=== PATIENT | male | born 1965 | race Caucasian/White ===

== ENCOUNTER 2016-04-27 16:07 | Inpatient (IN) | payer OTHER ==
[~2016-04-27] VITALS: Ht 170.2 cm; Wt 84.6 kg
[~2016-04-27 16:07] MED LIST: ACET-171 PO; AMLO5TAB2 PO; ASPI-973 PO; DIVA500T14 PO; FURO40TA4 PO; INSU100I8 SUBQ; INSU100V7 SUBQ; LABE200T PO; LIP40 PO; OMEP20CA11 PO
[2016-04-27 16:18] VITALS: BP 140/72; PULSE 66; RESP 20; O2SAT 99
[2016-04-27 20:28] VITALS: BP 207/89; PULSE 61; RESP 18; O2SAT 99
--- NOTE | 2016-04-27 20:42 | ED.REPORT ---
HPI-General Illness Date of Service Apr 27, 2016 ED Provider: Dr. Caleb Diamond M.D. A 50 year old male with a medical history including diabetes, diabetic retinopathy, hypertension, bipolar disorder, chronic kidney disease, and chronic elevated troponin presents to the ED from his PCP's office with abnormal lab results. The patient also reports general malaise and weakness. He denies other symptoms. He was admitted to the hospital for one night on with diagnoses including hypertensive emergency and acute kidney disease. Nursing Notes Stated Complaint: KIDNEY PAIN, UNRESPONSIVE AT TIMES/SENT FROM Chief Complaint: General Complaint Nursing Notes Reviewed: Yes Allergies: Coded Allergies: tetanus and diphtheria toxoids (Verified Allergy, Severe, COULDN'T HEAR VOMITING, SYNCOPE HOSPITALIZED, 04/09/16) Sulfa (Sulfonamide Antibiotics) (Verified Allergy, Unknown, 01/28/16) Scheduled Amlodipine (Amlodipine) 5 Mg Tablet 10 MG PO DAILY Aspirin (Aspirin) 81 Mg Tablet 81 MG PO DAILY Atorvastatin (Lipitor) 40 Mg Tablet 40 MG PO DAILY Divalproex ER (Divalproex ER) 500 Mg Tab.er.24h 500 MG PO TID Furosemide (Furosemide) 40 Mg Tablet 40 MG PO BID Insulin Glargine (Lantus U100 Insulin Vial) 100 Unit/Ml Vial 10 UNIT SUBQ Noon Insulin Glulisine (Apidra U100 Insulin Solostar Pen) 100 Unit/1 Ml Insuln.pen 6- 8 UNITS SUBQ DAILY Labetalol (Labetalol) 200 Mg Tablet 200 MG PO TID Omeprazole (Omeprazole) 20 Mg Capsule.dr 20 MG PO DAILY Scheduled PRN Acetaminophen (Acetaminophen) 500 Mg Tablet 500-1,000 MG PO Q6H PRN PRN For Headache General Time Seen by MD: 20:42 Chief Complaint Other (Abnormal Labs) Hx Obtained From: Patient Arrived By: Walk-in Sudden in Onset?: No Onset Occurred: Just prior to arrival Symptom Duration: Since onset Severity: Current: No pain currently Severity: Maximum: No pain Associated with: Reports: Weakness, Denies: Fever Pertinent Negative: Relieved by nothing Context Related History: Reports Diabetes mellitus, Reports Psychiatric history Recent Healthcare: Recent doctor visit, Recent hospitalization Similar Sx Previous: Yes Past Medical History Past Medical History Undiagnosed mental disorder Bipolar, manic Headaches non-migraine 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 Chronic kidney disease Reports: Diabetes mellitus, Hypertension Past Surgical History Hernia repair Smoking History Former Smoker Social History Alcohol Use: In recovery Drug Use: Denies drug use Other Social History: Smokeless tobacco, Good social support, Lives with children Ambulatory Status Independent Review of Systems + Abnormal lab results from PCP Full Review of Systems Constitutional: Reports: Malaise, Weakness - generalized, Denies: Fever Respiratory: Denies: Non-productive cough, Shortness of breath GI: Denies: Nausea, Vomiting Musculoskeletal: Denies: Back pain, Extremity pain Complete sys rev & neg: except as marked. Physical Exam Vital Signs Vital Signs Date Time Temp Pulse Resp B/P Pulse Ox O2 Delivery O2 Flow Rate FiO2 04/28/16 01:00 57 14 216/82 99 Room Air 04/28/16 00:30 63 14 235/86 99 Room Air 04/28/16 00:00 63 14 233/95 98 Room Air 04/27/16 23:18 64 229/89 04/27/16 20:28 36.5 61 18 207/89 99 Room Air 04/27/16 16:18 37.2 66 20 140/72 99 Room Air Initial VS: Reviewed Neck: Supple, Full range of motion Respiratory: Breath sounds normal, Clear to auscultation, No respiratory distress Cardiovascular: Regular rate & rhythm, Heart sounds normal Abdomen / GI: Soft, Non-tender Extremities: Vascular intact, Neuro intact, No swelling Skin: Warm, Dry Neurologic: Alert, Oriented, Nonfocal Psychiatric: Mood/affect normal, Behavior normal, Normal thought content General/Constitutional: Awake, Alert, No acute distress Distress / Hydration: Positive: Dehydration mild Appearance / Presentation: Positive: Pale Head / Eyes: Atraumatic, Normocephalic Acuity / Tonometry: Positive: Visual acuity abnormal L (Baseline), Visual acuity abnormal R (Baseline) ENT: Atraumatic, Airway patent Mouth: Positive: Mucous membranes dry Interpretation & Diagnostics LABS 04/14/16: WBC 3.9 RBC 2.66 HGB 7.8 HCT 23.3 MCV 87.6 MCH 29.3 MCHC 33.5 RDW 13.2 Platelets 244 MPV 9.6 Sodium 135 Potassium 5.3 Chloride 105 CO2 26 Anion Gap 4 Glucose 193 BUN 46 Creatinine 3.80 GFR Non-Black 18 GFR Black 20 Protein, Total 0.5 Albumin 3.4 Calcium 8.5 Bilirubin, Total 0.5 Alkaline Phosphatase 38 ALT 12 AST 14 Calculated OSMO 287 Lab Results Interpretation Result Diagram: 04/27/16211104/27/162111 Test 04/27/16 21:12 04/27/16 21:24 White Blood Count 4.0th/mm3 (3.8-10.1) Red Blood Count 2.28mil/mm3 (4.40-5.80) Hemoglobin 6.7g/dL (13.8-17.2) Hematocrit 19.3% (41.0-50.0) Mean Corpuscular Volume 84.6fL (81-100) Mean Corpuscular Hemoglobin 29.4pg (27.0-35.0) Mean Corpuscular Hemoglobin Concent 34.7% (32.0-37.0) Red Cell Distribution Width 12.9% (12.3-15.4) Platelet Count 171bil/L (150-400) Neutrophils (%) (Auto) 74.6% (40-74) Lymphocytes (%) (Auto) 15.9% (14-46) Monocytes (%) (Auto) 6.0% (4-12) Eosinophils (%) (Auto) 2.0% (0-5) Basophils (%) (Auto) 0.5% (0-3) Prothrombin Time 10.0sec (8.1-12.5) Prothromb Time International Ratio 0.94ratio Sodium Level 133mEq/L (134-144) Potassium Level 4.8mEq/L (3.5-5.2) Chloride Level 101mEq/L (97-108) Carbon Dioxide Level 20mmol/L (18-29) Blood Urea Nitrogen 39mg/dL (6-24) Creatinine 3.41mg/dL (0.76-1.27) Estimat Glomerular Filtration Rate 20mL/min (>59) Glucose Level 385mg/dL (60-99) Calcium Level 8.2mg/dL (8.5-10.1) Magnesium Level 2.2mg/dL (1.6-2.6) Total Bilirubin 0.2mg/dL (0.0-1.2) Aspartate Amino Transf (AST/SGOT) 9U/L (0-50) Alanine Aminotransferase (ALT/SGPT) 8U/L (0-44) Alkaline Phosphatase 52U/L (25-150) Troponin T 0.238ug/L (0.0-0.011) Total Protein 6.2g/dL (6.4-8.4) Albumin 3.3g/dL (3.4-5.0) Lipase 20U/L (13-60) Hold Cook Top Tube Received (Received) Urine Color Yellow (YELLOW) Urine Appearance Clear (CLEAR,HAZY) Urine pH 5.5 (5.0-8.0) Urine Specific [place] 1.020 (1.003-1.035) Urine Protein 100mg/dL (NEG,TRACE) Urine Glucose (UA) 100mg/dL (NEGATIVE) Urine Ketones Negativemg/dL (NEGATIVE) Urine Occult Blood Moderate (NEGATIVE) Urine Nitrite Negative (NEGATIVE) Urine Bilirubin Negative (NEGATIVE) Urine Urobilinogen Normalmg/dL (NORMAL) Urine Leukocyte Esterase Negative (NEGATIVE) Urine RBC 0-2/hpf (0-2) Urine WBC 0-5/hpf (0-5) Urine Epithelial Cells None/hpf (NONE-MOD) Urine Crystals None seen (NONE SEEN) Urine Bacteria Few/hpf (NONE-FEW) Urine Hyaline Casts None/lpf (NONE) Urine Granular Casts None seen (NONE SEEN) Urine Waxy Casts None seen (NONE SEEN) Urine Red Blood Cell Casts None seen (NONE SEEN) Urine White Blood Cell Casts None seen (NONE SEEN) Urine Mucus None seen (None Seen) Urine Trichomonas None seen (NONE SEEN) Urine Yeast None (NONE SEEN) Urinalysis Comment None Urine Culture Reflexed Not indicated ECG Interpretation ECG Interpretation: Sinus rhythm rate 62 Nonspecific T abnormalities, lateral leads Time: 21:16 X-Ray Chest Interpretation Chest Xray Interpretation: Borderline increased heart size No heart failure or infiltrate View: Portable, 1 view Interpretation / Wet Read by: Wet read ED physician Re-Eval/Medical Decision Med Decision/Clinical Course 50-year-old with diabetes and every other conceivable complication, presents with increased weakness, and was referred in with abnormal labs from a post discharge office visit today. His hemoglobin has drifted down from his baseline value in the mid nines. It is now 6.7. His renal function is remained about stable. His potassium is minimally elevated at 5.4. His blood pressure is been intermittently problematic, and hypertension urgency was the cause of his admission last time. It ultimately resolved with multiple doses of labetalol and clonidine. He is transported home in improved condition. Source of Hx: Old records Time of Eval: 22:30 Patient Status: Condition improved Re-Evaluation/Progress Note: Discussed with patient x-ray and lab results, diagnosis, and plan for admit. Patient agrees with plan for care and all questions were addressed. Consultation : Referral / Consult Name: Ansley Larose MD Consulted With: Hospitalist Call Returned at: 22:38 Hogshead Filler: Agrees with eval, Agrees with plan, Accepts admit Counseled Regarding: Diagnosis, Lab results, Need for admission Discharge & Departure Primary Impression: Anemia Anemia type: unspecified type Qualified Code: D64.9 - Anemia, unspecified Additional Impressions: CRF (chronic renal failure) Chronic kidney disease stage: stage 4 (severe) Qualified Code: N18.4 - Chronic kidney disease, stage 4 (severe) Elevated troponin Accelerated hypertension Disposition: ADMITTED TO HOSPITAL Discharge Condition All VS Reviewed: Yes Condition: Stable Referrals: Charity Monson PA-C (PCP) Crit Care Except Billable Proc Time Spent: 30-74 minutes Services Performed: Patient management by me, Time spent at bedside, Reviewing test results, Reviewing imaging, Discussing patient care, Documentation in record Scribe Attestation Portions of this note were transcribed by Jaye Lake. I, Dr. Diamond, personally performed the history, physical exam, and medical decision-making; I reviewed and confirmed the accuracy of the information in the transcribed note. Signed by: Joss Medel, 04/28/2016, 01:53 copies to: Charity Monson PA-C, Christopher W MD Apr 27, 2016 20:42 JAYE LAKE Apr 27, 2016 20:59
[2016-04-27] MEDS ORDERED: 0.9% Sodium Chloride 1,000 ML IV ONE (21:00)
[2016-04-27 21:26] LABS: BASOPHILS % (AUTO) 0.5 % (0-3); Mean Corpuscular Hemoglobin 29.4 pg (27.0-35.0); Mean Corpuscular Volume 84.6 fL (81-100); NEUTROPHILS % (AUTO) 74.6 % (40-74); Platelet Count 171 bil/L (150-400)
[2016-04-27 21:45] LABS: APPEARANCE,URINE CLEAR (CLEAR,HAZY); COLOR,URINE YELLOW (YELLOW); PH,URINE 5.5 (5.0-8.0)
[2016-04-27 21:46] LABS: OCCULT BLOOD,URINE MODERATE (NEGATIVE)
[2016-04-27 21:47] LABS: UROBILINOGEN,URINE NORMAL (NORMAL)
[2016-04-27 21:49] LABS: INR 0.94 ratio
[2016-04-27 21:57] LABS: Magnesium 2.2 mg/dL (1.6-2.6)
[2016-04-27 21:59] LABS: TROPONIN T 0.238 ug/L (0.0-0.011)
[2016-04-27 23:18] VITALS: BP 229/89; PULSE 64
[2016-04-27 23:20] VITALS: BP_SYST 197; BP_SYST 237; BP_DIAS 85; BP_DIAS 86; PULSE 57; PULSE 74; RESP 14; RESP 18; O2SAT 98; O2SAT 99
[2016-04-27] MEDS ORDERED: Labetalol 5 mg/mL 4 mL Inj IVPUSH ONE (23:40)
[2016-04-28] VITALS (32 sets, daily range): BP systolic 120–235; BP diastolic 63–97; PULSE 54–64; RESP 14–20; O2SAT 96–99
[2016-04-28] MEDS ORDERED: cloNIDine 0.1 mg Tablet PO ONE (00:10)
[2016-04-28] MEDS ORDERED: Labetalol 5 mg/mL 4 mL Inj IVPUSH ONE (00:45)
--- NOTE | 2016-04-28 00:48 | PCM.HPMED ---
Subjective Date of Service Apr 28, 2016 Primary Provider: Admitting Physician: Primary Care Physician: Charity Monson PA-C Attending Physician: Chief Complaint: Abnormal labs History of Present Illness: Patient is a 50-year-old male with hypertension, poorly controlled type II diabetes and bipolar disorder presenting as a referral from his physician's office as a result of abnormal labs. The patient was hospitalized at [facility] on and discharged 04/11/2016 for hypertensive urgency. He reports having follow up labs completed on 04/14/2016 and subsequently received a phone call today from his PCP's office advising him to go to the ED for further evaluation because of abnormal lab results. The patient is uncertain as to which labs are abnormal. He reports being told that he had bad kidneys during his last admission and has been drinking a lot of water since his discharge. Patient states that he probably drinks 15-20 glasses of water per day. At time of visit the patient reports feeling well since his discharge. He reports chronic chest pain and mild shortness of breath but nothing that is out of the ordinary for him. Patient denies fever, chills, nausea, emesis, diarrhea, hematochezia, melena, dysuria, hematuria. Patient reports taking his medications as directed. He has been working with his PCP to adjust his medications as he reports occasional lightheadedness. Patient states he recently adjusted an unknown medication from 50mg daily to 25mg daily. In the ED, vitals: temp 36.5, HR 74, RR 18 satting 98% on room air, BP 237/ 86. Notable labs: Hgb 6.7, Hct 19.3, BUN 39, creatinine 3.41, glucose 385. Troponin 0.238. Patient received labetalol 40mg IV in the ED. Review of Systems: A comprehensive review of systems was conducted with the patient and found to be negative except as above in the History of Present Illness. Allergies Coded Allergies: tetanus and diphtheria toxoids (Verified Allergy, Severe, COULDN'T HEAR VOMITING, SYNCOPE HOSPITALIZED, 04/09/16) Sulfa (Sulfonamide Antibiotics) (Verified Allergy, Unknown, 01/28/16) Home Medications From recent discharge on 04/11/2016: Amlodipine 10mg PO daily Aspirin 81mg PO daily Atorvastatin 40mg PO daily Divalproex ER 500mg TID Furosemide 40mg PO BID Insulin Glargine 10u subQ at noon daily Insulin Glulisine 6-8u subQ daily Labetalol 200mg PO TID Omeprazole 20mg PO daily PMH Undiagnosed mental disorder Bipolar, manic Headaches non-migraine 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 Type 2 diabetes mellitus Hypertension . Surgical History Hernia repair Family History Mother is alive with bipolar disorder Social History Hx Alcohol Use: No Hx Substance Use: No Hx Tobacco Use: Yes (chewing tobacco, occasional cigarette.) Smoking Status: Former Smoker Living Arrangement: with Friends/Roommate Exam Vital Signs Vital Sign - Last Date Time Temp Pulse Resp B/P Pulse Ox O2 Delivery O2 Flow Rate FiO2 04/27/16 23:20 36.5 74 18 237/86 98 Room Air Exam General: No acute distress, well-developed, well-nourished, appropriately interactive HEENT: Normocephalic, atraumatic. External ears without defect. Pupils equal, round, and reactive to light. Anicteric sclerae, moist conjunctivae, and no lid lag. Oropharynx free of erythema and cobble stoning with moist mucosa. Neck: Supple. No lymphadenopathy or thyromegaly. Cardiovascular: Regular rate and rhythm with no murmurs, rubs, or gallops appreciated Pulmonary: Clear to auscultation bilaterally with no crackles, wheezes, or rhonchi. Normal respiratory effort with no use of accessory muscles. Abdomen: Bowel tones present. Mild tenderness midline abdomen. Soft. Nondistended. No hepatosplenomegaly or masses appreciated. Extremities: No clubbing, cyanosis, edema, or lymphadenopathy appreciated. Skin: Normal temperature, turgor, and texture; no rash, ulcers, or subcutaneous nodules appreciated. Neurological: Cranial nerves grossly intact. Psychiatric: Normal mood and affect. Alert and oriented to person, place, and time. Lab and Diagnostics Result Diagram: 04/27/16211104/27/162111 Assessment & Plan Patient is a 50-year-old male with hypertension, poorly controlled type II diabetes and bipolar disorder presenting as a referral from his physician's office as a result of abnormal labs and admitted for anemia and hypertensive urgency. 1. Acute on chronic anemia. Present on admission. Active -Hgb 6.7, Hct 19.3 -Hgb 7.4 on discharge 04/11/2016 -Etiology likely multifactorial: CKD, dilutional from water consumption -Stool guaiac negative -Transfuse PRBC -Follow H/H 2. Hypertensive urgency. Present on admission. Active -207/88 in the ED -Reports being compliant with home antihypertensive regimen; attributes current BP elevation to missing evening dose of labetalol as he has been in the ED -Patient received labetalol 40mg IV in the ED -Continue home regimen of labetalol, amlodipine, Lasix 3. Acute kidney injury on chronic kidney disease stage 4. Present on admission. -Likely secondary to hypertensive nephrosclerosis and diabetes nephropathy -Creatinine 3.41. Baseline reportedly ~3 -Avoid nephrotoxins -Monitor with CMP 4. Uncontrolled type II diabetes with retinopathy, neuropathy, nephropathy. Chronic. Present on admission -Blood glucose 385 in ED -HgbA1c 8.4% in 01/2016 -Bedside blood glucose checks -Medium dose insulin Lispro -Continue home regimen of Lantus 10u at noon 5. Elevated troponin of uncertain significance, chronic. Present on admission -Likely secondary to CKD -Patient is without chest pain. EKG NSR with HR 62, no acute ST-changes -Telemetry -Trend 6. Nicotine dependence. Present on admission. Active -Discussed smoking cessation Patient Status: Patient is admitted under observation status with expected length of stay less than 2 midnights due to risk of adverse event and complexity of treatment plan. GI Prophylaxis: Not indicated VTE Prophylaxis: SCDs, Other (Anemic) Resuscitation Status: CPR: Attempt Resuscitation Attending Statement Pt seen and examined by myself and agree with above plan. Rustam Jordan DO Apr 28, 2016 00:28 Ansley Larose MD May 01, 2016 19:01
[2016-04-28] MEDS ORDERED: Nitroglycerin 2% 1 Gm Ointment TOPICAL SCH (01:20)
[2016-04-28] MEDS ORDERED: hydrALAZINE 20 mg/mL Inj IV ONE ×2 (02:50→04:35)
[2016-04-28] MEDS: Divalproex (QD) 500 mg ER24 Tablet PO SCH ×4 (02:58→20:43)
[2016-04-28] MEDS: 0.9% Sodium Chloride 250 ML IV SCH ×2 (02:59→23:40)
[2016-04-28] MEDS ORDERED: Glucose 40% Oral Gel 15 Gm Tube PO PRN (04:35)
[2016-04-28] MEDS: Insulin LISPRO 300 Unit/3 mL Inj SUBQ SCH ×5 (05:22→20:51)
--- NOTE | 2016-04-28 07:30 | NUR ---
admit note Pt is admitted to room 3008 from ER around 01:45 for anemia, CKF, and elevated trop. Pt is A&Ox4, legally blind bilaterally. denies pain or discomfort. Rec'd an order for hydralazine for SBP in 170s and to transfuse 1unit of PRBC. Pt tolerated transfusion well w/o adverse effects. Hydralazine worked for few minutes and SBP climbed back up to 190s. Another dose of hydralazine was ordered. SBP was 150s-170s. Pt was c/o dizziness when up. Took BP when standing; SBP from 170s to 143. Pt is encouraged to call for assist when getting OOB. pt compliant. Pt is oriented to room and plan of care; he verbalized understanding.
[2016-04-28] MEDS: Pantoprazole 40 mg ER24 Tablet PO SCH (08:29)
--- NOTE | 2016-04-28 08:33 | DRSVH ---
PROCEDURE: X-RAY CHEST ONE VIEW, PORTABLE ([id number]) INDICATIONS: CHF TECHNIQUE: One view of the chest was acquired. COMPARISON: [facility], CR, XR CHEST 1VW (PORTABLE), 04/09/2016, 10:58. [facility], CR, XR CHEST 1VW (PORTABLE), 01/28/2016, 15:38. [facility], CR, XR CHEST 1VW (P ORTABLE), 11/22/2015, 15:05. FINDINGS: Surgical changes and devices: None. Lungs and pleura: No pleural effusions or pneumothorax. Lungs are clear. Mediastinum: Mediastinal contours appear normal. Heart size is normal. Bones and chest wall: No suspicious bony lesions. Overlying soft tissues appear unremarkable. IMPRESSION: No acute process. Concordant with preliminary interpretation. Dictated by: Judy Morgan M.D. on 04/28/2016 at 8:31 Approved by: Judy Morgan M.D. on 04/28/2016 at 8:31
--- NOTE | 2016-04-28 15:25 | PCM.PNMED ---
Subjective Date of Service Apr 28, 2016 Subjective Overnight: Elevated BP with moderate improvement with hydralazine. 1U pRBC transfused overnight Today: To receive additional 2U pRBC. States he feels well, denies any CP, SOB, nausea, vomiting, fever, chills. States his BP was elevated throughout the night because he did not take his pm BP medications, secondary to being in the ED all evening. He states compliance with his home medications. Exam Vital Signs Vital Sign - Last Date Time Temp Pulse Resp B/P Pulse Ox O2 Delivery O2 Flow Rate FiO2 04/28/16 13:44 36.4 56 18 124/65 96 Room Air Intake and Output 04/27/16 04/27/16 04/28/16 Cumulative From/Thru 15:00 23:00 07:00 04/27/16 16:18 - 04/28/16 06:37 Intake Total 1000 ml 801 ml 1801 ml Output Total 225 ml 225 ml Balance 1000 ml 576 ml 1576 ml Intake Oral 436 ml 436 ml IV Total 1000 ml 15 ml 1015 ml Packed Cells 350 ml 350 ml Output Urine Total 225 ml 225 ml Exam General: No acute distress, well-developed, well-nourished, appropriately interactive HEENT: Normocephalic, atraumatic. Pupils equal, round, and reactive to light. Anicteric sclerae, moist conjunctivae Oropharynx free of erythema with moist mucosa. Neck: Supple.Trachea midline Cardiovascular: Regular rate and rhythm with no murmurs, rubs, or gallops appreciated Pulmonary: Clear to auscultation bilaterally with no crackles, wheezes, or rhonchi. Normal respiratory effort with no use of accessory muscles. Abdomen: Bowel tones present. Soft. Nondistended. Extremities: No edema Skin: Normal temperature, turgor, and texture Neurological: Cranial nerves grossly intact. Psychiatric: Normal mood and affect. Alert and oriented to person, place, and time. Lab and Diagnostics Result Diagram: 04/28/16 1436 04/27/162111 Assessment & Plan Patient is a 50-year-old male with hypertension, poorly controlled type II diabetes and bipolar disorder presenting as a referral from his physician's office as a result of abnormal labs and admitted for anemia and hypertensive urgency. - Hospital day one 1. Acute on chronic anemia. Present on admission. Active - On admit: Hgb 6.7, Hct 19.3 - Hgb 7.4 on discharge 04/11/2016 - Etiology likely multifactorial: CKD, dilutional from water consumption - Stool guaiac negative - Total pRBC transfused: 3U - Trend H/H q6h - Anemia panel 2. Hypertensive urgency. Present on admission. Active - in the ED - Reports being compliant with home antihypertensive regimen; attributes current BP elevation to missing evening dose of labetalol as he has been in the ED - Patient received labetalol 40mg IV in the ED - Continue home regimen of labetalol, amlodipine, Lasix 3. Acute kidney injury on chronic kidney disease stage 4. Present on admission. Ongoing - Likely secondary to hypertensive nephrosclerosis and diabetes nephropathy - Creatinine 3.41. Baseline reportedly ~3 - Avoid nephrotoxins - Monitor with BMP 4. Uncontrolled type II diabetes with retinopathy, neuropathy, nephropathy. Chronic. Present on admission. Ongoing - Blood glucose 385 in ED - HgbA1c 8.4% in 01/2016 - Bedside blood glucose checks - Medium dose insulin Lispro - Resumed home dose 10U glargine at 1200 5. Elevated troponin of uncertain significance, chronic. Present on admission. Presumed stable - On admit: 0.238 - At prev DC: 0.141 - Likely secondary to CKD - Patient is without chest pain. EKG NSR with HR 62, no acute ST-changes - Telemetry - Trend 6. Nicotine dependence. Present on admission. Ongoing -Discussed smoking cessation - Patch and lozenges avail at request - PRN: Fever/antiemetics/bowel/pain - GI: PPI - DVT: SCDs - Diet: Heart healthy - Code: FULL CODE Dispo: Likely to DC 04/29 pending medical stability. No anticipated needs at this time. Pain Evaluation: Adequate Pain Control GI Prophylaxis: Not indicated VTE Prophylaxis: SCDs, Other (Anemic) Resuscitation Status: CPR: Attempt Resuscitation Attending Statement The patient was discussed together with Dr. Noble on 04/28/2016 and I agree with the history, exam and plan as outlined in the note above. Pt was admitted on 04/28/2016. Non billable rounding. Diane Regalado DO Apr 28, 2016 15:25 Kayode Card MD Apr 29, 2016 09:48
--- NOTE | 2016-04-28 15:30 | NUR ---
Social work:Initial assessment Data:EMR reviewed. Pt is a 50 yr old who was admitted on 04/28/16 for anemia and elevated troponin per H&P. Pt's insurance is [employer] and PCP is GURJIT Wiley. SW met with pt at bedside, SW role explained. Pt lives at home with his ex- Khurram in [place] where he remains independent with ADls. Pt is legally blind, family helps with chores, his medications and driving him to appointments. Pt has hx of Bipolar which he states has been stable, he is on medications and sees Gardenia at [facility] [phone], pt declining any suicidal ideation. Pt states Khurram will provide transport home at discharge. No anticipated discharge needs. SW will continue to follow if needs arise. Assessment:Pt who is independent at baseline. Plan: Pt to discharge home when medically stable via POV. No anticipated discharge needs. SW will continue to follow if needs arise. RENEA Moss
--- NOTE | 2016-04-28 17:53 | NUR ---
Transfusion- Patient received 2 units of RBC's.No problems during transfusion. No signs of bleeding noted. Patient does say he still feels "a little" dizzy when getting up. Also, complaining of left ear being plugged. He said that he has had some respiratory symptoms prior to hospitalization. Tele- sinus bipin;50's. SBP- 120-180's.
[2016-04-28] MEDS: Ondansetron 2 mg/mL 2 mL Inj IVPUSH PRN (22:47)
[2016-04-29] VITALS (11 sets, daily range): BP systolic 152–179; BP diastolic 75–87; PULSE 58–65; RESP 16–19; O2SAT 93–99
[2016-04-29] MEDS: hydrALAZINE 20 mg/mL Inj IV PRN
--- NOTE | 2016-04-29 00:01 | NUR ---
Nausea: P: Pt c/o nausea without emesis. I: Pt given 4 mg of Zofran IV at 2247. E: Pt reports nausea to have resolved. Will cont. to monitor.
--- NOTE | 2016-04-29 00:33 | NUR ---
HTN: P: Htn persists despite schedule labetalol dose administered. BP elevated up to 199/92. I: Dr. Jordan notified of blood pressure. New order obtained for PRN hydralazine. 10 mg of IV hydralazine administered. E: Blood pressure 30 minutes post intervention is 152/75.
[2016-04-29 06:38] LABS: BASOPHILS % (AUTO) 0.4 % (0-3); EOSINOPHILS % (AUTO) 1.6 % (0-5); MONOCYTES % (AUTO) 9.5 % (4-12); Mean Corpuscular Hemoglobin 29.9 pg (27.0-35.0); Mean Corpuscular Volume 84.8 fL (81-100); NEUTROPHILS % (AUTO) 71.8 % (40-74); Platelet Count 192 bil/L (150-400)
[2016-04-29 06:44] LABS: Magnesium 2.1 mg/dL (1.6-2.6); Phosphorus 4.8 mg/dL (2.5-4.9); Unsaturated Iron Binding 236.1 ug/dL
[2016-04-29] MEDS: Insulin LISPRO 300 Unit/3 mL Inj SUBQ SCH ×4 (08:38→21:20)
[2016-04-29] MEDS: Pantoprazole 40 mg ER24 Tablet PO SCH (08:39)
[2016-04-29] MEDS: Divalproex (QD) 500 mg ER24 Tablet PO SCH ×3 (08:39→21:13)
[2016-04-29] MEDS: Insulin GLARgine 100 Unit/mL Syringe SUBQ SCH (12:18)
--- NOTE | 2016-04-29 13:27 | PCM.PNMED ---
Subjective Date of Service Apr 29, 2016 Subjective Overnight: Reported HTN, 10mg hydralazine IV ordered; s/p total 3U pRBC, with last completed previous evening Today: States he feels 'fine.' Denies dizziness, chest pain, SOB, abdominal pain. Tolerating po well. Exam Vital Signs Vital Sign - Last Date Time Temp Pulse Resp B/P Pulse Ox O2 Delivery O2 Flow Rate FiO2 04/29/16 05:08 64 04/29/16 04:39 37.1 16 179/87 99 Room Air Intake and Output 04/28/16 04/28/16 04/29/16 Cumulative From/Thru 15:00 23:00 07:00 04/27/16 16:18 - 04/29/16 05:28 Intake Total 1821 ml 200 ml 3822 ml Output Total 300 ml 775 ml 1300 ml Balance 1521 ml -575 ml 2522 ml Intake Oral 820 ml 200 ml 1456 ml IV Total 229 ml 1244 ml Packed Cells 772 ml 1122 ml Output Urine Total 300 ml 775 ml 1300 ml # Voids 1 1 2 # Bowel Movements 1 1 2 Exam General: No acute distress, well-developed, well-nourished, appropriately interactive HEENT: Normocephalic, atraumatic. Anicteric sclerae, moist conjunctivae. Oropharynx free of erythema with moist mucosa. Neck: Supple. Trachea midline Cardiovascular: Regular rate and rhythm with no murmurs, rubs, or gallops appreciated Pulmonary: Clear to auscultation bilaterally with no crackles, wheezes, or rhonchi. Normal respiratory effort with no use of accessory muscles. Abdomen: Bowel tones present. Soft. Nondistended. Extremities: No edema Skin: Normal temperature, turgor, and texture Neurological: Cranial nerves grossly intact. Psychiatric: Normal mood and affect. Alert and oriented to person, place, and time. Lab and Diagnostics Result Diagram: 04/29/16 0545 04/29/16 0545 Assessment & Plan Patient is a 50-year-old male with hypertension, poorly controlled type II diabetes and bipolar disorder presenting as a referral from his physician's office as a result of abnormal labs and admitted for anemia and hypertensive urgency. - Hospital day two 1. Acute on chronic anemia. Present on admission. Resolved - On admit: Hgb 6.7, Hct 19.3 - Hgb 7.4 on discharge 04/11/2016 - Etiology likely multifactorial: CKD, dilutional from water consumption - Stool guaiac negative - Total pRBC transfused: 3U - Trend H/H q12h - Anemia panel: Pending 2. Hypertensive urgency. Present on admission. Improved - 207/88 in the ED - Reports being compliant with home antihypertensive regimen; attributes current BP elevation to missing evening dose of labetalol as he has been in the ED - Patient received labetalol 40mg IV in the ED - Continue home regimen of labetalol, amlodipine, Lasix - Hydralazine 10mg four times daily 3. Acute kidney injury on chronic kidney disease stage 4. Present on admission. Ongoing - Likely secondary to hypertensive nephrosclerosis and diabetes nephropathy - Creatinine 3.41. Baseline reportedly ~3 - Avoid nephrotoxins - Monitor with BMP - Nephrology consult; appreciate time and recommendations 4. Uncontrolled type II diabetes with retinopathy, neuropathy, nephropathy. Chronic. Present on admission. Ongoing - Blood glucose 385 in ED - HgbA1c 8.4% in 01/2016 - Bedside blood glucose checks - Medium dose insulin Lispro - Resumed home dose 10U glargine at 1200 5. Elevated troponin of uncertain significance, chronic. Present on admission. Presumed stable - On admit: 0.238 - At prev DC: 0.141 - Likely secondary to CKD - Patient is without chest pain. EKG NSR with HR 62, no acute ST-changes - Telemetry - Trend 6. Nicotine dependence. Present on admission. Ongoing -Discussed smoking cessation - Patch and lozenges avail at request - PRN: Fever/antiemetics/bowel/pain - GI: PPI - DVT: SCDs - Diet: Heart healthy - Code: FULL CODE Dispo: Likely to DC 04/30 pending medical stability. No anticipated needs at this time. Pain Evaluation: Adequate Pain Control GI Prophylaxis: Not indicated VTE Prophylaxis: SCDs, Other (Anemic) Resuscitation Status: CPR: Attempt Resuscitation Attending Statement The patient was seen and examined together with Dr. Regalado on 04/29/2015 and I agree with the history, exam and plan as outlined in the note above. Diane Regalado DO Apr 29, 2016 08:03 Kayode Card MD Apr 30, 2016 10:11
[2016-04-29] MEDS ORDERED: HYDR-3939 PO (14:00)
[2016-04-29] MEDS ORDERED: Ferric Sod Gluc Complex Inj 125 MG in 0.9% Sodium Chloride 100 ML IV ONE (15:35)
[2016-04-29] MEDS ORDERED: Darbepoetin Alfa 60 mCg/0.3 mL Inj SUBQ ONE (15:35)
--- NOTE | 2016-04-29 16:11 | CONS ---
[address] [address] CONSULTATION REPORT PATIENT: SAHNT MARTINEZ : 1965 MR#: [id number] ADMIT: 04/28/2016 JOB ID: [id number] DATE OF SERVICE: RENAL CONSULTATION: HISTORY: The patient is rather unfortunate 50-year-old, white male who was admitted to [facility] for acute anemia. He has a history of chronic kidney disease secondary to diabetes and poorly controlled hypertension, and has been seen by our service in the past. Renal consultation is being sought for further management of his progressive renal disease. He has a history of type 2 diabetes since approximately 2000. His diabetes has been very poorly controlled. It has been complicated by severe diabetic retinopathy with blindness in his left eye and near blindness in his right eye, peripheral neuropathy, and diabetic renal disease. Reviewing his laboratory, he normally has been running a serum creatinine of approximately 2.4-2.7 since this past summer and into the fall. He was recently admitted to the hospital approximately a month ago for hypertensive urgency. At that time, his creatinine was in the mid 3 range. This was treated, and he was subsequently discharged. He was found to have a marked anemia on some routine blood tests by his primary care physician, and he was advised to come to the hospital. On April 27, 2016, his hemoglobin was 6.7, hematocrit was 19.3. He was given 2 units of blood. However, there is no followup CBC noted. Today, his BUN and creatinine were 47 and 3.78. Followup CBC was 9.8. Also, since admission, he has had some considerable waxing and waning of his blood pressure. Overall, he has been averaging a systolic blood pressure between 150 and 180. Previous evaluations, including a renal artery duplex scan, did not quite eliminate renal vascular hypertension as an etiology. There is a questionable compliance with both his diabetic medication and his hypertensive medication. He does not do any home blood pressure monitoring nor does he do any glucose monitoring. Otherwise, on reviewing his current hospitalization, he has not been given any overt nephrotoxins. However, he is on a proton pump inhibitor. PAST MEDICAL HISTORY: Significant for complicated diabetes as detailed above which includes diabetic retinopathy, diabetic peripheral neuropathy and diabetic renal disease. There is also a history of bipolar disorder, hypertension with hypertensive heart disease and hypertensive nephrosclerosis, and stage 3/4 diabetic kidney disease. PAST SURGICAL HISTORY: Significant for hernia repair and multiple laser treatments to his eyes. SOCIAL HISTORY: He denies the current use of alcohol or cigarettes. However, he does chew tobacco. He denies use of illicit drugs. MEDICATIONS: At time of my evaluation include insulin, hydralazine, calcium carbonate, atorvastatin, nicotine patch, amlodipine, Lasix, labetalol, Protonix and nitroglycerin, along with Depakote. FAMILY HISTORY: Noncontributory. REVIEW OF SYSTEMS: As detailed above. Otherwise is unremarkable. PHYSICAL EXAMINATION: Reveals a chronically ill, pale-appearing 50-year-old, white male who looked much older than his stated age. His vital signs at the time of my evaluation showed a blood pressure of 173/80 with a pulse rate of 65. HEENT examination is remarkable for pale sclerae. Neck is supple without adenopathy, thyromegaly, or jugular venous distention. Lungs were clear to auscultation. Heart was regular and rhythmical with a soft systolic murmur. There was a questionable S4 noted. Abdomen was soft, without tenderness, rebound, guarding, masses, or hepatosplenomegaly. Extremities do not show any clubbing, cyanosis, or edema. Skin turgor was good, and there is no evidence of any rashes. LABORATORY EXAMINATION: This morning his sodium was 133, potassium 4.9, chloride of 100, CO2 of 18, BUN and creatinine were 47 and 3.78, respectively. His hemoglobin this morning was 9.8 with hematocrit 27.8, red cell indices and platelet count were within normal limits. Urinalysis showed a specific gravity 1.020, pH 5.5, test for protein and glucose were positive and his microscopic examination was unremarkable. IMPRESSION: 1. Stage 4 kidney disease versus acute on chronic kidney injury. 2. Diabetic renal disease. 3. Hypertension with hypertensive heart disease and hypertensive nephrosclerosis with poor control. 4. Type 4 renal tubular acidosis. 5. Anemia secondary to chronic kidney disease. Also, we need to rule out a possible acute anemia. In light of his chronic kidney disease, I would be concerned about arteriovenous malformations in his colon. RECOMMENDATION: 1. I would like to start him on some intravenous iron. 2. I would like to start Aranesp 60 mg subcutaneous right now. 3. I would like to start him on chlorthalidone 25 mg in an attempt to maximize his blood pressure reduction. I would also like to start him on hydralazine 25 mg three times a day. Once again, I would like to thank you for allowing me to participate in the care of this rather unfortunate patient. I will be following him closely with you.
[2016-04-29] MEDS: 0.9% Sodium Chloride 250 ML IV SCH (23:40)
[2016-04-30] VITALS (9 sets, daily range): BP systolic 138–213; BP diastolic 69–97; PULSE 60–69; RESP 19–21; O2SAT 94–99
[2016-04-30] MEDS: Alum-Mag Hydrox-Simeth 30 mL Suspension PO PRN (05:00)
[2016-04-30] MEDS: hydrALAZINE 20 mg/mL Inj IV PRN (05:00)
[2016-04-30 06:02] LABS: BASOPHILS % (AUTO) 0.4 % (0-3); EOSINOPHILS % (AUTO) 1.7 % (0-5); MONOCYTES % (AUTO) 9.5 % (4-12); Mean Corpuscular Hemoglobin 30.2 pg (27.0-35.0); Mean Corpuscular Volume 85.2 fL (81-100); NEUTROPHILS % (AUTO) 65.6 % (40-74); Platelet Count 210 bil/L (150-400)
[2016-04-30 06:20] LABS: Magnesium 2.1 mg/dL (1.6-2.6); Phosphorus 5.2 mg/dL (2.5-4.9)
--- NOTE | 2016-04-30 07:06 | NUR ---
Mild chest pressure/HTN Pt states mild chest pressure 1-3/10, no radiated, not worse with exertion, continuous for years and r/o acid reflux, Tele: SR 62, no ST-T changes per monitoring coordinator,night resident Keeley notified,not concerned, no order given, Tums and Maalox given, HOB 45 degree, symptoms resolved. BP213/97 this am, Hydralazine 10mg IV given, recheck BP 178/83, morning hypertensive meds scheduled and will be given.
[2016-04-30] MEDS: Insulin LISPRO 300 Unit/3 mL Inj SUBQ SCH ×4 (07:41→21:05)
[2016-04-30] MEDS: Pantoprazole 40 mg ER24 Tablet PO SCH (07:46)
[2016-04-30] MEDS: Divalproex (QD) 500 mg ER24 Tablet PO SCH ×3 (07:46→21:04)
[2016-04-30] MEDS: Insulin GLARgine 100 Unit/mL Syringe SUBQ SCH (11:48)
--- NOTE | 2016-04-30 11:54 | PCM.PNMED ---
Subjective Date of Service Apr 30, 2016 Subjective NEPHROLOGY PROGRESS NOTE Patient feels fine this morning. He is anxious to be discharged home. He denies any headache or chest pain or cough. No acute events overnight. ROS is negative otherwise. Exam Vital Signs Vital Sign - Last Date Time Temp Pulse Resp B/P Pulse Ox O2 Delivery O2 Flow Rate FiO2 04/30/16 09:16 36.9 62 19 145/70 98 Room Air Intake and Output 04/29/16 04/29/16 04/30/16 Cumulative From/Thru 15:00 23:00 07:00 04/27/16 16:18 - 04/30/16 06:56 Intake Total 930 ml 550 ml 5302 ml Output Total 1150 ml 1125 ml 3575 ml Balance -220 ml -575 ml 1727 ml Intake Oral 930 ml 550 ml 2936 ml IV Total 1244 ml Packed Cells 1122 ml Output Urine Total 1150 ml 1125 ml 3575 ml # Voids 2 # Bowel Movements 3 2 7 Exam General: No acute distress, chronically ill appearing, appropriately interactive HEENT: Normocephalic, atraumatic. External ears without defect. Pupils equal, round, and reactive to light and accommodation. Anicteric sclerae, moist conjunctivae, and no lid lag. Oropharynx free of erythema and cobble stoning with moist mucosa. Neck: Supple with full range of motion. no jugular venous distension. No bruits. No lymphadenopathy or thyromegaly. Cardiovascular: RRR with soft systolic murmur, no rubs or gallops appreciated Pulmonary: Clear to auscultation bilaterally. Normal respiratory effort with no use of accessory muscles. Abdomen: Bowel tones present. Soft, nontender, nondistended. No hepatosplenomegaly or masses appreciated. Extremities: No clubbing, cyanosis, or lymphadenopathy appreciated. Mild pitting edema at the ankles. Skin: Normal temperature, turgor, and texture; no rash, ulcers, or subcutaneous nodules appreciated. Neurological: Cranial nerves grossly intact. Normal muscle strength, tone, and bulk. Reflexes, coordination, and sensory function within normal limits. No known gait impairment. Psychiatric: Normal mood and affect. Alert and oriented to person, place, and time. IVs and Medications Medications Reviewed: Medications were reviewed in detail Lab and Diagnostics Result Diagram: 1/5/17 0530 1/5/17 0530 Assessment & Plan 1. Stage 4 kidney disease versus acute on chronic kidney injury. -Based on his Cr today likely this is truly Stage 4 CKD -Concern that the patient's renal status will continue to decline and he is on a trajectory to dialysis -It is paramount that he follows up in clinic after he is discharged 2. Diabetic renal disease. 3. Hypertension with hypertensive heart disease and hypertensive nephrosclerosis with poor control. -Added chlorthalidone 25 mg -Increased hydralazine to 25 mg TID, will increase to 50 mg TID 4. Type 4 renal tubular acidosis. 5. Anemia secondary to chronic kidney disease. -Also, we need to rule out a possible acute anemia. -In light of his chronic kidney disease, would be concerned about arteriovenous malformations in his colon. -Given IV iron -Given dose of Aranesp We will continue to follow along with you GI Prophylaxis: Not indicated VTE Prophylaxis: SCDs, Other (Anemic) VTE Mechanical Devices: Intermittant Pneumatic CD Resuscitation Status: CPR: Attempt Resuscitation Attending Statement Patient was seen and examined along with the internal medicine resident. I had a very jose discussion with the patient as far as his overall renal condition and that most likely he would be on dialysis within the next 6-8 months. He does have a history of very poor compliance with only medications and other treatment also with follow-up. Nadja Bynum DO Apr 30, 2016 11:54 Jean Crisostomo DO Apr 30, 2016 12:27
--- NOTE | 2016-04-30 14:35 | PCM.PNMED ---
Subjective Date of Service Apr 30, 2016 Subjective Overnight: Increase in BP to 213/97; 10mg hydralazine IV x1; decreased to 178/83 ; also c/o mild chest pressure that has been present x3 months. Relieved with antacids Today: States he feels well. Does not believe his blood pressure issues can be corrected/resolved. Denies any further chest pressure. Denies shortness of breath, nausea/vomiting. Tolerating po well. Exam Vital Signs Vital Sign - Last Date Time Temp Pulse Resp B/P Pulse Ox O2 Delivery O2 Flow Rate FiO2 04/30/16 06:38 60 04/30/16 06:09 178/83 04/30/16 05:10 36.7 20 97 Room Air Intake and Output 04/29/16 04/29/16 04/30/16 Cumulative From/Thru 15:00 23:00 07:00 04/27/16 16:18 - 04/30/16 06:56 Intake Total 930 ml 550 ml 5302 ml Output Total 1150 ml 1125 ml 3575 ml Balance -220 ml -575 ml 1727 ml Intake Oral 930 ml 550 ml 2936 ml IV Total 1244 ml Packed Cells 1122 ml Output Urine Total 1150 ml 1125 ml 3575 ml # Voids 2 # Bowel Movements 3 2 7 Exam General: No acute distress, well-developed, well-nourished, appropriately interactive HEENT: Normocephalic, atraumatic. Anicteric sclerae, moist conjunctivae. Oropharynx free of erythema with moist mucosa. Neck: Supple. Trachea midline Cardiovascular: Regular rate and rhythm with no murmurs, rubs, or gallops appreciated Pulmonary: Clear to auscultation bilaterally with no crackles, wheezes, or rhonchi. Normal respiratory effort with no use of accessory muscles. Abdomen: Bowel tones present. Soft. Nondistended. Extremities: No edema Skin: Normal temperature, turgor, and texture Neurological: Cranial nerves grossly intact. Psychiatric: Normal mood and affect. Alert and oriented to person, place, and time. Lab and Diagnostics Result Diagram: 04/30/1652904/30/16529 Assessment & Plan Patient is a 50-year-old male with hypertension, poorly controlled type II diabetes and bipolar disorder presenting as a referral from his physician's office as a result of abnormal labs and admitted for anemia and hypertensive urgency. - Hospital day three 1. Acute on chronic anemia. Present on admission. Resolved - On admit: Hgb 6.7, Hct 19.3 - Hgb 7.4 on discharge 04/11/2016 - Etiology likely multifactorial: CKD, dilutional from water consumption - Stool guaiac negative - Total pRBC transfused: 3U - Trend H/H daily; stable - Anemia panel: high ferritin 468; % sat 17; TIBC 283; Vit 12 and folate within range - Aranesp 60mcg x1 - Outpatient colonoscopy may be warranted to eval for chronic bleeding 2. Hypertensive urgency. Present on admission. Ongoing - 207/88 in the ED - Reports being compliant with home antihypertensive regimen; attributes current BP elevation to missing evening dose of labetalol as he has been in the ED - Patient received labetalol 40mg IV in the ED - Nephrology consulted for recommendations on BP management; time appreciated - Hydralazine 25mg TID increased to 50mg TID - Chlorthalidone 25mg daily - Lasix 40mg po BID - Labetalol 200mg TID - Consider adding clonidine if BP continues to remain elevated/refractory to medications 3. Acute kidney injury on chronic kidney disease stage 4. Present on admission. Ongoing - Likely secondary to hypertensive nephrosclerosis and diabetes nephropathy - Creatinine 3.84. Baseline reportedly ~3 - Avoid nephrotoxins - Monitor with BMP - Nephrology consult; appreciated time and recommendations - Likely progression of renal disease - Discussed with pt possibility of dialysis within year 4. Uncontrolled type II diabetes with retinopathy, neuropathy, nephropathy. Chronic. Present on admission. Ongoing - Blood glucose 385 in ED - HgbA1c 8.4% in 01/2016 - Bedside blood glucose checks - Medium dose insulin Lispro - Resumed home dose 10U glargine at 1200 5. Elevated troponin of uncertain significance, chronic. Present on admission. Presumed stable - On admit: 0.238 - At prev DC: 0.141 - Likely secondary to CKD - Patient is without chest pain. EKG NSR with HR 62, no acute ST-changes - Telemetry - Trend 6. Nicotine dependence. Present on admission. Ongoing - Discussed smoking cessation - Patch and lozenges avail at request 7. Bipolar disorder, chronic. Stable - Continue DepaKote daily at home dose - PRN: Fever/antiemetics/bowel/pain - GI: PPI - DVT: SCDs - Diet: Heart healthy - Code: FULL CODE Dispo: Likely to DC 05/02 pending medical stability; BP remains too elevated for safe discharge. No anticipated needs at this time. Pain Evaluation: Adequate Pain Control GI Prophylaxis: Not indicated VTE Prophylaxis: SCDs, Other (Anemic) VTE Mechanical Devices: Intermittant Pneumatic CD Resuscitation Status: CPR: Attempt Resuscitation Attending Statement The patient was seen and examined together with Dr. Regalado on 04/30/2016 and I agree with the history, exam and plan as outlined in the note above. Diane Regalado DO Apr 30, 2016 08:23 Kayode Card MD May 01, 2016 10:06
[2016-04-30] MEDS: 0.9% Sodium Chloride 250 ML IV SCH (23:40)
[2016-05-01] VITALS (9 sets, daily range): BP systolic 154–214; BP diastolic 69–104; PULSE 59–66; RESP 18–21; O2SAT 94–98
[2016-05-01] MEDS: hydrALAZINE 20 mg/mL Inj IV PRN (05:35)
[2016-05-01 05:48] LABS: BASOPHILS % (AUTO) 0.4 % (0-3); EOSINOPHILS % (AUTO) 1.5 % (0-5); MONOCYTES % (AUTO) 9.4 % (4-12); Mean Corpuscular Hemoglobin 30.1 pg (27.0-35.0); Mean Corpuscular Volume 85.7 fL (81-100); NEUTROPHILS % (AUTO) 67.1 % (40-74); Platelet Count 236 bil/L (150-400)
[2016-05-01 06:11] LABS: Magnesium 2.1 mg/dL (1.6-2.6)
[2016-05-01] MEDS: Pantoprazole 40 mg ER24 Tablet PO SCH (07:48)
[2016-05-01] MEDS: Insulin LISPRO 300 Unit/3 mL Inj SUBQ SCH ×4 (07:52→21:09)
[2016-05-01] MEDS: Divalproex (QD) 500 mg ER24 Tablet PO SCH ×3 (10:29→21:18)
--- NOTE | 2016-05-01 11:37 | PCM.PNMED ---
Subjective Date of Service May 01, 2016 Subjective NEPHROLOGY PROGRESS NOTE No acute event overnight. However, his BP continues to be elevated in spite of the addition of the Hydralazine and Chlorthalidone. Systolic BP ranges from 160- 214 in the last 24hours. His Cr is also trending up, 4.09 today. Patient reports no issue this morning. He states that his home BP is lower than the hospital. He denies any headache, chest pain, SOB, or cough. He consistently has good urine output. Over the last 24 hours, his I/O was 1354/2450. Exam Vital Signs Vital Sign - Last Date Time Temp Pulse Resp B/P Pulse Ox O2 Delivery O2 Flow Rate FiO2 05/01/16 09:38 65 206/95 05/01/16 09:33 36.9 20 97 Room Air Intake and Output 04/30/16 04/30/16 05/01/16 Cumulative From/Thru 15:00 23:00 07:00 04/27/16 16:18 - 05/01/16 05:31 Intake Total 804 ml 6106 ml Output Total 1325 ml 4900 ml Balance -521 ml 1206 ml Intake Oral 804 ml 3740 ml IV Total 1244 ml Packed Cells 1122 ml Output Urine Total 1325 ml 4900 ml # Voids 4 6 # Bowel Movements 2 9 Exam General: Alert and Oriented. No acute distress, chronically ill appearing, appropriately interactive HEENT: Normocephalic, atraumatic. Anicteric sclerae, moist conjunctivae, and no lid lag. Blindness on the right eye and very limited vision on the left eye. Moist oral mucosa. Neck: Supple with full range of motion. no jugular venous distension. No bruits. No lymphadenopathy or thyromegaly. Pulmonary: Clear to auscultation bilaterally. Normal respiratory effort with no use of accessory muscles. Cardiovascular: RRR with soft systolic murmur, no rubs or gallops appreciated Abdomen: Bowel tones present. Soft, nontender, nondistended. No hepatosplenomegaly or masses appreciated. Extremities: No clubbing, cyanosis, or lymphadenopathy appreciated. Mild pitting edema at the ankles. Skin: Normal temperature, turgor, and texture; no rash, ulcers, or subcutaneous nodules appreciated. IVs and Medications Medications Reviewed: Medications were reviewed in detail Lab and Diagnostics Result Diagram: 05/01/16 0510 05/01/16 0510 Assessment & Plan Patient is a 50-year-old male with hypertension, poorly controlled type II diabetes and bipolar disorder presenting as a referral from his physician's office as a result of abnormal labs and admitted for anemia and hypertensive urgency. 1. Stage 4 kidney disease versus acute on chronic kidney injury. -Likely secondary to hypertensive nephrosclerosis and diabetes nephropathy. Concern that the patient's renal status will continue to decline and he is on a trajectory to dialysis -Cr continues to trend up -Start 1/2 NS @80mls/hr -Continue monitor BMP. 2. Diabetic renal disease, chronic. -Likely to progress -It is paramount that he follows up in clinic after he is discharged 3. Hypertension with hypertensive heart disease and hypertensive nephrosclerosis with poor control. -Added Minoxidil 5mg once daily -Increased hydralazine to 50 mg TID -Continue Lasix 40mg po BID and Labetalol 200mg TID 4. Type 4 renal tubular acidosis. -K is 5.6 today. Will give Kayexalate PO once. 5. Acute on chronic normocytic normochromic anemia, improved. -secondary to chronic kidney disease. -s/p 3unites of pRBC transfusion. H/H stable. -In light of his chronic kidney disease, would be concerned about arteriovenous malformations in his colon. Will recommend colonoscopy as outpatient. -Given IV iron -Given dose of Aranesp yesterday We will continue to follow along with you Pain Evaluation: Adequate Pain Control GI Prophylaxis: Not indicated VTE Prophylaxis: SCDs, Other (Anemic) VTE Mechanical Devices: Intermittant Pneumatic CD Resuscitation Status: CPR: Attempt Resuscitation Attending Statement The patient was seen and examined along with the family nurse and recommendations and findings are detailed above. Do feel D at this point is a little bit intravascularly volume depleted and I would like to start some IV fluids. In light of his elevated blood pressure record like to start minoxidil 5 mg once a day and add this to his blood pressure regime. Yvette Jett DO May 01, 2016 11:37 Jean Crisostomo DO May 01, 2016 11:58
[2016-05-01] MEDS: Insulin GLARgine 100 Unit/mL Syringe SUBQ SCH (12:40)
--- NOTE | 2016-05-01 13:49 | PCM.PNMED ---
Subjective Date of Service May 01, 2016 Subjective Overnight: BP continues to remain elevated; 203/94. Today: Denies any chest pain, pressure, abdominal pain; states frustration with hospitalization. Disbelief that his condition will ever improve. Does not want dialysis. Exam Vital Signs Vital Sign - Last Date Time Temp Pulse Resp B/P Pulse Ox O2 Delivery O2 Flow Rate FiO2 05/01/16 09:38 65 206/95 05/01/16 09:33 36.9 20 97 Room Air Intake and Output 04/30/16 04/30/16 05/01/16 Cumulative From/Thru 15:00 23:00 07:00 04/27/16 16:18 - 05/01/16 05:31 Intake Total 804 ml 6106 ml Output Total 1325 ml 4900 ml Balance -521 ml 1206 ml Intake Oral 804 ml 3740 ml IV Total 1244 ml Packed Cells 1122 ml Output Urine Total 1325 ml 4900 ml # Voids 4 6 # Bowel Movements 2 9 Exam General: No acute distress, well-developed, well-nourished, irritated mood HEENT: Normocephalic, atraumatic. Anicteric sclerae, moist conjunctivae. Oropharynx free of erythema with moist mucosa. Neck: Supple. Trachea midline Cardiovascular: Regular rate and rhythm with no murmurs, rubs, or gallops appreciated Pulmonary: Clear to auscultation bilaterally with no crackles, wheezes, or rhonchi. Normal respiratory effort with no use of accessory muscles. Abdomen: Bowel tones present. Soft. Nondistended. Extremities: No edema Skin: Normal temperature, turgor, and texture Neurological: Cranial nerves grossly intact. Psychiatric: Agitated mood. Alert and oriented to person, place, and time. Lab and Diagnostics Result Diagram: 05/01/1650905/01/16509 Assessment & Plan Patient is a 50-year-old male with hypertension, poorly controlled type II diabetes and bipolar disorder presenting as a referral from his physician's office as a result of abnormal labs and admitted for anemia and hypertensive urgency. Nephrology has kindly consulted, and adjustments to his medications have been made. - Hospital day four Hypertensive urgency. Present on admission. Ongoing - 207/88 in the ED - Reports being compliant with home antihypertensive regimen - Nephrology consulted for recommendations on BP management; time appreciated - Hydralazine 50mg TID - Chlorthalidone 25mg daily - Lasix 40mg po BID - Labetalol 200mg TID - Minoxidil 5mg daily - Consider adding clonidine 0.1mg TID if BP continues to remain elevated/ refractory to medications, including addition of minoxidil Acute kidney injury on chronic kidney disease stage 4. Present on admission. Ongoing - Likely secondary to hypertensive nephrosclerosis and diabetes nephropathy - Creatinine 3.84. Baseline reportedly ~3 - Avoid nephrotoxins - Monitor with BMP - Nephrology consult; appreciated time and recommendations - Likely progression of renal disease - Discussed with pt possibility of dialysis within year - 2NS80 for gentle hydration - STRONGLY recommended/advised to follow up in clinic after DC Hyperkalemia, acute, not present on admission. Under therapy - Likely secondary to decreasing renal function - Kayexalate po x1 per nephrology Acute on chronic anemia. Present on admission. Resolved - On admit: Hgb 6.7, Hct 19.3 - Hgb 7.4 on discharge 04/11/2016 - Etiology likely multifactorial: CKD and continuing renal function decline, dilutional from water consumption - Stool guaiac negative - Total pRBC transfused: 3U - Trend H/H daily; stable - Anemia panel: high ferritin 468; % sat 17; TIBC 283; Vit 12 and folate within range - Aranesp 60mcg x1 - Outpatient colonoscopy may be warranted to eval for chronic bleeding Uncontrolled type II diabetes with retinopathy, neuropathy, nephropathy. Chronic. Present on admission. Ongoing - Blood glucose 385 in ED - HgbA1c 8.4% in 01/2016 - Bedside blood glucose checks - Medium dose insulin Lispro - Resumed home dose 10U glargine at 1200 Elevated troponin of uncertain significance, chronic. Present on admission. Presumed stable - On admit: 0.238 - At prev DC: 0.141 - Likely secondary to CKD - Patient is without chest pain. EKG NSR with HR 62, no acute ST-changes - Telemetry - Trend Nicotine dependence. Present on admission. Ongoing - Discussed smoking cessation - Patch and lozenges avail at request Bipolar disorder, chronic. Stable - Continue DepaKote daily at home dose - PRN: Fever/antiemetics/bowel/pain - GI: PPI - DVT: SCDs - Diet: Heart healthy - Code: FULL CODE Dispo: Likely to DC 01/08 pending medical stability; BP remains too elevated for safe discharge, and renal function continues to decline. No anticipated needs at this time. Pain Evaluation: Adequate Pain Control GI Prophylaxis: Not indicated VTE Prophylaxis: SCDs, Other (Anemic) VTE Mechanical Devices: Intermittant Pneumatic CD Resuscitation Status: CPR: Attempt Resuscitation Attending Statement The patient was seen and examined together with Dr. Regalado on 05/01/2016 and I agree with the history, exam and plan as outlined in the note above. Diane Regalado DO May 01, 2016 13:27 Kayode Card MD May 02, 2016 09:18
[2016-05-01] MEDS: 0.9% Sodium Chloride 250 ML IV SCH (23:40)
[2016-05-02] VITALS (9 sets, daily range): BP systolic 102–191; BP diastolic 50–95; PULSE 60–67; RESP 16–18; O2SAT 94–98
[2016-05-02] MEDS: Ondansetron 2 mg/mL 2 mL Inj IVPUSH PRN (00:39)
[2016-05-02] MEDS: hydrALAZINE 20 mg/mL Inj IV PRN (05:54)
[2016-05-02 06:00] LABS: BASOPHILS % (AUTO) 0.5 % (0-3); EOSINOPHILS % (AUTO) 0.8 % (0-5); Mean Corpuscular Hemoglobin 29.9 pg (27.0-35.0); Mean Corpuscular Volume 86.8 fL (81-100); NEUTROPHILS % (AUTO) 72.8 % (40-74); Platelet Count 225 bil/L (150-400)
[2016-05-02 06:59] LABS: Magnesium 2.1 mg/dL (1.6-2.6); Phosphorus 5.5 mg/dL (2.5-4.9)
[2016-05-02 07:04] LABS: TROPONIN T 0.225 ug/L (0.0-0.011)
[2016-05-02] MEDS: Pantoprazole 40 mg ER24 Tablet PO SCH (07:49)
[2016-05-02] MEDS: Insulin LISPRO 300 Unit/3 mL Inj SUBQ SCH ×4 (07:49→22:00)
[2016-05-02] MEDS: Divalproex (QD) 500 mg ER24 Tablet PO SCH ×3 (08:54→21:02)
--- NOTE | 2016-05-02 10:01 | PCM.PNMED ---
Subjective Date of Service May 02, 2016 Subjective Patient's blood pressure did have response to a 5 mg of minoxidil. His function continues to worsen and I feels this may be important reflection of his hospitalization of his blood pressure. Otherwise he denies any chest pain or shortness of breath. Exam Vital Signs Vital Sign - Last Date Time Temp Pulse Resp B/P Pulse Ox O2 Delivery O2 Flow Rate FiO2 05/02/16 06:22 66 05/02/16 05:49 36.6 18 191/90 97 Room Air Intake and Output 05/01/16 05/01/16 05/02/16 Cumulative From/Thru 15:00 23:00 07:00 04/27/16 16:18 - 05/02/16 06:00 Intake Total 400 ml 1072 ml 1155 ml 8733 ml Output Total 1350 ml 1350 ml 7600 ml Balance -950 ml -278 ml 1155 ml 1133 ml Intake Oral 400 ml 1072 ml 5212 ml IV Total 1155 ml 2399 ml Packed Cells 1122 ml Output Urine Total 1350 ml 1350 ml 7600 ml # Voids 6 12 # Bowel Movements 1 2 12 Exam Neck is supple without adenopathy thyromegaly or jugular venous distention. Lungs are clear to auscultation somewhat diminished in both bases. Sternum was closed with a soft systolic murmur and there is a questionable S4 noted. Abdomen is soft without any tenderness or rebound guarding masses or hepatosplenomegaly. Extremities no tremors or clubbing cyanosis or edema. Skin turgor is good. Lab and Diagnostics Result Diagram: 05/02/16 0540 05/02/16 0540 Assessment & Plan Impression #1 chronic kidney disease stage IV number to diabetic nephropathy #3 hypertension with hypertensive heart disease and hypertensive nephrosclerosis # 5 anemia secondary to chronic kidney disease #6 hyperphosphatemia secondary to chronic kidney disease Recommendations #1 increase his minoxidil 5 mg twice a day and continue to follow his lab, intake and output, and blood pressures. #2, to start Renvela 800 mg 3 times a day with food and check his parathyroid hormone level. GI Prophylaxis: Not indicated VTE Prophylaxis: SCDs, Other (Anemic) VTE Mechanical Devices: Intermittant Pneumatic CD Resuscitation Status: CPR: Attempt Resuscitation Jean Crisostomo DO May 02, 2016 10:01
[2016-05-02] MEDS: Insulin GLARgine 100 Unit/mL Syringe SUBQ SCH (11:48)
--- NOTE | 2016-05-02 16:39 | NUR ---
Social Work: Continued d/c planning Data: Pt is on day 4 of hospitalization. EMR reviewed, pt discussed in rounds. DOBBY LOOMS PEGGER was notified that pt's living arangement may not be ready to take him back at d/c. DOBBY LOOMS PEGGER spoke with pt who states that he lives with his ex- for now and that she plans to pick him up at discharge but that he may be moving elsewhere at a later time. Pt is not concerned about the stability of his housing. No further d/c needs anticipated. DOBBY LOOMS PEGGER will continue to follow if needs arise. Assessment: Pt who is independent at baseline, blind. Plan: Pt will d/c home via POV with ex- when medically stable. No further d/c needs anticipated. DOBBY LOOMS PEGGER will continue to follow if needs arise. RENEA Singleton
--- NOTE | 2016-05-02 16:48 | PCM.PNMED ---
Subjective Date of Service May 02, 2016 Subjective Pt reports that he is tired, but denies any other complaints. Pt denies any chest pain, shortness of breath, cough or myalgias. Pt expresses confusion about medical team's concern regarding his blood pressure, stating it is always elevated. Exam Vital Signs Vital Sign - Last Date Time Temp Pulse Resp B/P Pulse Ox O2 Delivery O2 Flow Rate FiO2 05/02/16 12:22 36.6 64 18 127/60 94 Room Air Intake and Output 05/01/16 05/01/16 05/02/16 Cumulative From/Thru 15:00 23:00 07:00 04/27/16 16:18 - 05/02/16 06:00 Intake Total 400 ml 1072 ml 1155 ml 8733 ml Output Total 1350 ml 1350 ml 7600 ml Balance -950 ml -278 ml 1155 ml 1133 ml Intake Oral 400 ml 1072 ml 5212 ml IV Total 1155 ml 2399 ml Packed Cells 1122 ml Output Urine Total 1350 ml 1350 ml 7600 ml # Voids 6 12 # Bowel Movements 1 2 12 Exam General: No acute distress, well-developed, well-nourished HEENT: Normocephalic, atraumatic. Anicteric sclerae, moist conjunctivae. Oropharynx with moist mucosa. Neck: Supple. Cardiovascular: Regular rate and rhythm with no murmurs, rubs, or gallops appreciated Pulmonary: Clear to auscultation bilaterally with no crackles, wheezes, or rhonchi. Normal respiratory effort with no use of accessory muscles. Abdomen: Bowel tones present. Soft. Nondistended. Extremities: No edema Skin: Normal temperature, turgor, and texture Psychiatric: Normal mood. Alert and oriented to person, place, and time. IVs and Medications Medications Reviewed: Medications were reviewed in detail Lab and Diagnostics Result Diagram: 05/02/1653905/02/16 0540 X-Rays, CTs and MRIs PROCEDURE: X-RAY CHEST ONE VIEW, PORTABLE ([id number]) COMPARISON: [facility], CR, XR CHEST 1VW (PORTABLE), 04/09/2016, 10 :58. [facility], CR, XR CHEST 1VW (PORTABLE), 01/28/2016, 15:38. [facility], CR, XR CHEST 1VW (PORTABLE), 11/22/2015, 15:05. FINDINGS: Surgical changes and devices: None. Lungs and pleura: No pleural effusions or pneumothorax. Lungs are clear. Mediastinum: Mediastinal contours appear normal. Heart size is normal. Bones and chest wall: No suspicious bony lesions. Overlying soft tissues appear unremarkable. IMPRESSION: No acute process. Concordant with preliminary interpretation Dictated by: Judy Morgan M.D. on 04/28/2016 at 8:31 Approved by: Judy Morgan M.D. on 04/28/2016 at 8:31 Assessment & Plan Patient is a 50-year-old male with hypertension, poorly controlled type II diabetes and bipolar disorder presenting as a referral from his physician's office as a result of abnormal labs and admitted for anemia and hypertensive urgency. Nephrology has kindly consulted, and adjustments to his medications have been made. - Hospital day #5 Hypertensive urgency. Present on admission. Ongoing - / in the ED - Reports being compliant with home antihypertensive regimen - Nephrology consulted for recommendations on BP management; time appreciated - Hydralazine 50mg TID - Chlorthalidone 25mg daily - Lasix 40mg po BID - Labetalol 200mg TID - Minoxidil 5mg BID -Blood pressure appears to be responding to increased dosing of Minoxidil. Acute kidney injury on chronic kidney disease stage 4. Present on admission. Ongoing - Likely secondary to hypertensive nephrosclerosis and diabetes nephropathy - Creatinine 4.39. Baseline reportedly ~3 - Avoid nephrotoxins - Monitor with BMP - Nephrology consult; appreciated time and recommendations - Likely progression of renal disease - Discussed with pt possibility of dialysis within year - 1/2NS80 for gentle hydration - STRONGLY recommended/advised to follow up in clinic after DC Hyperkalemia, acute, not present on admission. Under therapy - Likely secondary to decreasing renal function - Nephrology started Renvela 800mg TID Acute on chronic anemia. Present on admission. Resolved - On admit: Hgb 6.7, Hct 19.3 - Hgb 7.4 on discharge 04/11/2016 - Etiology likely multifactorial: CKD and continuing renal function decline, dilutional from water consumption - Stool guaiac negative - Total pRBC transfused: 3U - Anemia panel: high ferritin 468; % sat 17; TIBC 283; Vit 12 and folate within range - Aranesp 60mcg x1 - Outpatient colonoscopy may be warranted to eval for chronic bleeding - Trend H/H daily; currently stable( 10.2/29.6) Uncontrolled type II diabetes with retinopathy, neuropathy, nephropathy. Chronic. Present on admission. Ongoing - Blood glucose 385 in ED - HgbA1c 8.4% in 01/2016 - Bedside blood glucose checks - Medium dose insulin Lispro - Resumed home dose 10U glargine Elevated troponin of uncertain significance, chronic. Present on admission. Presumed stable - On admit: 0.238 - At prev DC: 0.141 - Likely secondary to CKD - Patient is without chest pain. EKG NSR with HR 62, no acute ST-changes - Telemetry - Trend-- continues to be elevated today( 0.225) Nicotine dependence. Present on admission. Ongoing - Discussed smoking cessation - Patch and lozenges avail at request Bipolar disorder, chronic. Stable - Continue DepaKote daily at home dose - PRN: Fever/antiemetics/bowel/pain - GI: PPI - DVT: SCDs - Diet: Heart healthy - Code: FULL CODE Dispo: Likely to DC 05/03 pending medical stability; BP remains too elevated for safe discharge, and renal function continues to decline. No anticipated needs at this time. GI Prophylaxis: Not indicated VTE Prophylaxis: SCDs, Other (Anemic) VTE Mechanical Devices: Intermittant Pneumatic CD Resuscitation Status: CPR: Attempt Resuscitation Attending Statement The patient was seen and examined together with Dr. Levi on 05/02/2016 and I agree with the history, exam and plan as outlined in the note above. Josephine Levi DO May 02, 2016 16:48 Kayode Card MD May 03, 2016 11:14
--- NOTE | 2016-05-02 17:04 | NUR ---
BP New medication added to regimen to manage BP. BP gradually decreasing this shift to normal limits. Patient tired and appears to be sleeping more today than yesterday-no complaints. Addendum: 05/02/16 at 1901 by ARPAN SOTO RN Pt BP @ 1700 102/50. Resident notified.
[2016-05-03] VITALS (9 sets, daily range): BP systolic 102–148; BP diastolic 52–71; PULSE 62–80; RESP 16–18; O2SAT 92–98
[2016-05-03] MEDS: Alum-Mag Hydrox-Simeth 30 mL Suspension PO PRN ×3 (01:06→15:17)
[2016-05-03] MEDS: Ondansetron 2 mg/mL 2 mL Inj IVPUSH PRN ×3 (03:46→15:04)
[2016-05-03] MEDS: 0.9% Sodium Chloride 250 ML IV SCH (03:46)
--- NOTE | 2016-05-03 06:34 | NUR ---
Nausea, vomiting/BP Pt had 2 episodes of nausea, vomiting, yellow liquid vomitus 150ml in total, mild epigastric discomfort, relieved after vomiting. Zofran given, symptoms resolved for 1st episode. Reoccurring this morning, continue monitoring. BP appears controlled, and stable overnight, recent BP127/53. Assumed care at 0003.
[2016-05-03 07:19] LABS: BASOPHILS % (AUTO) 0.1 % (0-3); EOSINOPHILS % (AUTO) 0.7 % (0-5); MONOCYTES % (AUTO) 8.2 % (4-12); Mean Corpuscular Hemoglobin 30.1 pg (27.0-35.0); Mean Corpuscular Volume 86.7 fL (81-100); NEUTROPHILS % (AUTO) 82.5 % (40-74); Platelet Count 238 bil/L (150-400)
[2016-05-03] MEDS: Pantoprazole 40 mg ER24 Tablet PO SCH (07:43)
[2016-05-03] MEDS ORDERED: Insulin Human REGular 300 Unit/3 mL Inj SUBQ SCH (08:10)
[2016-05-03] MEDS: Divalproex (QD) 500 mg ER24 Tablet PO SCH ×3 (09:04→21:02)
[2016-05-03] MEDS: Insulin LISPRO 300 Unit/3 mL Inj SUBQ SCH ×4 (09:05→21:05)
[2016-05-03] MEDS ORDERED: Insulin Human REGular-Omnicell 100 Unit/mL IV ONE (09:30)
--- NOTE | 2016-05-03 09:51 | PCM.PNMED ---
Subjective Date of Service May 03, 2016 Subjective Patient's blood pressures improving with therapy unfortunately the patient will currently pain is transient increase in his serum creatinine. It is my hope the next few days and as his body adapts to more normal blood pressure his renal function will then start to improve. Patient does complain of some nausea vomiting and occasional loose stool. He denies any chest pain, shortness of breath, cough or wheezing. Exam Vital Signs Vital Sign - Last Date Time Temp Pulse Resp B/P Pulse Ox O2 Delivery O2 Flow Rate FiO2 05/03/16 09:27 36.7 71 16 148/71 96 Room Air Intake and Output 05/02/16 05/02/16 05/03/16 Cumulative From/Thru 15:00 23:00 07:00 04/27/16 16:18 - 05/03/16 06:30 Intake Total 700 ml 912 ml 2106 ml 39308 ml Output Total 700 ml 500 ml 270 ml 9070 ml Balance 0 ml 412 ml 1836 ml 3381 ml Intake Oral 700 ml 912 ml 200 ml 7024 ml IV Total 1906 ml 4305 ml Packed Cells 1122 ml Output Urine Total 700 ml 500 ml 150 ml 8950 ml Emesis 120 ml 120 ml # Voids 12 # Bowel Movements 0 12 Exam Neck is supple without adenopathy thyromegaly or jugular venous distention. Lungs are clear to auscultation. Heart was regular rhythmical with a soft systolic murmur. Abdomen is soft without any tenderness or rebound guarding masses or hepatosplenomegaly. Extremities show us any clubbing cyanosis or edema. Skin turgor is good and is no evidence of any rashes. Lab and Diagnostics Result Diagram: 05/03/1661705/03/16617 X-Rays, CTs and MRIs PROCEDURE: X-RAY CHEST ONE VIEW, PORTABLE ([id number]) COMPARISON: [facility], CR, XR CHEST 1VW (PORTABLE), 04/09/2016, 10 :58. [facility], CR, XR CHEST 1VW (PORTABLE), 01/28/2016, 15:38. [facility], CR, XR CHEST 1VW (PORTABLE), 11/22/2015, 15:05. FINDINGS: Surgical changes and devices: None. Lungs and pleura: No pleural effusions or pneumothorax. Lungs are clear. Mediastinum: Mediastinal contours appear normal. Heart size is normal. Bones and chest wall: No suspicious bony lesions. Overlying soft tissues appear unremarkable. IMPRESSION: No acute process. Concordant with preliminary interpretation Dictated by: Judy Morgan M.D. on 04/28/2016 at 8:31 Approved by: Judy Morgan M.D. on 04/28/2016 at 8:31 Assessment & Plan Impression #1 acute kidney injury secondary to normalization of blood pressure number to diabetic nephropathy #3 hypertension with hypertensive heart disease and hypertensive nephrosclerosis #4 tubular acidosis Recommendations #1 I will go ahead and give him a dose of 30 mg of Kayexalate. We need to continue to follow his lab. GI Prophylaxis: Not indicated VTE Prophylaxis: SCDs, Other (Anemic) VTE Mechanical Devices: Intermittant Pneumatic CD Resuscitation Status: CPR: Attempt Resuscitation Jean Crisostomo DO May 03, 2016 09:51
[2016-05-03] MEDS: Insulin GLARgine 100 Unit/mL Syringe SUBQ SCH ×2 (12:45→15:06)
--- NOTE | 2016-05-03 14:32 | PCM.PNMED ---
Subjective Date of Service May 03, 2016 Subjective Overnight: Reports of n/v; BP stable. Today: BP much improved and stable; c/o n/v resolved at time of initial interview. Later c/o diarrhea. Denied CP, SOB. Labs: Cr 5.26, K 6.2 Exam Vital Signs Vital Sign - Last Date Time Temp Pulse Resp B/P Pulse Ox O2 Delivery O2 Flow Rate FiO2 05/03/16 10:09 65 05/03/16 09:27 36.7 16 148/71 96 Room Air Intake and Output 05/02/16 05/02/16 05/03/16 Cumulative From/Thru 15:00 23:00 07:00 04/27/16 16:18 - 05/03/16 06:30 Intake Total 700 ml 912 ml 2106 ml 58708 ml Output Total 700 ml 500 ml 270 ml 9070 ml Balance 0 ml 412 ml 1836 ml 3381 ml Intake Oral 700 ml 912 ml 200 ml 7024 ml IV Total 1906 ml 4305 ml Packed Cells 1122 ml Output Urine Total 700 ml 500 ml 150 ml 8950 ml Emesis 120 ml 120 ml # Voids 12 # Bowel Movements 0 12 Exam General: No acute distress, well-developed, well-nourished HEENT: Normocephalic, atraumatic. Anicteric sclerae, moist conjunctivae. Oropharynx free of erythema with moist mucosa. Neck: Supple. Trachea midline Cardiovascular: Regular rate and rhythm with no murmurs, rubs, or gallops appreciated Pulmonary: Clear to auscultation bilaterally with no crackles, wheezes, or rhonchi. Normal respiratory effort with no use of accessory muscles. Abdomen: Bowel tones present. Soft. Nondistended. Extremities: No edema Skin: Normal temperature, turgor, and texture Neurological: Cranial nerves grossly intact. Psychiatric: Improved mood. Alert and oriented to person, place, and time. Lab and Diagnostics Result Diagram: 05/03/1661705/03/1618 X-Rays, CTs and MRIs PROCEDURE: X-RAY CHEST ONE VIEW, PORTABLE ([id number]) COMPARISON: [facility], CR, XR CHEST 1VW (PORTABLE), 04/09/2016, 10 :58. [facility], CR, XR CHEST 1VW (PORTABLE), 01/28/2016, 15:38. [facility], CR, XR CHEST 1VW (PORTABLE), 11/22/2015, 15:05. FINDINGS: Surgical changes and devices: None. Lungs and pleura: No pleural effusions or pneumothorax. Lungs are clear. Mediastinum: Mediastinal contours appear normal. Heart size is normal. Bones and chest wall: No suspicious bony lesions. Overlying soft tissues appear unremarkable. IMPRESSION: No acute process. Concordant with preliminary interpretation Dictated by: Judy Morgan M.D. on 04/28/2016 at 8:31 Approved by: Judy Morgan M.D. on 04/28/2016 at 8:31 Assessment & Plan Patient is a 50-year-old male with hypertension, poorly controlled type II diabetes and bipolar disorder presenting as a referral from his physician's office as a result of abnormal labs and admitted for anemia and hypertensive urgency. Nephrology has kindly consulted, and adjustments to his medications have been made. - Hospital day 6 Acute kidney injury on chronic kidney disease stage 4. Present on admission. Ongoing - Likely secondary to hypertensive nephrosclerosis and diabetes nephropathy - Creatinine rising. Baseline reportedly ~3 - Avoid nephrotoxins - Monitor with BMP - Nephrology consult; appreciated time and recommendations - Likely progression of renal disease - Discussed with pt possibility of dialysis - 1/2NS80 for gentle hydration - STRONGLY recommended/advised to follow up in clinic after DC Hyperkalemia, acute, not present on admission. Under therapy - Likely secondary to decreasing renal function - Nephrology started Renvela 800mg TID - 10U + 1/2 amp D50 x1 05/03 - Kayexalate 30g po x1 05/03: held - Repeat BMP in afternoon to check for K levels; give kayexalate at that time if necessary Diarrhea, acute, not present on admission. Ongoing - New onset sx 05/03 - May be secondary to reduction in BP - Stool PCR - Consider anti-diarrheal agents once PCR results return Hypertensive urgency. Present on admission. Resolved - 207/88 in the ED - Reports being compliant with home antihypertensive regimen - Nephrology consulted for recommendations on BP management; time appreciated - Amlodipine 10mg daily - Hydralazine 50mg TID - Chlorthalidone 25mg daily - Lasix 40mg po BID - Labetalol 200mg TID - Minoxidil 5mg BID -Blood pressure appears to be responding to increased dosing of Minoxidil; stable Acute on chronic anemia. Present on admission. Resolved - On admit: Hgb 6.7, Hct 19.3 - Hgb 7.4 on discharge 04/11/2016 - Etiology likely multifactorial: CKD and continuing renal function decline, dilutional from water consumption - Stool guaiac negative - Total pRBC transfused: 3U - Anemia panel: high ferritin 468; % sat 17; TIBC 283; Vit 12 and folate within range - Aranesp 60mcg x1 - Outpatient colonoscopy may be warranted to eval for chronic bleeding - Trend H/H daily; currently stable Uncontrolled type II diabetes with retinopathy, neuropathy, nephropathy. Chronic. Present on admission. Ongoing - Blood glucose 385 in ED - HgbA1c 8.4% in 01/2016 - Bedside blood glucose checks - Medium dose insulin Lispro - Resumed home dose 10U glargine Elevated troponin of uncertain significance, chronic. Present on admission. Presumed stable - On admit: 0.238 - At prev DC: 0.141 - Likely secondary to CKD - Patient is without chest pain. EKG NSR with HR 62, no acute ST-changes - Telemetry - Trend-- continues to be elevated today( 0.225) Nicotine dependence. Present on admission. Ongoing - Discussed smoking cessation - Patch and lozenges avail at request Bipolar disorder, chronic. Stable - Continue DepaKote daily at home dose - PRN: Fever/antiemetics/bowel/pain - GI: PPI - DVT: SCDs - Diet: Heart healthy - Code: FULL CODE Dispo: Likely to DC 1-2 days pending medical stability; renal function continues to decline. No anticipated needs at this time. Pain Evaluation: Adequate Pain Control GI Prophylaxis: Not indicated VTE Prophylaxis: SCDs, Other (Anemic) VTE Mechanical Devices: Intermittant Pneumatic CD Resuscitation Status: CPR: Attempt Resuscitation Attending Statement The patient was seen and examined together with Dr. Regalado on 05/03/2016 and I agree with the history, exam and plan as outlined in the note above. Diane Regalado DO May 03, 2016 14:32 Kayode Card MD May 04, 2016 09:12
--- NOTE | 2016-05-03 16:47 | NUR ---
Nausea/vomiting/diarrhea/BP Patient continues to have nausea with intermittent vomiting this shift, relief temp with zofran. Patient now having diarrhea, incontinent of watery stool at times, requiring several clothing changes. Blood pressures much better controlled this shift.
[2016-05-03] MEDS ORDERED: Promethazine 25 mg/mL Inj IM PRN (17:45)
[2016-05-04] VITALS (7 sets, daily range): BP systolic 90–128; BP diastolic 51–64; PULSE 67–80; RESP 16–18; O2SAT 92–94
[2016-05-04] MEDS: 0.9% Sodium Chloride 250 ML IV SCH (01:24)
--- NOTE | 2016-05-04 01:59 | NUR ---
BP Pt's BP stayed at 103/53; HR in the 80s. Withheld 4 BP meds due at HS. Tele SR. Pt reported relief from IM phenergan; has minimal nausea at this time; able to take HS meds and keep them down. had 1 episode of diarrhea this shift.
[2016-05-04 06:26] LABS: BASOPHILS % (AUTO) 0.2 % (0-3); EOSINOPHILS % (AUTO) 0.9 % (0-5); MONOCYTES % (AUTO) 11.7 % (4-12); Mean Corpuscular Hemoglobin 30.1 pg (27.0-35.0); Mean Corpuscular Volume 88.1 fL (81-100); NEUTROPHILS % (AUTO) 73.5 % (40-74); Platelet Count 189 bil/L (150-400)
[2016-05-04 07:03] LABS: Magnesium 2.2 mg/dL (1.6-2.6); Phosphorus 4.3 mg/dL (2.5-4.9)
[2016-05-04] MEDS: Insulin LISPRO 300 Unit/3 mL Inj SUBQ SCH ×4 (07:34→22:00)
[2016-05-04] MEDS: Pantoprazole 40 mg ER24 Tablet PO SCH (07:35)
[2016-05-04] MEDS: Divalproex (QD) 500 mg ER24 Tablet PO SCH ×3 (07:36→22:22)
--- NOTE | 2016-05-04 10:43 | PCM.PNMED ---
Subjective Date of Service May 04, 2016 Mary Grace Stuart verbally expressed frustration today that the Kayexalate has given him loose stools. He denies any known source of bleeding. Exam Vital Signs Vital Sign - Last Date Time Temp Pulse Resp B/P Pulse Ox O2 Delivery O2 Flow Rate FiO2 05/04/16 06:27 37.0 75 18 128/64 93 Room Air Intake and Output 05/03/16 05/03/16 05/04/16 Cumulative From/Thru 15:00 23:00 07:00 04/27/16 16:18 - 05/04/16 06:27 Intake Total 1072 ml 934 ml 06834 ml Output Total 900 ml 9970 ml Balance 172 ml 934 ml 4487 ml Intake Oral 300 ml 7324 ml IV Total 772 ml 934 ml 6011 ml Packed Cells 1122 ml Output Urine Total 8950 ml Emesis 900 ml 1020 ml # Voids 11 23 # Bowel Movements 11 23 Exam General: Chronically ill appearing male who appears older than his stated age resting comfortably in bed. No acute distress. Awake, alert, and oriented. HEENT: moist mucus membranes, sclera anicteric Cardiac: RRR, no murmur, rub, or gallop appreciated Respiratory: poor inspiratory effort. No wheezes, rales, or rhonchi Abdomen: Normoactive bowel tones. Soft, nondistended and nontender. No hepatosplenomegaly Extremities: Trace b/l lower extremity edema distal to the knee Neuro: Grossly normal Lab and Diagnostics Result Diagram: 05/04/16 0600 05/04/16 0600 X-Rays, CTs and MRIs PROCEDURE: X-RAY CHEST ONE VIEW, PORTABLE ([id number]) COMPARISON: [facility], CR, XR CHEST 1VW (PORTABLE), 04/09/2016, 10 :58. [facility], CR, XR CHEST 1VW (PORTABLE), 01/28/2016, 15:38. [facility], CR, XR CHEST 1VW (PORTABLE), 11/22/2015, 15:05. FINDINGS: Surgical changes and devices: None. Lungs and pleura: No pleural effusions or pneumothorax. Lungs are clear. Mediastinum: Mediastinal contours appear normal. Heart size is normal. Bones and chest wall: No suspicious bony lesions. Overlying soft tissues appear unremarkable. IMPRESSION: No acute process. Concordant with preliminary interpretation Dictated by: Judy Morgan M.D. on 04/28/2016 at 8:31 Approved by: Judy Morgan M.D. on 04/28/2016 at 8:31 Assessment & Plan Narciso is a 50yo male with hypertension, poorly controlled type II diabetes and bipolar disorder with a hx of nonadherence to outpatient medical care who presented to [facility] on request from his PCP's office after he had abnormal labs with them. He has been admitted for the evaluation and treatment of anemia and hypertensive urgency. He has had significant hyperkalemia during this hospitalization Nephrology has kindly consulted, and adjustments to his medications have been made. Hospital day #7 1. Acute kidney injury on chronic kidney disease stage 4. Present on admission. 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 Hyperkalemia, acute - Secondary to #1 above - 10Units of regular insulin along with D50 - Kayexalate 30g PO failed to adequately reduce his potassium - Repeat BMP in the AM 3. Diarrhea, acute - New onset sx 05/03 - Stool PCR positive for Norovirus and E coli - IV fluids as needed, cautious not to exceed his renal capability of filtration 4. Hypertensive urgency. Present on admission. Resolved - / in the ED - Reports being compliant with home antihypertensive medications - Blood pressure appears to be responding to increased dosing of Minoxidil; stable - Nephrology consulted for recommendations on BP management; time appreciated - Amlodipine 10mg daily - Hydralazine 50mg TID - Chlorthalidone 25mg daily - Lasix 40mg po BID - Labetalol 200mg TID - Minoxidil 5mg BID 5. Acute on chronic anemia. Present on admission, improved - On admit: Hgb 6.7, Hct 19.3 - Hgb 7.4 on discharge 04/11/2016 - Etiology likely multifactorial: CKD and diabetes make anemia of chronic disease likely - Stool guaiac negative and no obvious source of bleeding - Total of 3 units of PRBC transfused with stability of his hgb and hct - Outpatient colonoscopy may be warranted to evaluate for potential chronic bleeding - Trend H/H daily 6. Uncontrolled type II diabetes with retinopathy, neuropathy, nephropathy. Chronic. Present on admission. Ongoing - Blood glucose 385 in ED - HgbA1c 8.4% in 01/2016 - Bedside blood glucose checks - Medium dose insulin Lispro correctional - Resumed home dose 10Units of glargine daily 7. Elevated troponin of uncertain significance, chronic. Present on admission. Presumed stable - Likely secondary to CKD - Patient is without chest pain. EKG NSR with HR 62, no acute ST-changes - Continue telemetry 8. Nicotine dependence. Present on admission. Ongoing - Patch and lozenges available at request 9. Bipolar disorder, chronic. Stable - Continue DepaKote daily at home dose - PRN: Fever/antiemetics/bowel/pain - GI: PPI - DVT: SCDs - Diet: Heart healthy - Code: FULL CODE Dispo: Likely to DC 1-2 days pending medical stability; renal function continues to decline and hyperkalemia is not yet controlled. No anticipated needs at this time. GI Prophylaxis: Not indicated VTE Prophylaxis: SCDs VTE Mechanical Devices: Intermittant Pneumatic CD Resuscitation Status: CPR: Attempt Resuscitation Attending Statement The patient was seen and examined together with Dr. Vasquez on 05/04/2016 and I agree with the history, exam and plan as outlined in the note above. Jinny Vasquez DO May 04, 2016 10:43 Kayode Card MD May 05, 2016 09:57
[2016-05-04] MEDS ORDERED: Promethazine Inj 25 MG in 0.9% Sodium Chloride 50 ML IV PRN ×4 (11:00)
[2016-05-04] MEDS ORDERED: Insulin Human REGular 300 Unit/3 mL Inj IV ONE (11:20)
[2016-05-04] MEDS ORDERED: Insulin Human REGular-Omnicell 100 Unit/mL IV ONE (11:55)
[2016-05-04] MEDS: Insulin GLARgine 100 Unit/mL Syringe SUBQ SCH (12:00)
--- NOTE | 2016-05-04 13:10 | PCM.PNMED ---
Subjective Date of Service May 04, 2016 Subjective BP was on the low side overnight. serum creatinine got worse. good UOP, no LE swelling. Exam Vital Signs Vital Sign - Last Date Time Temp Pulse Resp B/P Pulse Ox O2 Delivery O2 Flow Rate FiO2 05/04/16 08:00 71 05/04/16 06:27 37.0 18 128/64 93 Room Air Intake and Output 05/03/16 05/03/16 05/04/16 Cumulative From/Thru 15:00 23:00 07:00 04/27/16 16:18 - 05/04/16 06:27 Intake Total 1072 ml 934 ml 54210 ml Output Total 900 ml 9970 ml Balance 172 ml 934 ml 4487 ml Intake Oral 300 ml 7324 ml IV Total 772 ml 934 ml 6011 ml Packed Cells 1122 ml Output Urine Total 8950 ml Emesis 900 ml 1020 ml # Voids 11 23 # Bowel Movements 11 23 Exam General: No acute distress, well-developed, well-nourished HEENT: Normocephalic, atraumatic. Anicteric sclerae, moist conjunctivae. Oropharynx free of erythema with moist mucosa. Neck: Supple. Trachea midline Cardiovascular: Regular rate and rhythm with no murmurs, rubs, or gallops appreciated Pulmonary: Clear to auscultation bilaterally with no crackles, wheezes, or rhonchi. Normal respiratory effort with no use of accessory muscles. Abdomen: Bowel tones present. No HSM. Soft. Nondistended. Extremities: No edema Skin: Normal temperature, turgor, and texture Neurological: Cranial nerves grossly intact. Lab and Diagnostics Result Diagram: 05/04/16 0600 05/04/16 0600 X-Rays, CTs and MRIs PROCEDURE: X-RAY CHEST ONE VIEW, PORTABLE ([id number]) COMPARISON: [facility], CR, XR CHEST 1VW (PORTABLE), 04/09/2016, 10 :58. [facility], CR, XR CHEST 1VW (PORTABLE), 01/28/2016, 15:38. [facility], CR, XR CHEST 1VW (PORTABLE), 11/22/2015, 15:05. FINDINGS: Surgical changes and devices: None. Lungs and pleura: No pleural effusions or pneumothorax. Lungs are clear. Mediastinum: Mediastinal contours appear normal. Heart size is normal. Bones and chest wall: No suspicious bony lesions. Overlying soft tissues appear unremarkable. IMPRESSION: No acute process. Concordant with preliminary interpretation Dictated by: Judy Morgan M.D. on 04/28/2016 at 8:31 Approved by: Judy Morgan M.D. on 04/28/2016 at 8:31 Assessment & Plan 1. VINNY on CKD4 - BP has been labile with hypotensive episodes overnight and new onset of diarrhea. - will discontinue some of his antihypertensive medications. - start NS 60 ml/hr. - Since he is not uremic, we will not initiate LUMBER HANDLER at this moment. - repeat BMP in am. 2. Hyperkalemia - add another dose of kayexalate 15 gm x 1. 3. 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 4. Hypertension with hypertensive nephrosclerosis. 5. DM-2 with renal manifestation. 6. Acute onset diarrhea, (+) E.coli and norovirus. 7. Anemia of CKD 8. Hypocalcemia secondary to vitD def. Plan: NS 60 ml/hr. Readjust BP meds. Kayexalate 15 gm PO x 1. add aranesp 40 mcg subQ x 1. add ergocalciferol 50,000 units weekly. add CaCO3 500 mg TID. add NaHCO3 650 mg TID. GI Prophylaxis: Not indicated VTE Prophylaxis: SCDs VTE Mechanical Devices: Intermittant Pneumatic CD Resuscitation Status: CPR: Attempt Resuscitation Patricia Manrique MD May 04, 2016 13:10
[2016-05-04] MEDS ORDERED: Darbepoetin Alfa 40 mCg/0.4 mL Inj SUBQ ONE (13:15)
[2016-05-04] MEDS: 0.9% Sodium Chloride 1,000 ML IV SCH (14:52)
[2016-05-04] MEDS: Calcium Carbonate (Oyster Shell) 500 mg Tablet PO SCH ×2 (15:32→22:23)
--- NOTE | 2016-05-04 15:50 | NUR ---
Social Work-continued d.c planning: Data:EMR Reviewed. Pt is on day 6 of hospitalization for anemia per H&P. Per MD, pt is several days out from discharge. SW followed up with pt at bedside to further discuss discharge planning, SW role explained. Pt states he has been speaking daily to his ex- Khurram and is able to return there at discharge. SW asked if SW could touch base with her and pt declined stating he did not want SW to call her. Pt states she will be providing transport at discharge. No anticipated discharge needs. SW will continue to follow if needs arise. Assessment:Pt who is independent at baseline. Plan:Pt to discharge home with ex- when medically stable. No anticipated discharge needs. SW will continue to follow if needs arise. Radha Tejada MSW
[2016-05-05] VITALS (7 sets, daily range): BP systolic 109–147; BP diastolic 53–78; PULSE 72–94; RESP 16; O2SAT 93–97
[2016-05-05] MEDS: 0.9% Sodium Chloride 250 ML IV SCH ×2 (00:54→22:17)
--- NOTE | 2016-05-05 05:03 | NUR ---
BP Pt's BP was 108/51. HS BP meds were held. slept most of the night tylenol given per pt's request for generalized ache- reported relief. using urinal at bedside with SBA.
[2016-05-05 06:32] LABS: BASOPHILS % (AUTO) 0.1 % (0-3); EOSINOPHILS % (AUTO) 1.3 % (0-5); Mean Corpuscular Hemoglobin 29.8 pg (27.0-35.0); Mean Corpuscular Volume 87.7 fL (81-100); NEUTROPHILS % (AUTO) 76.9 % (40-74); Platelet Count 206 bil/L (150-400)
[2016-05-05] MEDS: Insulin LISPRO 300 Unit/3 mL Inj SUBQ SCH ×4 (08:00→22:00)
[2016-05-05] MEDS: Pantoprazole 40 mg ER24 Tablet PO SCH (08:29)
[2016-05-05] MEDS: 0.9% Sodium Chloride 1,000 ML IV SCH (08:29)
[2016-05-05] MEDS ORDERED: Ergocalciferol (Vit D2) 50,000 Unit Capsule PO SCH (08:30)
[2016-05-05] MEDS: Divalproex (QD) 500 mg ER24 Tablet PO SCH ×3 (08:32→20:09)
[2016-05-05] MEDS: Calcium Carbonate (Oyster Shell) 500 mg Tablet PO SCH ×3 (08:33→20:09)
--- NOTE | 2016-05-05 11:54 | PCM.PNMED ---
Subjective Date of Service May 05, 2016 Subjective His kidney function has been worsening. Thus far, he has no uremic symptoms. BP is better controlled and more stable. Exam Vital Signs Vital Sign - Last Date Time Temp Pulse Resp B/P Pulse Ox O2 Delivery O2 Flow Rate FiO2 05/05/16 08:10 76 145/74 05/05/16 06:19 36.8 16 97 Room Air Intake and Output 05/04/16 05/04/16 05/05/16 Cumulative From/Thru 15:00 23:00 07:00 04/27/16 16:18 - 05/05/16 06:28 Intake Total 240 ml 3350 ml 982 ml 30378 ml Output Total 950 ml 800 ml 03469 ml Balance 240 ml 2400 ml 182 ml 7309 ml Intake Oral 240 ml 2350 ml 300 ml 02845 ml IV Total 1000 ml 682 ml 7693 ml Packed Cells 1122 ml Output Urine Total 950 ml 800 ml 37097 ml Emesis 1020 ml # Voids 2 25 # Bowel Movements 1 4 0 28 Exam General: No acute distress, well-developed, well-nourished, legally blind. HEENT: Normocephalic, atraumatic. Anicteric sclerae, moist conjunctivae. Oropharynx free of erythema with moist mucosa. Neck: Supple. Trachea midline Cardiovascular: Regular rate and rhythm with no murmurs, rubs, or gallops appreciated Pulmonary: Clear to auscultation bilaterally with no crackles, wheezes, or rhonchi. Normal respiratory effort with no use of accessory muscles. Abdomen: Bowel tones present. No HSM. Soft. Nondistended. Extremities: No edema Skin: Normal temperature, turgor, and texture Neurological: Cranial nerves grossly intact. Lab and Diagnostics Result Diagram: 05/05/16 0550 05/05/16 0550 X-Rays, CTs and MRIs PROCEDURE: X-RAY CHEST ONE VIEW, PORTABLE ([id number]) COMPARISON: [facility], CR, XR CHEST 1VW (PORTABLE), 04/09/2016, 10 :58. [facility], CR, XR CHEST 1VW (PORTABLE), 01/28/2016, 15:38. [facility], CR, XR CHEST 1VW (PORTABLE), 11/22/2015, 15:05. FINDINGS: Surgical changes and devices: None. Lungs and pleura: No pleural effusions or pneumothorax. Lungs are clear. Mediastinum: Mediastinal contours appear normal. Heart size is normal. Bones and chest wall: No suspicious bony lesions. Overlying soft tissues appear unremarkable. IMPRESSION: No acute process. Concordant with preliminary interpretation Dictated by: Judy Morgan M.D. on 04/28/2016 at 8:31 Approved by: Judy Morgan M.D. on 04/28/2016 at 8:31 Assessment & Plan 1. VINNY on CKD4 - BP more stable. - Kidney function has been worsening. - will check PVR, insert larkin if PVR > 400 ml. - Since he is not uremic, we will not initiate SEATING CAPTAIN at this moment. - He has no family support. He lives at home alone. - If HD is required, he has to go to HD unit 3 times a week. - Transport might be an issue. It seems like he does not want to be taken to kidney center 3 times a week life long. - will consult SW. 2. Hyperkalemia - improving slowly. - repeat K in pm. 3. 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 - continue NaHCO3 4. Hypertension with hypertensive nephrosclerosis. - continue labetalol, norvasc and hydralazine. 5. DM-2 with renal manifestation. 6. Acute onset diarrhea, (+) E.coli and norovirus. 7. Anemia of CKD, s/p aranesp injection. 8. Hypocalcemia secondary to vitD def. continue CaCO3 and ergocalciferol. GI Prophylaxis: Not indicated VTE Prophylaxis: SCDs VTE Mechanical Devices: Intermittant Pneumatic CD Resuscitation Status: CPR: Attempt Resuscitation Patricia Manrique MD May 05, 2016 11:54
[2016-05-05] MEDS: Insulin GLARgine 100 Unit/mL Syringe SUBQ SCH (12:20)
--- NOTE | 2016-05-05 18:33 | PCM.PNMED ---
Subjective Date of Service May 05, 2016 Subjective Narciso's creatinine and elevated potassium have not improved despite Kayexalate and IV insulin with dextrose. Today, he states that he realizes that he will need to be on hemodialysis because of his poor renal function and he is okay with that. Narciso reports that he is feeling relatively well aside from generalized fatigue. Exam Vital Signs Vital Sign - Last Date Time Temp Pulse Resp B/P Pulse Ox O2 Delivery O2 Flow Rate FiO2 05/05/16 12:00 36.6 77 16 147/78 93 Room Air Intake and Output 05/04/16 05/04/16 05/05/16 Cumulative From/Thru 15:00 23:00 07:00 04/27/16 16:18 - 05/05/16 06:28 Intake Total 240 ml 3350 ml 982 ml 28589 ml Output Total 950 ml 800 ml 73512 ml Balance 240 ml 2400 ml 182 ml 7309 ml Intake Oral 240 ml 2350 ml 300 ml 06665 ml IV Total 1000 ml 682 ml 7693 ml Packed Cells 1122 ml Output Urine Total 950 ml 800 ml 43669 ml Emesis 1020 ml # Voids 2 25 # Bowel Movements 1 4 0 28 Exam General: Chronically ill appearing male resting comfortably in bed. No acute distress. Awake, alert, and oriented. HEENT: moist mucus membranes, sclera anicteric Cardiac: RRR, no murmur, rub, or gallop appreciated Respiratory: poor inspiratory effort. No wheezes, rales, or rhonchi Abdomen: Normoactive bowel tones. Soft, nondistended and nontender. No hepatosplenomegaly Extremities: Trace b/l lower extremity edema distal to med calf Neuro: Grossly normal. Able to sit up unassisted. IVs and Medications Medications Reviewed: Medications were reviewed in detail Lab and Diagnostics Result Diagram: 05/05/16 0550 05/05/16 0550 X-Rays, CTs and MRIs PROCEDURE: X-RAY CHEST ONE VIEW, PORTABLE ([id number]) FINDINGS: Surgical changes and devices: None. Lungs and pleura: No pleural effusions or pneumothorax. Lungs are clear. Mediastinum: Mediastinal contours appear normal. Heart size is normal. Bones and chest wall: No suspicious bony lesions. Overlying soft tissues appear unremarkable. IMPRESSION: No acute process. Concordant with preliminary interpretation Dictated by: Judy Morgan M.D. on 04/28/2016 at 8:31 Approved by: Judy Morgan M.D. on 04/28/2016 at 8:31 Assessment & Plan Narciso is a 50yo male with hypertension, poorly controlled type II diabetes and bipolar disorder with a hx of nonadherence to outpatient medical care who presented to [facility] on request from his PCP's office after he had abnormal outpatient labs. He has been admitted for the evaluation and treatment of anemia and hypertensive urgency. He has had significant hyperkalemia during this hospitalization which has been resistant to medical management. Nephrology has kindly consulted. Hospital day #7 1. Acute kidney injury on chronic kidney disease stage 4. Present on admission. 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 Planning outpatient dialysis 3 times weekly 2. Hyperkalemia, acute and ongoing - Secondary to #1 above - 10Units of regular insulin along with D50 as well as Kayexalate 30g PO failed to adequately treat his hyperkalemia - Repeat BMP in the AM - To be treated further with dialysis 3. Diarrhea, resolved - New onset on 05/03, resolved 24hours later - Stool PCR positive for Norovirus and E coli 4. Acute on chronic anemia. Present on admission, improved - On admit: Hgb 6.7, Hct 19.3 - Hgb 7.4 on discharge 04/11/2016 - Etiology likely multifactorial: very likely due to his CKD and diabetes make anemia of chronic disease likely - Stool guaiac negative and no obvious source of bleeding - Total of 3 units of PRBC transfused with stability of his hgb and hct - Trend H/H daily 6. Uncontrolled type II diabetes with retinopathy, neuropathy, nephropathy. Chronic. Present on admission. - Blood glucose 385 in ED - HgbA1c 8.4% in 01/2016 - Bedside blood glucose checks - Medium dose insulin Lispro correctional - Resumed home dose 10Units of glargine BID 7. Elevated troponin of uncertain significance, chronic. Present on admission. Presumed stable - Likely secondary to CKD - Patient is without chest pain. EKG NSR with HR 62, no acute ST-changes - Continue telemetry 8. Nicotine dependence. Present on admission. Ongoing - Patch and lozenges available at request 9. Bipolar disorder, chronic. Stable - Continue DepaKote daily at home dose - PRN: Fever/antiemetics/bowel/pain - DVT: SCDs - Diet: Heart healthy Dispo: Likely to DC 1-2 days pending medical stability; renal function continues to decline and hyperkalemia is not yet controlled thus dialysis will be needed. He is unable to drive, has a reliable ride, but will need assistance entering the dialysis center GI Prophylaxis: Not indicated VTE Prophylaxis: SCDs VTE Mechanical Devices: Intermittant Pneumatic CD Resuscitation Status: CPR: Attempt Resuscitation Attending Statement The patient was seen and examined together with Dr. Vasquez on 05/05/2016 and I agree with the history, exam and plan as outlined in the note above. Jinny Vasquez DO May 05, 2016 12:48 Kayode Card MD May 06, 2016 10:34
[2016-05-05] MEDS: Ondansetron 2 mg/mL 2 mL Inj IVPUSH PRN (20:14)
[2016-05-06 05:39] VITALS: BP 122/62; PULSE 86; RESP 16; O2SAT 95
[2016-05-06 06:38] LABS: BASOPHILS % (AUTO) 0.5 % (0-3); EOSINOPHILS % (AUTO) 3.2 % (0-5); Mean Corpuscular Hemoglobin 30.1 pg (27.0-35.0); Mean Corpuscular Volume 88.6 fL (81-100); NEUTROPHILS % (AUTO) 61.3 % (40-74); Platelet Count 191 bil/L (150-400)
[2016-05-06 07:00] LABS: Phosphorus 4.6 mg/dL (2.5-4.9)
[2016-05-06 08:00] VITALS: PULSE 65
[2016-05-06] MEDS: Divalproex (QD) 500 mg ER24 Tablet PO SCH ×3 (08:23→20:12)
[2016-05-06] MEDS: Insulin LISPRO 300 Unit/3 mL Inj SUBQ SCH ×4 (08:23→22:00)
[2016-05-06] MEDS: Calcium Carbonate (Oyster Shell) 500 mg Tablet PO SCH ×3 (08:23→20:11)
[2016-05-06] MEDS: Pantoprazole 40 mg ER24 Tablet PO SCH (08:23)
--- NOTE | 2016-05-06 10:00 | NUR ---
PVR Pt voided 500ml into urinal. Shortly after, PVR assessed and result 83ml.
--- NOTE | 2016-05-06 10:16 | PCM.PNMED ---
Subjective Date of Service May 06, 2016 Subjective Narciso's creatinine has decreased slightly from yesterday, however, his hyperkalemia persists. Exam Vital Signs Vital Sign - Last Date Time Temp Pulse Resp B/P Pulse Ox O2 Delivery O2 Flow Rate FiO2 05/06/16 05:39 36.0 86 16 122/62 95 Room Air Intake and Output 05/05/16 05/05/16 05/06/16 Cumulative From/Thru 15:00 23:00 07:00 04/27/16 16:18 - 05/06/16 06:26 Intake Total 474 ml 636 ml 0 ml 68081 ml Output Total 900 ml 700 ml 11916 ml Balance 474 ml -264 ml -700 ml 6819 ml Intake Oral 636 ml 0 ml 04032 ml IV Total 474 ml 8167 ml Packed Cells 1122 ml Output Urine Total 900 ml 700 ml 02672 ml Emesis 1020 ml # Voids 25 # Bowel Movements 0 3 31 Exam General: Chronically ill appearing male resting comfortably in bed. Awoken easily. No acute distress. Awake, alert, and oriented. HEENT: moist mucus membranes, sclera anicteric Cardiac: RRR, no murmur, rub, or gallop appreciated Respiratory:Moderate inspiratory effort. No wheezes, rales, or rhonchi Abdomen: Normoactive bowel tones. Soft, nondistended and nontender. No hepatosplenomegaly Extremities: Trace b/l lower extremity edema distal to mid calf Neuro: Grossly normal. Able to sit up unassisted. Lab and Diagnostics Result Diagram: 05/06/16 0550 05/06/16 0550 X-Rays, CTs and MRIs PROCEDURE: X-RAY CHEST ONE VIEW, PORTABLE ([id number]) FINDINGS: Surgical changes and devices: None. Lungs and pleura: No pleural effusions or pneumothorax. Lungs are clear. Mediastinum: Mediastinal contours appear normal. Heart size is normal. Bones and chest wall: No suspicious bony lesions. Overlying soft tissues appear unremarkable. IMPRESSION: No acute process. Concordant with preliminary interpretation Dictated by: Judy Morgan M.D. on 04/28/2016 at 8:31 Approved by: Judy Morgan M.D. on 04/28/2016 at 8:31 Assessment & Plan Narciso is a 50yo male with hypertension, poorly controlled type II diabetes and bipolar disorder with a hx of nonadherence to outpatient medical care who presented to [facility] on request from his PCP's office after he had abnormal outpatient labs. He has been admitted for the evaluation and treatment of anemia and hypertensive urgency. He has had significant hyperkalemia during this hospitalization which has been resistant to medical management. Nephrology has kindly consulted. Hospital day #8 1. Acute kidney injury on chronic kidney disease stage 4. Present on admission. 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 Planning outpatient dialysis 3 times weekly 2. Hyperkalemia, acute and ongoing - Secondary to #1 above - 10Units of regular insulin along with D50 as well as Kayexalate 30g PO failed to adequately treat his hyperkalemia - Repeat BMP in the AM - To be treated further with dialysis 3. Acute on chronic anemia. Present on admission, stable - On admit: Hgb 6.7, Hct 19.3 - Hgb 7.4 on discharge 04/11/2016 - Etiology likely multifactorial: very likely due to his CKD and diabetes make anemia of chronic disease likely - Stool guaiac negative and no obvious source of bleeding - Total of 3 units of PRBC transfused with stability of his hgb and hct - Trend H/H daily 4. Uncontrolled type II diabetes with retinopathy, neuropathy, nephropathy. Chronic. Present on admission. - Blood glucose 385 in ED - HgbA1c 8.4% in 01/2016 - Bedside blood glucose checks - Medium dose correctional insulin with Lispro - Continue home dose of glargine 10Units BID 5. Chronically elevated troponin. Present on admission. Presumed stable - Likely secondary to CKD - Patient is without chest pain. EKG NSR with HR 62, no acute ST-changes - Continue telemetry 6. Nicotine dependence. Present on admission. - Patch and lozenges available at request 7. Bipolar disorder, chronic. Stable - Continue DepaKote daily at home dose 8. Diarrhea, resolved - New onset on 05/03, resolved 24hours later - Stool PCR positive for Norovirus and E coli - Diet: Heart healthy Dispo: Likely to DC 1-2 days pending medical stability; renal function continues to decline and hyperkalemia is not yet controlled thus dialysis will be needed. He is unable to drive, has a reliable ride, but will need assistance entering the dialysis center GI Prophylaxis: Not indicated VTE Prophylaxis: SCDs VTE Mechanical Devices: Intermittant Pneumatic CD Resuscitation Status: CPR: Attempt Resuscitation Attending Statement The patient was seen and examined together with Dr. Vasquez on 05/06/2016 and I agree with the history, exam and plan as outlined in the note above. Jinny Vasquez DO May 06, 2016 10:16 Kayode Card MD May 07, 2016 13:55
[2016-05-06 10:58] VITALS: BP 137/72; PULSE 92; RESP 16; O2SAT 93
--- NOTE | 2016-05-06 11:47 | PCM.PNMED ---
Subjective Date of Service May 06, 2016 Subjective no new event overnight BP stable. PVR 83 ml. Exam Vital Signs Vital Sign - Last Date Time Temp Pulse Resp B/P Pulse Ox O2 Delivery O2 Flow Rate FiO2 05/06/16 10:58 36.8 92 16 137/72 93 Room Air Intake and Output 05/05/16 05/05/16 05/06/16 Cumulative From/Thru 15:00 23:00 07:00 04/27/16 16:18 - 05/06/16 06:26 Intake Total 474 ml 636 ml 0 ml 84873 ml Output Total 900 ml 700 ml 04201 ml Balance 474 ml -264 ml -700 ml 6819 ml Intake Oral 636 ml 0 ml 51245 ml IV Total 474 ml 8167 ml Packed Cells 1122 ml Output Urine Total 900 ml 700 ml 29037 ml Emesis 1020 ml # Voids 25 # Bowel Movements 0 3 31 Exam General: No acute distress, well-developed, well-nourished, legally blind. HEENT: Normocephalic, atraumatic. Anicteric sclerae, moist conjunctivae. Oropharynx free of erythema with moist mucosa. Neck: Supple. Trachea midline Cardiovascular: Regular rate and rhythm with no murmurs, rubs, or gallops appreciated Pulmonary: Clear to auscultation bilaterally with no crackles, wheezes, or rhonchi. Normal respiratory effort with no use of accessory muscles. Abdomen: Bowel tones present. No HSM. Soft. Nondistended. Extremities: No edema Skin: Normal temperature, turgor, and texture Neurological: Cranial nerves grossly intact. Lab and Diagnostics Result Diagram: 05/06/16 0550 05/06/16 0550 X-Rays, CTs and MRIs PROCEDURE: X-RAY CHEST ONE VIEW, PORTABLE ([id number]) FINDINGS: Surgical changes and devices: None. Lungs and pleura: No pleural effusions or pneumothorax. Lungs are clear. Mediastinum: Mediastinal contours appear normal. Heart size is normal. Bones and chest wall: No suspicious bony lesions. Overlying soft tissues appear unremarkable. IMPRESSION: No acute process. Concordant with preliminary interpretation Dictated by: Judy Morgan M.D. on 04/28/2016 at 8:31 Approved by: Jduy Morgan M.D. on 04/28/2016 at 8:31 Assessment & Plan 1. VINNY on CKD4 - BP more stable. - serum creatinine has trended down. - PVR 83 ml. - Since he is not uremic, we will not initiate BUILDING SERVICES TECHNICIAN at this moment. - will order venous mapping both arm. - if serum creatinine improves further, will d/c home likely in am. - f/u with renal in 1 week. 2. Hyperkalemia due to RTA type 4 - improving slowly. - start fludrocortisone 0.1 mg daily. - if d/c home will give Kayexalate 15 gm PO Q MWF. 3. 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 - continue NaHCO3 4. Hypertension with hypertensive nephrosclerosis. - continue labetalol, norvasc and hydralazine. 5. DM-2 with renal manifestation. 6. Acute onset diarrhea, (+) E.coli and norovirus. -resolved. 7. Anemia of CKD, s/p aranesp injection. 8. Hypocalcemia secondary to vitD def. continue CaCO3 and ergocalciferol. GI Prophylaxis: Not indicated VTE Prophylaxis: SCDs VTE Mechanical Devices: Intermittant Pneumatic CD Resuscitation Status: CPR: Attempt Resuscitation Patricia Manrique MD May 06, 2016 11:47
[2016-05-06] MEDS: Insulin GLARgine 100 Unit/mL Syringe SUBQ SCH (12:29)
[2016-05-06 14:46] VITALS: BP 131/68; PULSE 67; RESP 18; O2SAT 91
--- NOTE | 2016-05-06 15:04 | NUR ---
Social Work-readiness for discharge: Data:EMR Reviewed. Pt is on day 8 of hospitalization for anemia per H&P. Pt is not medically stable, but may be ready tomorrow or the next day. Pt resides at home with his ex- and plans on returning there. has informed SW that pt will likely be on dialysis, but per nephrology note today pt has not started dialysis and does not have fistula or catheter placed. Pt may not be on dialysis when he leaves the hospital. Pt states that if he does need dialysis his family can provide transport home, but he will need assistance with transport to dialysis. SW asked UR specialist to call Medicaid transport. Nathaly spoke with Medicaid transport and they are willing to work with pt for a short time, but pt will need to be on dial a ride intermediate project manager. Pt has been keeping his family up to date and he does not want SW to reach out to family. No anticipated discharge needs. SW will continue to follow if needs arise. Assessment:Pt who is independent at baseline. Plan:Pt to discharge home when medically stable via POV. No anticipated discharge needs. SW will continue to follow if needs arise. Radha Tejada,TELEPHONE LINEMAN
[2016-05-06 19:20] VITALS: BP 143/69; PULSE 69; RESP 18; O2SAT 95
[2016-05-06] MEDS: Heparin 5,000 Unit/mL Inj SUBQ SCH (20:12)
[2016-05-06 21:17] VITALS: BP 136/72; PULSE 74; RESP 18; O2SAT 96
[2016-05-06] MEDS: 0.9% Sodium Chloride 250 ML IV SCH (23:40)
[2016-05-07 00:23] VITALS: BP 138/68; PULSE 73; RESP 18; O2SAT 97
[2016-05-07 04:56] VITALS: PULSE 70
[2016-05-07 05:08] VITALS: BP 142/68; PULSE 70; RESP 18; O2SAT 96
[2016-05-07 08:00] VITALS: PULSE 66
[2016-05-07] MEDS: Insulin LISPRO 300 Unit/3 mL Inj SUBQ SCH (08:59)
[2016-05-07] MEDS: Heparin 5,000 Unit/mL Inj SUBQ SCH (09:00)
[2016-05-07] MEDS: Calcium Carbonate (Oyster Shell) 500 mg Tablet PO SCH (09:01)
[2016-05-07] MEDS: Divalproex (QD) 500 mg ER24 Tablet PO SCH (09:02)
[2016-05-07] MEDS: Pantoprazole 40 mg ER24 Tablet PO SCH (09:02)
[2016-05-07] MEDS ORDERED: Calcium Carbonate PO (10:00)
[2016-05-07] MEDS ORDERED: AMLO5TAB2 PO (10:00)
[2016-05-07] MEDS ORDERED: FLUD0.1T PO (10:00)
[2016-05-07] MEDS ORDERED: ATOR40TA69 PO (10:00)
[2016-05-07] MEDS ORDERED: SODI15OR8 PO (10:00)
[2016-05-07] MEDS ORDERED: SEVE800T7 PO (10:00)
--- NOTE | 2016-05-07 10:25 | PCM.DIMED ---
Jinny Vasquez DO 05/07/16 1025: Discharge Instructions Date of Service May 07, 2016 Dates of Hospitalization Apr 28, 2016 at 01:35 Discharge Diagnosis Discharge Diagnosis Acute kidney injury on chronic kidney disease stage 4. Present on admission. Ongoing Hyperkalemia, secondary to end stage renal disease Acute on Chronic anemia - Status post transfusion of 3 units of packed red blood cells Uncontrolled type II diabetes with retinopathy, neuropathy, nephropathy. Chronic. Chronically elevated troponin Nicotine dependence. Bipolar disorder, chronic. Stable Diarrhea secondary to Norovirus and E coli, resolved Medication Instructions START the following: fludrocortisone 1 tablet by mouth every day atorvastatin 1 tablet by mouth daily at bedtime Kayexalate (sodium polystyrene sulfonate) 15g by mouth twice weekly; this medication is important to keep your potassium from becoming dangerously high. amlodipine 10mg tablet by mouth daily Sevelamer 800mg three times daily with meals; this is to help prevent your phosphate from becoming too high Oscal ( Calcium) 500mg by mouth three times daily with meals Continue: aspirin 81mg daily Lantus insulin (glargine) 10units daily Apidra insulin 7units twice daily labetalol 200mg daily divalproex ER 500mg by mouth daily Diet Renal Diet (Limit potassium intake: avoid bananas and citrus) Call your provider Fever or Chills, Shortness of breath, Bleeding, Chest pain, Vomitting, Excessive diarrhea, Weakness (unilateral) Patient Instructions Follow-up plan Please call Dr Manrique's office to schedule an appointment to see her in 2 weeks. The clinic has been notified of the needed follow up and may be contacting you, but please call them if you do hear from them within 2 days. [facility] [address] [place] [address] Follow-up Provider: Patricia Manrique MD Follow-up with PCP in: 2 weeks Provider: Charity Monson PA-C Follow-up in: 1 week (Please have a BMP ( lab test) done in 1 week with your [facility] care provider to check your potassium) Kayode Card MD 05/07/16 1356: Jinny Vasquez DO May 07, 2016 10:25 Kayode Card MD May 07, 2016 13:56
--- NOTE | 2016-05-07 10:46 | NUR ---
Social Work: Discharge Data: Pt is on day 9 of hospitalization. EMR reviewed, pt discussed in rounds. D/C orders are in. CUTTING MACHINE OFFBEARER confirmed with UR RN who spoke with Vaccine Key Customer Leader that pt does not need dialysis at d/c but a follow up appointment has been set up with twine winder. No further d/c planning needs at this time. CUTTING MACHINE OFFBEARER will continue to follow if needs arise. Assessment: Pt who is independent at baseline. Plan: Pt will d/c home via POV today will follow up appointment with twine winder next week. No further d/c planning needs at this time. CUTTING MACHINE OFFBEARER will continue to follow if needs arise. RENEA Singleton
--- NOTE | 2016-05-07 11:35 | PCM.PNMED ---
Subjective Date of Service May 07, 2016 Subjective no acute issue. creatinine and potassium are trending down Exam Vital Signs Vital Sign - Last Date Time Temp Pulse Resp B/P Pulse Ox O2 Delivery O2 Flow Rate FiO2 05/07/16 08:00 66 05/07/16 05:08 36.6 18 142/68 96 Room Air Intake and Output 05/06/16 05/06/16 05/07/16 Cumulative From/Thru 15:00 23:00 07:00 04/27/16 16:18 - 05/07/16 06:10 Intake Total 800 ml 232 ml 42277 ml Output Total 900 ml 450 ml 04493 ml Balance -100 ml -218 ml 6501 ml Intake Oral 800 ml 232 ml 33589 ml IV Total 8167 ml Packed Cells 1122 ml Output Urine Total 900 ml 450 ml 54600 ml Emesis 1020 ml # Voids 25 # Bowel Movements 31 Exam General: No acute distress, well-developed, well-nourished, legally blind. HEENT: Normocephalic, atraumatic. Anicteric sclerae, moist conjunctivae. Oropharynx free of erythema with moist mucosa. Neck: Supple. Trachea midline Cardiovascular: Regular rate and rhythm with no murmurs, rubs, or gallops appreciated Pulmonary: Clear to auscultation bilaterally with no crackles, wheezes, or rhonchi. Normal respiratory effort with no use of accessory muscles. Abdomen: Bowel tones present. No HSM. Soft. Nondistended. Extremities: No edema Skin: Normal temperature, turgor, and texture Neurological: Cranial nerves grossly intact. Lab and Diagnostics Result Diagram: 05/06/16 0550 05/07/16 0537 X-Rays, CTs and MRIs PROCEDURE: X-RAY CHEST ONE VIEW, PORTABLE ([id number]) FINDINGS: Surgical changes and devices: None. Lungs and pleura: No pleural effusions or pneumothorax. Lungs are clear. Mediastinum: Mediastinal contours appear normal. Heart size is normal. Bones and chest wall: No suspicious bony lesions. Overlying soft tissues appear unremarkable. IMPRESSION: No acute process. Concordant with preliminary interpretation Dictated by: Judy Morgan M.D. on 04/28/2016 at 8:31 Approved by: Judy Morgan M.D. on 04/28/2016 at 8:31 Assessment & Plan 1. VINNY on CKD4 - improving. 2. Hyperkalemia due to RTA type 4 - improving slowly. - 3. 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 - continue NaHCO3 4. Hypertension with hypertensive nephrosclerosis. - continue labetalol, norvasc and hydralazine. 5. DM-2 with renal manifestation. 6. Acute onset diarrhea, (+) E.coli and norovirus. -resolved. 7. Anemia of CKD, s/p aranesp injection. 8. Hypocalcemia secondary to vitD def. continue CaCO3 and ergocalciferol. Plan: continue fludrocortisone 0.1 mg daily. Kayexalate 15 gm PO twice a week. continue labetalol, norvasc and hydralazine. continue CaCO3 and ergocalciferol. labs in 1 week. f/u with renal in 2 weeks. GI Prophylaxis: Not indicated VTE Prophylaxis: SCDs VTE Mechanical Devices: Intermittant Pneumatic CD Resuscitation Status: CPR: Attempt Resuscitation Patricia Manrique MD May 07, 2016 11:35
--- NOTE | 2016-05-07 11:36 | NUR ---
Discharge IV discontinued fully intact. Glucometer given to patient and information on how to use glucometer explained to patient and friend who both verbalize understanding on how to use glucometer. Discharge instructions explained to both friend and patient including the need for follow up labs and future appointments. Patient states that friend will schedule those for him. All personal belongings given to patient. Patient ambulated off unit with AUTOMATIC TIRE TESTER to friends car.
--- NOTE | 2016-05-07 19:34 | PCM.DC.MED ---
Discharge Summary Date of Service May 07, 2016 Dates of Hospitalization Date of Hospital Admission Apr 28, 2016 at 01:35 Date of Discharge: May 07, 2016 Providers: Admitting Physician: Ansley Larose MD Primary Care Physician: Charity Monson PA-C Attending Physician: Ansley Larose MD Diagnosis at Time of Discharge Diagnosis at Time of Discharge Acute kidney injury on chronic kidney disease stage 4. Present on admission. Hyperkalemia, secondary to end stage renal disease Acute on Chronic anemia - Status post transfusion of 3 units of packed red blood cells Uncontrolled type II diabetes with retinopathy, neuropathy, nephropathy. Chronic. Chronically elevated troponin Nicotine dependence. Bipolar disorder, chronic. Stable Diarrhea secondary to Norovirus and E coli, resolved Procedures XRay, CTs & MRIs PROCEDURE: X-RAY CHEST ONE VIEW, PORTABLE ([id number]) FINDINGS: Surgical changes and devices: None. Lungs and pleura: No pleural effusions or pneumothorax. Lungs are clear. Mediastinum: Mediastinal contours appear normal. Heart size is normal. Bones and chest wall: No suspicious bony lesions. Overlying soft tissues appear unremarkable. IMPRESSION: No acute process. Concordant with preliminary interpretation Dictated by: Judy Morgan M.D. on 04/28/2016 at 8:31 Approved by: Judy Morgan M.D. on 04/28/2016 at 8:31 Brief History Per H&P by Dr Jordan: Patient is a 50-year-old male with hypertension, poorly controlled type II diabetes and bipolar disorder presenting as a referral from his physician's office as a result of abnormal labs. The patient was hospitalized at [facility] on and discharged 04/11/2016 for hypertensive urgency. He reports having follow up labs completed on 04/14/2016 and subsequently received a phone call today from his PCP's office advising him to go to the ED for further evaluation because of abnormal lab results. The patient is uncertain as to which labs are abnormal. He reports being told that he had bad kidneys during his last admission and has been drinking a lot of water since his discharge. Patient states that he probably drinks 15-20 glasses of water per day. At time of visit the patient reports feeling well since his discharge. He reports chronic chest pain and mild shortness of breath but nothing that is out of the ordinary for him. Patient denies fever, chills, nausea, emesis, diarrhea, hematochezia, melena, dysuria, hematuria. Patient reports taking his medications as directed. He has been working with his PCP to adjust his medications as he reports occasional lightheadedness. Patient states he recently adjusted an unknown medication from 50mg daily to 25mg daily. In the ED, vitals: temp 36.5, HR 74, RR 18 satting 98% on room air, BP 237/ 86. Notable labs: Hgb 6.7, Hct 19.3, BUN 39, creatinine 3.41, glucose 385. Troponin 0.238. Patient received labetalol 40mg IV in the ED. On the date of discharge General: Chronically ill appearing male resting comfortably in bed. No acute distress. Awake, alert, and oriented. Pleasant. HEENT: moist mucus membranes, sclera anicteric Cardiac: RRR, no murmur, rub, or gallop appreciated Respiratory:Moderate inspiratory effort. No wheezes, rales, or rhonchi Abdomen: Normoactive bowel tones. Soft, nondistended and nontender. No hepatosplenomegaly Extremities: Trace b/l lower extremity edema distal to mid calf Neuro: Grossly normal. Able to sit up unassisted.Normal speech Hospital Course The following were addressed during this hospitalization: Chronic kidney disease stage 4. Present on admission. 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 - Creatinine greatly elevated above his reported baseline of 3 - Avoiding nephrotoxins - Nephrology consult; appreciated expertise - Phosphate binders started - Fludrocortisone 0.1mg daily - Cautious IV fluids given: NS 60mL/h as guided by nephrology - Vitamin D supplementation provided - The patient has been encouraged to keep follow up appointments for outpatient management Hyperkalemia, acute, resolved - Secondary to CKD - 10Units of regular insulin along with D50 as well as Kayexalate 30g PO failed to adequately treat his hyperkalemia for 3 days - Hyperkalemia resolved only once the renal function improved - Needs a BMP in 1 week Acute on chronic anemia. Present on admission, stable - On admit: Hgb 6.7, Hct 19.3 - Hgb 7.4 on discharge 04/11/2016 - Etiology likely multifactorial: very likely due to his CKD and diabetes y - Stool guaiac negative and no obvious source of bleeding - Total of 3 units of PRBC transfused with stability of his hgb and hct Uncontrolled type II diabetes with retinopathy, neuropathy, nephropathy. Chronic. Present on admission. - Blood glucose 385 in ED - HgbA1c 8.4% in 01/2016 - Bedside blood glucose checks - Medium dose correctional insulin with Lispro provided - Continued home dose of glargine 10Units BID 5. Chronically elevated troponin. Present on admission. Presumed stable - Likely secondary to CKD - Patient remained without chest pain. EKG NSR with HR 62, no acute ST-changes - Telemetry during this hospitalization Nicotine dependence. Present on admission. - Patch and lozenges were available at request Bipolar disorder, chronic. Stable - Continued DepaKote daily at home dose Diarrhea, resolved - New onset on 05/03, resolved 24hours later - Stool PCR positive for Norovirus and E coli Exam Vital Signs (Last) Date Time Temp Pulse Resp B/P Pulse Ox O2 Delivery O2 Flow Rate FiO2 05/07/16 08:00 66 05/07/16 05:08 36.6 18 142/68 96 Room Air Microbiology +Norovirus PCR +E Coli PCR Test 04/27/16 21:12 04/27/16 21:24 04/29/16 05:45 05/02/16 05:40 Prothrombin Time 10.0sec (8.1-12.5) Prothromb Time International Ratio 0.94ratio Lipase 20U/L (13-60) Hold Cook Top Tube Received (Received) Urine Color Yellow (YELLOW) Urine Appearance Clear (CLEAR,HAZY) Urine pH 5.5 (5.0-8.0) Urine Specific [place] 1.020 (1.003-1.035) Urine Protein 100mg/dL (NEG,TRACE) Urine Glucose (UA) 100mg/dL (NEGATIVE) Urine Ketones Negativemg/dL (NEGATIVE) Urine Occult Blood Moderate (NEGATIVE) Urine Nitrite Negative (NEGATIVE) Urine Bilirubin Negative (NEGATIVE) Urine Urobilinogen Normalmg/dL (NORMAL) Urine Leukocyte Esterase Negative (NEGATIVE) Urine RBC 0-2/hpf (0-2) Urine WBC 0-5/hpf (0-5) Urine Epithelial Cells None/hpf (NONE-MOD) Urine Crystals None seen (NONE SEEN) Urine Bacteria Few/hpf (NONE-FEW) Urine Hyaline Casts None/lpf (NONE) Urine Granular Casts None seen (NONE SEEN) Urine Waxy Casts None seen (NONE SEEN) Urine Red Blood Cell Casts None seen (NONE SEEN) Urine White Blood Cell Casts None seen (NONE SEEN) Urine Mucus None seen (None Seen) Urine Trichomonas None seen (NONE SEEN) Urine Yeast None (NONE SEEN) Urinalysis Comment None Urine Culture Reflexed Not indicated Reticulocyte Count,Calculated 1.2% (0.6-2.6) Iron Level 47ug/dL (35-150) Total Iron Binding Capacity 283ug/dL (250-450) Percent Iron Saturation 17%sat (15-50) Unsaturated Iron Binding 236.1ug/dL Ferritin 468ng/mL (30-400) Vitamin B12 Level 746pg/mL (211-946) Folate 9.7ng/mL (>3.0) Troponin T 0.225ug/L (0.0-0.011) Test 05/03/16 06:18 05/04/16 06:00 05/05/16 05:50 05/06/16 05:50 Parathyroid Hormone (Intact) 93pg/mL (15-65) Magnesium Level 2.2mg/dL (1.6-2.6) Valproic Acid (Depakene) Level 26ug/mL (50-125) Hepatitis B Core Total Antibody Negative (Negative) White Blood Count 4.3th/mm3 (3.8-10.1) Red Blood Count 2.89mil/mm3 (4.40-5.80) Hemoglobin 8.7g/dL (13.8-17.2) Hematocrit 25.6% (41.0-50.0) Mean Corpuscular Volume 88.6fL (81-100) Mean Corpuscular Hemoglobin 30.1pg (27.0-35.0) Mean Corpuscular Hemoglobin Concent 34.0% (32.0-37.0) Red Cell Distribution Width 13.1% (12.3-15.4) Platelet Count 191bil/L (150-400) Neutrophils (%) (Auto) 61.3% (40-74) Lymphocytes (%) (Auto) 14.8% (14-46) Monocytes (%) (Auto) 19.0% (4-12) Eosinophils (%) (Auto) 3.2% (0-5) Basophils (%) (Auto) 0.5% (0-3) Phosphorus Level 4.6mg/dL (2.5-4.9) Hepatitis B Surface Antigen Negative (Negative) Hepatitis B Surface Antibody Non reactive (.) HIV (1&2) Ag and Ab, 4th Generation Non reactive (Non Reactive) Test 05/07/16 05:37 Sodium Level 137mEq/L (134-144) Potassium Level 5.0mEq/L (3.5-5.2) Chloride Level 104mEq/L (97-108) Carbon Dioxide Level 22mmol/L (18-29) Blood Urea Nitrogen 65mg/dL (6-24) Creatinine 5.31mg/dL (0.76-1.27) Estimat Glomerular Filtration Rate 12mL/min (>59) Glucose Level 195mg/dL (60-99) Calcium Level 8.0mg/dL (8.5-10.1) Total Bilirubin 0.2mg/dL (0.0-1.2) Aspartate Amino Transf (AST/SGOT) 11U/L (0-50) Alanine Aminotransferase (ALT/SGPT) 10U/L (0-44) Alkaline Phosphatase 41U/L (25-150) Total Protein 4.8g/dL (6.4-8.4) Albumin 2.7g/dL (3.4-5.0) Discharge Medications Discharge Medications ([Calcium Carbonate]) 500 MG TABLET 500 MG PO TID Prescribed by: JINNY VASQUEZ DO Amlodipine (Amlodipine) 5 Mg Tablet 10 MG PO DAILY Prescribed by: JINNY VASQUEZ DO Aspirin (Aspirin) 81 Mg Tablet 81 MG PO DAILY Prescribed by: CATE NASH DO Atorvastatin Calcium (Atorvastatin Calcium) 40 Mg Tablet 40 MG PO HS Prescribed by: JINYN VASQUEZ DO Divalproex ER (Divalproex ER) 500 Mg Tab.er.24h 500 MG PO TID (Reported) Fludrocortisone Acetate (Fludrocortisone Acetate) 0.1 Mg Tablet 0.1 MG PO DAILY Prescribed by: JINNY VASQUEZ DO Insulin Glargine (Lantus U100 Insulin Vial) 100 Unit/Ml Vial 10 UNIT SUBQ afternoon (Reported) Insulin Glulisine (Apidra U100 Insulin Solostar Pen) 100 Unit/1 Ml Insuln.pen 7 UNITS SUBQ BID (Reported) Labetalol (Labetalol) 200 Mg Tablet 200 MG PO TID (Reported) Sevelamer Carbonate (Renvela) 800 Mg Tablet 800 MG PO TIDWM Prescribed by: JINNY VASQUEZ DO Sodium Polystyrene Sulfonate (Sodium Polystyrene Sulfonate) 15 Gm/60 Ml Oral.susp 15 GM PO twice weekly Prescribed by: JINNY VASQUEZ DO Additional med instructions START the following: fludrocortisone 1 tablet by mouth every day atorvastatin 1 tablet by mouth daily at bedtime Kayexalate (sodium polystyrene sulfonate) 15g by mouth twice weekly; this medication is important to keep your potassium from becoming dangerously high. amlodipine 10mg tablet by mouth daily Sevelamer 800mg three times daily with meals; this is to help prevent your phosphate from becoming too high [place] ( Calcium) 500mg by mouth three times daily with meals Continue: aspirin 81mg daily Lantus insulin (glargine) 10units daily Apidra insulin 7units twice daily labetalol 200mg daily divalproex ER 500mg by mouth daily Followup Plan Follow-up plan Please call Dr Manrique's office to schedule an appointment to see her in 2 weeks. The clinic has been notified of the needed follow up and may be contacting you, but please call them if you do hear from them within 2 days. [facility] [address] [place] [address] Discharge Diet: Renal Diet (Limit potassium intake: avoid bananas and citrus) Follow-up Provider: Patricia Manrique MD Follow-up with PCP in: 2 weeks Provider: Charity Monson PA-C Follow-up in: 1 week (Please have a BMP ( lab test) done in 1 week with your [facility] provider to check your potassium) Time spent 40 minutes Attending Statement The patient was seen and examined together with Dr. Vasquez on 05/07/2016 and I agree with the history, exam and plan as outlined in the note above. Jinny Vasquez DO May 07, 2016 19:34 Kayode Card MD May 08, 2016 14:32
[2016-10-02] MEDS ORDERED: vitamin d2 (17:18)
[2016-10-02] MEDS ORDERED: ASPI-973 PO (17:18)
[2016-10-02] MEDS ORDERED: LABE200T PO (17:18)
[2016-10-02] MEDS ORDERED: CITA20TA11 PO (17:18)
[2016-10-02] MEDS ORDERED: MEGE400O PO (17:18)
[2016-10-02] MEDS ORDERED: AMLO5TAB2 PO (17:18)
[2016-10-02] MEDS ORDERED: DEP500A PO (17:18)
== END 2016-05-07 11:40 | disposition home or self-care (01) | DRG 684 ==
LOC: SED 16:07 → OBSVTOIN 04-28 01:35 → MPC 04-28 01:35
PROVIDERS: ADMIT Specialist; ATTEND Specialist
PROC: 30233N1 Transfusion of Nonautologous Red Blood Cells into Peripheral Vein, Percutaneous Approach (ICD-10-PCS; principal; 2016-04-28)
DX: N18.4 Chronic kidney disease, stage 4 (severe) (principal); E11.22 Type 2 diabetes mellitus with diabetic chronic kidney disease; E11.40 Type 2 diabetes mellitus with diabetic neuropathy, unspecified; D63.1 Anemia in chronic kidney disease; N17.9 Acute kidney failure, unspecified; E11.319 Type 2 diabetes mellitus with unspecified diabetic retinopathy without macular edema; E11.65 Type 2 diabetes mellitus with hyperglycemia; E87.5 Hyperkalemia; E83.51 Hypocalcemia; I12.9 Hypertensive chronic kidney disease with stage 1 through stage 4 chronic kidney disease, or unspecified chronic kidney disease; I16.0 Hypertensive urgency; F31.9 Bipolar disorder, unspecified; H54.11 Blindness, right eye, low vision left eye; Z79.82 Long term (current) use of aspirin; F17.210 Nicotine dependence, cigarettes, uncomplicated; R19.7 Diarrhea, unspecified; B96.20 Unspecified Escherichia coli [E. coli] as the cause of diseases classified elsewhere; B97.89 Other viral agents as the cause of diseases classified elsewhere; Z79.4 Long term (current) use of insulin

== ENCOUNTER 2016-05-11 11:19 | Emergency (ER) | payer OTHER ==
[~2016-05-11] VITALS: Ht 170.2 cm; Wt 80.5 kg
[~2016-05-11 11:19] MED LIST changes: -ACET-171 PO; +ATOR40TA69 PO; +Calcium Carbonate PO; +FLUD0.1T PO; -FURO40TA4 PO; -LIP40 PO; -OMEP20CA11 PO; +SEVE800T7 PO; +SODI15OR8 PO
[2016-05-11 11:22] VITALS: BP 211/92; PULSE 80; RESP 18; O2SAT 95
[2016-05-11 13:03] VITALS: BP 179/87; PULSE 77; RESP 14; RESP 15; O2SAT 93
--- NOTE | 2016-05-11 13:48 | ED.REPORT ---
HPI-General Illness Date of Service May 11, 2016 ED Provider: Reginaldo Saini MD Pt is a blind 50 y/o male with a history of elevated troponin, hypertension,and uncontrolled diabetes who presents to the ED complaining of acute on chronic elevated blood pressure, measured in the 200's at home. Pt was admitted earlier this month for worsening renal inefficiency. He had a headache with symptom onset which he rated as 5/10 but reports feeling better now and wants to be discharged immediately.The Pt denies chest pain. Nursing Notes Stated Complaint: HIGH BP Chief Complaint: General Complaint Nursing Notes Reviewed: Yes ([employer], ) Allergies: Coded Allergies: tetanus and diphtheria toxoids (Verified Allergy, Severe, COULDN'T HEAR VOMITING, SYNCOPE HOSPITALIZED, 05/11/16) Sulfa (Sulfonamide Antibiotics) (Verified Allergy, Unknown, 05/11/16) Scheduled ([Calcium Carbonate]) 500 MG TABLET 500 MG PO TID Amlodipine (Amlodipine) 5 Mg Tablet 10 MG PO DAILY Aspirin (Aspirin) 81 Mg Tablet 81 MG PO DAILY Atorvastatin Calcium (Atorvastatin Calcium) 40 Mg Tablet 40 MG PO HS Divalproex ER (Divalproex ER) 500 Mg Tab.er.24h 500 MG PO TID Fludrocortisone Acetate (Fludrocortisone Acetate) 0.1 Mg Tablet 0.1 MG PO DAILY Insulin Glargine (Lantus U100 Insulin Vial) 100 Unit/Ml Vial 10 UNIT SUBQ afternoon Insulin Glulisine (Apidra U100 Insulin Solostar Pen) 100 Unit/1 Ml Insuln.pen 7 UNITS SUBQ BID Labetalol (Labetalol) 200 Mg Tablet 200 MG PO TID Sevelamer Carbonate (Renvela) 800 Mg Tablet 800 MG PO TIDWM Sodium Polystyrene Sulfonate (Sodium Polystyrene Sulfonate) 15 Gm/60 Ml Oral.susp 15 GM PO twice weekly General Time Seen by MD: 13:39 Chief Complaint Other (elevated blood pressure) Hx Obtained From: Patient Arrived By: Walk-in Sudden in Onset?: No Onset Occurred: Just prior to arrival Context of Onset: Other Associated with: Reports: Headache, Denies: Abdominal pain Similar Sx Previous: Yes Past Medical History Past Medical History Notes: Patient admitted May 08 May 07 for acute on chronic kidney injury, hyperkalemia, uncontrolled diabetes, chronically elevated troponin, and hypertension Past Medical History Undiagnosed mental disorder Bipolar, manic Headaches non-migraine 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 Chronic kidney disease Reports: Diabetes mellitus, Hypertension Past Surgical History Hernia repair Smoking History Former Smoker Social History Alcohol Use: In recovery Drug Use: Denies drug use Other Social History: Smokeless tobacco, Good social support, Lives with children Ambulatory Status Independent Review of Systems Full Review of Systems Constitutional: Denies: Chills, Fever Respiratory: Denies: Non-productive cough, Shortness of breath Cardiovascular: Denies: Chest pain GI: Denies: Abdominal pain, Nausea, Vomiting Skin: Denies Diaphoresis Neurologic: Reports: Headache (09/02) Complete sys rev & neg: except as marked. Physical Exam Vital Signs Vital Signs Date Time Temp Pulse Resp B/P Pulse Ox O2 Delivery O2 Flow Rate FiO2 05/11/16 14:33 36.7 69 20 182/87 98 Room Air 05/11/16 14:13 36.7 69 20 182/87 98 Room Air 05/11/16 13:03 36.9 77 15 179/87 93 05/11/16 13:03 36.9 14 179/87 93 Room Air 05/11/16 11:22 36.5 80 18 211/92 95 Room Air Initial VS: Reviewed, Vital signs abnormal ENT: Mucous membranes moist, Conjunctiva normal, No scleral icterus Neck: Supple, Non-tender, Full range of motion Respiratory: Breath sounds normal, Clear to auscultation, No respiratory distress Cardiovascular: Regular rate & rhythm, Heart sounds normal, Intact distal pulses Extremities: Vascular intact, Neuro intact, No swelling, No tenderness Skin: Warm, Dry, No cyanosis Neurologic: Alert, Oriented, Nonfocal Psychiatric: Mood/affect normal, Behavior normal, Normal thought content General/Constitutional: Awake, Alert, No acute distress, Well appearing, Well developed Moves all extremities. Head / Eyes: Atraumatic, Normocephalic Pt is blind. ENT: Airway patent, Mucous membranes moist, Pharynx NL Neck: Supple, No meningismus, Full range of motion, No swelling, Non-tender, No masses Respiratory / Chest: Breath sounds NL, No respiratory distress, No rales, No rhonchi, No wheezing Cardiovascular: Heart rate NL, Regular rhythm, Heart sounds NL, Cap refill not delayed, Peripheral circulation NL Abdomen: Non-tender, No guarding, No rebound Back: Inspection NL, Painless range of motion, Non-tender, No CVA tenderness Interpretation & Diagnostics Lab Results Interpretation Lab Results Interpretation: Patient declined laboratory evaluation Re-Eval/Medical Decision Med Decision/Clinical Course This is a 50-year-old male with a complex history was recently hospitalized April 28 through May 07 for acute on chronic kidney injury, hyperkalemia, chronic anemia, type II diabetes is poorly controlled, chronically elevated troponin, hypertension, and diarrhea secondary to normal virus and Escherichia coli which resolved. He presented today because at home he had a mild headache and took his blood pressure severely elevated over 200 systolic, reports his blood pressures are normally in the 180 range. Emergency Department is mild headache nearly resolved, and she has no complaints , he does not want anything done and he wants to leave immediately. Well walk the room he indicates he is leaving only a very limited exam. He notes his blood pressures are improved down to 180 systolic, which he alleges is close to his baseline. He had not taken his routine labetalol, so that was given in the department. Family denies any chest pain shortness of breath, had no new focal deficits, and no clear findings of end organ dysfunction that is new to indicate malignant hypertension. Patient indicates he is already called and scheduled a PCP follow-up on . Distress had extensive testing in recent days, given he describes resolution of his symptoms and improvement-I do not think is an admit against performing any additional testing is entirely unreasonable. The patient demonstrates adequate decisional capacity. Given his headache and symptoms have resolved, that argues extensively against malignant hypertension or a hypertensive emergency. I have contacted the on-call provider for the primary care physician, to discuss with them their thoughts. When I reviewed the patient's medication list at time of discharge, it is stands out with the primary care physician has the patient supposed to be on hydralazine 25 mg 3 times a day as well, and this is not listed on the discharge summary. She is blind, reports his medications are handed to me, he is not sure if he still on it. But rather initiated new medicine the plan is discharge report and to continue his regular medicines, but have the person who helps him but together his medicines review ensure that he is taking his hydralazine 25 mg 3 times a day, along with his daily pain 10 mg, and labetalol 200 mg 3 times a day. Patient is discharged still hypertensive, in stable condition having declined evaluation. Source of Hx: Old records Differential Diagnosis: Positive: Diabetes mellitus, Negative: Abdominal pain, Acute coronary syndrome, Allergies Counseled Regarding: Diagnosis, Need for follow-up, When/why to return to ED Discharge & Departure Departure Notes Pt refuses further eval in ED. Risk/benefits discussed. Patient has intact decisional capacity. Patients sx have resolved, BP has improved (although still high) and patient just had workup and pt has been able to schedule close followup. Agrees to return to ED if new/worsening sx. call center specialist provider for PCP notified. Primary Impression: Hypertension Hypertension type: essential hypertension Hypertension goal: unspecified goal Qualified Code: I10 - Essential (primary) hypertension Disposition: Home Discharge Condition All VS Reviewed: Yes Condition: Stable Additional Instructions: 1. You have declined further evaluation in the emergency department today. 2. You were significantly hypertensive, and it is true that is improved-but he was still very hypertensive now. 3. I have talked with the on-call provider for your primary care physician. Would like for you to double check that you are taking the following blood pressure medications: Labetolol 200mg three times a day Amlodipine 10md daily Hydralazine 25mg three times a day (Doublecheck and make sure that you ARE taking this medication as it did not show up on your hospital discharge medication list) 4. Return if you change your mind or develop new or worsening symptoms 5. Keep your appointment on for a recheck with your doctor. Referrals: Charity Monson PA-C (PCP) Scribe Attestation Portions of this note were transcribed by Steve Camarillo and Delroy Brady. I, Dr. Saini personally performed the history, physical exam and medical decision -making; I reviewed and confirmed the accuracy of the information in the transcribed note. Signed by:Steve Camarillo and Joss Owens, 05/11/16 and 15:11. copies to: Charity Monson PA-C, Matthew F MD May 11, 2016 13:48 Steve Camarillo May 11, 2016 14:07 DELROY BRADY May 11, 2016 15:12
[2016-05-11 14:13] VITALS: BP 182/87; PULSE 69; RESP 20; O2SAT 98
[2016-05-11 14:33] VITALS: BP 182/87; PULSE 69; RESP 20; O2SAT 98
[2016-10-02] MEDS ORDERED: LABE200T PO (17:18)
[2016-10-02] MEDS ORDERED: DEP500A PO (17:18)
[2016-10-02] MEDS ORDERED: AMLO5TAB2 PO (17:18)
[2016-10-02] MEDS ORDERED: CITA20TA11 PO (17:18)
[2016-10-02] MEDS ORDERED: vitamin d2 (17:18)
[2016-10-02] MEDS ORDERED: MEGE400O PO (17:18)
[2016-10-02] MEDS ORDERED: ASPI-973 PO (17:18)
== END 2016-05-11 14:35 | disposition home or self-care (01) ==
LOC: SED 11:19
DX: I10 Essential (primary) hypertension (principal); R51 Headache; E11.319 Type 2 diabetes mellitus with unspecified diabetic retinopathy without macular edema; Z87.891 Personal history of nicotine dependence; Z88.8 Allergy status to other drugs, medicaments and biological substances; Z88.2 Allergy status to sulfonamides; Z79.82 Long term (current) use of aspirin; Z79.4 Long term (current) use of insulin

== ENCOUNTER 2016-05-29 17:18 | Inpatient (IN) | payer OTHER ==
[~2016-05-29] VITALS: Ht 170.2 cm; Wt 92.9 kg
[2016-05-29 17:22] VITALS: BP 153/79; PULSE 54; RESP 18; O2SAT 98
[2016-05-29] MEDS ORDERED: FLUO20TA28 PO (17:54)
[2016-05-29] MEDS ORDERED: RANI300T4 PO (17:54)
[2016-05-29] MEDS ORDERED: HYDR-3939 PO (17:54)
[2016-05-29] MEDS ORDERED: AMLO10TA3 PO (17:54)
[2016-05-29 18:23] LABS: BASOPHILS % (AUTO) 1.1 % (0-3); EOSINOPHILS % (AUTO) 1.6 % (0-5); MONOCYTES % (AUTO) 7.3 % (4-12); Mean Corpuscular Hemoglobin 29.4 pg (27.0-35.0); Mean Corpuscular Volume 84.3 fL (81-100); NEUTROPHILS % (AUTO) 66.6 % (40-74); Platelet Count 143 bil/L (150-400)
[2016-05-29 18:44] LABS: Magnesium 2.3 mg/dL (1.6-2.6)
[2016-05-29 18:46] LABS: TROPONIN T 0.318 ug/L (0.0-0.011)
--- NOTE | 2016-05-29 18:47 | ED.REPORT ---
HPI-General Illness Date of Service May 29, 2016 ED Provider: Yaya Lindo MD A 50 year old male with a history of GERD, uncontrolled type II diabetes, diabetic retinopathy, hypertension, bipolar disorder, chronic renal disease, and chronic elevated troponin presents to the ED complaining of left arm pain began 2 weeks ago. Patient also reports nausea, vomiting, decreased appetite and abdominal pain. His GI symptoms are exacerbated by eating and he states that he "feels bloated" after eating. Patient was seen in the ED on 05/11 for his chronic hypertension. He was also recently admitted for anemia, elevated troponin and CHF on 04/28. Patient was discharged on 05/07 in good condition. He states that he is currently experiencing abdominal pain. Patient denies any difficulty with bowel movements. He denies taking any antinausea medication Nursing Notes Stated Complaint: TROUBLE EATING Chief Complaint: General Complaint Nursing Notes Reviewed: Yes Allergies: Coded Allergies: tetanus and diphtheria toxoids (Verified Allergy, Severe, COULDN'T HEAR VOMITING, SYNCOPE HOSPITALIZED, 05/29/16) Sulfa (Sulfonamide Antibiotics) (Verified Allergy, Unknown, 05/29/16) Scheduled ([Calcium Carbonate]) 500 MG TABLET 500 MG PO TID Amlodipine (Amlodipine) 10 Mg Tablet 10 MG PO DAILY Aspirin (Aspirin) 81 Mg Tablet 81 MG PO DAILY Atorvastatin Calcium (Atorvastatin Calcium) 40 Mg Tablet 40 MG PO HS Divalproex ER (Divalproex ER) 500 Mg Tab.er.24h 500 MG PO TID Fludrocortisone Acetate (Fludrocortisone Acetate) 0.1 Mg Tablet 0.1 MG PO DAILY Fluoxetine (Fluoxetine) 20 Mg Tablet 20 MG PO DAILY Hydralazine (Hydralazine) 25 Mg Tablet 25 MG PO TID Insulin Glargine (Lantus U100 Insulin Vial) 100 Unit/Ml Vial 10 UNIT SUBQ afternoon Insulin Glulisine (Apidra U100 Insulin Solostar Pen) 100 Unit/1 Ml Insuln.pen 7 UNITS SUBQ BID Labetalol (Labetalol) 200 Mg Tablet 200 MG PO TID Ranitidine (Ranitidine) 300 Mg Tablet 300 MG PO HS Sevelamer Carbonate (Renvela) 800 Mg Tablet 800 MG PO TIDWM Sodium Polystyrene Sulfonate (Sodium Polystyrene Sulfonate) 15 Gm/60 Ml Oral.susp 15 GM PO twice weekly General Time Seen by MD: 18:07 Chief Complaint Multip medical complaints Hx Obtained From: Patient Arrived By: Walk-in Sudden in Onset?: No Onset Occurred: More than a week ago... (2 weeks) Symptom Duration: Since onset Location: : Arm left Quality: Painful Radiation: : Does not radiate Severity: Current: Mild Severity: Maximum: Mild Associated with: Reports: Abdominal pain, Nausea, Vomiting Additional Notes: Decreased appetite Pertinent Negative: Pt denies other symptoms Recent Healthcare: Recent doctor visit, Recent hospitalization Past Medical History Past Medical History Notes: Patient admitted May 08 May 07 for acute on chronic kidney injury, hyperkalemia, uncontrolled diabetes, chronically elevated troponin, and hypertension PCP: Charity URBANO Past Medical History Undiagnosed mental disorder Bipolar, manic Headaches non-migraine 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 Chronic kidney disease Reports: Diabetes mellitus, Hypertension Past Surgical History Hernia repair Smoking History Former Smoker Social History Alcohol Use: In recovery Drug Use: Denies drug use Other Social History: Smokeless tobacco, Good social support, Lives with children Ambulatory Status Independent Review of Systems Full Review of Systems Constitutional: Denies: Chills, Fever Respiratory: Denies: Shortness of breath Cardiovascular: Denies: Chest pain GI: Reports: Abdominal pain, Nausea, Vomiting Musculoskeletal: Reports: Extremity pain (Left arm pain) Neurologic: Denies: Change LOC Complete sys rev & neg: except as marked. Physical Exam Vital Signs Vital Signs Date Time Temp Pulse Resp B/P Pulse Ox O2 Delivery O2 Flow Rate FiO2 05/29/16 17:22 36.7 54 18 153/79 98 Room Air Initial VS: Reviewed Skin: Warm, Dry, No cyanosis Neurologic: Alert, Oriented, Nonfocal Psychiatric: Mood/affect normal, Behavior normal, Normal thought content General/Constitutional: Awake, Alert Head / Eyes: Atraumatic, Normocephalic Neck: Atraumatic, Supple Respiratory / Chest: Atraumatic, Breath sounds NL, Breath sounds = bilat Cardiovascular: Heart rate NL, Regular rhythm, Heart sounds NL, No gallop, No murmurs, No rubs Abdomen: Atraumatic, Soft, BS normoactive Tenderness/Guarding/Rebound: Positive: Tender periumbilical Upper Extremities Upper Extremity / MS: Atraumatic, Neurologic intact, Vascular intact Lower Extremity / Pelvis / MS: Atraumatic, Neurologic intact, Vascular intact Interpretation & Diagnostics Lab Results Interpretation Result Diagram: 05/29/16 1806 05/29/16 1806 Test 05/29/16 18:04 05/29/16 18:06 Hold Purple Top Tube Received (Received) Hold Blue Top Tube Received (Received) Hold Galva Top Tube Received (Received) White Blood Count 3.7th/mm3 (3.8-10.1) Red Blood Count 3.50mil/mm3 (4.40-5.80) Hemoglobin 10.3g/dL (13.8-17.2) Hematocrit 29.5% (41.0-50.0) Mean Corpuscular Volume 84.3fL (81-100) Mean Corpuscular Hemoglobin 29.4pg (27.0-35.0) Mean Corpuscular Hemoglobin Concent 34.9% (32.0-37.0) Red Cell Distribution Width 12.9% (12.3-15.4) Platelet Count 143bil/L (150-400) Neutrophils (%) (Auto) 66.6% (40-74) Lymphocytes (%) (Auto) 22.9% (14-46) Monocytes (%) (Auto) 7.3% (4-12) Eosinophils (%) (Auto) 1.6% (0-5) Basophils (%) (Auto) 1.1% (0-3) Sodium Level 136mEq/L (134-144) Potassium Level 3.4mEq/L (3.5-5.2) Chloride Level 100mEq/L (97-108) Carbon Dioxide Level 23mmol/L (18-29) Blood Urea Nitrogen 37mg/dL (6-24) Creatinine 4.23mg/dL (0.76-1.27) Estimat Glomerular Filtration Rate 16mL/min (>59) Glucose Level 163mg/dL (60-99) Calcium Level 8.6mg/dL (8.5-10.1) Magnesium Level 2.3mg/dL (1.6-2.6) Total Bilirubin 0.4mg/dL (0.0-1.2) Aspartate Amino Transf (AST/SGOT) 18U/L (0-50) Alanine Aminotransferase (ALT/SGPT) 13U/L (0-44) Alkaline Phosphatase 47U/L (25-150) Troponin T 0.318ug/L (0.0-0.011) Total Protein 5.8g/dL (6.4-8.4) Albumin 3.4g/dL (3.4-5.0) Lipase 14U/L (13-60) ECG Interpretation ECG Interpretation: Normal Sinus Rhythm Rate 60 Right axis deviation Low voltage Change from prior (05/11): New lateral T wave flattening Time: 18:56 Interpreted by: ED physician Re-Eval/Medical Decision Med Decision/Clinical Course 50-year-old male complaining of episodic nausea and vomiting. Also has left arm pain which I felt was concerning for angina. We note that his troponin which is chronically elevated significantly above his baseline and he has some lateral ST flattening which appears new. L arm pain was improved though not completely resolved with nitroglycerin. We applied nitroglycerin paste and he was given one 81 mg aspirin. Admitted to hospitalist service for trending troponins and further testing if felt necessary. Summary of Info: Patient's current troponin is .318 which is elevated from baseline on 05/02 (Elevated by a significant margin from previous assessments) Creatinine levels decreased 11/2015: Normal perfusion images without ischemia Fixed perfusion deficit due to attenuation Stress test (03/2016): No focal wall abnormalities Ana Poole MD consulted Time of Eval: 20:05 Patient Status: Condition improved Re-Evaluation/Progress Note: Patient is recechecked and he reports that Nitroglycerine improved symptoms. He is informed of his lab results and diagnosis. All questions are addressed. He understands and agrees with the treatment plan to admit. Consultation #1: Referral / Consult Name: Panda Raza MD Consulted With: Cardiology Call Returned at: 19:28 Hospice Home Care Coordinator: Agrees with eval, Agrees with plan Note: Consulted with cardiology as requested Consultation #2: Referral / Consult Name: Марина Gardner DO Consulted With: Hospitalist Call Returned at: 20:11 Hospice Home Care Coordinator: Will see patient, Agrees with eval, Agrees with plan, Accepts admit Counseled Regarding: Diagnosis, Lab results, Need for admission Discharge & Departure Primary Impression: Elevated troponin Additional Impression: Chest pain Chest pain type: unspecified Qualified Code: R07.9 - Chest pain, unspecified Disposition: ADMITTED TO HOSPITAL Discharge Condition All VS Reviewed: Yes Condition: Stable Referrals: Charity Monson PA-C (PCP) Scribe Attestation Portions of this note were transcribed by Nnamdi Rodriguez. I, Dr. Lindo personally performed the history, physical exam and medical decision-making; I reviewed and confirmed the accuracy of the information in the transcribed note. Signed by: Joss Valdez, 05/29/16 3405. copies to: Charity Monson PA-C; Jean Novak MD, Donald L MD May 29, 2016 18:46 NNAMDI RODRIGUEZ May 29, 2016 18:55
[2016-05-29] MEDS ORDERED: Nitroglycerin 2% 1 Gm Ointment TOPICAL SCH (20:10)
[2016-05-29] MEDS ORDERED: HYDROmorphone 0.5 mg/0.5 mL iSecure Syringe IVPUSH ONE (20:10)
[2016-05-29] MEDS: 0.9% Sodium Chloride 1,000 ML IV SCH (20:17)
[2016-05-29] MEDS ORDERED: Alum-Mag Hydrox-Simeth 30 mL Suspension PO PRN (20:20)
[2016-05-29] MEDS ORDERED: Polyethylene Glycol (PEG) 17 Gm Powder PO PRN (20:20)
[2016-05-29] MEDS ORDERED: Senna-Docusate 8.6-50 mg Tablet PO PRN (20:20)
[2016-05-29] MEDS ORDERED: Atropine 1 mg/10 mL (Code) Syringe IVPUSH PRN (20:20)
[2016-05-29 20:50] VITALS: BP 174/94; PULSE 61; RESP 20; O2SAT 96
[2016-05-29] MEDS ORDERED: KCl 40 mEq/D5W 500 mL 40 MEQ in IV Premix 1 EACH IV ONE (21:35)
--- NOTE | 2016-05-29 21:56 | PCM.HPMED ---
Subjective Date of Service May 29, 2016 Primary Provider: Admitting Physician: Primary Care Physician: Charity Monson PA-C Attending Physician: Admit Status: From the Emergency Department, Remote Telemetry Chief Complaint: Left arm pain, nausea and vomiting with abdominal pain History of Present Illness: Patient is 50 year old male with a history of GERD, uncontrolled type II diabetes, diabetic retinopathy, hypertension, bipolar disorder, chronic renal disease, and chronic elevated troponin presents to the ED complaining of left arm pain began 2 weeks ago. Patient describes the pain as "nerve pain", has intermittently experienced this in the past, but this time it did not go away. Patient also reports nausea, vomiting, decreased appetite and abdominal pain. Patient states his abdominal pain with diarrhea started when he was last admitted in early April, improved some after being discharged, but recently recurred. His GI symptoms are exacerbated by eating and he states that he " feels bloated" after eating. Patient attributes his abdominal pain to taking anti-nausea medications, which patient has not been taking since last discharge. Denies blood in stool, recent travels, camping, or antibiotic use. No change in diet. Patient was seen in the ED on 05/11 for his chronic hypertension. He was also recently admitted for anemia, elevated troponin and CHF on 04/28. Patient was discharged on 05/07 in good condition. Patient followed by Dr. Gonzalez for his chronic kidney disease. In the ED, vitals T36.7, P54, RR18, BP153/79, 98% on RA. Labs significant for H /H 10.3/29.5, BUN37, creatinine 4.23, unl939, Troponin 0.318. Patient's arm pain came down from 9/10 to 3/10 upon taking nitro SLx3. ECG showed "Right axis deviation, Low voltage. New lateral T wave flattening, which is a new finding from prior (05/11). Patient is admitted for further evaluation and treatment. Review of Systems: All ROS reviewed and negative otherwise stated on HPI. Allergies Coded Allergies: tetanus and diphtheria toxoids (Verified Allergy, Severe, COULDN'T HEAR VOMITING, SYNCOPE HOSPITALIZED, 05/29/16) Sulfa (Sulfonamide Antibiotics) (Verified Allergy, Unknown, 05/29/16) Home Medications Scheduled ([Calcium Carbonate]) 500 MG TABLET 500 MG PO TID Amlodipine (Amlodipine) 10 Mg Tablet 10 MG PO DAILY Aspirin (Aspirin) 81 Mg Tablet 81 MG PO DAILY Atorvastatin Calcium (Atorvastatin Calcium) 40 Mg Tablet 40 MG PO HS Divalproex ER (Divalproex ER) 500 Mg Tab.er.24h 500 MG PO TID Fludrocortisone Acetate (Fludrocortisone Acetate) 0.1 Mg Tablet 0.1 MG PO DAILY Fluoxetine (Fluoxetine) 20 Mg Tablet 20 MG PO DAILY Hydralazine (Hydralazine) 25 Mg Tablet 25 MG PO TID Insulin Glargine (Lantus U100 Insulin Vial) 100 Unit/Ml Vial 10 UNIT SUBQ afternoon Insulin Glulisine (Apidra U100 Insulin Solostar Pen) 100 Unit/1 Ml Insuln.pen 7 UNITS SUBQ BID Labetalol (Labetalol) 200 Mg Tablet 200 MG PO TID Ranitidine (Ranitidine) 300 Mg Tablet 300 MG PO HS Sevelamer Carbonate (Renvela) 800 Mg Tablet 800 MG PO TIDWM Sodium Polystyrene Sulfonate (Sodium Polystyrene Sulfonate) 15 Gm/60 Ml Oral.susp 15 GM PO twice weekly PMH Undiagnosed mental disorder Bipolar, manic Headaches non-migraine 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 Chronic kidney disease Diabetes mellitus Hypertension Surgical History Hernia repair Family History Mother is alive with bipolar disorder Social History Hx Alcohol Use: No Hx Substance Use: No Hx Tobacco Use: Yes (chewing tobacco, occasional cigarette.) Smoking Status: Former Smoker Living Arrangement: with Friends/Roommate Exam Vital Signs Vital Sign - Last Date Time Temp Pulse Resp B/P Pulse Ox O2 Delivery O2 Flow Rate FiO2 05/29/16 17:22 36.7 54 18 153/79 98 Room Air Exam GEN: Alert and oriented. NAD. well-developed, well-nourished, Mildly agitated. HEENT: NC/AT, sluggish pupils, sclera anicteric, dry mucous membranes Neck: Supple with full ROM, no lymphadenopathy or thyromegaly CV: RRR, no murmurs, rubs or gallops Lungs: CTAB, normal respiratory effort Abd: Mild tenderness at romina-umbilicus and RLQ, normal active bowel tones, soft , non-distended, no organomegaly appreciated Ext: no cyanosis, edema or clubbing Skin: Dry, warm and intact, no rashes or lesions Neuro: CN II-XII grossly intact, not able to see with R eye, barely sees figures with L Psych: normal affect, slightly agitated Lab and Diagnostics Result Diagram: 05/29/16180505/29/161805 12-lead ECG ECG Interpretation: Normal Sinus Rhythm Rate 60 Right axis deviation Low voltage Change from prior (05/11): New lateral T wave flattening Time: 18:56 Interpreted by: ED physician Assessment & Plan Patient is 50 year old male with a history of GERD, uncontrolled type II diabetes, diabetic retinopathy, hypertension, bipolar disorder, chronic renal disease, and chronic elevated troponin presents to the ED complaining of left arm pain began 2 weeks ago. Patient also reports nausea, vomiting, diarrhea, decreased appetite and abdominal pain. chest pain and left arm pain concerning for acs,present on admission, active - new ECG changes compared to 05/11/16 - Activated NSTEMI protocol based on risk factors of DM, atypical chest pain, and elevated trops above baseline, SHAHRIAR score of 4 - morphine, oxygen, nitro, and aspirin given, no bb given HR <60 - Heparin drip held for now, trending trops - NPO past midnight - consult cardiology in am, with possible stress testing vs cardiovascular intervention - hgba1c, lipid panel pending Acute on chronic elevation of troponin. Present on admission - Troponin 0.225 on 05/02/16, currently 0.318 - Likely secondary to CKD with demand ischemia due to volume depletion, cannot rule out cardiac etiology as above - Patient is currently without chest pain. EKG NSR with HR 60,with new changes of T wave flattening in lateral leads - Telemetry - Trend troponin Abdominal pain with diarrhea, present on admission. - Patient not on recent abx, no recent travels - Stool PCR positive for E-coli, enteroaggregative (EAEC) and Norovirus on - EAEC known for persistent diarrhea in adults with HIV, HIV pending - Stool PCR, O&P, and WBC pending - NPO - consider CT abd/pel if pain persists - consider treatment with ciprofloxacin for EAECper Up to Date recommendations if persistent Acute on chronic kidney disease stage 4. Present on admission. - Likely secondary to hypertensive nephrosclerosis and diabetes nephropathy with recent volume depletion from recent vomiting and diarrhea - Creatinine 4.23. Baseline reportedly ~3 - IVF - Avoid nephrotoxins - Monitor with BMP Mild hypokalemia, present on admission. - Patient chronically with hyperkalemia, takes Kayexalate twice weekly - will hold this for now and avoid correcting - BMP in am Uncontrolled type II diabetes with retinopathy, neuropathy, nephropathy. Chronic. Present on admission - Blood glucose 163 in ED - HgbA1c 8.4% in 01/2016, will recheck at this time - Bedside blood glucose checks - Medium dose insulin Lispro Chronic anemia, present on admission. - H/H 10.3/29.5 most likely due to his CKD, patient at baseline - CBC in am Hypertension - Continue home regimen of labetalol, amlodipine, hydralazine (started recently in ED for hypertension) Nicotine dependence. Present on admission. Active - Discussed smoking cessation Patient Status: Patient is admitted under observation status with expected length of stay less than 2 midnights due to risk of adverse event and complexity of treatment plan. GI Prophylaxis: Not indicated VTE Prophylaxis: Heparin subQ Resuscitation Status: CPR: Attempt Resuscitation Pain Evaluation: Adequate Pain Control VTE Prophylaxis: Sub-Q Heparin (Unfractionated) Resuscitation Status: CPR: Attempt Resuscitation Attending Statement The patient was seen and examined together with house staff on 05/30/2016 and I agree with the history, exam and plan as outlined in the note above. Brandon Carranza DO May 29, 2016 20:29 Марина Gardner DO May 30, 2016 03:42
[2016-05-29] MEDS ORDERED: Glucose 40% Oral Gel 15 Gm Tube PO PRN (22:05)
[2016-05-29] MEDS: Insulin LISPRO 300 Unit/3 mL Inj SUBQ SCH (22:30)
[2016-05-29 23:06] VITALS: PULSE 58; RESP 16; O2SAT 96
[2016-05-29 23:30] VITALS: BP 197/100; PULSE 55; RESP 12; O2SAT 98
[2016-05-29 23:40] VITALS: BP 174/90; PULSE 64; RESP 12; O2SAT 96
[2016-05-29] MEDS: hydrALAZINE 20 mg/mL Inj IV PRN (23:50)
[2016-05-30] VITALS (12 sets, daily range): BP systolic 144–187; BP diastolic 73–89; PULSE 55–70; RESP 12–18; O2SAT 96–98
[2016-05-30] MEDS: Sodium Chloride LOK Flush 10 mL Syringe IVFLUSH SCH ×3 (00:37→15:48)
[2016-05-30] MEDS: hydrALAZINE 20 mg/mL Inj IV PRN ×2 (00:38→06:23)
[2016-05-30] MEDS: Heparin 5,000 Unit/mL Inj SUBQ SCH ×3 (00:41→17:40)
[2016-05-30 02:45] LABS: EOSINOPHILS % (AUTO) 3.1 % (0-5); MONOCYTES % (AUTO) 9.2 % (4-12); Mean Corpuscular Hemoglobin 29.5 pg (27.0-35.0); Mean Corpuscular Volume 84.7 fL (81-100); NEUTROPHILS % (AUTO) 55.2 % (40-74); Platelet Count 109 bil/L (150-400)
--- NOTE | 2016-05-30 03:00 | NUR ---
Admit note and Blood pressure. Patient was brought to the [facility] by an applied science [employer] technologies dean. Patient was transferred to bed and admission completed. Patient reports 2/10 chest and left arm pain. Patient reports that this chest pain has been the same for a week or so. Patient denies SOB, N/V and weakness. Patient is blind in both eye's from uncontrolled DM. Normal saline started at 125ml/hr and potassium 40mEq started as well. Patient blood pressure is elevated in the 170's. Provider contracted and several different medications were administered in an attempt to lower the patient's pressure. After IV hydralazine and IV labetalol the patient pressure had trended into the 170's systolic. Provider aware. After blood pressure medication administration patient is resting comfortably in bed and is free of complaints. Addendum: 05/30/16 at 0627 by CHRIS RDZ RN Patients pressures have been difficult to manage. Pressure's have ranged into the 180's systolic. Provider contacted and orders for PRN hydralazine received. Medications administered and blood pressure continued to be monitored.
[2016-05-30 03:42] LABS: TROPONIN T 0.233 ug/L (0.0-0.011)
[2016-05-30] MEDS ORDERED: Labetalol 5 mg/mL 4 mL Inj IVPUSH ONE (04:10)
[2016-05-30] MEDS: 0.9% Sodium Chloride 1,000 ML IV SCH ×3 (04:43→17:39)
[2016-05-30] MEDS ORDERED: KCl 40 mEq/D5W 500 mL 40 MEQ in IV Premix 1 EACH IV ONE (06:25)
[2016-05-30] MEDS: Insulin LISPRO 300 Unit/3 mL Inj SUBQ SCH ×4 (08:00→20:35)
[2016-05-30] MEDS: Divalproex (QD) 500 mg ER24 Tablet PO SCH ×3 (09:13→20:27)
[2016-05-30] MEDS: Ondansetron 2 mg/mL 2 mL Inj IVPUSH PRN ×2 (11:35→17:50)
--- NOTE | 2016-05-30 12:15 | PCM.PNMED ---
Subjective Date of Service May 30, 2016 Subjective Narciso Ruiz is 50 year old male with a history of GERD, uncontrolled type II diabetes, diabetic retinopathy, hypertension, bipolar disorder, chronic renal disease, and chronic elevated troponin presents to the ED complaining of left arm pain, chest pain, and abdominal pain. Admitted for possible NSTEMI currently being worked up for what is likely diabetic gastroparesis. Hospital day 2. Overnight: Patient was admitted and became hypertensive overnight. No other acute events. Today: Patient denies any ongoing chest pain or arm pain. He notes that his main complaint is abdominal discomfort. He has uncontrolled diabetes located by retinopathy, nephropathy, and neuropathy. Discussed that his abdominal pain could be due to gastroparesis secondary to uncontrolled diabetes. Unable to do gastric emptying study today in the hospital but will start Reglan to see if this improves symptoms. Remaining review of systems negative. Exam Vital Signs Vital Sign - Last Date Time Temp Pulse Resp B/P Pulse Ox O2 Delivery O2 Flow Rate FiO2 05/30/16 07:03 60 12 166/79 98 Room Air 05/30/16 03:08 36.5 Intake and Output 05/29/16 05/29/16 05/30/16 Cumulative From/Thru 15:00 23:00 07:00 05/29/16 17:22 - 05/30/16 06:01 Intake Total 1600 ml 1600 ml Output Total 400 ml 400 ml Balance 1200 ml 1200 ml Intake Oral 200 ml 200 ml IV Total 1400 ml 1400 ml Output Urine Total 400 ml 400 ml # Voids 3 3 Exam GEN: Alert and oriented. NAD. well-developed, well-nourished, Mildly agitated. HEENT: NC/AT, sluggish pupils, sclera anicteric, moist mucous membranes, decreased visual acuity Neck: Supple with full ROM, no lymphadenopathy or thyromegaly CV: RRR, GII/ systolic murmur at LLSB Lungs: CTAB, normal respiratory effort Abd: Mild tenderness at romina-umbilicus and RLQ, normal active bowel tones, soft , non-distended, no organomegaly appreciated Ext: No cyanosis, edema or clubbing Skin: Dry, warm and intact, no rashes or lesions Neuro: CN II-XII grossly intact, not able to see with R eye, barely sees figures with L Psych: Normal affect, slightly agitated Lab and Diagnostics Result Diagram: 05/30/16 0235 05/30/16 0235 12-lead ECG Normal Sinus Rhythm Rate 60 Right axis deviation Low voltage Change from prior (05/11): New lateral T wave flattening Assessment & Plan Narciso Ruiz is 50 year old male with a history of GERD, uncontrolled type II diabetes, diabetic retinopathy, hypertension, bipolar disorder, chronic renal disease, and chronic elevated troponin presents to the ED complaining of left arm pain, chest pain, and abdominal pain. Admitted for possible NSTEMI currently being worked up for what is likely diabetic gastroparesis. Hospital day 2. 1. Abdominal pain, present on admission. Ongoing. - Abdominal pain and bloating has been ongoing for the last few months. He notes it waxes and wanes depending on medication and foods that he eats. No recent antibiotics or travels. - Etiology is likely secondary to diabetic gastroparesis. - Stool PCR positive for E-coli, enteroaggregative (EAEC) and Norovirus on - EAEC known for persistent diarrhea in adults with HIV, HIV pending - Stool PCR, O&P, and WBC pending - Gastric emptying study unavailable today. Recommend completion as outpatient. - Trial of Reglan 10mg achs started today. 2. Epigastric /Chest pain and left arm pain, present on admission. Resolved. - New T-wave flattening seen on EKG compared to prior studies. - On admission troponin 0.318. Troponins trended down most recent 0.229. Patient has chronically elevated troponins. - Aspirin 81 mg daily. - Atorvastatin 40 mg at bedtime. - Labetalol 200 mg 3 times a day (home regimen) - Echocardiogram planned for today. - Supplemental oxygen as needed. - Continue to monitor on telemetry. - Chest pain is resolved and patient has chronically elevated troponins we will not pursue stress test at this time. - epigastric pain likely due to gastroparesis, 3. Acute on chronic elevation of troponin, present on admission. Improving. - Etiology is likely secondary to acute on chronic kidney disease with demand ischemia and volume depletion. - Troponin 0.225 on 05/02/16. - On admission troponin 0.318. Troponins trended down most recent 0.229. - Treatment as above. 4. Acute on chronic kidney disease stage 4, present on admission. Improving. - Likely secondary to hypertensive nephrosclerosis and diabetes nephropathy with recent volume depletion from recent vomiting and diarrhea. - On admission BUN 37 and creatinine 4.23. Repeat today BUN 34 and creatinine 3.65. - IVF - Avoid nephrotoxic medications. - Repeat BMP in the morning. 5. Mild hypokalemia, present on admission. Resolved. - Patient chronically with hyperkalemia, takes Kayexalate twice weekly. - will hold this for now and avoid correcting - BMP in am 6. Uncontrolled type II diabetes with retinopathy, neuropathy, nephropathy, present on admission. Chronic. - Blood glucose 163 in ED. - HgbA1c 8.4% in 01/2016, will recheck at this time. - Bedside blood glucose checks. - Medium dose insulin Lispro. 7. Chronic anemia, present on admission. - H/H 10.3/29.5 most likely due to his CKD, patient at baseline - Continue to monitor. 8. Uncontrolled Hypertension, present on admission. Acute on chronic. - Hydralazine 50 mg 3 times a day. - Amlodipine 10 mg daily. - Labetalol 200 mg 3 times a day. 9. Bipolar, present on admission. Chronic. - Fluoxetine 10 mg daily. - Depakote 500 mg 3 times a day. 10. Nicotine dependence, present on admission. Active - Discussed smoking cessation Disposition: Patient's chest pain is completely resolved. Complaint and reason for admission per patient appears to be abdominal pain that has been ongoing for the last few months. Will trial Reglan and suggest outpatient workup for possible diabetic gastroparesis. Discharge likely tomorrow. GI Prophylaxis: Proton Pump Inhibitor VTE Prophylaxis: Sub-Q Heparin (Unfractionated) VTE Mechanical Devices: Intermittant Pneumatic CD Resuscitation Status: CPR: Attempt Resuscitation Attending Statement patient seen and examined with Dr Dennis .I agree with the history,exam, impression and plan as outlined above RORY DENNIS DO May 30, 2016 07:36 Michael Estrada MD May 30, 2016 12:41
[2016-05-30] MEDS: Pantoprazole 20 mg ER24 Tablet PO SCH ×2 (12:52→20:27)
--- NOTE | 2016-05-30 14:08 | CONS ---
[address] [address] CONSULTATION REPORT PATIENT: SHANT MARTNIEZ : 1965 MR#: [id number] ADMIT: 05/29/2016 JOB ID: [id number] DATE OF SERVICE: 05/30/2016 RENAL CONSULTATION: HISTORY: The patient is a 50-year-old white male with a history of multiple medical and psychiatric issues. He is well known to our service from a recent hospitalization back in the early part of April of this year. He was admitted to [facility] for left arm pain, elevated troponin, and possible myocardial infarction. He also appears to have acute on chronic kidney injury. Renal consultation is being sought for further management of his acute on chronic kidney injury. The patient has a history of multiple medical and psychiatric problems. He has a longstanding history of insulin-dependent diabetes mellitus which has been complicated by diabetic retinopathy, diabetic neuropathy, and chronic kidney disease secondary to diabetic renal disease. In addition he has a history of a type 4 renal tubular acidosis from his diabetes. He also has a history of hypertension and a history of noncompliance. He has a history of bipolar disorder and has had multiple hospitalizations. When we evaluated him in early April of this year, we felt that he was probably at a stage 3 or stage 4 chronic kidney disease from hypertension and diabetes. We instituted a number of therapies which I am unclear as to how many of these he actually followed. He gives kind of an unusual history which does not go along with what is written on two different evaluations. He states that he has had severe abdominal pain and has diminished his oral intake. He denies any pain but does have some abdominal distention. He cannot tell me what his blood sugars nor his blood pressures have been. He states that he is taking his medications. On admission, he was started on cautious IV hydration and his renal function has had some improvement. His blood pressure remains elevated. PAST MEDICAL HISTORY: Is significant for bipolar disorder and perhaps other features of this. He has a history of insulin-dependent diabetes mellitus with diabetic retinopathy, neuropathy, renal disease, and type 4 renal tubular acidosis. He also has a history of hypertension with hypertensive heart disease and hypertensive nephrosclerosis. There is also a history of chronic non migrainous headaches and secondary hyperparathyroidism due to his chronic kidney disease. PAST SURGICAL HISTORY: Is significant for hernia repair. ALLERGIES: He states he is allergic to SULFAS, DIPHTHERIA TOXINS and TETANUS. FAMILY HISTORY: Significant for a mother with bipolar disorder. SOCIAL HISTORY: He states that he does not take alcohol or illicit drugs but does occasionally chew tobacco and have a cigarette. REVIEW OF SYSTEMS: Is detailed above. Otherwise he denies any headache, cough, wheezing, orthopnea, lower extremity edema, diarrhea or arthralgias. MEDICATIONS: At time of my evaluation include famotidine, metoclopramide, Protonix, Depakote, fludrocortisone, labetalol, amlodipine, hydralazine, Renvela, Lipitor and insulin. PHYSICAL EXAMINATION: Revealed a pale chronically ill-appearing 50-year-old white male who looks considerably older than his stated age. His vital signs showed a temperature of 36.9, pulse of 64, blood pressure is 154/73. HEENT examination is remarkable for absent red reflex and pale sclerae. Neck is supple without adenopathy, thyromegaly or jugular venous distention. Lungs were clear to auscultation though somewhat diminished in both bases. Heart was regular and rhythmical with a grade 3/6 systolic ejection murmur. There was no S3 or S4 noted. Abdomen was distended and there were some diminished bowel sounds noted. He also had considerable tympany but no tenderness, rebound, guarding, masses, or hepatosplenomegaly. Extremities did not show any evidence of any clubbing, cyanosis or edema. Skin turgor was good and there was no evidence of any rashes. LABORATORY EXAMINATION: As noted above at time of admission, his creatinine was 4.23 and this morning it had improved to 3.65. His sodium this morning was 132, potassium 3.4, chloride 99, CO2 of 21. BUN was 34. Blood sugar was 146. His CBC showed a white count of 2.9, hemoglobin 9.1, hematocrit of 26.1, red cell indices and differential were normal. His platelets were slightly low at 109,000. IMPRESSION: 1. Acute on chronic kidney injury secondary to dehydration. 2. Chronic kidney disease stage 4 secondary to diabetic nephropathy and hypertensive nephrosclerosis. 3. Hypertension with hypertensive heart disease and hypertensive nephrosclerosis. 4. Type 4 renal tubular acidosis. 5. Noncompliance. RECOMMENDATION: I would like to continue him on his cautious hydration and closely follow his lab. I would also like to make sure we get his medications adjusted for optimal blood pressure control. Once again, I would like to thank you for allowing me to participate in the care of this most pleasant and interesting patient. I will be following him closely with you.
--- NOTE | 2016-05-30 14:33 | NUR ---
Social Work note - Initial assessment Narciso Ruiz is a 50 yr old admitted for elevated troponin, chest pain. EMR reviewed: Pt has Jose HERNANDEZ and his PCP is Charity Monson Pa-C. 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 He plans to return there at d/c. Denies any DME, does not identify any needs. He states he has close follow up from his PCP who told him to come back to ED. He has hx of bipolar, is on medications and has open services with [facility] for mental health. He states he feels fine, has not followed up with [facility] since last admission. Family will drive pt home - denies any other needs. Plan: home with family in [place]> MARYAM Vicente
--- NOTE | 2016-05-30 18:07 | NUR ---
Nausea/Vomiting/Activity Patient a/o x 3, denies chest pain or gen pain, but c/o upset abd and intermittent nausea throughout the shift. Patient started on diet and had large emesis undigested pills and food this evening. Zofran and Reglan given. Patient voiding small amts cloudy yellow uop. No Bm this shift. Patient legally blind, amb in [place] with IV pole and one person assist approx 25 ft, yahir well. See vitals, tele SB-SR 50-60's.
--- NOTE | 2016-05-30 20:35 | DRSVH ---
[facility] [address] [place] [address] Echocardiogram Report Name: SHANT MARTINEZ LStudy Date: 05/30/2016 Height: 69 in Hospital Exam Location: [facility] Weight: 190 lb Gender: Male BSA: 2.0 m2 : 1965 Age: 50 yrs BP: 187/89 mmHg Reason For Study: NEW MURMUR Ordering Physician: Performed By: Phuong Bruce Referring Physician: Charity Monson Interpretation Summary Normal sinus rhythm. Moderate LVH; normal wall motion and LV systolic function. EF is 60-65%. Stage II diastolic dysfunction. Moderate LA enlargement; mild RA enlargemnet. Mitral valve leaflets are normal; mild MAC; no regurgitation. Trace tricuspid regurgitation. Estimated PA systolic pressure is 43 mm Hg assuming RA pressure of 3 mm Hg. There is a trace pericardial effusion. There is a moderate size left pleural effusion. Compared to prior study performed 01/30/2016 pleural effusion is new; pericardial effusion is new. Procedure: A two-dimensional transthoracic echocardiogram with color flow and Doppler was performed. The study quality was technically adequate. Comparison is made with the echocardiogram of 01-30-2016. The patient was in sinus during the exam. Left Ventricle: The left ventricle is normal in size. Left ventricular wall thickness is mild-moderately increased. Left ventricular systolic function is normal. Spectral Doppler of the mitral valve shows a normal E/A wave ratio. Right Ventricle: The right ventricle is normal in size and function. Atria: The left atrium is moderately dilated. The right atrium is mildly dilated. There is no Doppler evidence for an atrial septal defect. Mitral Valve: There is mild mitral annular calcification. The mitral valve leaflets appear mildly thickened, but open well. There is mild mitral regurgitation. Aortic Valve: The aortic valve is trileaflet. The aortic valve opens well. No aortic regurgitation is present. Tricuspid Valve: The tricuspid valve leaflets are thin and pliable. There is mild tricuspid regurgitation. The right ventricular systolic pressure is estimated at 43 mmHg assuming a right atrial pressure of 3 mm Hg. Pulmonic Valve: The pulmonic valve leaflets are thin and pliable; valve motion is normal. There is no pulmonic valvular regurgitation. Great Vessels: The aortic root is mildly dilated. The dimensions of the ascending aorta are normal. The pulmonary artery is normal size. The IVC is of normal diameter and collapses greater than 50% with a sniff. This suggests a low right atrial pressure of 3 mm Hg. Pericardium/ Pleura There is a trivial to small pericardial effusion noted. There are no echocardiographic indications of cardiac tamponade. Bilaateral pleural effusion. MMode/2D Measurements & Calculations LVIDd: 4.9 cm LA dimension: 4.8 cm RA long axis LVOT diam: 2.2 cm LVIDs: 3.0 cm AoV Opening FS: 38.6 % LA A2 area: 26.8 cm RA area EPSS: 0.42 cm LA A4 area: 26.1 cm Ao root diam IVSd: 1.6 cm LA length (vol) : 21.2 cm LVPWd: 1.3 cm RA vol Aortic Jxn: 3.1 cm LA vol: 89.5 ml : 68.5 ml asc Aorta Diam LA vol index RA : 33.9 mm/ Ao Arch Diam (Prox RVDd major Trans): 3.1 cm IVC diam: 1.9 cm : 7.5 cm LV mckeon. diameter/BSA LV sys. diameter/BSA RVD2 (mid) (cm/m^2): 2.4 (cm/m^2): 1.5 : 3.4 cm Doppler Measurements & Calculations Ao V2 max MV E max fernie MV E/A: 1.4 TR max fernie : 168.4 cm/sec : 126.1 cm/sec Med Peak E' Fernie : 315.5 cm/sec Ao max P.3 mmHg MV A max fernie TR max PG Ao mean P.2 mmHg : 90.5 cm/sec E/E' med: 19.7 : 39.8 mmHg LVOT Max Fernie MV P1/2t Lat Peak E' Fernie PA V2 max : 121.6 cm/sec : 67.1 msec : 95.8 cm/sec CRISS(I,D): 2.7 cm E/E' lat: 13.9 PA mean PG sev ratio: 0.68 E/e' average PA Accel Time MV A dur : 0.12 sec : 0.15 sec MV P1/2t max fernie Ao V2 mean LV V1 max PG PA V2 mean : 119.3 cm/sec : 71.4 cm/sec MVA(P1/2t): 3.3 cm2 Ao V2 VTI: 39.7 cmLV V1 VTI CRISS(V,D): 2.9 cm2 : 26.9 cm CRISS indexed to BSA (cm^2/m^2): 1.3 Reading Physician:08:34 PM
[2016-05-30] MEDS ORDERED: Insulin GLARgine 100 Unit/mL Syringe SUBQ SCH (21:00)
[2016-05-31] VITALS (12 sets, daily range): BP systolic 110–182; BP diastolic 53–85; PULSE 56–64; RESP 12–16; O2SAT 90–96
[2016-05-31] MEDS: Sodium Chloride LOK Flush 10 mL Syringe IVFLUSH SCH ×3 (00:30→16:30)
[2016-05-31 00:45] LABS: APPEARANCE,URINE HAZY (CLEAR,HAZY); COLOR,URINE DARK YELLOW (YELLOW); OCCULT BLOOD,URINE NEGATIVE (NEGATIVE); PH,URINE 5.5 (5.0-8.0); UROBILINOGEN,URINE NORMAL (NORMAL)
[2016-05-31] MEDS: 0.9% Sodium Chloride 1,000 ML IV SCH ×3 (01:48→18:09)
[2016-05-31] MEDS: Heparin 5,000 Unit/mL Inj SUBQ SCH ×3 (01:48→18:11)
[2016-05-31 03:33] LABS: Magnesium 2.1 mg/dL (1.6-2.6); Phosphorus 3.5 mg/dL (2.5-4.9)
--- NOTE | 2016-05-31 06:23 | NUR ---
Restful night. Patient rested in bed comfortably without complaints and reported feeling better after getting a good night sleep.
[2016-05-31] MEDS: Pantoprazole 20 mg ER24 Tablet PO SCH ×2 (07:44→20:07)
[2016-05-31] MEDS: Insulin LISPRO 300 Unit/3 mL Inj SUBQ SCH ×4 (07:45→20:25)
[2016-05-31] MEDS: Divalproex (QD) 500 mg ER24 Tablet PO SCH (07:45)
--- NOTE | 2016-05-31 09:26 | DRSVH ---
PROCEDURE: X-RAY CHEST ONE VIEW, PORTABLE ([id number]) INDICATIONS: 50 year-old male with pleural effusion. TECHNIQUE: One view of the chest was acquired. COMPARISON: [facility], CR, XR CHEST 1VW (PORTABLE), 04/27/2016, 22:40. [facility], CR, XR CHEST 1VW (PORTABLE), 04/09/2016, 10:58. [facility], CR, XR CHEST 1VW (PO RTABLE), 01/28/2016, 15:38. FINDINGS: Surgical changes and devices: None. Lungs and pleura: There is no small dependent left pleural effusion. Lungs appear clear. No pneumotho rax. Mediastinum: Mediastinal contours appear normal. Heart size is normal. Bones and chest wall: No suspicious bony lesions. Overlying soft tissues appear unremarkable. IMPRESSION: Small dependent left pleural effusion is of uncertain etiology. Dictated by: Caleb Narvaez M.D. on 05/31/2016 at 9:24 Approved by: Caleb Narvaez M.D. on 05/31/2016 at 9:25
--- NOTE | 2016-05-31 13:12 | PCM.PNMED ---
Subjective Date of Service May 31, 2016 Subjective Continues to have epigastric pain and bloating. Reglan started yesterday and seems to help. Held today for possible gastric imaging test tomorrow. Blood pressure controlled with increased hydralazine dose. Exam Vital Signs Vital Sign - Last Date Time Temp Pulse Resp B/P Pulse Ox O2 Delivery O2 Flow Rate FiO2 05/31/16 11:29 36.6 59 14 136/67 90 Room Air Intake and Output 05/30/16 05/30/16 05/31/16 Cumulative From/Thru 15:00 23:00 07:00 05/29/16 17:22 - 05/31/16 06:34 Intake Total 2022 ml 1057 ml 4679 ml Output Total 825 ml 200 ml 1425 ml Balance 1197 ml 857 ml 3254 ml Intake Oral 540 ml 200 ml 940 ml IV Total 1482 ml 857 ml 3739 ml Output Urine Total 525 ml 200 ml 1125 ml Emesis 300 ml 300 ml # Voids 3 # Bowel Movements 0 0 Exam GEN: Alert and oriented. NAD. well-developed, well-nourished, Mildly agitated. HEENT: NC/AT, sluggish pupils, sclera anicteric, moist mucous membranes, decreased visual acuity Neck: Supple with full ROM, no lymphadenopathy or thyromegaly CV: RRR, GII/ systolic murmur at LLSB Lungs: CTAB, normal respiratory effort Abd: Mild tenderness at romina-umbilicus and RLQ, normal active bowel tones, soft , non-distended, no organomegaly appreciated Ext: No cyanosis, edema or clubbing Skin: Dry, warm and intact, no rashes or lesions Neuro: CN II-XII grossly intact, not able to see with R eye, barely sees figures with L Psych: Normal affect, slightly agitated IVs and Medications Medications Reviewed: Medications were reviewed in detail Lab and Diagnostics Result Diagram: 05/30/16 0235 05/31/16 0220 12-lead ECG Normal Sinus Rhythm Rate 60 Right axis deviation Low voltage Change from prior (05/11): New lateral T wave flattening Cardiac Echo Impressions Interpretation Summary Normal sinus rhythm. Moderate LVH; normal wall motion and LV systolic function. EF is 60-65%. Stage II diastolic dysfunction. Moderate LA enlargement; mild RA enlargemnet. Mitral valve leaflets are normal; mild MAC; no regurgitation. Trace tricuspid regurgitation. Estimated PA systolic pressure is 43 mm Hg assuming RA pressure of 3 mm Hg. There is a trace pericardial effusion. There is a moderate size left pleural effusion. Compared to prior study performed 01/30/2016 pleural effusion is new; pericardial effusion is new. Assessment & Plan Narciso Ruiz is 50 year old male with a history of GERD, uncontrolled type II diabetes, diabetic retinopathy, hypertension, bipolar disorder, chronic renal disease, and chronic elevated troponin presents to the ED complaining of left arm pain, chest pain, and abdominal pain. Admitted for possible NSTEMI currently being worked up for what is likely diabetic gastroparesis. Hospital day 2. 1. Abdominal pain, present on admission. Ongoing. - Abdominal pain and bloating has been ongoing for the last few months. He notes it waxes and wanes depending on medication and foods that he eats. No recent antibiotics or travels. - Etiology is likely secondary to diabetic gastroparesis. - Gastric emptying study unavailable today. will try to get it done tomorrow . - Trial of Reglan 10mg achs started yesterday 05/30,he got 2 doses and seems to help. Discontinued today for gastric emptying test - Stool PCR positive for E-coli, enteroaggregative (EAEC) and Norovirus on - EAEC known for persistent diarrhea in adults with HIV, HIV negative 2. Epigastric /Chest pain and left arm pain, present on admission. Resolved. - New T-wave flattening seen on EKG compared to prior studies. - On admission troponin 0.318. Troponins trended down most recent 0.229. Patient has chronically elevated troponins. - Aspirin 81 mg daily. - Atorvastatin 40 mg at bedtime. - Labetalol 200 mg 3 times a day (home regimen) - Echocardiogram as above, mild pericardial effusion no wall motion abnormality - Supplemental oxygen as needed. - Continue to monitor on telemetry. - Chest pain is resolved and patient has chronically elevated troponins we will not pursue stress test at this time. - epigastric pain likely due to gastroparesis, 3. Acute on chronic elevation of troponin, present on admission. Improving. - Etiology is likely secondary to acute on chronic kidney disease with demand ischemia and volume depletion. - Troponin 0.225 on 05/02/16. - On admission troponin 0.318. Troponins trended down most recent 0.229. - Treatment as above. 4. Acute on chronic kidney disease stage 4, present on admission. Improving. - Likely secondary to hypertensive nephrosclerosis and diabetes nephropathy with recent volume depletion from recent vomiting and diarrhea. - On admission BUN 37 and creatinine 4.23. Repeat today BUN 34 and creatinine 3.65. -Discussed with nephrology Dr Crisostomo today . He recommends we continue IVF for 1 more day given a bump in creatinine today. 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 - Repeat BMP in the morning. 5. Mild hypokalemia, present on admission. Resolved. - Patient chronically with hyperkalemia, takes Kayexalate twice weekly. - will hold this for now and avoid correcting - BMP in am 6. Uncontrolled type II diabetes with retinopathy, neuropathy, nephropathy, present on admission. Chronic. - Blood glucose 163 in ED. - HgbA1c 8.4% in 01/2016, will recheck at this time. - Bedside blood glucose checks. - Medium dose insulin Lispro. 7. Chronic anemia, present on admission. - H/H 10.3/29.5 most likely due to his CKD, patient at baseline - Continue to monitor. 8. Uncontrolled Hypertension, present on admission. Acute on chronic. - Hydralazine 50 mg 3 times a day. Increased dose to 75 mg twice a day - Amlodipine 10 mg daily. - Labetalol 200 mg 3 times a day. 9. Bipolar, present on admission. Chronic. - Fluoxetine 10 mg daily. - Depakote 500 mg 3 times a day. 10. Nicotine dependence, present on admission. Active - Discussed smoking cessation Disposition: Patient's chest pain is completely resolved. Complaint and reason for admission per patient appears to be abdominal pain that has been ongoing for the last few months. workup for possible diabetic gastroparesis tomorrow. Discharge likely tomorrow. GI Prophylaxis: Proton Pump Inhibitor VTE Prophylaxis: Sub-Q Heparin (Unfractionated) VTE Mechanical Devices: Intermittant Pneumatic CD Resuscitation Status: CPR: Attempt Resuscitation Michael Estrada MD May 31, 2016 13:12
--- NOTE | 2016-05-31 13:14 | PCM.PNMED ---
Subjective Date of Service May 31, 2016 Subjective Patient's blood pressure has improved but still is open down. Yesterday he had 3622 when in 1225 out. He denies any headache, chest pain, or shortness of breath. His creatinine has risen today. 3.6-3.9. Exam Vital Signs Vital Sign - Last Date Time Temp Pulse Resp B/P Pulse Ox O2 Delivery O2 Flow Rate FiO2 05/31/16 11:29 36.6 59 14 136/67 90 Room Air Intake and Output 05/30/16 05/30/16 05/31/16 Cumulative From/Thru 15:00 23:00 07:00 05/29/16 17:22 - 05/31/16 06:34 Intake Total 2022 ml 1057 ml 4679 ml Output Total 825 ml 200 ml 1425 ml Balance 1197 ml 857 ml 3254 ml Intake Oral 540 ml 200 ml 940 ml IV Total 1482 ml 857 ml 3739 ml Output Urine Total 525 ml 200 ml 1125 ml Emesis 300 ml 300 ml # Voids 3 # Bowel Movements 0 0 Exam Neck is supple without adenopathy, thyromegaly, or droopiness distention. Lungs are clear to auscultation. Heart is regular and rhythmical with a soft systolic murmur. Abdomen soft without any tenderness rebound guarding masses or hepatosplenomegaly. Extremities did not show any evidence of an clubbing cyanosis or edema. Lab and Diagnostics Result Diagram: 05/30/16 0235 05/31/16 0220 12-lead ECG Normal Sinus Rhythm Rate 60 Right axis deviation Low voltage Change from prior (05/11): New lateral T wave flattening Assessment & Plan Impression #1 acute kidney injury superimposed on chronic kidney disease #2 dehydration #3 baseline chronic kidney disease stage IV on #5 diabetic nephropathy #6 hypertension with hypertensive heart disease and hypertensive nephrosclerosis #7 type IV renal tubular acidosis. Recommendations #1 I would like to start him on torsemide 20 mg daily and follow his intake and output. GI Prophylaxis: Proton Pump Inhibitor VTE Prophylaxis: Sub-Q Heparin (Unfractionated) VTE Mechanical Devices: Intermittant Pneumatic CD Resuscitation Status: CPR: Attempt Resuscitation Jean Crisostomo DO May 31, 2016 13:14
--- NOTE | 2016-05-31 17:42 | NUR ---
Diet/Nausea/UOP Patient a/o x 3, denies chest pain or sob. Patient taking diet fair, c/o nausea no emesis this shift. See vitals. Tele SR 60's. Patient up indep at bedside voiding small amounts cloudy yellow uop, denies urinary retention. Plan for npo after midnight for test.
[2016-06-01] VITALS (13 sets, daily range): BP systolic 135–194; BP diastolic 69–90; PULSE 56–71; RESP 12–18; O2SAT 93–98
[2016-06-01] MEDS: hydrALAZINE 20 mg/mL Inj IV PRN ×3 (00:09→05:13)
[2016-06-01] MEDS: Heparin 5,000 Unit/mL Inj SUBQ SCH ×3 (00:09→18:01)
--- NOTE | 2016-06-01 00:11 | NUR ---
Blood pressure. Patient blood pressure is elevated in the 170's. Patient was given 20mg IV hydralazine. Patient is free of complaints at this time.
[2016-06-01] MEDS: Sodium Chloride LOK Flush 10 mL Syringe IVFLUSH SCH ×3 (00:13→16:30)
[2016-06-01] MEDS: Insulin LISPRO 300 Unit/3 mL Inj SUBQ SCH ×4 (08:00→21:38)
[2016-06-01] MEDS: Pantoprazole 20 mg ER24 Tablet PO SCH ×2 (08:48→21:34)
--- NOTE | 2016-06-01 17:00 | PCM.PNMED ---
Subjective Date of Service Jun 01, 2016 Subjective c/o abdominal bloating, BP elevated. No CP/SOB, good UOP. level is WNL. Exam Vital Signs Vital Sign - Last Date Time Temp Pulse Resp B/P Pulse Ox O2 Delivery O2 Flow Rate FiO2 06/01/16 15:54 64 18 158/77 95 Room Air 06/01/16 15:50 36.8 Intake and Output 05/31/16 05/31/16 06/01/16 Cumulative From/Thru 15:00 23:00 07:00 05/29/16 17:22 - 06/01/16 05:49 Intake Total 2669 ml 500 ml 7848 ml Output Total 425 ml 550 ml 2400 ml Balance 2244 ml -50 ml 5448 ml Intake Oral 1852 ml 500 ml 3292 ml IV Total 817 ml 4556 ml Output Urine Total 425 ml 550 ml 2100 ml Emesis 300 ml # Voids 3 # Bowel Movements 0 0 Exam GA: AAOx3, NAD, legally blind. HEENT: mild pallor, no jaundice, no JVD, no lymphadenopathy. Heart: RRR, no M/R/G. Lungs: CTA, B/L, no wheezes, no rhonchi. Abdomen: soft without any tenderness rebound guarding masses or hepatosplenomegaly. Extremities did not show any evidence of an clubbing cyanosis or edema. Lab and Diagnostics Result Diagram: 05/30/16 0235 06/01/16 0240 12-lead ECG Normal Sinus Rhythm Rate 60 Right axis deviation Low voltage Change from prior (05/11): New lateral T wave flattening Cardiac Echo Impressions Interpretation Summary Normal sinus rhythm. Moderate LVH; normal wall motion and LV systolic function. EF is 60-65%. Stage II diastolic dysfunction. Moderate LA enlargement; mild RA enlargemnet. Mitral valve leaflets are normal; mild MAC; no regurgitation. Trace tricuspid regurgitation. Estimated PA systolic pressure is 43 mm Hg assuming RA pressure of 3 mm Hg. There is a trace pericardial effusion. There is a moderate size left pleural effusion. Compared to prior study performed 01/30/2016 pleural effusion is new; pericardial effusion is new. Assessment & Plan 1. Advanced CKD stage 4-5 2. Uncontrolled HTN secondary to CKD, salt retention from kayexalate and florinase. 3. Hyperkalemia due to RTA-4, resolved. 4. RTA-4 due to DM with nephropathy. 5. Legally blind. 6. Anemia of CKD. Plan: d/c all IVF. continue labetalol, norvasc and torsemide. low salt , potassium and protein diet. decrease florinase 0.1 mg take only on MWF. give aranesp 40 mcg subQ x 1. d/c kayexalate. d/c home in am. check orthostatic BP. f/u with renal in 1 week. refer to see Dr. Key for AVF creation as outpatient. GI Prophylaxis: Proton Pump Inhibitor VTE Prophylaxis: Sub-Q Heparin (Unfractionated) VTE Mechanical Devices: Intermittant Pneumatic CD Resuscitation Status: CPR: Attempt Resuscitation Patricia Manrique MD Jun 01, 2016 17:00
[2016-06-01] MEDS ORDERED: Darbepoetin Alfa 40 mCg/0.4 mL Inj SUBQ ONE (17:30)
--- NOTE | 2016-06-01 18:30 | PCM.PNMED ---
Subjective Date of Service Jun 01, 2016 Subjective Narciso Ruiz is 50 year old male with a history of GERD, uncontrolled type II diabetes, diabetic retinopathy, hypertension, bipolar disorder, chronic renal disease, and chronic elevated troponin presents to the ED complaining of left arm pain, chest pain, and abdominal pain. Admitted for possible NSTEMI currently being worked up for what is likely diabetic gastroparesis. Hospital day 4. Overnight events: Overnight events. Today: Patient sitting in bed in no acute distress. Reports continued mild abdominal pain and bloating, with mild nausea after consuming food. Discussed with patient importance of eating smaller more frequent meals. Denies other symptoms. Exam Vital Signs Vital Sign - Last Date Time Temp Pulse Resp B/P Pulse Ox O2 Delivery O2 Flow Rate FiO2 06/01/16 15:54 64 18 158/77 95 Room Air 06/01/16 15:50 36.8 Intake and Output 05/31/16 05/31/16 06/01/16 Cumulative From/Thru 15:00 23:00 07:00 05/29/16 17:22 - 06/01/16 05:49 Intake Total 2669 ml 500 ml 7848 ml Output Total 425 ml 550 ml 2400 ml Balance 2244 ml -50 ml 5448 ml Intake Oral 1852 ml 500 ml 3292 ml IV Total 817 ml 4556 ml Output Urine Total 425 ml 550 ml 2100 ml Emesis 300 ml # Voids 3 # Bowel Movements 0 0 Exam General: Patient sitting in bed in no acute distress. Well-developed, well- nourished, appropriately interactive HEENT: Normocephalic, atraumatic. External ears without defect. Nonreactive nipples in the right side minimally reactive on the left side. Anicteric sclerae, moist conjunctivae, and no lid lag. Oropharynx free of erythema and cobble stoning with moist mucosa. Neck: Supple with full range of motion. No jugular venous distension. No bruits. No lymphadenopathy or thyromegaly. Cardiovascular: Regular rate and rhythm with no murmurs, rubs, or gallops appreciated Pulmonary: Clear to auscultation bilaterally with no crackles, wheezes, or rhonchi. Normal respiratory effort with no use of accessory muscles. Abdomen: Bowel tones present. Soft, nontender, nondistended. No hepatosplenomegaly or masses appreciated. Extremities: No clubbing, cyanosis, edema, or lymphadenopathy appreciated. Skin: Normal temperature, turgor, and texture; no rash, ulcers, or subcutaneous nodules appreciated. Neurological: Cranial nerves grossly intact. Normal muscle strength, tone, and bulk. Reflexes, coordination, and sensory function within normal limits. No known gait impairment. Psychiatric: Normal mood and affect. Alert and oriented to person, place, and time. IVs and Medications Medications Reviewed: Medications were reviewed in detail Lab and Diagnostics Result Diagram: 05/30/16 0235 06/01/16 0240 12-lead ECG Normal Sinus Rhythm Rate 60 Right axis deviation Low voltage Change from prior (05/11): New lateral T wave flattening Cardiac Echo Impressions Interpretation Summary Normal sinus rhythm. Moderate LVH; normal wall motion and LV systolic function. EF is 60-65%. Stage II diastolic dysfunction. Moderate LA enlargement; mild RA enlargemnet. Mitral valve leaflets are normal; mild MAC; no regurgitation. Trace tricuspid regurgitation. Estimated PA systolic pressure is 43 mm Hg assuming RA pressure of 3 mm Hg. There is a trace pericardial effusion. There is a moderate size left pleural effusion. Compared to prior study performed 01/30/2016 pleural effusion is new; pericardial effusion is new. Assessment & Plan Narciso Ruiz is 50 year old male with a history of GERD, uncontrolled type II diabetes, diabetic retinopathy, hypertension, bipolar disorder, chronic renal disease, and chronic elevated troponin presents to the ED complaining of left arm pain, chest pain, and abdominal pain. Admitted for possible NSTEMI currently being worked up for what is likely diabetic gastroparesis. Hospital day 4. 1. Abdominal pain, present on admission. Ongoing. - Etiology is likely secondary to diabetic gastroparesis. - Trial of Reglan 10mg achs started yesterday 05/30,he got 2 doses and seems to help. Discontinued today for gastric emptying test - Gastric emptying study 06/02/2016. 2. Acute on chronic elevation of troponin, present on admission. Improving. - Etiology is likely secondary to acute on chronic kidney disease with demand ischemia and volume depletion. - On admission troponin 0.318. Troponins trended down most recent 0.229. - History of elevated. Previous Troponin 0.225 on 05/02/16. We will not pursue stress test at this time. - New T-wave flattening seen on EKG compared to prior studies.. - Aspirin 81 mg daily. - Atorvastatin 40 mg at bedtime. - Labetalol 200 mg 3 times a day (home regimen) - Echocardiogram as above, mild pericardial effusion no wall motion abnormality - Supplemental oxygen as needed. - Continue to monitor on telemetry. 3. Acute on chronic kidney disease stage 4/5, present on admission. Improving. - Likely secondary to hypertensive nephrosclerosis and diabetes nephropathy with recent volume depletion from recent vomiting and diarrhea. - On admission BUN 37 and creatinine 4.23. Repeat today BUN 34 and creatinine 3.65. - Nephrology following, recommendations appreciated. - d/c all IVF. - Continue labetalol, norvasc and torsemide. - low salt , potassium and protein diet. - decrease florinase 0.1 mg take only on MWF. - give aranesp 40 mcg subQ x 1. - d/c kayexalate. - d/c home in am following gastric emptying study. - Check orthostatic BP. - f/u with renal in 1 week. - Refer to see Dr. Key for AVF creation as outpatient. 4. Various electrolyte abnormalities. On admission. Resolved. - Patient chronically with hyperkalemia, takes Kayexalate twice weekly. - Hyperkalemia due to RTA-4 5. Type IV renal tubular acidosis, present on admission. Stable. - Likely due to DM with nephropathy. - Nephrology managing, recommendations pressured. 6. Uncontrolled type II diabetes with retinopathy, neuropathy, nephropathy, present on admission. Chronic. - Blood glucose 163 in ED. - HgbA1c 8.4% in 01/2016, will recheck at this time. - Bedside blood glucose checks. - Medium dose insulin Lispro. 7. Chronic anemia, present on admission. - H/H 10.3/29.5 most likely due to his CKD, patient at baseline - Continue to monitor. 8. Uncontrolled Hypertension, present on admission. Acute on chronic. - Likely secondary to CKD. - Hydralazine 50 mg 3 times a day. Increased dose to 75 mg twice a day - Amlodipine 10 mg daily. - Labetalol 200 mg 3 times a day. 9. Bipolar, present on admission. Chronic. - Fluoxetine 10 mg daily. - Depakote 500 mg 3 times a day. 10. Nicotine dependence, present on admission. Active - Discussed smoking cessation 11. Legally blind, present on admission. Active. - Second 2 uncontrolled diabetes. Acetaminophen for mild pain when necessary. Bowel regimen Senna and MiraLAX scheduled and PRN. Zofran when necessary for nausea and vomiting. SubQ heparin. SCDs in place. High-risk medications: Disposition: Likely here till tomorrow barring any severe overnight electrolyte abnormalities. Will be discharged to home likely tomorrow. Pain Evaluation: Adequate Pain Control GI Prophylaxis: Proton Pump Inhibitor VTE Prophylaxis: Sub-Q Heparin (Unfractionated) VTE Mechanical Devices: Intermittant Pneumatic CD Resuscitation Status: CPR: Attempt Resuscitation Attending Statement The patient was seen and examined together with Dr. Trent on 06/01/2016 and I agree with the history, exam and plan as outlined in the note above. . ANTONIO TRENT DO Jun 01, 2016 18:08 Jv Saenz MD Jun 02, 2016 07:32
--- NOTE | 2016-06-01 19:07 | NUR ---
Edema/Emesis/BM Patient a/o x4, denies pain or sob,but c/o nausea and had emesis x 1. Taking diet fair. Patient amb in room with sba r/t blindness. Patient had BM x 2. See vitals, tele SR. Patient has gen edema, IVF d/c'd per Neph MD. Decreased uop this shift. Bladder scan attempted by two staff members, but unable to obtain results. Will cont poc.
[2016-06-01] MEDS: Ondansetron 2 mg/mL 2 mL Inj IVPUSH PRN (21:40)
[2016-06-02] VITALS (7 sets, daily range): BP systolic 142–205; BP diastolic 72–96; PULSE 58–66; RESP 16; O2SAT 95–98
[2016-06-02] MEDS: Heparin 5,000 Unit/mL Inj SUBQ SCH ×2 (01:13→08:30)
[2016-06-02] MEDS: Sodium Chloride LOK Flush 10 mL Syringe IVFLUSH SCH ×2 (01:14→08:21)
[2016-06-02 03:18] LABS: BASOPHILS % (AUTO) 1.2 % (0-3); EOSINOPHILS % (AUTO) 6.2 % (0-5); MONOCYTES % (AUTO) 6.2 % (4-12); Mean Corpuscular Hemoglobin 29.5 pg (27.0-35.0); Mean Corpuscular Volume 86.9 fL (81-100); NEUTROPHILS % (AUTO) 66.5 % (40-74); Platelet Count 99 bil/L (150-400)
--- NOTE | 2016-06-02 05:44 | NUR ---
Nausea Patient reported mild nausea, without vomiting. Patient was given zofran and reported feeling better. Patient rested comfortably without complaints otherwise.
[2016-06-02] MEDS: Insulin LISPRO 300 Unit/3 mL Inj SUBQ SCH ×2 (08:00→12:00)
[2016-06-02] MEDS: hydrALAZINE 20 mg/mL Inj IV PRN ×2 (08:15→12:58)
--- NOTE | 2016-06-02 08:30 | NUR ---
NM test Patient npo, since midnight. Down to AL for gastric emptying study. See vital signs. MD aware of B/P and IV Hydralazine given prior to transport for test.
[2016-06-02] MEDS: Pantoprazole 20 mg ER24 Tablet PO SCH (12:52)
[2016-06-02] MEDS: Ondansetron 2 mg/mL 2 mL Inj IVPUSH PRN (12:58)
--- NOTE | 2016-06-02 14:23 | DRSVH ---
PROCEDURE: VA GASTRIC EMPTYING STUDY (87612) RADIOPHARMACEUTICAL: 0.512 mCi Tc-99m sulfur colloid in an egg sandwich. INDICATIONS: 50 year-old male with abdominal pain and bloating for 2 weeks. TECHNIQUE: A Tc-99m labeled sulfur colloid labeled egg sandwich or oatmeal was served to the patient. Anterior and posterior planar images of the abdomen were obtained at 0 minutes and 30 minutes, then at hourly intervals up to 4 hours. The patient was upright and ambulating during the interval. COMPARISON: None. FINDINGS: The stomach has normal size, morphology, and position. There is normal emptying of solid gastric con tents from the stomach by visual inspection. No gastroesophageal reflux is visualized. The percentage of tracer retained at specific time points are as follows: Time point Percent gastric retention Normal range 30 minutes 98% 70% or more 1 hour 87% 30% to 90% 2 hours 64% 60% or less 3 hours 40% 30% or less 4 hours 19% 10% or less Gastric retention of less than 70% at 30 minutes, or less than 30% at 1 hour, would suggest abnormall y rapid gastric emptying (dumping). IMPRESSION: Mildly delayed gastric emptying may suggest diabetic gastroparesis in the appropriate cli nical setting. Dictated by: Caleb Narvaez M.D. on 06/02/2016 at 14:20 Approved by: Caleb Narvaez M.D. on 06/02/2016 at 14:22
[2016-06-02] MEDS ORDERED: NIFEdipine 30 mg ER24 Tablet PO SCH (14:30)
[2016-06-02] MEDS ORDERED: TORS20TA PO (16:25)
[2016-06-02] MEDS ORDERED: FLUD0.1T PO (16:25)
--- NOTE | 2016-06-02 16:36 | PCM.DIMED ---
ANTONIO TRENT P DO 06/02/16 1604: Discharge Instructions Date of Service Jun 02, 2016 Dates of Hospitalization May 29, 2016 at 20:34 Discharge Diagnosis Discharge Diagnosis 1. Gastroparesis, present on admission. Ongoing. 2. Acute on chronic elevation of troponin, present on admission. Improving. 3. Acute on chronic kidney disease stage 4/5, present on admission. Improving. 4. Various electrolyte abnormalities. On admission. Resolved. 5. Type IV renal tubular acidosis, present on admission. Stable. 6. Uncontrolled type II diabetes with retinopathy, neuropathy, nephropathy, present on admission. Chronic. 7. Chronic anemia, present on admission. 8. Uncontrolled Hypertension, present on admission. Acute on chronic. 9. Bipolar, present on admission. Chronic. 10. Nicotine dependence, present on admission. Active 11. Legally blind, present on admission. Active. Medication Instructions Continue home medications. Continue home labetalol. Continue home Amlodipine. Continue home Atorvastatin. Continue home Divalproex ER. Continue home Aspirin. Stop home Kayexalate. New medications: Torsemide 20 mg by mouth daily. Take Florinef 0.1 mg on Wednesday, Wednesday, and Wednesday. Take Metoclopramide 5mg by mouth three times a day. Diet Diabetic Call your provider Fever or Chills, Shortness of breath, Chest pain, Vomitting, Excessive diarrhea Patient Instructions Follow-up plan Do not hesitate to call emergency services or your primary care physician if you experience any of the following. -High unrelenting fevers. -Uncontrolled vomiting. -Severe hypertension. -Syncope or loss of consciousness. -Chest pain or severe shortness of breath. Follow up with your primary care physician in 1-2 weeks time following your emergency department visit for medication checks and general well-being. Follow up with your closing supervisor in 1 weeks time. Follow up with Dr. Key as an outpatient for AV fistula creation. Follow-up Provider: Charity Monson PA-C Follow-up with PCP in: 2 weeks Provider: Patricia Manrique MD Follow-up in: 1 week Jv Saenz MD 06/03/16 0836: Discharge Instructions Attending's Statement The patient was seen and examined together with Dr. Trent on 06/02/2016 and I agree with the history, exam and plan as outlined in the note above. . ANTONIO TRENT DO Jun 02, 2016 16:04 Jv Saenz MD Jun 03, 2016 08:36
[2016-06-02] MEDS ORDERED: MTC5T PO (16:38)
--- NOTE | 2016-06-02 17:13 | PCM.PNMED ---
Subjective Date of Service Jun 02, 2016 Subjective Pt had gastric emptying study today which showed mildly delayed gastric emptying suggesting diabetic gastroparesis. BP remains elevated. He has some abd bloating, overall improved. Exam Vital Signs Vital Sign - Last Date Time Temp Pulse Resp B/P Pulse Ox O2 Delivery O2 Flow Rate FiO2 06/02/16 15:21 36.6 58 16 142/72 95 Room Air Intake and Output 06/01/16 06/01/16 06/02/16 Cumulative From/Thru 15:00 23:00 07:00 05/29/16 17:22 - 06/02/16 05:25 Intake Total 1104 ml 1602 ml 400 ml 48492 ml Output Total 250 ml 625 ml 3275 ml Balance 1104 ml 1352 ml -225 ml 7679 ml Intake Oral 1337 ml 400 ml 5029 ml IV Total 1104 ml 265 ml 5925 ml Output Urine Total 250 ml 625 ml 2975 ml Emesis 300 ml # Voids 2 1 6 # Bowel Movements 2 1 3 Exam GA: AAOx3, NAD, legally blind. HEENT: mild pallor, no jaundice, no JVD, no lymphadenopathy. Heart: RRR, no M/R/G. Lungs: CTA, B/L, no wheezes, no rhonchi. Abdomen: soft without any tenderness rebound guarding masses or hepatosplenomegaly. Extremities did not show any evidence of an clubbing cyanosis or edema. Lab and Diagnostics Result Diagram: 06/02/16 0255 06/02/16 0255 12-lead ECG Normal Sinus Rhythm Rate 60 Right axis deviation Low voltage Change from prior (05/11): New lateral T wave flattening Cardiac Echo Impressions Interpretation Summary Normal sinus rhythm. Moderate LVH; normal wall motion and LV systolic function. EF is 60-65%. Stage II diastolic dysfunction. Moderate LA enlargement; mild RA enlargemnet. Mitral valve leaflets are normal; mild MAC; no regurgitation. Trace tricuspid regurgitation. Estimated PA systolic pressure is 43 mm Hg assuming RA pressure of 3 mm Hg. There is a trace pericardial effusion. There is a moderate size left pleural effusion. Compared to prior study performed 01/30/2016 pleural effusion is new; pericardial effusion is new. Assessment & Plan 1. Advanced CKD stage 4-5 2. Uncontrolled HTN secondary to CKD, salt retention from kayexalate and florinef 3. Hyperkalemia due to RTA-4, resolved. 4. RTA-4 due to DM nephropathy. 5. Legally blind. 6. Anemia of CKD s/p aranesp injection. 7. Nausea/abdominal bloating (+) mildly delayed gastric emptying. Plan: d/c norvasc, switch to nifedipine XL 30 mg BID. continue labetalol and torsemide. low salt , potassium and protein diet. florinef 0.1 mg take only on MWF. d/c home once sBP < 160. f/u with renal in 1 week. refer to see Dr. Key for AVF creation as outpatient. GI Prophylaxis: Proton Pump Inhibitor VTE Prophylaxis: Sub-Q Heparin (Unfractionated) VTE Mechanical Devices: Intermittant Pneumatic CD Resuscitation Status: CPR: Attempt Resuscitation Patricia Manrique MD Jun 02, 2016 17:13
--- NOTE | 2016-06-02 17:47 | PCM.DC.MED ---
Discharge Summary Date of Service Jun 02, 2016 Dates of Hospitalization Date of Hospital Admission May 29, 2016 at 20:34 Date of Discharge: Jun 02, 2016 Providers: Admitting Physician: Ethan Odonnell DO Primary Care Physician: Charity Monson PA-C Attending Physician: Ethan Odonnell DO Diagnosis at Time of Discharge Diagnosis at Time of Discharge 1. Gastroparesis, present on admission. Ongoing. 2. Acute on chronic elevation of troponin, present on admission. Improving. 3. Acute on chronic kidney disease stage 4/5, present on admission. Improving. 4. Various electrolyte abnormalities. On admission. Resolved. 5. Type IV renal tubular acidosis, present on admission. Stable. 6. Uncontrolled type II diabetes with retinopathy, neuropathy, nephropathy, present on admission. Chronic. 7. Chronic anemia, present on admission. 8. Uncontrolled Hypertension, present on admission. Acute on chronic. 9. Bipolar, present on admission. Chronic. 10. Nicotine dependence, present on admission. Active 11. Legally blind, present on admission. Active. Procedures ECG 12 Lead Normal Sinus Rhythm Rate 60 Right axis deviation Low voltage Change from prior (05/11): New lateral T wave flattening Cardiac Echo Impression Interpretation Summary Normal sinus rhythm. Moderate LVH; normal wall motion and LV systolic function. EF is 60-65%. Stage II diastolic dysfunction. Moderate LA enlargement; mild RA enlargemnet. Mitral valve leaflets are normal; mild MAC; no regurgitation. Trace tricuspid regurgitation. Estimated PA systolic pressure is 43 mm Hg assuming RA pressure of 3 mm Hg. There is a trace pericardial effusion. There is a moderate size left pleural effusion. Compared to prior study performed 01/30/2016 pleural effusion is new; pericardial effusion is new. Other Diagnostics NM GASTRIC EMPTYING STUDY Time point Percent gastric retention Normal range 30 minutes 98% 70% or more 1 hour 87% 30% to 90% 2 hours 64% 60% or less 3 hours 40% 30% or less 4 hours 19% 10% or less Gastric retention of less than 70% at 30 minutes, or less than 30% at 1 hour, would suggest abnormally rapid gastric emptying (dumping). IMPRESSION: Mildly delayed gastric emptying may suggest diabetic gastroparesis in the appropriate clinical setting. Dictated by: Caleb Narvaez M.D. on 06/02/2016 at 14:20 Brief History Patient is 50 year old male with a history of GERD, uncontrolled type II diabetes, diabetic retinopathy, hypertension, bipolar disorder, chronic renal disease, and chronic elevated troponin presents to the ED complaining of left arm pain began 2 weeks ago. Patient describes the pain as "nerve pain", has intermittently experienced this in the past, but this time it did not go away. Patient also reports nausea, vomiting, decreased appetite and abdominal pain. Patient states his abdominal pain with diarrhea started when he was last admitted in early April, improved some after being discharged, but recently recurred. His GI symptoms are exacerbated by eating and he states that he " feels bloated" after eating. Patient attributes his abdominal pain to taking anti-nausea medications, which patient has not been taking since last discharge. Denies blood in stool, recent travels, camping, or antibiotic use. No change in diet. Patient was seen in the ED on 05/11 for his chronic hypertension. He was also recently admitted for anemia, elevated troponin and CHF on 04/28. Patient was discharged on 05/07 in good condition. Patient followed by Dr. Gonzalez for his chronic kidney disease. In the ED, vitals T36.7, P54, RR18, BP153/79, 98% on RA. Labs significant for H /H 10.3/29.5, BUN37, creatinine 4.23, hxs111, Troponin 0.318. Patient's arm pain came down from 9/10 to 3/10 upon taking nitro SLx3. ECG showed "Right axis deviation, Low voltage. New lateral T wave flattening, which is a new finding from prior (05/11). Patient is admitted for further evaluation and treatment. Hospital Course Narciso Ruiz is 50 year old male with a history of GERD, uncontrolled type II diabetes, diabetic retinopathy, hypertension, bipolar disorder, chronic renal disease, and chronic elevated troponin presents to the ED complaining of left arm pain, chest pain, and abdominal pain. Admitted for possible NSTEMI. While here in the hospital patient's blood pressure medications were turned up and a gastric emptying study revealed mild delayed gastric emptying. She will need further gastric emptying studies to confirm, sent home with Reglan 5 mg 3 times a day. Patient will also require follow-up with Dr. Key for AV fistula creation for future dialysis due to renal failure. Exam Vital Signs (Last) Date Time Temp Pulse Resp B/P Pulse Ox O2 Delivery O2 Flow Rate FiO2 06/02/16 15:21 36.6 58 16 142/72 95 Room Air Exam General: Patient sitting in bed in no acute distress. Well-developed, well- nourished, appropriately interactive HEENT: Normocephalic, atraumatic. External ears without defect. Nonreactive nipples in the right side minimally reactive on the left side. Anicteric sclerae, moist conjunctivae, and no lid lag. Oropharynx free of erythema and cobble stoning with moist mucosa. Neck: Supple with full range of motion. No jugular venous distension. No bruits. No lymphadenopathy or thyromegaly. Cardiovascular: Regular rate and rhythm with no murmurs, rubs, or gallops appreciated Pulmonary: Clear to auscultation bilaterally with no crackles, wheezes, or rhonchi. Normal respiratory effort with no use of accessory muscles. Abdomen: Bowel tones present. Soft, nontender, nondistended. No hepatosplenomegaly or masses appreciated. Extremities: No clubbing, cyanosis, edema, or lymphadenopathy appreciated. Skin: Normal temperature, turgor, and texture; no rash, ulcers, or subcutaneous nodules appreciated. Neurological: Cranial nerves grossly intact. Normal muscle strength, tone, and bulk. Reflexes, coordination, and sensory function within normal limits. No known gait impairment. Psychiatric: Normal mood and affect. Alert and oriented to person, place, and time. Test 05/29/16 18:04 05/29/16 18:06 05/30/16 02:35 05/30/16 08:20 Hold Purple Top Tube Received (Received) Hold Blue Top Tube Received (Received) Hemoglobin A1c 7.4% (4.8-5.6) Hold [place] Top Tube Received (Received) Lipase 14U/L (13-60) Triglycerides Level 61mg/dL (0-149) Cholesterol Level 104mg/dL (100-199) LDL Cholesterol, Calculated 27.800mg/dL (0-99) VLDL Cholesterol 12.200mg/dL HDL Cholesterol 64mg/dL (>39) Cholesterol/HDL Ratio 1.63 (0.0-4.4) HIV (1&2) Ag and Ab, 4th Generation Non reactive (Non Reactive) Troponin T 0.229ug/L (0.0-0.011) Test 05/31/16 00:21 05/31/16 02:06/02/16 02:55 Urine Color Dark yellow (YELLOW) Urine Appearance Hazy (CLEAR,HAZY) Urine pH 5.5 (5.0-8.0) Urine Specific [place] 1.025 (1.003-1.035) Urine Protein >300mg/dL (NEG,TRACE) Urine Glucose (UA) 250mg/dL (NEGATIVE) Urine Ketones Negativemg/dL (NEGATIVE) Urine Occult Blood Negative (NEGATIVE) Urine Nitrite Negative (NEGATIVE) Urine Bilirubin Negative (NEGATIVE) Urine Urobilinogen Normalmg/dL (NORMAL) Urine Leukocyte Esterase Negative (NEGATIVE) Urine RBC 3-10/hpf (0-2) Urine WBC 0-5/hpf (0-5) Urine Epithelial Cells Moderate/hpf (NONE-MOD) Urine Crystals None seen (NONE SEEN) Urine Bacteria Few/hpf (NONE-FEW) Urine Hyaline Casts Occasional/lpf (NONE) Urine Granular Casts Occasional (NONE SEEN) Urine Waxy Casts None seen (NONE SEEN) Urine Red Blood Cell Casts None seen (NONE SEEN) Urine White Blood Cell Casts None seen (NONE SEEN) Urine Mucus None seen (None Seen) Urine Trichomonas None seen (NONE SEEN) Urine Yeast None (NONE SEEN) Urine Culture Reflexed Not indicated Phosphorus Level 3.5mg/dL (2.5-4.9) Magnesium Level 2.1mg/dL (1.6-2.6) White Blood Count 4.0th/mm3 (3.8-10.1) Red Blood Count 2.98mil/mm3 (4.40-5.80) Hemoglobin 8.8g/dL (13.8-17.2) Hematocrit 25.9% (41.0-50.0) Mean Corpuscular Volume 86.9fL (81-100) Mean Corpuscular Hemoglobin 29.5pg (27.0-35.0) Mean Corpuscular Hemoglobin Concent 34.0% (32.0-37.0) Red Cell Distribution Width 13.2% (12.3-15.4) Platelet Count 99bil/L (150-400) Neutrophils (%) (Auto) 66.5% (40-74) Lymphocytes (%) (Auto) 18.4% (14-46) Monocytes (%) (Auto) 6.2% (4-12) Eosinophils (%) (Auto) 6.2% (0-5) Basophils (%) (Auto) 1.2% (0-3) Sodium Level 134mEq/L (134-144) Potassium Level 4.7mEq/L (3.5-5.2) Chloride Level 102mEq/L (97-108) Carbon Dioxide Level 17mmol/L (18-29) Blood Urea Nitrogen 42mg/dL (6-24) Creatinine 4.01mg/dL (0.76-1.27) Estimat Glomerular Filtration Rate 17mL/min (>59) Glucose Level 163mg/dL (60-99) Calcium Level 7.0mg/dL (8.5-10.1) Total Bilirubin 0.2mg/dL (0.0-1.2) Aspartate Amino Transf (AST/SGOT) 11U/L (0-50) Alanine Aminotransferase (ALT/SGPT) 9U/L (0-44) Alkaline Phosphatase 41U/L (25-150) Total Protein 4.9g/dL (6.4-8.4) Albumin 2.9g/dL (3.4-5.0) Discharge Medications Discharge Medications ([Calcium Carbonate]) 500 MG TABLET 500 MG PO TID Prescribed by: JOSÉ MIGUEL SUTTON DO Amlodipine (Amlodipine) 10 Mg Tablet 10 MG PO DAILY (Reported) Aspirin (Aspirin) 81 Mg Tablet 81 MG PO DAILY Prescribed by: CAET NASH DO Atorvastatin Calcium (Atorvastatin Calcium) 40 Mg Tablet 40 MG PO HS Prescribed by: JOSÉ MIGUEL SUTTON DO Divalproex ER (Divalproex ER) 500 Mg Tab.er.24h 500 MG PO TID (Reported) Fludrocortisone Acetate (Fludrocortisone Acetate) 0.1 Mg Tablet 0.1 MG PO MoWeFr Prescribed by: ANTONOI TRENT DO Fluoxetine (Fluoxetine) 20 Mg Tablet 20 MG PO DAILY (Reported) Hydralazine (Hydralazine) 25 Mg Tablet 25 MG PO TID (Reported) Insulin Glargine (Lantus U100 Insulin Vial) 100 Unit/Ml Vial 10 UNIT SUBQ afternoon (Reported) Insulin Glulisine (Apidra U100 Insulin Solostar Pen) 100 Unit/1 Ml Insuln.pen 7 UNITS SUBQ BID (Reported) Labetalol (Labetalol) 200 Mg Tablet 200 MG PO TID (Reported) Metoclopramide (Metoclopramide) 5 Mg Tablet 5 MG PO TID Prescribed by: ANTONIO TRENT DO Ranitidine (Ranitidine) 300 Mg Tablet 300 MG PO HS (Reported) Sevelamer Carbonate (Renvela) 800 Mg Tablet 800 MG PO TIDWM Prescribed by: JOSÉ MIGUEL SUTTON DO Sodium Polystyrene Sulfonate (Sodium Polystyrene Sulfonate) 15 Gm/60 Ml Oral.susp 15 GM PO twice weekly Prescribed by: JOSÉ MIGUEL SUTTON DO Torsemide (Demadex) 20 Mg Tablet 20 MG PO DAILY Prescribed by: ANTONIO TRENT DO Additional med instructions Continue home medications. Continue home labetalol. Continue home Amlodipine. Continue home Atorvastatin. Continue home Divalproex ER. Continue home Aspirin. Stop home Kayexalate. New medications: Torsemide 20 mg by mouth daily. Take Florinef 0.1 mg on Wednesday, Wednesday, and Wednesday. Take Metoclopramide 5mg by mouth three times a day. Followup Plan Follow-up plan Do not hesitate to call emergency services or your primary care physician if you experience any of the following. -High unrelenting fevers. -Uncontrolled vomiting. -Severe hypertension. -Syncope or loss of consciousness. -Chest pain or severe shortness of breath. Follow up with your primary care physician in 1-2 weeks time following your emergency department visit for medication checks and general well-being. 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 Follow up with Dr. Key as an outpatient for AV fistula creation. Discharge Diet: Diabetic Follow-up Provider: Charity Monson PA-C Follow-up with PCP in: 2 weeks Provider: Patricia Manrique MD Follow-up in: 1 week Time spent Greater than 30 minutes was spent in preparation of discharge with greater than 50% of that time dedicated to patient counseling an coordination of care. . Attending Statement The patient was seen and examined together with Dr. Trent on 06/02/2016 and I agree with the history, exam and plan as outlined in the note above. . copies to: Patricia Manrique MD; Charity Monson PA-C, COREY P DO Jun 02, 2016 17:47 Jv Saenz MD Jun 03, 2016 08:38
--- NOTE | 2016-06-02 17:57 | NUR ---
Discharge note Patient a/o x 3, denies pain or sob, but c/o nausea post test, Zofran x 1 given with good effect. Patient cont to void small amts uop, pvr 56 ml. Gen edema noted. Patient taking diet fair. See vitals, po meds restarted post gastric study. IV SL and tele remove intact. Patient and caregiver given discharge instructions, prescriptions and info on diagnosis and new meds. All questions answered. Patient taken to the car via wheelchair with all belongings and discharged home with caregiver.
[2016-10-02] MEDS ORDERED: CITA20TA11 PO (17:18)
[2016-10-02] MEDS ORDERED: ASPI-973 PO (17:18)
[2016-10-02] MEDS ORDERED: LABE200T PO (17:18)
[2016-10-02] MEDS ORDERED: DEP500A PO (17:18)
[2016-10-02] MEDS ORDERED: AMLO5TAB2 PO (17:18)
[2016-10-02] MEDS ORDERED: vitamin d2 (17:18)
[2016-10-02] MEDS ORDERED: MEGE400O PO (17:18)
== END 2016-06-02 18:00 | disposition home or self-care (01) | DRG 48 ==
LOC: SED 17:18 → OBSVTOIN 20:34 → PCC 20:34
PROVIDERS: ADMIT Internal Medicine; ATTEND Internal Medicine
DX: E11.43 Type 2 diabetes mellitus with diabetic autonomic (poly)neuropathy (principal); I24.8 Other forms of acute ischemic heart disease; N18.4 Chronic kidney disease, stage 4 (severe); N17.9 Acute kidney failure, unspecified; E11.65 Type 2 diabetes mellitus with hyperglycemia; K31.84 Gastroparesis; E11.21 Type 2 diabetes mellitus with diabetic nephropathy; E11.40 Type 2 diabetes mellitus with diabetic neuropathy, unspecified; E11.319 Type 2 diabetes mellitus with unspecified diabetic retinopathy without macular edema; F31.9 Bipolar disorder, unspecified; K21.9 Gastro-esophageal reflux disease without esophagitis; H54.8 Legal blindness, as defined in USA; I12.9 Hypertensive chronic kidney disease with stage 1 through stage 4 chronic kidney disease, or unspecified chronic kidney disease; D63.1 Anemia in chronic kidney disease; F17.220 Nicotine dependence, chewing tobacco, uncomplicated; Z79.4 Long term (current) use of insulin; F17.210 Nicotine dependence, cigarettes, uncomplicated; E11.22 Type 2 diabetes mellitus with diabetic chronic kidney disease; N25.89 Other disorders resulting from impaired renal tubular function

== ENCOUNTER 2016-06-04 19:42 | Emergency (ER) | payer OTHER ==
[~2016-06-04] VITALS: Ht 170.2 cm; Wt 91.8 kg
[~2016-06-04 19:42] MED LIST changes: +AMLO10TA3 PO; -AMLO5TAB2 PO; +FLUO20TA28 PO; +HYDR-3939 PO; +MTC5T PO; +RANI300T4 PO; +TORS20TA PO
[2016-06-04 19:59] VITALS: BP 128/67; PULSE 53; RESP 16; O2SAT 97
--- NOTE | 2016-06-04 20:07 | ED.REPORT ---
HPI-General Illness Date of Service Jun 04, 2016 ED Provider: Dr. Priyank Latham D.O. A 50 year old male with a medical history including hypertension, chronic kidney disease, gastroparesis, and diabetes with associated retinopathy, neuropathy,nephropathy presents to the ED with shortness of breath preceded by a sharp, burning chest pain onset just prior to arrival. He attributes his shortness of breath to his extreme abdominal bloating. Other associated symptoms include nausea and loss of appetite. The patient denies fever, chills, cough, or palpitations.The patient was discharged from the hospital two days ago after a four night stay for gastroparesis and chronic elevated troponin. Nursing Notes Stated Complaint: SOB, STOMACH PAIN Chief Complaint: Respiratory Distress Nursing Notes Reviewed: Yes Allergies: Coded Allergies: tetanus and diphtheria toxoids (Verified Allergy, Severe, COULDN'T HEAR VOMITING, SYNCOPE HOSPITALIZED, 06/04/16) Sulfa (Sulfonamide Antibiotics) (Verified Allergy, Unknown, 06/04/16) Scheduled ([Calcium Carbonate]) 500 MG TABLET 500 MG PO TID Amlodipine (Amlodipine) 10 Mg Tablet 10 MG PO DAILY Aspirin (Aspirin) 81 Mg Tablet 81 MG PO DAILY Atorvastatin Calcium (Atorvastatin Calcium) 40 Mg Tablet 40 MG PO HS Divalproex ER (Divalproex ER) 500 Mg Tab.er.24h 500 MG PO TID Fludrocortisone Acetate (Fludrocortisone Acetate) 0.1 Mg Tablet 0.1 MG PO MoWeFr Fluoxetine (Fluoxetine) 20 Mg Tablet 20 MG PO DAILY Hydralazine (Hydralazine) 25 Mg Tablet 25 MG PO TID Insulin Glargine (Lantus U100 Insulin Vial) 100 Unit/Ml Vial 10 UNIT SUBQ afternoon Insulin Glulisine (Apidra U100 Insulin Solostar Pen) 100 Unit/1 Ml Insuln.pen 7 UNITS SUBQ BID Labetalol (Labetalol) 200 Mg Tablet 200 MG PO TID Metoclopramide (Metoclopramide) 5 Mg Tablet 5 MG PO TID Ranitidine (Ranitidine) 300 Mg Tablet 300 MG PO HS Sevelamer Carbonate (Renvela) 800 Mg Tablet 800 MG PO TIDWM Sodium Polystyrene Sulfonate (Sodium Polystyrene Sulfonate) 15 Gm/60 Ml Oral.susp 15 GM PO twice weekly Torsemide (Demadex) 20 Mg Tablet 20 MG PO DAILY General Time Seen by MD: 20:07 Chief Complaint Other (Shortness of Breath ) Hx Obtained From: Patient Arrived By: Walk-in Sudden in Onset?: Yes Onset Occurred: Just prior to arrival Symptom Duration: Since onset Location: : Chest Quality: Burning, Painful, Sharp Severity: Current: Moderate Severity: Maximum: Moderate Associated with: Reports: Chest pain, Nausea, Denies: Fever Pertinent Negative: Relieved by nothing Context Related History: Reports Diabetes mellitus Recent Healthcare: Recent doctor visit, Recent hospitalization Similar Sx Previous: Yes Past Medical History Past Medical History Notes: Patient admitted May 08 May 07 for acute on chronic kidney injury, hyperkalemia, uncontrolled diabetes, chronically elevated troponin, and hypertension PCP: Charity URBANO Past Medical History Undiagnosed mental disorder Bipolar, manic Headaches non-migraine 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 Diabetic retinopathy, neuropathy, nephropathy Chronic kidney disease Gastroparesis Reports: Diabetes mellitus, Hypertension Past Surgical History Hernia repair Family History Mother is alive with bipolar disorder - 06/04/2016 Smoking History Former Smoker Social History Alcohol Use: In recovery Drug Use: Denies drug use Other Social History: Smokeless tobacco, Good social support, Lives with children Ambulatory Status Independent Review of Systems + Abdominal bloating, loss of appetite Full Review of Systems Constitutional: Denies: Chills, Fever Respiratory: Reports: Shortness of breath, Denies: Non-productive cough Cardiovascular: Reports: Chest pain, Denies: Palpitations GI: Reports: Nausea Physical Exam Vital Signs Vital Signs Date Time Temp Pulse Resp B/P Pulse Ox O2 Delivery O2 Flow Rate FiO2 06/05/16 01:59 57 14 176/91 95 Room Air 06/04/16 19:59 36.5 53 16 128/67 97 Room Air Initial VS: Reviewed Head / Eyes: Atraumatic, Normocephalic Neck: Supple, Full range of motion Respiratory: Breath sounds normal, Clear to auscultation, No respiratory distress Skin: Warm, Dry, No cyanosis Neurologic: Alert, Oriented, Nonfocal Psychiatric: Mood/affect normal, Behavior normal, Normal thought content General/Constitutional: Awake, Alert Head / Eyes: Atraumatic, Normocephalic Blind Cardiovascular: Heart rate NL, Regular rhythm, Heart sounds NL, No murmurs Lower Ext Edema: Positive: Bilateral 1+, Pitting Abdomen: Non-tender Bowel Sounds / Distention: Positive: Distention mild Interpretation & Diagnostics URINE DIPSTICK 1.015 sp gravity 5 pH 100 protein 250 glucose + Bilirubin +250 Blood Otherwise Negative Lab Results Interpretation Result Diagram: 06/04/16212906/04/162129 Test 06/04/16 20:37 06/04/16 21:30 06/05/16 00:53 Urine Color Yellow (YELLOW) Urine Appearance Hazy (CLEAR,HAZY) Urine pH 5.5 (5.0-8.0) Urine Specific [place] 1.020 (1.003-1.035) Urine Protein 100mg/dL (NEG,TRACE) Urine Glucose (UA) 250mg/dL (NEGATIVE) Urine Ketones Negativemg/dL (NEGATIVE) Urine Occult Blood Small (NEGATIVE) Urine Nitrite Negative (NEGATIVE) Urine Bilirubin Negative (NEGATIVE) Urine Urobilinogen Normalmg/dL (NORMAL) Urine Leukocyte Esterase Negative (NEGATIVE) Urine RBC 3-10/hpf (0-2) Urine WBC 0-5/hpf (0-5) Urine Epithelial Cells Few/hpf (NONE-MOD) Urine Crystals Amorphous urates (NONE Urine Bacteria None/hpf (NONE-FEW) Urine Hyaline Casts None/lpf (NONE) Urine Granular Casts Occasional (NONE SEEN) Urine Waxy Casts None seen (NONE SEEN) Urine Red Blood Cell Casts None seen (NONE SEEN) Urine White Blood Cell Casts None seen (NONE SEEN) Urine Mucus None seen (None Seen) Urine Trichomonas None seen (NONE SEEN) Urine Yeast None (NONE SEEN) Urinalysis Comment None Urine Culture Reflexed Not indicated Hold Urine Received (Received) White Blood Count 3.5th/mm3 (3.8-10.1) Red Blood Count 2.96mil/mm3 (4.40-5.80) Hemoglobin 8.7g/dL (13.8-17.2) Hematocrit 25.7% (41.0-50.0) Mean Corpuscular Volume 86.8fL (81-100) Mean Corpuscular Hemoglobin 29.4pg (27.0-35.0) Mean Corpuscular Hemoglobin Concent 33.9% (32.0-37.0) Red Cell Distribution Width 13.4% (12.3-15.4) Platelet Count 140bil/L (150-400) Neutrophils (%) (Auto) 65.7% (40-74) Lymphocytes (%) (Auto) 22.8% (14-46) Monocytes (%) (Auto) 8.6% (4-12) Eosinophils (%) (Auto) 2.0% (0-5) Basophils (%) (Auto) 0.6% (0-3) Sodium Level 135mEq/L (134-144) Potassium Level 4.5mEq/L (3.5-5.2) Chloride Level 102mEq/L (97-108) Carbon Dioxide Level 19mmol/L (18-29) Blood Urea Nitrogen 42mg/dL (6-24) Creatinine 4.04mg/dL (0.76-1.27) Estimat Glomerular Filtration Rate 17mL/min (>59) Glucose Level 142mg/dL (60-99) Lactic Acid Level 0.8mmol/L (0.4-2.0) Calcium Level 7.7mg/dL (8.5-10.1) Total Bilirubin 0.2mg/dL (0.0-1.2) Aspartate Amino Transf (AST/SGOT) 22U/L (0-50) Alanine Aminotransferase (ALT/SGPT) 15U/L (0-44) Alkaline Phosphatase 44U/L (25-150) Total Protein 5.3g/dL (6.4-8.4) Albumin 3.2g/dL (3.4-5.0) Lipase 18U/L (13-60) D-Dimer 0.7mg/L (<0.50) Troponin T 0.241ug/L (0.0-0.011) ECG Interpretation ECG Interpretation: Sinus rhythm rate 52 Low voltage, extremity leads Time: 21:18 Interpreted by: ED physician X-Ray Chest Interpretation Chest Xray Interpretation: No acute disease View: Portable, 1 view Interpretation / Wet Read by: Wet read ED physician X-Ray Abdominal Interpretation Acute Abdominal Series: Normal exam Interpretation / Wet Read by: Wet read ED physician Re-Eval/Medical Decision Med Decision/Clinical Course This is a very pleasant 50-year-old male who has multiple medical problems and resolved chest pain and shortness of breath. He was recently admitted to the hospital and had a rather extensive workup. He has chronic renal failure and is a chronic troponin spell. He was recently discharged home. I believe he is discharged yesterday. Today he woke up and he states that he felt short of breath when he took a deep breath he had some pain in the left lower chest. This did not last very long. The pain is since resolved. He states now that he just feels bloated. On examination he had active bowel tones. His abdomen is little bit distended but certainly was not tender. Normal cardiopulmonary examination. EKG certainly does not look like IN. Serial troponins are at his baseline. Chest x-ray looks good to me. Abdominal series looks good without evidence of obstruction. Pulmonary emboli is always in the differential. He has leg edema and he had pleuritic left-sided pain. D-dimer is elevated. The problem is he has chronic stage IV renal disease and is not yet on dialysis. He does not have an AV fistula so therefore CT scanning him seems to be inappropriate. Consulted with our hospitalist. At this point there is no admissible diagnosis. Pulmonary emboli has not been ruled in or ruled out. The plan is going to be bilateral lower extremity DVT ultrasounds. If positive he will be admitted on heparin. If negative a V/Q scan is recommended. He has a normal enough chest x-ray that we should be only get a decent probability on the VQ scan. We will observe Narciso in the emergency department until he has the VQ scan. Case will be signed out to Dr. Brooks Montenegro at the end of my shift. Source of Hx: Old records Time of Eval: 02:51 Patient Status: Condition improved Re-Evaluation/Progress Note: Discussed with patient x-ray and lab results with plan for transfer of care to Dr. Montenegro. Consultation : Referral / Consult Name: Julian Santiago MD Consulted With: Hospitalist Call Returned at: 01:57 Fishing Instructor: Agrees with eval, Agrees with plan Note: Do a VQ in ED, then admit if necessary. Discharge & Departure Shift Change Sign-Out Patient Care Transferred: Yes (Dr. Montenegro) Discussed Complaint(s): Yes Laboratory Evaluation: Lab evaluation discussed Imaging Studies: Ordered, not yet done Response to Therapy: Improved Primary Impression: Chest pain Chest pain type: chest pain on breathing Qualified Code: R07.1 - Chest pain on breathing Additional Impressions: Shortness of breath Gastroparesis Discharge Condition All VS Reviewed: Yes Condition: Stable Referrals: Charity Monson PA-C (PCP) Care Transferred to: Dr. Montenegro Care Transferred at: 03:00 Carmina[place] Attestation Portions of this note were transcribed by Jaye Lake. I, Dr. Latham, personally performed the history, physical exam, and medical decision-making; I reviewed and confirmed the accuracy of the information in the transcribed note. Signed by: Joss Medel, 06/05/2016, 03:55 copies to: Charity Monson PA-C, Todd P DO Jun 04, 2016 20:07 JAYE LAKE Jun 04, 2016 22:45
[2016-06-04 20:50] LABS: APPEARANCE,URINE HAZY (CLEAR,HAZY); COLOR,URINE YELLOW (YELLOW); PH,URINE 5.5 (5.0-8.0)
[2016-06-04 20:51] LABS: OCCULT BLOOD,URINE SMALL (NEGATIVE); UROBILINOGEN,URINE NORMAL (NORMAL)
[2016-06-04] MEDS ORDERED: 0.9% Sodium Chloride 1,000 ML IV ONE (21:05)
[2016-06-04 21:38] LABS: BASOPHILS % (AUTO) 0.6 % (0-3); MONOCYTES % (AUTO) 8.6 % (4-12); Mean Corpuscular Hemoglobin 29.4 pg (27.0-35.0); Mean Corpuscular Volume 86.8 fL (81-100); NEUTROPHILS % (AUTO) 65.7 % (40-74); Platelet Count 140 bil/L (150-400)
[2016-06-04 22:21] LABS: TROPONIN T 0.313 ug/L (0.0-0.011)
[2016-06-05 01:59] VITALS: BP 176/91; PULSE 57; RESP 14; O2SAT 95
[2016-06-05 06:32] VITALS: BP 184/87; PULSE 62; RESP 16; O2SAT 94
[2016-06-05] MEDS ORDERED: MetoCLOpramide 5 mg/mL 2 mL Inj IVPUSH ONE (07:35)
[2016-06-05] MEDS ORDERED: Insulin LISPRO 300 Unit/3 mL Inj SUBQ ONE (07:45)
[2016-06-05 08:35] VITALS: BP 171/83
--- NOTE | 2016-06-05 09:06 | DRSVH ---
PROCEDURE: X-RAY CHEST ONE VIEW, PORTABLE ([id number]) INDICATIONS: dyspnea TECHNIQUE: One view of the chest was acquired. COMPARISON: [facility], CR, XR ABD ACUTE SERIES 3VW, 06/05/2016, 1:18. FINDINGS: Surgical changes and devices: None. Lungs and pleura: Small pleural effusion and persistent basilar airspace opacity redemonstrated. Mediastinum: Mediastinal contours appear normal. Heart size is normal. Bones and chest wall: No suspicious bony lesions. Overlying soft tissues appear unremarkable. IMPRESSION: Dependent left pleural effusion and basilar opacity similar to prior examination which ma y be related to compressive atelectasis but pneumonia or neoplasm cannot be excluded. Continued radio graphic surveillance to resolution is recommended. Dictated by: Lucien Perez [facility] Interpreted: Maikel Hallman MD on 06/05/2016 at 9:04 Transcribed by: GABY on 06/05/2016 at 9:05 Approved by: Maikel Hallman M.D. on 06/05/2016 at 13:27
--- NOTE | 2016-06-05 09:12 | DRSVH ---
PROCEDURE: X-RAY ACUTE ABDOMINAL SERIES ([id number]) INDICATIONS: abdominal bloating TECHNIQUE: One view chest and two views of the abdomen were acquired. COMPARISON: [facility], CR, XR CHEST 1VW (PORTABLE), 06/04/2016, 22:30. [facility], 09/07/2015, 10:51 PM. FINDINGS: Surgical changes and devices: None. Lungs and pleura: Small pleural effusion and persistent left basilar airspace opacity redemonstrated. Mediastinum: Mediastinal contours appear normal. Heart size is normal. Bones and chest wall: No suspicious bony lesions. Overlying soft tissues appear unremarkable. IMPRESSION: Small pleural effusion persistent basilar opacity unchanged. Dictated by: Lucien ZELAYA Interpreted: Maikel Hallman MD on 06/05/2016 at 9:10 Transcribed by: GABY on 06/05/2016 at 9:11 Approved by: Maikel Hallman M.D. on 06/05/2016 at 13:28
--- NOTE | 2016-06-05 09:21 | DRSVH ---
PROCEDURE: X-RAY CHEST ONE VIEW ([id number]) INDICATIONS: dyspnea TECHNIQUE: One view of the chest was acquired. COMPARISON: [facility], CR, XR CHEST 1VW (PORTABLE), 06/04/2016, 22:30. FINDINGS: Surgical changes and devices: None. Lungs and pleura: Lateral view demonstrates layering effusion likely on the left and posterior lobe a irspace opacity suggestive of atelectasis or pneumonia. IMPRESSION: Basilar pleural effusion and left and airspace opacity consistent with compressive atelec tasis versus pneumonia. Followup recommended. Dictated by: Lucien Perez [facility] Interpreted: Maikel Hallman MD on 06/05/2016 at 9:20 Transcribed by: GABY on 06/05/2016 at 9:21 Approved by: Maikel Hallman M.D. on 06/05/2016 at 13:28
--- NOTE | 2016-06-05 09:25 | DRSVH ---
PROCEDURE: US VENOUS LEG DUPLEX BILATERAL INDICATIONS: chest pain, short of breath, elevated ddimer TECHNIQUE: Real-time imaging, as well as color and pulse Doppler interrogation, were performed of the deep veins of both legs from the inguinal ligament to the popliteal fossa. COMPARISON: None. FINDINGS: The deep veins are normally compressible, and free of intraluminal thrombus. Color and pu lse Doppler demonstrate normal phasic intravascular flow. There is normal augmentation response to d istal compression maneuver. IMPRESSION: No DVT found over the lower extremities bilaterally. Note: These findings are concordant with the preliminary interpretation. Dictated by: Maikel Hallman M.D. on 06/05/2016 at 9:23 Approved by: Maikel Hallman M.D. on 06/05/2016 at 9:23
--- NOTE | 2016-06-05 10:52 | DRSVH ---
PROCEDURE: NM LUNG VQ RADIOPHARMACEUTICAL: 26 mCi Tc-99m DTPA aerosol by inhalation and 6.3 mCi Tc-99m MAA intravenously. INDICATIONS: Dyspnea and elevated ddimer. TECHNIQUE: Ventilation images were obtained first with Tc-99m DTPA aerosol. Subsequently, perfusion images were acquired after intravenous injection of Tc-99m MAA. Anterior, posterior, DURAND, BELIZEAN, RPO, LPO, left and right lateral views were obtained. The DURAND and LPO ventilation images are missing due to technical issue. COMPARISON: [facility], CR, XR CHEST 1VW (PORTABLE), 01/28/2016, 15:38. [facility], CR, XR CHEST 1VW (PORTABLE), 06/04/2016, 22:30. [facility], CR, XR CHEST 1VW, 01/2017, 6:49. FINDINGS: The comparison chest x-ray dated 06/04/2016 demonstrates small bilateral pleural effusions a nd bibasilar infiltrates. Technetium 99m DTPA ventilation images demonstrate minimally decreased vent ilation in costophrenic angles bilaterally. Perfusion images demonstrate normal distribution of activ ity. No pleural-based, ventilation perfusion mismatches. IMPRESSION: The scintigraphic findings are consistent with very low probability for pulmonary embolis m. Dictated by: Ted Mcdowell M.D. on 06/05/2016 at 10:41 Approved by: Ted Mcdowell M.D. on 06/05/2016 at 10:51
[2016-06-05] MEDS ORDERED: LEVO750T9 PO (11:18)
[2016-06-05 12:01] VITALS: BP 144/78; PULSE 72; RESP 16; O2SAT 96
[2016-10-02] MEDS ORDERED: LABE200T PO (17:18)
[2016-10-02] MEDS ORDERED: ASPI-973 PO (17:18)
[2016-10-02] MEDS ORDERED: AMLO5TAB2 PO (17:18)
[2016-10-02] MEDS ORDERED: MEGE400O PO (17:18)
[2016-10-02] MEDS ORDERED: vitamin d2 (17:18)
[2016-10-02] MEDS ORDERED: DEP500A PO (17:18)
[2016-10-02] MEDS ORDERED: CITA20TA11 PO (17:18)
== END 2016-06-05 12:04 | disposition home or self-care (01) ==
LOC: SED 19:42
DX: R07.1 Chest pain on breathing (principal); R06.02 Shortness of breath; E11.43 Type 2 diabetes mellitus with diabetic autonomic (poly)neuropathy; E11.22 Type 2 diabetes mellitus with diabetic chronic kidney disease; I12.9 Hypertensive chronic kidney disease with stage 1 through stage 4 chronic kidney disease, or unspecified chronic kidney disease; N18.9 Chronic kidney disease, unspecified; E11.319 Type 2 diabetes mellitus with unspecified diabetic retinopathy without macular edema; E11.40 Type 2 diabetes mellitus with diabetic neuropathy, unspecified; Z87.891 Personal history of nicotine dependence; Z79.82 Long term (current) use of aspirin; Z79.4 Long term (current) use of insulin; Z88.7 Allergy status to serum and vaccine; Z88.2 Allergy status to sulfonamides
CPT/HCPCS: 36415; 71010; 74022; 78582; 80053; 81000; 82948; 83605; 83690; 84484; 85025; 85379; 93005; 93970; 96361; 96374; 99285; A9540; A9567; J1815; J2765; J7030

== ENCOUNTER 2016-06-07 01:46 | Inpatient (IN) | payer OTHER ==
[~2016-06-07] VITALS: Ht 170.2 cm; Wt 90.2 kg
[2016-06-07] VITALS (12 sets, daily range): BP systolic 174–222; BP diastolic 79–107; PULSE 60–72; RESP 16–20; O2SAT 92–100
[~2016-06-07 01:46] MED LIST changes: +LEVO750T9 PO
--- NOTE | 2016-06-07 01:51 | ED.REPORT ---
HPI-Neurologic Deficit Date of Service Jun 07, 2016 ED Provider: Brooks Montenegro MD Pt is a 50 year old male with a hx of HTN, DM and diabetic neuropathy with complete right eye blindness presenting to the ED complaining of neck pain onset 3-4 hours ago. Associated symptoms include a right sided facial droop which he could feel. Denies currently being on dialysis or hx of stroke. Pt takes ASA daily. Nursing Notes Stated Complaint: POSS STROKE Chief Complaint: Neuro Symptoms/ Deficits Nursing Notes Reviewed: Yes Allergies: Coded Allergies: tetanus and diphtheria toxoids (Verified Allergy, Severe, COULDN'T HEAR VOMITING, [facility]OPE H[facility]IZED, 06/04/16) Sulfa (Sulfonamide Antibiotics) (Verified Allergy, Unknown, 06/04/16) Scheduled ([Calcium Carbonate]) 500 MG TABLET 500 MG PO TID Amlodipine (Amlodipine) 10 Mg Tablet 10 MG PO DAILY Aspirin (Aspirin) 81 Mg Tablet 81 MG PO DAILY Atorvastatin Calcium (Atorvastatin Calcium) 40 Mg Tablet 40 MG PO HS Divalproex ER (Divalproex ER) 500 Mg Tab.er.24h 500 MG PO TID Fludrocortisone Acetate (Fludrocortisone Acetate) 0.1 Mg Tablet 0.1 MG PO MoWeFr Fluoxetine (Fluoxetine) 20 Mg Tablet 20 MG PO DAILY Hydralazine (Hydralazine) 25 Mg Tablet 25 MG PO TID Insulin Glargine (Lantus U100 Insulin Vial) 100 Unit/Ml Vial 10 UNIT SUBQ afternoon Insulin Glulisine (Apidra U100 Insulin Solostar Pen) 100 Unit/1 Ml Insuln.pen 7 UNITS SUBQ BID Labetalol (Labetalol) 200 Mg Tablet 200 MG PO TID Levofloxacin (Levaquin) 750 Mg Tablet 750 MG PO DAILY Metoclopramide (Metoclopramide) 5 Mg Tablet 5 MG PO TID Ranitidine (Ranitidine) 300 Mg Tablet 300 MG PO HS Sevelamer Carbonate (Renvela) 800 Mg Tablet 800 MG PO TIDWM Sodium Polystyrene Sulfonate (Sodium Polystyrene Sulfonate) 15 Gm/60 Ml Oral.susp 15 GM PO twice weekly Torsemide (Demadex) 20 Mg Tablet 20 MG PO DAILY General Time Seen by Provider: 01:48 Chief Complaint Other (Neck pain) Hx Obtained From: Patient Arrived By: Wheelchair Sudden in Onset?: No Onset Occurred: 1 - 4 hours ago Symptom Duration: Since onset Progression Since Onset: Gradually improving Location: : Neck Quality: Painful Severity: Current: Severe Severity: Maximum: Severe Related History: Reports: Diabetes mellitus, Hypertension Recent Healthcare: Recent doctor visit, Recent hospitalization Similar Sx Previous: No Risk Factors NIH Stroke Scale Level of Consciousness: Alert and responsive (0) Ask Month & Age: Both questions right (0) Open/Close Eyes/Hand Polisher And Buffer: Performs both tasks (0) Horizontal EO Movements: None (0) Visual Arreola: No visual loss (0) Facial Palsy: Minor paralysis (1) Right Arm Motor Drift (10s): No drift 10 sec (0) Left Arm Motor Drift (10s): No drift 10 sec (0) Right Leg Motor Drift (5s): No drift 5 sec (0) Left Leg Motor Drift (5s): No drift 5 sec (0) Limb Ataxia FNF/Heel-Macias: No ataxia (0) Sensation (Arms/Legs/Face): No sensory loss (0) Language Aphasia: No aphasia, normal (0) Dysarthria: No dysarthria, normal (0) Extinction/Inattention: No exctinct/inattent (0) NIHSS Score: 1 Time NIHSS Performed: 01:48 CVA Risk Stratification Diabetes mellitus Hypertension RF Statements: Risk factors reviewed Past Medical History Past Medical History Notes: Patient admitted May 08 May 07 for acute on chronic kidney injury, hyperkalemia, uncontrolled diabetes, chronically elevated troponin, and hypertension PCP: Charity URBANO Past Medical History Undiagnosed mental disorder Bipolar, manic Headaches non-migraine 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 Diabetic retinopathy, neuropathy, nephropathy Chronic kidney disease Gastroparesis Reports: Diabetes mellitus, Hypertension Past Surgical History Hernia repair Family History Mother is alive with bipolar disorder - 06/04/2016 Smoking History Former Smoker Social History Alcohol Use: In recovery Drug Use: Denies drug use Other Social History: Smokeless tobacco, Good social support, Lives with children Ambulatory Status Independent Review of Systems Review of Systems Note: Facial droop Musculoskeletal: Reports: Neck pain Neurologic: Denies: Vision change Complete sys rev & neg: except as marked. Physical Exam Initial Vital Signs Vital Signs (First) Date Time Temp Pulse Resp B/P Pulse Ox O2 Delivery O2 Flow Rate FiO2 06/07/16 01:50 36.4 62 20 189/93 96 Room Air Initial VS: Reviewed, Vital signs abnormal ENT: Mucous membranes moist, Conjunctiva normal, No scleral icterus Abdomen / GI: Soft, Non-tender, No guarding, No rebound, No distention Extremities: Vascular intact, Neuro intact, No swelling, No tenderness Skin: Warm, Dry, No cyanosis Psychiatric: Mood/affect normal, Behavior normal, Normal thought content General/Constitutional: Awake, Alert Head / Eyes: Atraumatic Blind Respiratory / Chest: Breath sounds NL, Breath sounds = bilat, No respiratory distress, No rales, No rhonchi, No wheezing Cardiovascular: Heart rate NL, Regular rhythm, Heart sounds NL Neurologic: Oriented X3, Speech NL, No motor deficits, No sensory deficits, CN II - XII intact, Reflexes equal bilat, Cerebellar NL Right facial droop Interpretation & Diagnostics Lab Results Interpretation Result Diagram: 06/07/1621106/07/162 Test 06/07/16 02:12 06/07/16 02:37 White Blood Count 5.7th/mm3 (3.8-10.1) Red Blood Count 2.96mil/mm3 (4.40-5.80) Hemoglobin 8.8g/dL (13.8-17.2) Hematocrit 25.6% (41.0-50.0) Mean Corpuscular Volume 86.5fL (81-100) Mean Corpuscular Hemoglobin 29.7pg (27.0-35.0) Mean Corpuscular Hemoglobin Concent 34.4% (32.0-37.0) Red Cell Distribution Width 13.6% (12.3-15.4) Platelet Count 147bil/L (150-400) Neutrophils (%) (Auto) 80.5% (40-74) Lymphocytes (%) (Auto) 8.2% (14-46) Monocytes (%) (Auto) 9.5% (4-12) Eosinophils (%) (Auto) 1.1% (0-5) Basophils (%) (Auto) 0.5% (0-3) Prothrombin Time 12.0sec (8.1-12.5) Prothromb Time International Ratio 1.12ratio Activated Partial Thromboplast Time 27.8sec (22.8-33.0) Sodium Level 136mEq/L (134-144) Potassium Level 4.8mEq/L (3.5-5.2) Chloride Level 104mEq/L (97-108) Carbon Dioxide Level 17mmol/L (18-29) Blood Urea Nitrogen 38mg/dL (6-24) Creatinine 3.95mg/dL (0.76-1.27) Estimat Glomerular Filtration Rate 17mL/min (>59) Glucose Level 132mg/dL (60-99) Calcium Level 8.5mg/dL (8.5-10.1) Total Bilirubin 0.4mg/dL (0.0-1.2) Aspartate Amino Transf (AST/SGOT) 29U/L (0-50) Alanine Aminotransferase (ALT/SGPT) 18U/L (0-44) Alkaline Phosphatase 43U/L (25-150) Troponin T 0.322ug/L (0.0-0.011) Total Protein 5.7g/dL (6.4-8.4) Albumin 3.3g/dL (3.4-5.0) Hold Cook Top Tube Received (Received) Urine Color Yellow (YELLOW) Urine Appearance Clear (CLEAR,HAZY) Urine pH 5.5 (5.0-8.0) Urine Specific Rheems 1.020 (1.003-1.035) Urine Protein >300mg/dL (NEG,TRACE) Urine Glucose (UA) 100mg/dL (NEGATIVE) Urine Ketones Tracemg/dL (NEGATIVE) Urine Occult Blood Moderate (NEGATIVE) Urine Nitrite Negative (NEGATIVE) Urine Bilirubin Negative (NEGATIVE) Urine Urobilinogen Normalmg/dL (NORMAL) Urine Leukocyte Esterase Negative (NEGATIVE) Urine RBC 0-2/hpf (0-2) Urine WBC 0-5/hpf (0-5) Urine Epithelial Cells Few/hpf (NONE-MOD) Urine Crystals None seen (NONE SEEN) Urine Bacteria Few/hpf (NONE-FEW) Urine Hyaline Casts None/lpf (NONE) Urine Granular Casts Occasional (NONE SEEN) Urine Waxy Casts None seen (NONE SEEN) Urine Red Blood Cell Casts None seen (NONE SEEN) Urine White Blood Cell Casts None seen (NONE SEEN) Urine Mucus None seen (None Seen) Urine Trichomonas None seen (NONE SEEN) Urine Yeast None (NONE SEEN) Urinalysis Comment None Urine Culture Reflexed Not indicated Urine Opiates Screen Negative Urine Methadone Screen Negative Urine Barbiturates Screen Negative Urine Amphetamines Screen Positive Urine Benzodiazepines Screen Negative Urine Cocaine Metabolite Screen Negative Urine Cannabinoids Screen Negative Lab Results Interpretation: URINE TOX: positive for methamphetamines Chronic anemia, chronic kidney disease ECG Interpretation ECG Interpretation: No significant ST or T wave changes. Low voltage, extremity leads. Time: 02:15 Interpreted by: ED physician Normal ECG Interpretation: Normal rate (60), Normal sinus rhythm CT Head Interpretation CONCLUSION: No hemorrhage or other specific acute abnormality. Chronic changes in the distribution of the right middle cerebral artery consistent with old small areas of ischemia. There is an element of underlying atrophy. Correlate with history. This report was transmitted to the emergency room at 06/07/2016 - 2:12:25 AM PST Study: Head CT no contrast Interpretation / Wet Read by: Interpret - Radiologist Re-Eval/Medical Decision Med Decision/Clinical Course 50-year-old male who presents with right-sided facial droop which started about 4 hours ago and resolved here in the emergency room. He is blind so complete NIH stroke scale was not possible. TPA was not considered secondary to timeframe and minor symptoms. He also has an elevated troponin likely related to his chronic kidney disease, although it is a bit higher than it has been in the past. His EKG is unremarkable. He will be admitted for further evaluation. Re-Evaluation/Progress : Time of Eval: 04:00 Patient Status: Condition improved Re-Evaluation/Progress Note: Performed physical exam. Consultation : Referral / Consult Name: Julian Santiago MD Consulted With: Hospitalist Call Returned at: 05:39 Taker Off Braker Machine: Will see patient, Agrees with plan, Accepts admit Counseled Regarding: Diagnosis, Lab results, Need for follow-up, When/why to return to ED Discharge & Departure Impression: Primary Impression: TIA (transient ischemic attack) Transient cerebral ischemia type: unspecified Qualified Code: G45.9 - Transient cerebral ischemic attack, unspecified Additional Impressions: Elevated troponin I level Methamphetamine abuse Disposition: ADMITTED TO HOSPITAL Discharge Condition All VS Reviewed: Yes Condition: Improved Referrals: Charity Monson PA-C (PCP) [employer] Attestation Portions of this note were transcribed by Rashida Rordiguez. I, Dr. Montenegro personally performed the history, physical exam and medical decision-making; I reviewed and confirmed the accuracy of the information in the transcribed note. Signed by: Joss Sanchez, 06/07/2016 and 0543. copies to: Charity Monson PA-C, Howard L MD Jun 07, 2016 01:51 RASHIDA RODRIGUEZ Jun 07, 2016 02:19
[2016-06-07 02:23] LABS: BASOPHILS % (AUTO) 0.5 % (0-3); EOSINOPHILS % (AUTO) 1.1 % (0-5); MONOCYTES % (AUTO) 9.5 % (4-12); Mean Corpuscular Hemoglobin 29.7 pg (27.0-35.0); Mean Corpuscular Volume 86.5 fL (81-100); NEUTROPHILS % (AUTO) 80.5 % (40-74); Platelet Count 147 bil/L (150-400)
[2016-06-07 02:40] LABS: INR 1.12 ratio
[2016-06-07 02:53] LABS: APPEARANCE,URINE CLEAR (CLEAR,HAZY); COLOR,URINE YELLOW (YELLOW); PH,URINE 5.5 (5.0-8.0)
[2016-06-07 02:54] LABS: OCCULT BLOOD,URINE MODERATE (NEGATIVE); UROBILINOGEN,URINE NORMAL (NORMAL)
[2016-06-07 03:00] LABS: TROPONIN T 0.322 ug/L (0.0-0.011)
[2016-06-07] MEDS ORDERED: HYDROmorphone 0.5 mg/0.5 mL iSecure Syringe IVPUSH ONE (04:05)
[2016-06-07] MEDS ORDERED: Alum-Mag Hydrox-Simeth 30 mL Suspension PO PRN ×2 (05:50→08:50)
--- NOTE | 2016-06-07 08:15 | DRSVH ---
PROCEDURE: CT BRAIN WITHOUT CONTRAST ([id number]) INDICATIONS: left sided facial droop TECHNIQUE: Noncontrast 4.5 mm thick angled axial sections acquired from the foramen magnum to the vertex, with c oronal reformats. COMPARISON: [facility], CT, CT BRAIN WO CON, 01/28/2016, 16:09. FINDINGS: Image quality: Excellent. CSF spaces: Basal cisterns are patent. No extra-axial fluid collections. Ventricles are normal in size and shape. Brain: No midline shift. Chronic right frontal encephalomalacia which is unchanged No intracranial m asses or hemorrhage. Hamilton-white matter interface is normal. Skull and face: Calvarium and visualized facial bones are intact, without suspicious lesions. Sinuses: Bilateral maxillary sinus disease IMPRESSION: No acute intracranial process. Chronic unchanged right frontal encephalomalacia Dictated by: Kwaku Wolff M.D. on 06/07/2016 at 8:12 Approved by: Kwaku Wolff M.D. on 06/07/2016 at 8:14
[2016-06-07] MEDS ORDERED: Labetalol 5 mg/mL 4 mL Inj IVPUSH PRN (08:50)
[2016-06-07] MEDS ORDERED: Polyethylene Glycol (PEG) 17 Gm Powder PO PRN (08:50)
[2016-06-07] MEDS ORDERED: Ondansetron 2 mg/mL 2 mL Inj IV PRN (08:50)
[2016-06-07] MEDS: Heparin 5,000 Unit/mL Inj SUBQ SCH ×2 (08:50→16:35)
[2016-06-07] MEDS ORDERED: SODIUM POLYSTYRENE SULFONATE 15 GM PO SCH (08:55)
[2016-06-07] MEDS ORDERED: INSULIN GLULISINE SUBQ SCH (08:55)
[2016-06-07] MEDS: Divalproex (QD) 500 mg ER24 Tablet PO SCH ×3 (08:55→20:26)
[2016-06-07] MEDS ORDERED: Glucose 40% Oral Gel 15 Gm Tube PO PRN (09:05)
--- NOTE | 2016-06-07 10:04 | NUR ---
morning meds medications are delayed this am due to med rec and pharmacy delays. This RN will administer the medications as soon as they are sent up to the floor.
[2016-06-07] MEDS: Calcium Carbonate (Oyster Shell) 500 mg Tablet PO SCH ×3 (10:25→20:15)
[2016-06-07] MEDS: levoFLOXacin 750 mg Tablet PO SCH (10:25)
[2016-06-07] MEDS: Insulin LISPRO 300 Unit/3 mL Inj SUBQ SCH ×3 (11:01→20:27)
--- NOTE | 2016-06-07 11:12 | NUR ---
off floor pt is off the floor to MRI transported via W/C by MRI nurse
--- NOTE | 2016-06-07 11:55 | NUR ---
pt back on the floor pt denies any pain/distress requests that after he eats we re-check BP and re-start Tele.
--- NOTE | 2016-06-07 11:55 | DRSVH ---
PROCEDURE: MRI BRAIN WITHOUT CONTRAST ([id number]) INDICATIONS: TIA TECHNIQUE: Noncontrast axial T1 spin echo, axial T2 fast spin echo, sagittal and axial FLAIR, coronal T2 fast sp in echo, axial gradient echo, axial diffusion and ADC through the brain. COMPARISON: [facility], MR, MR ANGIO HEAD WO CON, 06/07/2016, 11:22. [facility], CT, CT BRAIN WO CON, 06/07/2016, 2:01. [facility], MR, MR BRAIN WO CON, 01/24/2015, 12:17. FINDINGS: Image quality: Excellent. CSF Spaces: Basal cisterns are patent. No extra-axial fluid collections. Ventricles are normal in size and shape. Cavum septum vergae is present. The Brain: No intracranial masses or hemorrhage. Small right chronic frontotemporal infarct is present , as before. Hamilton/white matter interface is normal. Brainstem appears normal. Diffusion-weighted im ages demonstrate no acute ischemic insult. No chronic ischemic insults. Normal intravascular flow v oids are present. Skull and face: Calvarium has normal marrow signal. Orbits appear normal. Sinuses: Mild bilateral maxillary sinus mucosal thickening. Right maxillary sinus retention cyst. IMPRESSION: 1. No acute process. No recent infarct. 2. Chronic right frontotemporal infarcts unchanged. 3. Sinus disease. Dictated by: Judy Morgan M.D. on 06/07/2016 at 10:51 Approved by: Judy Morgan M.D. on 06/07/2016 at 10:53
--- NOTE | 2016-06-07 11:56 | DRSVH ---
PROCEDURE: MRA ANGIOGRAM HEAD WITHOUT CONTRAST ([id number]) INDICATIONS: RIGHT SIDE FACIAL DROOP,TIA TECHNIQUE: Noncontrast axial 3-D [id number] MR angiogram, with 3-dimensional maximum intensity projection (M IP) reformats of the internal carotid arteries and posterior circulation then performed. COMPARISON: [facility], CT, CT BRAIN WO CON, 06/07/2016, 2:01. [facility], C T, CT ANGIO BRAIN AND NECK, 01/22/2015, 18:06. FINDINGS: Image quality: Partially degraded by motion artifact Anterior circulation: Intracranial internal carotid arteries demonstrate normal size and intralumina l flow signal. The flow within the paired anterior cerebral arteries is normal and symmetric. The f low within the middle cerebral arteries is normal and symmetric. The anterior communicating artery i s seen. No stenoses, occlusions, or aneurysms. Posterior circulation: Visualized portions of the vertebral arteries demonstrate normal caliber, and join to form a normal appearing basilar artery. Moderate to high-grade bilateral P1 segment stenoses . No aneurysms. IMPRESSION: 1. Moderate to high-grade stenoses within the bilateral posterior cerebral artery P1 segments. 2. Otherwise negative evaluation. Dictated by: Judy Morgan M.D. on 06/07/2016 at 10:53 Approved by: Judy Morgan M.D. on 06/07/2016 at 10:55
--- NOTE | 2016-06-07 13:07 | PCM.HPMED ---
Subjective Date of Service Jun 07, 2016 Primary Provider: Admitting Physician: Julian Santiago MD Primary Care Physician: Charity Monson PA-C Attending Physician: Julian Santiago MD Chief Complaint: Right-sided facial droop with neck pain. . History of Present Illness: Narciso Ruiz is a 50-year-old male with past medical history significant for hypertension, chronic kidney disease stage IV, anemia of chronic kidney disease , diabetes mellitus type II, insulin using, with complications of retinopathy with complete blindness, neuropathy, and nephropathy who presented to [facility] Emergency Department with complaints of occipital neck pain and right-sided facial droop. The patient reports that he believed he had a stroke therefore he came to the ED. He complained of occipital neck pain and "his right face was sticking up" for several hours. He reports that his neck pain and right-sided facial droop subsided with the medications we gave him. He reports an associated mild headache. He denies dizziness, lightheadedness, weakness, unsteadiness or balance issues, trouble with speech, shortness of breath, palpitations, chest pain, nausea, vomiting, abdominal pain, dysuria, diarrhea, or constipation. She denies previous history of CVA. He has no other complaints. Vital signs in the ER: Temperature 36.4. Pulse 62. Respiratory rate 20. Blood pressure 189/93. Pulse ox 96% on room air. Patient was given hydromorphone 0.5 mg IV 1 and reports Zofran. PCP is Charity Monson PA-C. . Review of Systems: A comprehensive review of systems was conducted with the patient and found to be negative except as above in the History of Present Illness. . Allergies Coded Allergies: tetanus and diphtheria toxoids (Verified Allergy, Severe, COULDN'T HEAR VOMITING, SYNCOPE HOSPITALIZED, 06/04/16) Sulfa (Sulfonamide Antibiotics) (Verified Allergy, Unknown, 06/04/16) Home Medications Amlodipine 10 mg daily. Aspirin 81 mg daily. Atorvastatin 40 mg daily at bedtime. Calcium carbonate 500 mg 3 times a day. Divalproex ER 500 mg 3 times a day. Fludrocortisone 0.1 mg daily. Fluticasone 20 mg daily. Hydralazine 25 mg 3 times a day. Lantus 10 units subcutaneous daily in the afternoon. Insulin glulisine 7 units subcutaneous twice a day. Labetalol 200 mg 3 times a day. Metoclopramide 5 mg 3 times a day. Ranitidine 300 mg daily at bedtime. Renvela 800 mg 3 times a day with meals. Sodium polystyrene sulfonate 15 g twice a day. Torsemide 20 mg daily. . PMH 1. Hypertension. 2. Chronic kidney disease stage IV. 3. Anemia of chronic kidney disease. 4. Diabetes mellitus type II, insulin using, with complication of bilateral diabetic retinopathy, neuropathy, and nephropathy. 5. Bipolar disorder type I. 6. GERD. 7. Diabetic retinopathy with complete blindness. 8. Gastroparesis. 9. Hyperlipidemia. . Surgical History 1. Umbilical hernia repair. 2. Right leg ORIF status post removal of hardware. . Family History Mother with bipolar disorder type I but otherwise healthy. Father's side of family has a history of diabetes mellitus type II otherwise the patient has no known history of his biological father. The patient has 2 biological sisters whose histories are unknown. . Social History Hx Alcohol Use: No Hx Substance Use: No Hx Tobacco Use: Yes (chewing tobacco, occasional cigarette.) Smoking Status: Former Smoker Living Arrangement: with Friends/Roommate Additional Information The patient lives with his ex- and her partner. He is on disability. 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 He was born in [place] and raised in [place]. He has one daughter who is healthy but is currently incarcerated. He uses a cane to ambulate at baseline due to complete blindness. . Exam Vital Signs Vital Sign - Last Date Time Temp Pulse Resp B/P Pulse Ox O2 Delivery O2 Flow Rate FiO2 06/07/16 07:10 63 06/07/16 06:35 36.5 18 208/98 94 Room Air Exam General: Middle-aged male lying in bed and in no acute distress, well-developed , well-nourished, appropriately interactive, appears older than stated age. HEENT: Normocephalic, atraumatic. External ears without defect. Pupils equal, round, and reactive to light. Anicteric sclerae, moist conjunctivae, and no lid lag. Oropharynx free of erythema and cobble stoning with moist mucosa. Neck: Supple with full range of motion. No jugular venous distension. No bruits. No lymphadenopathy or thyromegaly. Cardiovascular: Regular rate and rhythm with no murmurs, rubs, or gallops appreciated Pulmonary: Clear to auscultation bilaterally with no crackles, wheezes, or rhonchi. Normal respiratory effort with no use of accessory muscles. Abdomen: Soft, obese, nontender, nondistended, bowel sounds present. No hepatosplenomegaly or masses appreciated. Extremities: No clubbing or cyanosis. Trace nonpitting edema to ankles. Skin: Normal temperature, turgor, and texture; no rash, ulcers, or subcutaneous nodules appreciated. Neurological: Right-sided facial droop has resolved. Normal speech. Completely blind. Normal muscle strength, tone, and bulk. Reflexes, coordination, and sensory function within normal limits. No known gait impairment. Uses cane to ambulate due to blindness. Psychiatric: Normal mood and affect. Alert and oriented to person, place, and time. . Lab and Diagnostics Labs Item Value Date Time Triglycerides Level 61 mg/dL 05/30/16234 Cholesterol Level 104 mg/dL 05/30/16234 LDL Cholesterol, Calculated 27.800 mg/dL 05/30/16234 VLDL Cholesterol 12.200 mg/dL 05/30/16234 HDL Cholesterol 64 mg/dL 05/30/16234 Cholesterol/HDL Ratio 1.63 05/30/16234 Item Value Date Time Hemoglobin A1c 7.4 % H 05/29/16 1804 Item Value Date Time Urine Opiates Screen Negative 06/07/16236 Urine Methadone Screen Negative 06/07/16236 Urine Barbiturates Screen Negative 06/07/16236 Urine Amphetamines Screen Positive 06/07/16236 Urine Benzodiazepines Screen Negative 06/07/16236 Urine Cocaine Metabolite Screen Negative 06/07/16236 Urine Cannabinoids Screen Negative 06/07/16236 Item Value Date Time Prothrombin Time 12.0 sec 06/07/16211 Prothromb Time International Ratio 1.12 ratio 06/07/16211 Activated Partial Thromboplast Time 27.8 sec 06/07/16211 Item Value Date Time Calcium Level 8.5 mg/dL 06/07/16211 Total Bilirubin 0.4 mg/dL 06/07/16211 Aspartate Amino Transf (AST/SGOT) 29 U/L 06/07/16211 Alanine Aminotransferase (ALT/SGPT) 18 U/L 06/07/16211 Alkaline Phosphatase 43 U/L 06/07/16211 Troponin T 0.322 ug/L *H 06/07/16211 Total Protein 5.7 g/dL L 06/07/16211 Albumin 3.3 g/dL L 06/07/16211 Result Diagram: 06/07/1621106/07/16211 X-Rays, CTs and MRIs CT brain pending. . Cardiac Echo Impressions Echocardiogram Interpretation Summary: Normal sinus rhythm. Moderate LVH; normal wall motion and LV systolic function. EF is 60-65%. Stage II diastolic dysfunction. Moderate LA enlargement; mild RA enlargemnet. Mitral valve leaflets are normal; mild MAC; no regurgitation. Trace tricuspid regurgitation. Estimated PA systolic pressure is 43 mm Hg assuming RA pressure of 3 mm Hg. There is a trace pericardial effusion. There is a moderate size left pleural effusion. Compared to prior study performed 01/30/2016 pleural effusion is new; pericardial effusion is new. Reading Physician:08:34 PM . Assessment & Plan Narciso Ruiz is a 50-year-old male with past medical history significant for hypertension, chronic kidney disease stage IV, anemia of chronic kidney disease , diabetes mellitus type II, insulin using, with complications of retinopathy with complete blindness, neuropathy, and nephropathy who presented to [facility] Emergency Department with complaints of occipital neck pain and right-sided facial droop. 1. Acute CVA - Symptoms resolved - Patient presented with moderate occipital neck pain with right-sided facial droop. Symptoms resolved after hydromorphone and Zofran were given. - NIHSS score of 1, therefore, not a TPA candidate. - Differential diagnosis includes: TIA versus unlikely CVA versus complex migraine versus musculoskeletal pain. - Continue neuro checks per stroke protocol. - CT brain without contrast showed no acute intracranial process, final report pending. - Ordered MR stroke protocol. - Ordered PT/OT/ST eval. - Recent fasting lipid panel, as above. - Recent hemoglobin A1c 7.4% on 05/30/2016. - Increased aspirin from 81 mg to 325 mg daily. Continue lisinopril 5 mg daily and atorvastatin 40 mg daily at bedtime. - Allow for permissive hypertension. Hold home labetalol. Continue home hydralazine 25 mg 3 times a day and amlodipine 10 mg daily. PRN labetalol for SBP > 220 or DBP > 120. - Continue monitor closely on telemetry. 2. Recently diagnosed with community-acquired pneumonia, present on admission. Stable. - Continue levofloxacin 750 mg daily 4 days to complete a 7 day course. Chronic problems: Hypertension, chronic. - Hold home labetalol. Continue home hydralazine 25 mg 3 times a day and amlodipine 10 mg daily. Chronic kidney disease stage IV. - Avoid nephrotoxic agents. - Continue to monitor renal function and urine output daily. - Continue Renvela 800 mg 3 times a day with meals and calcium carbonate 500 mg 3 times a day. Anemia of chronic kidney disease. - Continue to monitor hemoglobin and hematocrit daily. Diabetes mellitus type II, insulin using, with complication of bilateral diabetic retinopathy, neuropathy, and nephropathy. - Last hemoglobin A1c was 7.4% on 05/30/2016. - Ordered low-dose correctional scale insulin. - Continue Lantus 10 units subcutaneous daily at bedtime. - Once patient is cleared for diet by speech will start a carbohydrate consistent/heart healthy diet. Bipolar disorder type I chronic. - Continue home dose of Depakote ER 500 mg 3 times a day and fluoxetine 20 mg daily. GERD, chronic. - Continue H2 miguel angel substitute ranitidine with famotidine 20 mg daily at bedtime. Gastroparesis, chronic. - Continue Reglan 5 mg 3 times daily. Hyperlipidemia, chronic. - Continue atorvastatin 40 mg daily at bedtime. Diabetic retinopathy with complete blindness. Stable. PRN antiemetics: Zofran and Maalox. PRN bowel regimen: Senna and MiraLAX. PRN analgesics: Tylenol. Patient is admitted under observation status with expected length of stay less than 2 midnights due to severity of presenting symptoms, risk of adverse event, and complexity of treatment plan. . VTE Prophylaxis: Sub-Q Heparin (Unfractionated) Resuscitation Status: CPR: Attempt Resuscitation Attending Statement The patient was seen and examined together with Dr. Huerta on 06/07/2016 and I agree with the history, exam and plan as outlined in the note above. Lou Huerta DO Jun 07, 2016 08:03 Kayode Card MD Jun 08, 2016 13:16
--- NOTE | 2016-06-07 14:11 | NUR ---
Evaluation completed. Please go to "Notes" then click on "Assessments and Notes" (bottom left corner of screen). Then select appropriate discipline tab on top of screen.
[2016-06-07] MEDS: Insulin GLARgine 100 Unit/mL Syringe SUBQ SCH (20:27)
[2016-06-08] VITALS (8 sets, daily range): BP systolic 170–204; BP diastolic 87–97; PULSE 59–68; RESP 12–18; O2SAT 91–95
[2016-06-08] MEDS: Heparin 5,000 Unit/mL Inj SUBQ SCH ×3 (00:30→16:30)
[2016-06-08] MEDS ORDERED: Labetalol 5 mg/mL 4 mL Inj IVPUSH ONE (05:00)
[2016-06-08] MEDS: Ondansetron 2 mg/mL 2 mL Inj IVPUSH PRN ×2 (05:08→20:14)
--- NOTE | 2016-06-08 05:59 | NUR ---
BP/Edema/Pain A&OX3. BP elevated systolic 190-220 throughout the night with symptomatic nausea. Physician notified, 10mg of Labetolol prescribed. BP decreased to low 200s. Pitting edema noted on lower extremities, elevated legs on pillows. Complained of neck pain. Pain treated with Tylenol. pt compliant with care.
[2016-06-08] MEDS: Insulin LISPRO 300 Unit/3 mL Inj SUBQ SCH ×4 (07:52→22:00)
[2016-06-08] MEDS: Divalproex (QD) 500 mg ER24 Tablet PO SCH ×3 (07:54→20:05)
[2016-06-08] MEDS: Calcium Carbonate (Oyster Shell) 500 mg Tablet PO SCH ×3 (07:55→20:05)
[2016-06-08 08:57] LABS: BASOPHILS % (AUTO) 0.6 % (0-3); EOSINOPHILS % (AUTO) 2.7 % (0-5); MONOCYTES % (AUTO) 7.8 % (4-12); Mean Corpuscular Hemoglobin 29.3 pg (27.0-35.0); Mean Corpuscular Volume 86.6 fL (81-100); NEUTROPHILS % (AUTO) 77.1 % (40-74); Platelet Count 57 bil/L (150-400)
--- NOTE | 2016-06-08 11:17 | NUR ---
Evaluation completed. Please go to "Notes" then click on "Assessments and Notes" (bottom left corner of screen). Then select appropriate discipline tab on top of screen.
--- NOTE | 2016-06-08 15:56 | NUR ---
Social Work Screen Note: Patient is a 50 year old male admitted under observation status on 06/07/16 for TIA and elevated troponin. Patient resides in [place] with ex-. Patient independent with needs at baseline. Patient active with [facility] services, and rep [place] follows. SW confirmed with [place] rep [employer] that patient is no longer active with services at this time. Patient payer as Jose DAVID. Patient PCP as MD Monson. SW reviewed therapy notes which reflect recommendations for home, no skilled needs. SW to follow as further needs arise. SW to follow. PLAN: Home with ex , pending clinical course. SW will continue to follow. John MEIER
--- NOTE | 2016-06-08 16:45 | DRSVH ---
PROCEDURE: US BILATERAL DUPLEX DOPPLER IMAGING OF THE CAROTIDS ([id number]) INDICATIONS: Hypertension and TIA symptoms. TECHNIQUE: Color and pulse Doppler interrogation was performed of both carotid systems, with image documentation and velocity measurements. COMPARISON: None. FINDINGS: All stenosis calculations are based on NASCET criteria. Right side: Brachial blood pressure: Not performed Common Carotid Artery(Distal) PSV: 81 cm/s Internal Carotid Artery PSV- Proximal: 74 cm/s Mid-lon.60 cm/s Distal: 66.80 cm/s EDV - Proximal: 15.60 cm/s Mid-lon.80 cm/s Distal: 15.90 cm/s External Carotid Artery(Proximal) PSV: 80 cm/s ICA/CCA PSV ratio: 0.9 Hamilton scale imaging description: Normal. Percent internal carotid artery stenosis: No carotid stenosis. Vertebral artery: Flow direction is antegrade. Left side: Brachial blood pressure: 170/87 mm Hg. Common Carotid Artery(Distal) PSV: 82.80 cm/s Internal Carotid Artery PSV - Proximal: 72.70 cm/s Mid-lon.40 cm/s Distal: 62.30 cm/s EDV - Proximal: 16.70 cm/s Mid-lon.20 cm/s Distal: 15.80 cm/s External Carotid Artery(Proximal) PSV: 76.60 cm/s ICA/CCA PSV ratio: 1.1 Hamilton scale imaging description: Normal. Percent internal carotid artery stenosis: No carotid stenosis. Vertebral artery: Flow direction is antegrade. IMPRESSION: No carotid stenosis on either side. Dictated by: Lucien Perez [facility] Interpreted: Ted Mcdowell MD on 06/08/2016 at 16:43 Transcribed by: EARLE on 06/08/2016 at 16:44 Approved by: Ted Mcdowell M.D. on 06/08/2016 at 16:57
[2016-06-08] MEDS: Insulin GLARgine 100 Unit/mL Syringe SUBQ SCH (21:00)
--- NOTE | 2016-06-08 21:39 | PCM.PNMED ---
Subjective Date of Service Jun 08, 2016 Subjective Patient reports that he is at his baseline of health. He states that his symptoms have completely resolved. Patient denies any chest pain,shortness of breath, nausea, vomiting or diarrhea. Exam Vital Signs Vital Sign - Last Date Time Temp Pulse Resp B/P Pulse Ox O2 Delivery O2 Flow Rate FiO2 06/08/16 19:59 36.6 63 18 196/90 91 Room Air Exam General: Pt in bed and in no acute distress, well-developed, well-nourished, appropriately interactive, appears older than stated age. HEENT: Normocephalic, atraumatic. External ears without defect. Anicteric sclerae, moist conjunctivae. Oropharynx with moist mucosa. Neck: Supple with full range of motion. Cardiovascular: Regular rate and rhythm with no murmurs, rubs, or gallops appreciated Pulmonary: Clear to auscultation bilaterally with no crackles, wheezes, or rhonchi. Normal respiratory effort with no use of accessory muscles. Abdomen: Soft, obese, nontender, nondistended, bowel sounds present. No hepatosplenomegaly or masses appreciated. Extremities: No clubbing or cyanosis. Trace nonpitting edema to ankles. Skin: Normal temperature, turgor, and texture; no rash, ulcers,appreciated. Neurological: Normal speech. normal muscle strength and tone.Blind at baseline Psychiatric: Normal mood and affect. Alert and oriented to person, place, and time. . IVs and Medications Medications Reviewed: Medications were reviewed in detail Lab and Diagnostics Result Diagram: 06/08/16 0850 06/08/16 1645 X-Rays, CTs and MRIs CT brain pending. . Cardiac Echo Impressions Echocardiogram Interpretation Summary: Normal sinus rhythm. Moderate LVH; normal wall motion and LV systolic function. EF is 60-65%. Stage II diastolic dysfunction. Moderate LA enlargement; mild RA enlargemnet. Mitral valve leaflets are normal; mild MAC; no regurgitation. Trace tricuspid regurgitation. Estimated PA systolic pressure is 43 mm Hg assuming RA pressure of 3 mm Hg. There is a trace pericardial effusion. There is a moderate size left pleural effusion. Compared to prior study performed 01/30/2016 pleural effusion is new; pericardial effusion is new. Reading Physician:08:34 PM . Assessment & Plan Narciso Ruiz is a 50-year-old male with past medical history significant for hypertension, chronic kidney disease stage IV, anemia of chronic kidney disease , diabetes mellitus type II, insulin using, with complications of retinopathy with complete blindness, neuropathy, and nephropathy who presented to [facility] Emergency Department with complaints of occipital neck pain and right-sided facial droop. Acute CVA - Symptoms resolved - Patient presented with moderate occipital neck pain with right-sided facial droop. Symptoms resolved after hydromorphone and Zofran were given. - NIHSS score of 1, therefore, not a TPA candidate. - CT brain without contrast showed no acute intracranial process - MR without contrast was normale - Ordered PT/OT/ST eval. - Increased aspirin from 81 mg to 325 mg daily. Continue lisinopril 5 mg daily and atorvastatin 40 mg daily at bedtime. - Continue monitor closely on telemetry. -Carotid US ordered Recently diagnosed with community-acquired pneumonia, present on admission. Stable. - Continue levofloxacin 750 mg daily 4 days to complete a 7 day course. Hypertension, chronic. - Continued labetolol 200mg TID -Continue home hydralazine 25 mg 3 times a day and amlodipine 10 mg daily. -Pt continues to have elevated blood pressures -Nephrology consulted to assist with blood pressure control. Hyperkalemia, -Stat K still elevated -Treated with Kayexelate Chronic kidney disease stage IV. - Avoid nephrotoxic agents. - Continue to monitor renal function and urine output daily. - Continue Renvela 800 mg 3 times a day with meals and calcium carbonate 500 mg 3 times a day. Anemia of chronic kidney disease. - Continue to monitor hemoglobin and hematocrit daily. Diabetes mellitus type II, insulin using, with complication of bilateral diabetic retinopathy, neuropathy, and nephropathy. - Last hemoglobin A1c was 7.4% on 05/30/2016. - Ordered low-dose correctional scale insulin. - Continue Lantus 10 units subcutaneous daily at bedtime. - Start a carbohydrate consistent/heart healthy diet. Bipolar disorder type I chronic. - Continue home dose of Depakote ER 500 mg 3 times a day and fluoxetine 20 mg daily. GERD, chronic. - Continue H2 miguel angel substitute ranitidine with famotidine 20 mg daily at bedtime. Gastroparesis, chronic. - Continue Reglan 5 mg 3 times daily. Hyperlipidemia, chronic. - Continue atorvastatin 40 mg daily at bedtime. Diabetic retinopathy with complete blindness. Stable. PRN antiemetics: Zofran and Maalox. PRN bowel regimen: Senna and MiraLAX. PRN analgesics: Tylenol. Patient is admitted under observation status with expected length of stay less than 2 midnights due to severity of presenting symptoms, risk of adverse event, and complexity of treatment plan. . VTE Prophylaxis: Sub-Q Heparin (Unfractionated) Resuscitation Status: CPR: Attempt Resuscitation Attending Statement The patient was seen and examined together with Dr. Levi on 06/08/2016 and I agree with the history, exam and plan as outlined in the note above. Josephine Levi DO Jun 08, 2016 21:39 Kayode Card MD Jun 09, 2016 14:17
[2016-06-09] VITALS (8 sets, daily range): BP systolic 167–207; BP diastolic 79–94; PULSE 51–68; RESP 16–18; O2SAT 92–96
[2016-06-09] MEDS: Heparin 5,000 Unit/mL Inj SUBQ SCH ×3 (00:40→17:12)
--- NOTE | 2016-06-09 05:29 | NUR ---
NOC/Activity Pt had an episode of vomiting last night, noted around 75cc of emesis. PRN zofran administered and nausea has been resolved. Also noted large diarrhea. Denies chest pain, sob. VSS and has been afebrile overnight. Verbal cue of location of things help promotes safety for pt. Will continue to monitor.
[2016-06-09 06:58] LABS: BASOPHILS % (AUTO) 0.5 % (0-3); EOSINOPHILS % (AUTO) 1.9 % (0-5); MONOCYTES % (AUTO) 9.5 % (4-12); Mean Corpuscular Hemoglobin 29.8 pg (27.0-35.0); Mean Corpuscular Volume 87.1 fL (81-100); NEUTROPHILS % (AUTO) 70.7 % (40-74); Platelet Count 150 bil/L (150-400)
[2016-06-09] MEDS: Insulin LISPRO 300 Unit/3 mL Inj SUBQ SCH ×4 (08:00→21:35)
[2016-06-09] MEDS: Divalproex (QD) 500 mg ER24 Tablet PO SCH ×3 (08:30→20:22)
[2016-06-09] MEDS: levoFLOXacin 750 mg Tablet PO SCH (09:42)
[2016-06-09] MEDS: Calcium Carbonate (Oyster Shell) 500 mg Tablet PO SCH ×3 (09:45→20:22)
--- NOTE | 2016-06-09 14:12 | CONS ---
[address] [address] CONSULTATION REPORT PATIENT: SHANT MARTINEZ : 1965 MR#: [id number] ADMIT: 06/07/2016 JOB ID: [id number] DATE OF SERVICE: 06/09/2016 DATE OF SERVICE: 06/09/2016 RENAL CONSULTATION: HISTORY: The patient is a rather unfortunate 50-year-old white male who was admitted to [facility] once again for hypertensive emergency. I am quite familiar with the patient and renal consultation is being sought for further evaluation of his hypertension and chronic kidney disease. He has a longstanding history of insulin dependent diabetes mellitus which has been complicated by retinopathy which has led to blindness, peripheral neuropathy, and diabetic renal disease. He also has a history of hypertension with hypertensive heart disease and hypertensive nephrosclerosis which has been somewhat difficult to treat. Complicating this is the fact that he has a type 4 renal tubular acidosis and chronic hyperkalemia which has caused some management problems. He was recently admitted for similar episode several weeks ago and subsequently discharged. On the day of admission, he complained of some right facial numbness and paresthesias. In the emergency department, his blood pressure was markedly elevated and refractory to treatment. We were consulted and the patient was seen today. He currently denies any further paresthesias or right-sided weakness. He does not have any evidence of dysarthria or slurred speech. He does not have any chest pain, shortness of breath or lower extremity edema. PAST MEDICAL HISTORY: Is significant for: 1. Stage 5 kidney disease. 2. Insulin-requiring diabetes mellitus with multiple complications as detailed above. 3. There is also a history of severe hypertension with hypertensive heart disease and hypertensive nephrosclerosis. 4. Hyperlipidemia. 5. Bipolar disorder. 6. GERD. PAST SURGICAL HISTORY: Is significant for: 1. A right leg ORIF. 2. Umbilical hernia repair. ALLERGIES: He is allergic to SULFA, TETANUS and DIPHTHERIA. SOCIAL HISTORY: He uses tobacco on rare occasions and currently does not smoke. He denies any current alcohol or illicit drug use. FAMILY HISTORY: Remarkable for bipolar disease, diabetes. MEDICATIONS: Have been reviewed. REVIEW OF SYSTEMS: Is detailed above. Otherwise is unremarkable. PHYSICAL EXAMINATION: Revealed a pale 50-year-old white male who was alert and oriented x3, in no acute distress at the time of my evaluation. When I took his manual blood pressure, it revealed 160/90. His heart rate was 82. Neck is supple without adenopathy, thyromegaly or jugular venous distention. Lungs are clear to auscultation. Heart was regular and rhythmical with a soft systolic murmur. Abdomen is soft without any tenderness, rebound, guarding, masses or hepatosplenomegaly. Extremities do not show any evidence of any clubbing, cyanosis or edema. Skin turgor is good and there is no evidence of any rashes. IMPRESSION: 1. Hypertension with hypertensive urgency. 2. Hypertension with hypertensive heart disease and hypertensive nephrosclerosis. 3. Insulin-requiring diabetes mellitus with diabetic retinopathy, type 4 renal tubular acidosis, peripheral neuropathy and diabetic renal disease. RECOMMENDATION: I feel that the patient is probably very close to be getting dialysis and I will make a few changes in his medication and see how he responds, but most likely during this admission we will be putting a tunnel catheter in and starting him on dialysis. Once again, I would like to thank you for allowing me to participate in the care this most pleasant, interesting patient. I will be following him closely with you.
[2016-06-09] MEDS: Ondansetron 2 mg/mL 2 mL Inj IVPUSH PRN (17:19)
--- NOTE | 2016-06-09 17:44 | PCM.PNMED ---
Subjective Date of Service Jun 09, 2016 Subjective Patient reports that he is back to baseline. He states that he is feeling fine. He reports that he has been tolerating his diet without any issues. Patient denies any slurred speech, facial numbness, no unilateral weakness, stating that all of these symptoms have resolved. Patient denies any chest pain , shortness of breath, headache, blurred vision, nausea, vomiting, diarrhea, fever or chills. Patient reports that he is doing well overall and has no concerns at this time. Per nursing patient had an episode of vomiting overnight that was resolved with Zofran. Exam Vital Signs Vital Sign - Last Date Time Temp Pulse Resp B/P Pulse Ox O2 Delivery O2 Flow Rate FiO2 06/09/16 10:36 66 06/09/16 10:33 36.4 18 197/87 95 Room Air Intake and Output 06/08/16 06/08/16 06/09/16 Cumulative From/Thru 15:00 23:00 07:00 06/07/16 01:50 - 06/09/16 06:52 Intake Total 300 ml 870 ml 320 ml 1490 ml Output Total 200 ml 1000 ml 475 ml 1675 ml Balance 100 ml -130 ml -155 ml -185 ml Intake Oral 300 ml 870 ml 300 ml 1470 ml IV Total 20 ml 20 ml Output Urine Total 200 ml 1000 ml 475 ml 1675 ml # Voids 2 2 4 # Bowel Movements 1 2 1 4 Exam General: Patient is sitting up in bed eating breakfast and in no acute distress , well-developed, well-nourished, appropriately interactive, appears older than stated age. HEENT: Patient is blind at baseline. Normocephalic, atraumatic. External ears without defect. Anicteric sclerae, moist conjunctivae. Oropharynx with moist mucosa. Neck: Supple with full range of motion. Cardiovascular: Regular rate and rhythm with no murmurs, rubs, or gallops appreciated Pulmonary: Clear to auscultation bilaterally with no crackles, wheezes, or rhonchi. Normal respiratory effort with no use of accessory muscles. Abdomen: Soft, obese, nontender, nondistended, bowel sounds present. Extremities: No clubbing or cyanosis. Trace nonpitting edema to ankles. Skin: Normal temperature, turgor, and texture; no rash, ulcers,appreciated. Neurological: Normal speech. normal muscle strength and tone.Blind at baseline Psychiatric: Normal mood and affect. Alert and oriented to person, place, and time. IVs and Medications Medications Reviewed: Medications were reviewed in detail Lab and Diagnostics Result Diagram: 06/09/16 0645 06/09/16 0645 X-Rays, CTs and MRIs PROCEDURE: CT BRAIN WITHOUT CONTRAST ([id number]) INDICATIONS: left sided facial droop TECHNIQUE: Noncontrast 4.5 mm thick angled axial sections acquired from the foramen magnum to the vertex, with coronal reformats. COMPARISON: [facility], CT, CT BRAIN WO CON, 01/28/2016, 16:09. FINDINGS: Image quality: Excellent. CSF spaces: Basal cisterns are patent. No extra-axial fluid collections. Ventricles are normal in size and shape. Brain: No midline shift. Chronic right frontal encephalomalacia which is unchanged No intracranial masses or hemorrhage. Hamilton-white matter interface is normal. Skull and face: Calvarium and visualized facial bones are intact, without suspicious lesions. Sinuses: Bilateral maxillary sinus disease IMPRESSION: No acute intracranial process. Chronic unchanged right frontal encephalomalacia Dictated by: Kwaku Wolff M.D. on 06/07/2016 at 8:12 Approved by: Kwaku Wolff M.D. on 06/07/2016 at 8:14 PROCEDURE: MRI BRAIN WITHOUT CONTRAST ([id number]) INDICATIONS: TIA TECHNIQUE: Noncontrast axial T1 spin echo, axial T2 fast spin echo, sagittal and axial FLAIR, coronal T2 fast spin echo, axial gradient echo, axial diffusion and ADC through the brain. COMPARISON: [facility], MR, MR ANGIO HEAD WO CON, 06/07/2016, 11: 22. [facility], CT, CT BRAIN WO CON, 06/07/2016, 2:01. [facility], MR, MR BRAIN WO CON, 01/24/2015, 12:17. FINDINGS: Image quality: Excellent. CSF Spaces: Basal cisterns are patent. No extra-axial fluid collections. Ventricles are normal in size and shape. Cavum septum vergae is present. The Brain: No intracranial masses or hemorrhage. Small right chronic frontotemporal infarct is present , as before. Hamilton/white matter interface is normal. Brainstem appears normal. Diffusion-weighted images demonstrate no acute ischemic insult. No chronic ischemic insults. Normal intravascular flow voids are present. Skull and face: Calvarium has normal marrow signal. Orbits appear normal. Sinuses: Mild bilateral maxillary sinus mucosal thickening. Right maxillary sinus retention cyst. IMPRESSION: 1. No acute process. No recent infarct. 2. Chronic right frontotemporal infarcts unchanged. 3. Sinus disease. Dictated by: Judy Morgan M.D. on 06/07/2016 at 10:51 Approved by: Judy Morgan M.D. on 06/07/2016 at 10:53 PROCEDURE: MRA ANGIOGRAM HEAD WITHOUT CONTRAST ([id number]) INDICATIONS: RIGHT SIDE FACIAL DROOP,TIA TECHNIQUE: Noncontrast axial 3-D fyau-yp-[id number] MR angiogram, with 3-dimensional maximum intensity projection (MIP) reformats of the internal carotid arteries and posterior circulation then performed. COMPARISON: [facility], CT, CT BRAIN WO CON, 06/07/2016, 2:01. [facility], CT, CT ANGIO BRAIN AND NECK, 01/22/2015, 18:06. FINDINGS: Image quality: Partially degraded by motion artifact Anterior circulation: Intracranial internal carotid arteries demonstrate normal size and intraluminal flow signal. The flow within the paired anterior cerebral arteries is normal and symmetric. The flow within the middle cerebral arteries is normal and symmetric. The anterior communicating artery is seen. No stenoses, occlusions, or aneurysms. Posterior circulation: Visualized portions of the vertebral arteries demonstrate normal caliber, and join to form a normal appearing basilar artery. Moderate to high-grade bilateral P1 segment stenoses. No aneurysms. IMPRESSION: 1. Moderate to high-grade stenoses within the bilateral posterior cerebral artery P1 segments. 2. Otherwise negative evaluation. Dictated by: Judy Morgan M.D. on 06/07/2016 at 10:53 Approved by: Judy Morgan M.D. on 06/07/2016 at 10:55 PROCEDURE: US BILATERAL DUPLEX DOPPLER IMAGING OF THE CAROTIDS ([id number]) INDICATIONS: Hypertension and TIA symptoms. TECHNIQUE: Color and pulse Doppler interrogation was performed of both carotid systems, with image documentation and velocity measurements. COMPARISON: None. FINDINGS: All stenosis calculations are based on NASCET criteria. Right side: Brachial blood pressure: Not performed Common Carotid Artery(Distal) PSV: 81 cm/s Internal Carotid Artery PSV- Proximal: 74 cm/s Mid-lon.60 cm/s Distal: 66.80 cm/s EDV - Proximal: 15.60 cm/s Mid-lon.80 cm/s Distal: 15.90 cm/s External Carotid Artery(Proximal) PSV: 80 cm/s ICA/CCA PSV ratio: 0.9 Hamilton scale imaging description: Normal. Percent internal carotid artery stenosis: No carotid stenosis. Vertebral artery: Flow direction is antegrade. Left side: Brachial blood pressure: 170/87 mm Hg. Common Carotid Artery(Distal) PSV: 82.80 cm/s Internal Carotid Artery PSV - Proximal: 72.70 cm/s Mid-lon.40 cm/s Distal: 62.30 cm/s EDV - Proximal: 16.70 cm/s Mid-lon.20 cm/s Distal: 15.80 cm/s External Carotid Artery(Proximal) PSV: 76.60 cm/s ICA/CCA PSV ratio: 1.1 Hamilton scale imaging description: Normal. Percent internal carotid artery stenosis: No carotid stenosis. Vertebral artery: Flow direction is antegrade. IMPRESSION: No carotid stenosis on either side. Dictated by: Lucien Perez RRA Interpreted: Ted Mcdowell MD on 06/08/2016 at 16:43 Transcribed by: EARLE on 06/08/2016 at 16:44 Approved by: Ted Mcdowell M.D. on 06/08/2016 at 16:57 Cardiac Echo Impressions Echocardiogram Interpretation Summary: Normal sinus rhythm. Moderate LVH; normal wall motion and LV systolic function. EF is 60-65%. Stage II diastolic dysfunction. Moderate LA enlargement; mild RA enlargemnet. Mitral valve leaflets are normal; mild MAC; no regurgitation. Trace tricuspid regurgitation. Estimated PA systolic pressure is 43 mm Hg assuming RA pressure of 3 mm Hg. There is a trace pericardial effusion. There is a moderate size left pleural effusion. Compared to prior study performed 01/30/2016 pleural effusion is new; pericardial effusion is new. Reading Physician:08:34 PM . Assessment & Plan Narciso Ruiz is a 50-year-old male with past medical history significant for hypertension, chronic kidney disease stage IV, anemia of chronic kidney disease , diabetes mellitus type II, insulin using, with complications of retinopathy with complete blindness, neuropathy, and nephropathy who presented to [facility] Emergency Department with complaints of occipital neck pain and right-sided facial droop. Chronic kidney disease stage IV, present on admission, ongoing - Avoid nephrotoxic agents. - Continue to monitor renal function and urine output daily. - Continue Renvela 800 mg 3 times a day with meals and calcium carbonate 500 mg 3 times a day. -Nephrology consulted and we appreciate their input and recommendations. -Nephrology suspects that patient will need to have a tunnel catheter placed during this hospitalization, and start dialysis. Hypertension, chronic, poorly controlled -Nephrology has been consulted and recommend adding spironolactone 50 mg twice a day - Continued labetalol 200mg TID -Continue home hydralazine 25 mg 3 times a day and amlodipine 10 mg daily. -Pt continues to have elevated blood pressures Acute CVA, present on admission, symptoms resolved - Patient presented with moderate occipital neck pain with right-sided facial droop. Symptoms resolved after hydromorphone and Zofran were given. - NIHSS score of 1, therefore, not a TPA candidate. - CT brain without contrast showed no acute intracranial process - MR without contrast was normal - Ordered PT/OT/ST eval. -Continue aspirin 325 mg daily. -Continue lisinopril 5 mg daily -Continue atorvastatin 40 mg daily at bedtime. - Continue monitor closely on telemetry. -Carotid US did not demonstrate any carotid stenosis Recently diagnosed with community-acquired pneumonia, present on admission. Stable. - Continue levofloxacin 750 mg daily 4 days to complete a 7 day course. Hyperkalemia, resolved -Treated with Kayexalate Anemia of chronic kidney disease. - Continue to monitor hemoglobin and hematocrit daily. Diabetes mellitus type II, insulin using, with complication of bilateral diabetic retinopathy, neuropathy, and nephropathy. - Last hemoglobin A1c was 7.4% on 05/30/2016. - Ordered low-dose correctional scale insulin. - Continue Lantus 10 units subcutaneous daily at bedtime. - Continue carbohydrate consistent/heart healthy diet. Bipolar disorder type I chronic. - Continue home dose of Depakote ER 500 mg 3 times a day and fluoxetine 20 mg daily. GERD, chronic. - Continue H2 miguel angel substitute ranitidine with famotidine 20 mg daily at bedtime. Gastroparesis, chronic. - Continue Reglan 5 mg 3 times daily. Hyperlipidemia, chronic. - Continue atorvastatin 40 mg daily at bedtime. Diabetic retinopathy with complete blindness. Stable. PRN antiemetics: Zofran and Maalox. PRN bowel regimen: Senna and MiraLAX. PRN analgesics: Tylenol. Patient is admitted under observation status with expected length of stay less than 2 midnights due to severity of presenting symptoms, risk of adverse event, and complexity of treatment plan. . VTE Prophylaxis: Sub-Q Heparin (Unfractionated) Resuscitation Status: CPR: Attempt Resuscitation Attending Statement The patient was seen and examined together with Dr. Levi on 06/09/2016 and I agree with the history, exam and plan as outlined in the note above. Josephine Levi DO Jun 09, 2016 17:44 Kayode Card MD Jun 10, 2016 12:51
--- NOTE | 2016-06-09 18:33 | NUR ---
Nausea Assumed care of pt at 1500. Pt c/o nausea with some retching before dinner, PRN antiemetic given with effective results. Bed in lowest, locked position and call light in reach.
[2016-06-09] MEDS: Insulin GLARgine 100 Unit/mL Syringe SUBQ SCH (20:24)
[2016-06-10] VITALS (7 sets, daily range): BP systolic 148–198; BP diastolic 69–90; PULSE 50–63; RESP 18; O2SAT 91–95
[2016-06-10] MEDS: Heparin 5,000 Unit/mL Inj SUBQ SCH ×3 (00:03→17:12)
--- NOTE | 2016-06-10 06:35 | NUR ---
Noc activity Pt denies chest pain, sob, n.v or abd discomfort. Has been pleasant and cooperative with care. Pt is legally blind so verbal cueing of personal item locations help. HS meds administered as scheduled, Vital signs monitoring, noted HTN MD is aware. Hourly rounding done and pt has slept most of the night.
[2016-06-10] MEDS: Divalproex (QD) 500 mg ER24 Tablet PO SCH ×3 (07:46→20:06)
[2016-06-10] MEDS: Calcium Carbonate (Oyster Shell) 500 mg Tablet PO SCH ×3 (07:49→20:06)
[2016-06-10] MEDS: Insulin LISPRO 300 Unit/3 mL Inj SUBQ SCH ×5 (07:57→20:11)
[2016-06-10 09:50] LABS: BASOPHILS % (AUTO) 0.4 % (0-3); EOSINOPHILS % (AUTO) 2.9 % (0-5); MONOCYTES % (AUTO) 9.6 % (4-12); Mean Corpuscular Hemoglobin 29.9 pg (27.0-35.0); Mean Corpuscular Volume 86.6 fL (81-100); NEUTROPHILS % (AUTO) 74.2 % (40-74); Platelet Count 123 bil/L (150-400)
--- NOTE | 2016-06-10 10:41 | PCM.PNMED ---
Subjective Date of Service Jun 10, 2016 Subjective Patient's renal function remains poor. His estimated GFR is approximately 15 mils per minute. I have had long and jose discussion with the patient and in light of his difficult to control blood pressure and repeated admissions for various aspects of near end-stage renal disease I feel it is probably appropriate to start him on dialysis. Patient agrees with this and I have explained to him the process of placing a tunneled catheter and starting him on dialysis. Exam Vital Signs Vital Sign - Last Date Time Temp Pulse Resp B/P Pulse Ox O2 Delivery O2 Flow Rate FiO2 06/10/16 05:45 36.6 57 18 198/90 94 Room Air Intake and Output 06/09/16 06/09/16 06/10/16 Cumulative From/Thru 15:00 23:00 07:00 06/07/16 01:50 - 06/10/16 06:37 Intake Total 1100 ml 350 ml 2940 ml Output Total 300 ml 1200 ml 500 ml 3675 ml Balance -300 ml -100 ml -150 ml -735 ml Intake Oral 1100 ml 350 ml 2920 ml IV Total 20 ml Output Urine Total 300 ml 1200 ml 500 ml 3675 ml # Voids 4 # Bowel Movements 0 4 Exam HEENT examination is remarkable for pale sclera. Neck is supple without adenopathy thyromegaly or jugular venous distention. Lungs are clear to auscultation. Heart was regular and rhythmical with a soft systolic murmur. Abdomen soft without tenderness or rebound guarding masses or hepatosplenomegaly. She showed some mild lower extremity edema. Lab and Diagnostics Result Diagram: 06/10/1692306/10/16923 X-Rays, CTs and MRIs PROCEDURE: CT BRAIN WITHOUT CONTRAST ([id number]) INDICATIONS: left sided facial droop TECHNIQUE: Noncontrast 4.5 mm thick angled axial sections acquired from the foramen magnum to the vertex, with coronal reformats. COMPARISON: [facility], CT, CT BRAIN WO CON, 01/28/2016, 16:09. FINDINGS: Image quality: Excellent. CSF spaces: Basal cisterns are patent. No extra-axial fluid collections. Ventricles are normal in size and shape. Brain: No midline shift. Chronic right frontal encephalomalacia which is unchanged No intracranial masses or hemorrhage. Hamilton-white matter interface is normal. Skull and face: Calvarium and visualized facial bones are intact, without suspicious lesions. Sinuses: Bilateral maxillary sinus disease IMPRESSION: No acute intracranial process. Chronic unchanged right frontal encephalomalacia Dictated by: Kwaku Wolff M.D. on 06/07/2016 at 8:12 Approved by: Kwaku Wolff M.D. on 06/07/2016 at 8:14 PROCEDURE: MRI BRAIN WITHOUT CONTRAST ([id number]) INDICATIONS: TIA TECHNIQUE: Noncontrast axial T1 spin echo, axial T2 fast spin echo, sagittal and axial FLAIR, coronal T2 fast spin echo, axial gradient echo, axial diffusion and ADC through the brain. COMPARISON: [facility], MR, MR ANGIO HEAD WO CON, 06/07/2016, 11: 22. [facility], CT, CT BRAIN WO CON, 06/07/2016, 2:01. [facility], MR, MR BRAIN WO CON, 01/24/2015, 12:17. FINDINGS: Image quality: Excellent. CSF Spaces: Basal cisterns are patent. No extra-axial fluid collections. Ventricles are normal in size and shape. Cavum septum vergae is present. The Brain: No intracranial masses or hemorrhage. Small right chronic frontotemporal infarct is present , as before. Hamilton/white matter interface is normal. Brainstem appears normal. Diffusion-weighted images demonstrate no acute ischemic insult. No chronic ischemic insults. Normal intravascular flow voids are present. Skull and face: Calvarium has normal marrow signal. Orbits appear normal. Sinuses: Mild bilateral maxillary sinus mucosal thickening. Right maxillary sinus retention cyst. IMPRESSION: 1. No acute process. No recent infarct. 2. Chronic right frontotemporal infarcts unchanged. 3. Sinus disease. Dictated by: Judy Morgan M.D. on 06/07/2016 at 10:51 Approved by: Judy Morgan M.D. on 06/07/2016 at 10:53 PROCEDURE: MRA ANGIOGRAM HEAD WITHOUT CONTRAST ([id number]) INDICATIONS: RIGHT SIDE FACIAL DROOP,TIA TECHNIQUE: Noncontrast axial 3-D reit-ve-gxbths MR angiogram, with 3-dimensional maximum intensity projection (MIP) reformats of the internal carotid arteries and posterior circulation then performed. COMPARISON: [facility], CT, CT BRAIN WO CON, 06/07/2016, 2:01. [facility], CT, CT ANGIO BRAIN AND NECK, 01/22/2015, 18:06. FINDINGS: Image quality: Partially degraded by motion artifact Anterior circulation: Intracranial internal carotid arteries demonstrate normal size and intraluminal flow signal. The flow within the paired anterior cerebral arteries is normal and symmetric. The flow within the middle cerebral arteries is normal and symmetric. The anterior communicating artery is seen. No stenoses, occlusions, or aneurysms. Posterior circulation: Visualized portions of the vertebral arteries demonstrate normal caliber, and join to form a normal appearing basilar artery. Moderate to high-grade bilateral P1 segment stenoses. No aneurysms. IMPRESSION: 1. Moderate to high-grade stenoses within the bilateral posterior cerebral artery P1 segments. 2. Otherwise negative evaluation. Dictated by: Judy Morgan M.D. on 06/07/2016 at 10:53 Approved by: Judy Morgan M.D. on 06/07/2016 at 10:55 PROCEDURE: US BILATERAL DUPLEX DOPPLER IMAGING OF THE CAROTIDS ([id number]) INDICATIONS: Hypertension and TIA symptoms. TECHNIQUE: Color and pulse Doppler interrogation was performed of both carotid systems, with image documentation and velocity measurements. COMPARISON: None. FINDINGS: All stenosis calculations are based on NASCET criteria. Right side: Brachial blood pressure: Not performed Common Carotid Artery(Distal) PSV: 81 cm/s Internal Carotid Artery PSV- Proximal: 74 cm/s Mid-lon.60 cm/s Distal: 66.80 cm/s EDV - Proximal: 15.60 cm/s Mid-lon.80 cm/s Distal: 15.90 cm/s External Carotid Artery(Proximal) PSV: 80 cm/s ICA/CCA PSV ratio: 0.9 Hamilton scale imaging description: Normal. Percent internal carotid artery stenosis: No carotid stenosis. Vertebral artery: Flow direction is antegrade. Left side: Brachial blood pressure: 170/87 mm Hg. Common Carotid Artery(Distal) PSV: 82.80 cm/s Internal Carotid Artery PSV - Proximal: 72.70 cm/s Mid-lon.40 cm/s Distal: 62.30 cm/s EDV - Proximal: 16.70 cm/s Mid-lon.20 cm/s Distal: 15.80 cm/s External Carotid Artery(Proximal) PSV: 76.60 cm/s ICA/CCA PSV ratio: 1.1 Hamilton scale imaging description: Normal. Percent internal carotid artery stenosis: No carotid stenosis. Vertebral artery: Flow direction is antegrade. IMPRESSION: No carotid stenosis on either side. Dictated by: Lucien Perez RRA Interpreted: Ted Mcdowell MD on 06/08/2016 at 16:43 Transcribed by: EARLE on 06/08/2016 at 16:44 Approved by: Ted Mcdowell M.D. on 06/08/2016 at 16:57 Cardiac Echo Impressions Echocardiogram Interpretation Summary: Normal sinus rhythm. Moderate LVH; normal wall motion and LV systolic function. EF is 60-65%. Stage II diastolic dysfunction. Moderate LA enlargement; mild RA enlargemnet. Mitral valve leaflets are normal; mild MAC; no regurgitation. Trace tricuspid regurgitation. Estimated PA systolic pressure is 43 mm Hg assuming RA pressure of 3 mm Hg. There is a trace pericardial effusion. There is a moderate size left pleural effusion. Compared to prior study performed 01/30/2016 pleural effusion is new; pericardial effusion is new. Reading Physician:08:34 PM . Assessment & Plan Impression #1 stage V kidney disease which is becoming end-stage renal disease once we start him on dialysis. #2 diabetic nephropathy #3 hypertension with hypertensive heart disease and hypertensive nephrosclerosis. 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 I will also make arrangements for him. However, catheter placed so he can get his dialysis started during this admission. VTE Prophylaxis: Sub-Q Heparin (Unfractionated) Resuscitation Status: CPR: Attempt Resuscitation Jean Crisostomo DO Jun 10, 2016 10:40
[2016-06-10 16:37] LABS: INR 1.05 ratio
[2016-06-10] MEDS: Ondansetron 2 mg/mL 2 mL Inj IVPUSH PRN (16:57)
[2016-06-10] MEDS: Insulin GLARgine 100 Unit/mL Syringe SUBQ SCH (20:11)
--- NOTE | 2016-06-10 20:30 | PCM.PNMED ---
Subjective Date of Service Jun 10, 2016 Subjective Patient reports that all of his symptoms have resolved since admission. He denies any shortness of breath, chest pain, nausea, vomiting or diarrhea. He states that he has been tolerating his diet well. Exam Vital Signs Vital Sign - Last Date Time Temp Pulse Resp B/P Pulse Ox O2 Delivery O2 Flow Rate FiO2 06/10/16 19:33 36.7 59 18 182/85 91 Room Air Intake and Output 06/09/16 06/09/16 06/10/16 Cumulative From/Thru 14:59 22:59 06:59 06/07/16 01:50 - 06/10/16 06:37 Intake Total 1100 ml 350 ml 2940 ml Output Total 300 ml 1200 ml 500 ml 3675 ml Balance -300 ml -100 ml -150 ml -735 ml Intake Oral 1100 ml 350 ml 2920 ml IV Total 20 ml Output Urine Total 300 ml 1200 ml 500 ml 3675 ml # Voids 4 # Bowel Movements 0 4 Exam General: Patient in no acute distress, well-developed, well-nourished, appropriately interactive, appears older than stated age. HEENT: Patient is blind at baseline. Normocephalic, atraumatic. External ears without defect. Anicteric sclerae, moist conjunctivae. Oropharynx with moist mucosa. Neck: Supple with full range of motion. Cardiovascular: Regular rate and rhythm with no murmurs, rubs, or gallops appreciated Pulmonary: Clear to auscultation bilaterally with no crackles, wheezes, or rhonchi. Normal respiratory effort with no use of accessory muscles. Abdomen: Soft, obese, nontender, nondistended, bowel sounds present. Extremities: No clubbing or cyanosis. Trace nonpitting edema to ankles. Skin: Normal temperature, turgor, and texture; no rash, ulcers,appreciated. Neurological: Normal speech. normal muscle strength and tone.Blind at baseline Psychiatric: Normal mood and affect. Alert and oriented to person, place, and time. IVs and Medications Medications Reviewed: Medications were reviewed in detail Lab and Diagnostics Result Diagram: 06/10/1692306/10/16923 X-Rays, CTs and MRIs PROCEDURE: CT BRAIN WITHOUT CONTRAST ([id number]) INDICATIONS: left sided facial droop TECHNIQUE: Noncontrast 4.5 mm thick angled axial sections acquired from the foramen magnum to the vertex, with coronal reformats. COMPARISON: [facility], CT, CT BRAIN WO CON, 01/28/2016, 16:09. FINDINGS: Image quality: Excellent. CSF spaces: Basal cisterns are patent. No extra-axial fluid collections. Ventricles are normal in size and shape. Brain: No midline shift. Chronic right frontal encephalomalacia which is unchanged No intracranial masses or hemorrhage. Hamilton-white matter interface is normal. Skull and face: Calvarium and visualized facial bones are intact, without suspicious lesions. Sinuses: Bilateral maxillary sinus disease IMPRESSION: No acute intracranial process. Chronic unchanged right frontal encephalomalacia Dictated by: Kwaku Wolff M.D. on 06/07/2016 at 8:12 Approved by: Kwaku Wolff M.D. on 06/07/2016 at 8:14 PROCEDURE: MRI BRAIN WITHOUT CONTRAST ([id number]) INDICATIONS: TIA TECHNIQUE: Noncontrast axial T1 spin echo, axial T2 fast spin echo, sagittal and axial FLAIR, coronal T2 fast spin echo, axial gradient echo, axial diffusion and ADC through the brain. COMPARISON: [facility], MR, MR ANGIO HEAD WO CON, 06/07/2016, 11: 22. [facility], CT, CT BRAIN WO CON, 06/07/2016, 2:01. [facility], MR, MR BRAIN WO CON, 01/24/2015, 12:17. FINDINGS: Image quality: Excellent. CSF Spaces: Basal cisterns are patent. No extra-axial fluid collections. Ventricles are normal in size and shape. Cavum septum vergae is present. The Brain: No intracranial masses or hemorrhage. Small right chronic frontotemporal infarct is present , as before. Hamilton/white matter interface is normal. Brainstem appears normal. Diffusion-weighted images demonstrate no acute ischemic insult. No chronic ischemic insults. Normal intravascular flow voids are present. Skull and face: Calvarium has normal marrow signal. Orbits appear normal. Sinuses: Mild bilateral maxillary sinus mucosal thickening. Right maxillary sinus retention cyst. IMPRESSION: 1. No acute process. No recent infarct. 2. Chronic right frontotemporal infarcts unchanged. 3. Sinus disease. Dictated by: Judy Morgan M.D. on 06/07/2016 at 10:51 Approved by: Judy Morgan M.D. on 06/07/2016 at 10:53 PROCEDURE: MRA ANGIOGRAM HEAD WITHOUT CONTRAST ([id number]) INDICATIONS: RIGHT SIDE FACIAL DROOP,TIA TECHNIQUE: Noncontrast axial 3-D [id number] MR angiogram, with 3-dimensional maximum intensity projection (MIP) reformats of the internal carotid arteries and posterior circulation then performed. COMPARISON: [facility], CT, CT BRAIN WO CON, 06/07/2016, 2:01. [facility], CT, CT ANGIO BRAIN AND NECK, 01/22/2015, 18:06. FINDINGS: Image quality: Partially degraded by motion artifact Anterior circulation: Intracranial internal carotid arteries demonstrate normal size and intraluminal flow signal. The flow within the paired anterior cerebral arteries is normal and symmetric. The flow within the middle cerebral arteries is normal and symmetric. The anterior communicating artery is seen. No stenoses, occlusions, or aneurysms. Posterior circulation: Visualized portions of the vertebral arteries demonstrate normal caliber, and join to form a normal appearing basilar artery. Moderate to high-grade bilateral P1 segment stenoses. No aneurysms. IMPRESSION: 1. Moderate to high-grade stenoses within the bilateral posterior cerebral artery P1 segments. 2. Otherwise negative evaluation. Dictated by: Judy Morgan M.D. on 06/07/2016 at 10:53 Approved by: Judy Morgan M.D. on 06/07/2016 at 10:55 PROCEDURE: US BILATERAL DUPLEX DOPPLER IMAGING OF THE CAROTIDS ([id number]) INDICATIONS: Hypertension and TIA symptoms. TECHNIQUE: Color and pulse Doppler interrogation was performed of both carotid systems, with image documentation and velocity measurements. COMPARISON: None. FINDINGS: All stenosis calculations are based on NASCET criteria. Right side: Brachial blood pressure: Not performed Common Carotid Artery(Distal) PSV: 81 cm/s Internal Carotid Artery PSV- Proximal: 74 cm/s Mid-lon.60 cm/s Distal: 66.80 cm/s EDV - Proximal: 15.60 cm/s Mid-lon.80 cm/s Distal: 15.90 cm/s External Carotid Artery(Proximal) PSV: 80 cm/s ICA/CCA PSV ratio: 0.9 Hamilton scale imaging description: Normal. Percent internal carotid artery stenosis: No carotid stenosis. Vertebral artery: Flow direction is antegrade. Left side: Brachial blood pressure: 170/87 mm Hg. Common Carotid Artery(Distal) PSV: 82.80 cm/s Internal Carotid Artery PSV - Proximal: 72.70 cm/s Mid-lon.40 cm/s Distal: 62.30 cm/s EDV - Proximal: 16.70 cm/s Mid-lon.20 cm/s Distal: 15.80 cm/s External Carotid Artery(Proximal) PSV: 76.60 cm/s ICA/CCA PSV ratio: 1.1 Hamilton scale imaging description: Normal. Percent internal carotid artery stenosis: No carotid stenosis. Vertebral artery: Flow direction is antegrade. IMPRESSION: No carotid stenosis on either side. Dictated by: Lucien Perez RRA Interpreted: Ted Mcdowell MD on 06/08/2016 at 16:43 Transcribed by: EARLE on 06/08/2016 at 16:44 Approved by: Ted Mcdowell M.D. on 06/08/2016 at 16:57 Cardiac Echo Impressions Echocardiogram Interpretation Summary: Normal sinus rhythm. Moderate LVH; normal wall motion and LV systolic function. EF is 60-65%. Stage II diastolic dysfunction. Moderate LA enlargement; mild RA enlargemnet. Mitral valve leaflets are normal; mild MAC; no regurgitation. Trace tricuspid regurgitation. Estimated PA systolic pressure is 43 mm Hg assuming RA pressure of 3 mm Hg. There is a trace pericardial effusion. There is a moderate size left pleural effusion. Compared to prior study performed 01/30/2016 pleural effusion is new; pericardial effusion is new. Reading Physician:08:34 PM . Assessment & Plan Narciso Ruiz is a 50-year-old male with past medical history significant for hypertension, chronic kidney disease stage IV, anemia of chronic kidney disease , diabetes mellitus type II, insulin using, with complications of retinopathy with complete blindness, neuropathy, and nephropathy who presented to [facility] Emergency Department with complaints of occipital neck pain and right-sided facial droop. Chronic kidney disease stage IV, present on admission, ongoing - Avoid nephrotoxic agents. - Continue to monitor renal function and urine output daily. - Continue Renvela 800 mg 3 times a day with meals and calcium carbonate 500 mg 3 times a day. -Nephrology consulted and we appreciate their input and recommendations. -Nephrology organizing placement of tunnel catheter, with likely initiation of dialysis during this hospitalization. Hypertension, chronic, poorly controlled -Nephrology has been consulted and recommend adding spironolactone 50 mg twice a day - Continued labetalol 200mg TID -Continue home hydralazine 25 mg 3 times a day and amlodipine 10 mg daily. -Pt continues to have elevated blood pressures Acute CVA, present on admission, symptoms resolved - Patient presented with moderate occipital neck pain with right-sided facial droop. Symptoms resolved after hydromorphone and Zofran were given. - NIHSS score of 1, therefore, not a TPA candidate. - CT brain without contrast showed no acute intracranial process - MR without contrast was normal - Ordered PT/OT/ST eval. -Continue aspirin 325 mg daily. -Continue lisinopril 5 mg daily -Continue atorvastatin 40 mg daily at bedtime. - Continue monitor closely on telemetry. -Carotid US did not demonstrate any carotid stenosis Recently diagnosed with community-acquired pneumonia, present on admission. Stable. - Continue levofloxacin 750 mg daily 4 days to complete a 7 day course. Hyperkalemia, resolved -Treated with Kayexalate Anemia of chronic kidney disease. - Continue to monitor hemoglobin and hematocrit daily. Diabetes mellitus type II, insulin using, with complication of bilateral diabetic retinopathy, neuropathy, and nephropathy. - Last hemoglobin A1c was 7.4% on 05/30/2016. - Ordered low-dose correctional scale insulin. - Continue Lantus 10 units subcutaneous daily at bedtime. - Continue carbohydrate consistent/heart healthy diet. Bipolar disorder type I chronic. - Continue home dose of Depakote ER 500 mg 3 times a day and fluoxetine 20 mg daily. GERD, chronic. - Continue H2 miguel angel substitute ranitidine with famotidine 20 mg daily at bedtime. Gastroparesis, chronic. - Continue Reglan 5 mg 3 times daily. Hyperlipidemia, chronic. - Continue atorvastatin 40 mg daily at bedtime. Diabetic retinopathy with complete blindness. Stable. PRN antiemetics: Zofran and Maalox. PRN bowel regimen: Senna and MiraLAX. PRN analgesics: Tylenol. Patient is admitted under observation status with expected length of stay less than 2 midnights due to severity of presenting symptoms, risk of adverse event, and complexity of treatment plan. . VTE Prophylaxis: Sub-Q Heparin (Unfractionated) Resuscitation Status: CPR: Attempt Resuscitation Attending Statement The patient was seen and examined together with Dr. Levi on 06/10/2016 and I agree with the history, exam and plan as outlined in the note above. Josephine Levi DO Jun 10, 2016 20:30 Kayode Card MD Jun 18, 2016 14:13
[2016-06-11] VITALS (10 sets, daily range): BP systolic 134–203; BP diastolic 71–93; PULSE 50–85; RESP 12–18; O2SAT 90–97
[2016-06-11] MEDS: Heparin 5,000 Unit/mL Inj SUBQ SCH ×3 (00:16→17:17)
[2016-06-11] MEDS: Insulin LISPRO 300 Unit/3 mL Inj SUBQ SCH ×4 (08:00→22:00)
[2016-06-11] MEDS: Calcium Carbonate (Oyster Shell) 500 mg Tablet PO SCH ×3 (08:30→21:49)
[2016-06-11] MEDS: Divalproex (QD) 500 mg ER24 Tablet PO SCH ×3 (08:30→21:47)
[2016-06-11] MEDS ORDERED: Heparin 5,000 Units/500 mL NS Premix IV ONE (09:24)
[2016-06-11] MEDS ORDERED: Heparin 1,000 Unit/mL 10 mL Inj ONE (09:24)
[2016-06-11 09:32] LABS: BASOPHILS % (AUTO) 0.2 % (0-3); EOSINOPHILS % (AUTO) 2.2 % (0-5); MONOCYTES % (AUTO) 10.2 % (4-12); Mean Corpuscular Hemoglobin 29.4 pg (27.0-35.0); Mean Corpuscular Volume 87.9 fL (81-100); NEUTROPHILS % (AUTO) 70.3 % (40-74); Platelet Count 139 bil/L (150-400)
[2016-06-11] MEDS ORDERED: CeFAZolin Inj 1 GM in IV Premix 1 EACH IV STA (09:41)
[2016-06-11] MEDS ORDERED: 0.9% Sodium Chloride 500 ML ONE (10:07)
[2016-06-11] MEDS ORDERED: CeFAZolin 2 Gm/50 mL D5W Duplex Bag IV ONE (10:10)
[2016-06-11] MEDS ORDERED: fentaNYL-PF 50 mCg/mL 2 mL Inj ONE (10:16)
--- NOTE | 2016-06-11 11:55 | DRSVH ---
PROCEDURE: X-RAY CHEST ONE VIEW, PORTABLE ([id number]) INDICATIONS: POST PROCEDURE S/P LINE PLACEMENT TECHNIQUE: One view of the chest was acquired. COMPARISON: [facility], CR, XR CHEST 1VW (PORTABLE), 06/04/2016, 22:30. FINDINGS: Surgical changes and devices: There is a double-lumen dialysis catheter with the tip projecting to th e atriocaval junction. Lungs and pleura: Left basilar consolidation and small left pleural effusions. No pneumothorax. Mediastinum: Mediastinal contours appear normal. Heart size is normal. Bones and chest wall: Degenerative joint disease in right shoulder. Overlying soft tissues appear u nremarkable. IMPRESSION: 1. The double-lumen dialysis catheter tip projects to the area of atriocaval junction. 2. Left basilar consolidation small left pleural effusion suspicious for pneumonia. Dictated by: Ted Mcdowell M.D. on 06/11/2016 at 11:50 Approved by: Ted Mcdowell M.D. on 06/11/2016 at 11:53
--- NOTE | 2016-06-11 14:42 | NUR ---
Dialysis note: S/P catheter placement. 2 1/2 hrs tx. Zero net UF. Right catheter, dsg changed, sutures intact. Pls see DTR for VS details. Qb 300. No heparin given. O2 @ 2L via NC on. Stable treatment. Catheter flushed, heparin dwelled and secured. Report given to Brigida Renteria RN. Stable at time of treatment.
--- NOTE | 2016-06-11 15:19 | PCM.PNMED ---
Subjective Date of Service Jun 11, 2016 Subjective She states that he feels well today. He denies any fever, chills, cough, chest pain, nausea or vomiting. He was seen in dialysis during his first treatment appears to be tolerating this well. Exam Vital Signs Vital Sign - Last Date Time Temp Pulse Resp B/P Pulse Ox O2 Delivery O2 Flow Rate FiO2 06/11/16 12:11 54 06/11/16 11:45 12 152/74 06/11/16 11:45 92 Room Air 06/11/16 04:16 36.6 Intake and Output 06/10/16 06/10/16 06/11/16 Cumulative From/Thru 15:00 23:00 07:00 06/07/16 01:50 - 06/11/16 06:26 Intake Total 700 ml 200 ml 3840 ml Output Total 500 ml 900 ml 5075 ml Balance 200 ml -700 ml -1235 ml Intake Oral 700 ml 200 ml 3820 ml IV Total 20 ml Output Urine Total 500 ml 900 ml 5075 ml # Voids 4 # Bowel Movements 4 Exam Sclera.are pale. Neck is supple without adenopathy thyromegaly or jugular venous distention. Lungs are clear to auscultation. Heart was regular with soft systolic murmur. Abdomen soft without any tenderness or rebound guarding masses or hepatosplenomegaly. Extremities show any evidence of any clubbing cyanosis or edema. A tunnel catheter is present in the right internal jugular vein. Lab and Diagnostics Result Diagram: 06/11/16 0500 06/11/16 0657 X-Rays, CTs and MRIs PROCEDURE: CT BRAIN WITHOUT CONTRAST ([id number]) INDICATIONS: left sided facial droop TECHNIQUE: Noncontrast 4.5 mm thick angled axial sections acquired from the foramen magnum to the vertex, with coronal reformats. COMPARISON: [facility], CT, CT BRAIN WO CON, 01/28/2016, 16:09. FINDINGS: Image quality: Excellent. CSF spaces: Basal cisterns are patent. No extra-axial fluid collections. Ventricles are normal in size and shape. Brain: No midline shift. Chronic right frontal encephalomalacia which is unchanged No intracranial masses or hemorrhage. Hamilton-white matter interface is normal. Skull and face: Calvarium and visualized facial bones are intact, without suspicious lesions. Sinuses: Bilateral maxillary sinus disease IMPRESSION: No acute intracranial process. Chronic unchanged right frontal encephalomalacia Dictated by: Kwaku Wolff M.D. on 06/07/2016 at 8:12 Approved by: Kwaku Wolff M.D. on 06/07/2016 at 8:14 PROCEDURE: MRI BRAIN WITHOUT CONTRAST ([id number]) INDICATIONS: TIA TECHNIQUE: Noncontrast axial T1 spin echo, axial T2 fast spin echo, sagittal and axial FLAIR, coronal T2 fast spin echo, axial gradient echo, axial diffusion and ADC through the brain. COMPARISON: [facility], MR, MR ANGIO HEAD WO CON, 06/07/2016, 11: 22. [facility], CT, CT BRAIN WO CON, 06/07/2016, 2:01. [facility], MR, MR BRAIN WO CON, 01/24/2015, 12:17. FINDINGS: Image quality: Excellent. CSF Spaces: Basal cisterns are patent. No extra-axial fluid collections. Ventricles are normal in size and shape. Cavum septum vergae is present. The Brain: No intracranial masses or hemorrhage. Small right chronic frontotemporal infarct is present , as before. Hamilton/white matter interface is normal. Brainstem appears normal. Diffusion-weighted images demonstrate no acute ischemic insult. No chronic ischemic insults. Normal intravascular flow voids are present. Skull and face: Calvarium has normal marrow signal. Orbits appear normal. Sinuses: Mild bilateral maxillary sinus mucosal thickening. Right maxillary sinus retention cyst. IMPRESSION: 1. No acute process. No recent infarct. 2. Chronic right frontotemporal infarcts unchanged. 3. Sinus disease. Dictated by: Judy Morgan M.D. on 06/07/2016 at 10:51 Approved by: Judy Morgan M.D. on 06/07/2016 at 10:53 PROCEDURE: MRA ANGIOGRAM HEAD WITHOUT CONTRAST ([id number]) INDICATIONS: RIGHT SIDE FACIAL DROOP,TIA TECHNIQUE: Noncontrast axial 3-D [id number] MR angiogram, with 3-dimensional maximum intensity projection (MIP) reformats of the internal carotid arteries and posterior circulation then performed. COMPARISON: [facility], CT, CT BRAIN WO CON, 06/07/2016, 2:01. [facility], CT, CT ANGIO BRAIN AND NECK, 01/22/2015, 18:06. FINDINGS: Image quality: Partially degraded by motion artifact Anterior circulation: Intracranial internal carotid arteries demonstrate normal size and intraluminal flow signal. The flow within the paired anterior cerebral arteries is normal and symmetric. The flow within the middle cerebral arteries is normal and symmetric. The anterior communicating artery is seen. No stenoses, occlusions, or aneurysms. Posterior circulation: Visualized portions of the vertebral arteries demonstrate normal caliber, and join to form a normal appearing basilar artery. Moderate to high-grade bilateral P1 segment stenoses. No aneurysms. IMPRESSION: 1. Moderate to high-grade stenoses within the bilateral posterior cerebral artery P1 segments. 2. Otherwise negative evaluation. Dictated by: Judy Morgan M.D. on 06/07/2016 at 10:53 Approved by: Judy Morgan M.D. on 06/07/2016 at 10:55 PROCEDURE: US BILATERAL DUPLEX DOPPLER IMAGING OF THE CAROTIDS ([id number]) INDICATIONS: Hypertension and TIA symptoms. TECHNIQUE: Color and pulse Doppler interrogation was performed of both carotid systems, with image documentation and velocity measurements. COMPARISON: None. FINDINGS: All stenosis calculations are based on NASCET criteria. Right side: Brachial blood pressure: Not performed Common Carotid Artery(Distal) PSV: 81 cm/s Internal Carotid Artery PSV- Proximal: 74 cm/s Mid-lon.60 cm/s Distal: 66.80 cm/s EDV - Proximal: 15.60 cm/s Mid-lon.80 cm/s Distal: 15.90 cm/s External Carotid Artery(Proximal) PSV: 80 cm/s ICA/CCA PSV ratio: 0.9 Hamilton scale imaging description: Normal. Percent internal carotid artery stenosis: No carotid stenosis. Vertebral artery: Flow direction is antegrade. Left side: Brachial blood pressure: 170/87 mm Hg. Common Carotid Artery(Distal) PSV: 82.80 cm/s Internal Carotid Artery PSV - Proximal: 72.70 cm/s Mid-lon.40 cm/s Distal: 62.30 cm/s EDV - Proximal: 16.70 cm/s Mid-lon.20 cm/s Distal: 15.80 cm/s External Carotid Artery(Proximal) PSV: 76.60 cm/s ICA/CCA PSV ratio: 1.1 Hamilton scale imaging description: Normal. Percent internal carotid artery stenosis: No carotid stenosis. Vertebral artery: Flow direction is antegrade. IMPRESSION: No carotid stenosis on either side. Dictated by: Lucien Perez RRA Interpreted: Ted Mcdowell MD on 06/08/2016 at 16:43 Transcribed by: EARLE on 06/08/2016 at 16:44 Approved by: Ted Mcdowell M.D. on 06/08/2016 at 16:57 Cardiac Echo Impressions Echocardiogram Interpretation Summary: Normal sinus rhythm. Moderate LVH; normal wall motion and LV systolic function. EF is 60-65%. Stage II diastolic dysfunction. Moderate LA enlargement; mild RA enlargemnet. Mitral valve leaflets are normal; mild MAC; no regurgitation. Trace tricuspid regurgitation. Estimated PA systolic pressure is 43 mm Hg assuming RA pressure of 3 mm Hg. There is a trace pericardial effusion. There is a moderate size left pleural effusion. Compared to prior study performed 01/30/2016 pleural effusion is new; pericardial effusion is new. Reading Physician:08:34 PM . 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 Heparin being given for the first treatment his blood flow was 300 dialysate flow 600. We are taking approximately 1 and she will follow fluid off. I will do a second treatment tomorrow morning. Patient is appeared to tolerate the procedure well. VTE Prophylaxis: Sub-Q Heparin (Unfractionated) Resuscitation Status: CPR: Attempt Resuscitation Jean Crisostomo DO Jun 11, 2016 15:19
[2016-06-11] MEDS: levoFLOXacin 750 mg Tablet PO SCH (15:28)
--- NOTE | 2016-06-11 17:21 | DRSVH ---
PROCEDURE: CV TUNNEL CATH PLCMNT 1. Sonographic guidance for venous access. 2. Conscious sedation for 13 minutes. 3. Right internal jugular vein tunneled hemodialysis catheter placement. 4. Fluoroscopic guidance for catheter placement. INDICATIONS: ESRD TECHNIQUE: The indications, alternatives, benefits, risks, and complications of the procedure were e xplained to the patient and any family members present. Informed written consent was obtained and pl aced in the chart. The patient was brought to the angiography suite, and conscious sedation was admi nistered intravenously by snf staff, while continuous cardiorespiratory monitoring was pe rformed. Maximum sterile barrier technique was employed per standard protocol, including hand hygiene, cap, ma sk, sterile gown and gloves, and 2% chlorhexidine. Sterile ultrasound probe cover was also utilized. 1% lidocaine was used for local anaesthesia. Under sonographic guidance, the right internal jugular vein was accessed with a Micropuncture set. An 0.035J wire was advanced into the vena cava. Subcuta neous tunnel was created within the right anterior chest wall, through which a 14.5 Portuguese double lum en tunneled hemodialysis catheter was advanced. Following sequential venotomy tract dilation, the ca theter was advanced through the peel-away sheath and the tip was placed at the cavoatrial junction. Peel-away sheath was removed. Adequate flow was obtained through both lumens of the catheter. The v enotomy was closed with Vicryl, and the catheter was fastened to the skin with Ticron. Both lumens w ere flushed with heparinized saline. The patient tolerated the procedure without difficulty and was in stable condition at the conclusion of the procedure. COMPARISON: None. FINDINGS: The right internal jugular vein is patent by ultrasound. Fluoroscopic imaging demonstrates tip of th e catheter at the cavoatrial junction. IMPRESSION: Right internal jugular vein tunneled hemodialysis catheter placement using sonographic and fluoroscop ic guidance. Dictated by: Estephania To M.D. on 06/11/2016 at 17:19 Approved by: Estephania To M.D. on 06/11/2016 at 17:20
--- NOTE | 2016-06-11 18:25 | PCM.PNMED ---
Subjective Date of Service Jun 11, 2016 Subjective Patient reports that he is doing well overall. Patient denies any chest pain, shortness of breath, diaphoresis, nausea, vomiting or diarrhea. Patient denies any headache or blurred vision. States that he is in his normal state of health Exam Vital Signs Vital Sign - Last Date Time Temp Pulse Resp B/P Pulse Ox O2 Delivery O2 Flow Rate FiO2 06/11/16 18:11 36.4 62 16 163/75 92 Room Air Intake and Output 06/10/16 06/10/16 06/11/16 Cumulative From/Thru 15:00 23:00 07:00 06/07/16 01:50 - 06/11/16 06:26 Intake Total 700 ml 200 ml 3840 ml Output Total 500 ml 900 ml 5075 ml Balance 200 ml -700 ml -1235 ml Intake Oral 700 ml 200 ml 3820 ml IV Total 20 ml Output Urine Total 500 ml 900 ml 5075 ml # Voids 4 # Bowel Movements 4 Exam General: Patient in no acute distress, well-developed, well-nourished, appropriately interactive, appears older than stated age. HEENT: Patient is blind at baseline. Normocephalic, atraumatic. External ears without defect. Anicteric sclerae, moist conjunctivae. Oropharynx with moist mucosa. Neck: Supple with full range of motion. Cardiovascular: Regular rate and rhythm with no murmurs, rubs, or gallops appreciated Pulmonary: Clear to auscultation bilaterally with no crackles, wheezes, or rhonchi. Normal respiratory effort with no use of accessory muscles. Abdomen: Soft, obese, nontender, nondistended, bowel sounds present. Extremities: No clubbing or cyanosis. Trace nonpitting edema to ankles. Skin: Normal temperature, turgor, and texture; no rash, ulcers,appreciated. Psychiatric: Normal mood and affect. Alert and oriented to person, place, and time. IVs and Medications Medications Reviewed: Medications were reviewed in detail Lab and Diagnostics Result Diagram: 06/11/16 0500 06/11/16 0657 X-Rays, CTs and MRIs PROCEDURE: CT BRAIN WITHOUT CONTRAST ([id number]) INDICATIONS: left sided facial droop TECHNIQUE: Noncontrast 4.5 mm thick angled axial sections acquired from the foramen magnum to the vertex, with coronal reformats. COMPARISON: [facility], CT, CT BRAIN WO CON, 01/28/2016, 16:09. FINDINGS: Image quality: Excellent. CSF spaces: Basal cisterns are patent. No extra-axial fluid collections. Ventricles are normal in size and shape. Brain: No midline shift. Chronic right frontal encephalomalacia which is unchanged No intracranial masses or hemorrhage. Hamilton-white matter interface is normal. Skull and face: Calvarium and visualized facial bones are intact, without suspicious lesions. Sinuses: Bilateral maxillary sinus disease IMPRESSION: No acute intracranial process. Chronic unchanged right frontal encephalomalacia Dictated by: Kwaku Wolff M.D. on 06/07/2016 at 8:12 Approved by: Kwaku Wolff M.D. on 06/07/2016 at 8:14 PROCEDURE: MRI BRAIN WITHOUT CONTRAST ([id number]) INDICATIONS: TIA TECHNIQUE: Noncontrast axial T1 spin echo, axial T2 fast spin echo, sagittal and axial FLAIR, coronal T2 fast spin echo, axial gradient echo, axial diffusion and ADC through the brain. COMPARISON: [facility], MR, MR ANGIO HEAD WO CON, 06/07/2016, 11: 22. [facility], CT, CT BRAIN WO CON, 06/07/2016, 2:01. [facility], MR, MR BRAIN WO CON, 01/24/2015, 12:17. FINDINGS: Image quality: Excellent. CSF Spaces: Basal cisterns are patent. No extra-axial fluid collections. Ventricles are normal in size and shape. Cavum septum vergae is present. The Brain: No intracranial masses or hemorrhage. Small right chronic frontotemporal infarct is present , as before. Hamilton/white matter interface is normal. Brainstem appears normal. Diffusion-weighted images demonstrate no acute ischemic insult. No chronic ischemic insults. Normal intravascular flow voids are present. Skull and face: Calvarium has normal marrow signal. Orbits appear normal. Sinuses: Mild bilateral maxillary sinus mucosal thickening. Right maxillary sinus retention cyst. IMPRESSION: 1. No acute process. No recent infarct. 2. Chronic right frontotemporal infarcts unchanged. 3. Sinus disease. Dictated by: Judy Morgan M.D. on 06/07/2016 at 10:51 Approved by: Judy Morgan M.D. on 06/07/2016 at 10:53 PROCEDURE: MRA ANGIOGRAM HEAD WITHOUT CONTRAST ([id number]) INDICATIONS: RIGHT SIDE FACIAL DROOP,TIA TECHNIQUE: Noncontrast axial 3-D [id number] MR angiogram, with 3-dimensional maximum intensity projection (MIP) reformats of the internal carotid arteries and posterior circulation then performed. COMPARISON: [facility], CT, CT BRAIN WO CON, 06/07/2016, 2:01. [facility], CT, CT ANGIO BRAIN AND NECK, 01/22/2015, 18:06. FINDINGS: Image quality: Partially degraded by motion artifact Anterior circulation: Intracranial internal carotid arteries demonstrate normal size and intraluminal flow signal. The flow within the paired anterior cerebral arteries is normal and symmetric. The flow within the middle cerebral arteries is normal and symmetric. The anterior communicating artery is seen. No stenoses, occlusions, or aneurysms. Posterior circulation: Visualized portions of the vertebral arteries demonstrate normal caliber, and join to form a normal appearing basilar artery. Moderate to high-grade bilateral P1 segment stenoses. No aneurysms. IMPRESSION: 1. Moderate to high-grade stenoses within the bilateral posterior cerebral artery P1 segments. 2. Otherwise negative evaluation. Dictated by: Judy Morgan M.D. on 06/07/2016 at 10:53 Approved by: Judy Morgan M.D. on 06/07/2016 at 10:55 PROCEDURE: US BILATERAL DUPLEX DOPPLER IMAGING OF THE CAROTIDS ([id number]) INDICATIONS: Hypertension and TIA symptoms. TECHNIQUE: Color and pulse Doppler interrogation was performed of both carotid systems, with image documentation and velocity measurements. COMPARISON: None. FINDINGS: All stenosis calculations are based on NASCET criteria. Right side: Brachial blood pressure: Not performed Common Carotid Artery(Distal) PSV: 81 cm/s Internal Carotid Artery PSV- Proximal: 74 cm/s Mid-lon.60 cm/s Distal: 66.80 cm/s EDV - Proximal: 15.60 cm/s Mid-lon.80 cm/s Distal: 15.90 cm/s External Carotid Artery(Proximal) PSV: 80 cm/s ICA/CCA PSV ratio: 0.9 Hamilton scale imaging description: Normal. Percent internal carotid artery stenosis: No carotid stenosis. Vertebral artery: Flow direction is antegrade. Left side: Brachial blood pressure: 170/87 mm Hg. Common Carotid Artery(Distal) PSV: 82.80 cm/s Internal Carotid Artery PSV - Proximal: 72.70 cm/s Mid-lon.40 cm/s Distal: 62.30 cm/s EDV - Proximal: 16.70 cm/s Mid-lon.20 cm/s Distal: 15.80 cm/s External Carotid Artery(Proximal) PSV: 76.60 cm/s ICA/CCA PSV ratio: 1.1 Hamilton scale imaging description: Normal. Percent internal carotid artery stenosis: No carotid stenosis. Vertebral artery: Flow direction is antegrade. IMPRESSION: No carotid stenosis on either side. Dictated by: Lucien Perez RRA Interpreted: Ted Mcdowell MD on 06/08/2016 at 16:43 Transcribed by: EARLE on 06/08/2016 at 16:44 Approved by: Ted Mcdowell M.D. on 06/08/2016 at 16:57 Cardiac Echo Impressions Echocardiogram Interpretation Summary: Normal sinus rhythm. Moderate LVH; normal wall motion and LV systolic function. EF is 60-65%. Stage II diastolic dysfunction. Moderate LA enlargement; mild RA enlargemnet. Mitral valve leaflets are normal; mild MAC; no regurgitation. Trace tricuspid regurgitation. Estimated PA systolic pressure is 43 mm Hg assuming RA pressure of 3 mm Hg. There is a trace pericardial effusion. There is a moderate size left pleural effusion. Compared to prior study performed 01/30/2016 pleural effusion is new; pericardial effusion is new. Reading Physician:08:34 PM . Assessment & Plan Narciso Ruiz is a 50-year-old male with past medical history significant for hypertension, chronic kidney disease stage IV, anemia of chronic kidney disease , diabetes mellitus type II, insulin using, with complications of retinopathy with complete blindness, neuropathy, and nephropathy who presented to [facility] Emergency Department with complaints of occipital neck pain and right-sided facial droop. Chronic kidney disease stage IV, present on admission, ongoing - Avoid nephrotoxic agents. - Continue to monitor renal function and urine output daily. - Continue Renvela 800 mg 3 times a day with meals and calcium carbonate 500 mg 3 times a day. -Nephrology consulted and we appreciate their input and recommendations. -Per Nephrology-patient to have tunneled catheter placed today and will have 3 hours of dialysis today and additional treatment tomorrow Hypertension, chronic, poorly controlled -Nephrology has been consulted and recommend adding spironolactone 50 mg twice a day - Continued labetalol 200mg TID -Continue home hydralazine 25 mg 3 times a day and amlodipine 10 mg daily. -Pt continues to have elevated blood pressures Acute TIA, present on admission, symptoms resolved - Patient presented with moderate occipital neck pain with right-sided facial droop. Symptoms resolved after hydromorphone and Zofran were given. - NIHSS score of 1, therefore, not a TPA candidate. - CT brain without contrast showed no acute intracranial process - MR without contrast was normal -Continue aspirin 325 mg daily. -Continue lisinopril 5 mg daily -Continue atorvastatin 40 mg daily at bedtime. - Continue monitor closely on telemetry. -Carotid US did not demonstrate any carotid stenosis Recently diagnosed with community-acquired pneumonia, present on admission. Completed -Completed 7 day course of levofloxacin 750 mg daily Hyperkalemia, resolved -Treated with Kayexalate Anemia of chronic kidney disease. - Continue to monitor hemoglobin and hematocrit daily. Diabetes mellitus type II, insulin using, with complication of bilateral diabetic retinopathy, neuropathy, and nephropathy. - Last hemoglobin A1c was 7.4% on 05/30/2016. - Ordered low-dose correctional scale insulin. - Continue Lantus 10 units subcutaneous daily at bedtime. - Continue carbohydrate consistent/heart healthy diet. Bipolar disorder type I chronic. - Continue home dose of Depakote ER 500 mg 3 times a day and fluoxetine 20 mg daily. GERD, chronic. - Continue H2 miguel angel substitute ranitidine with famotidine 20 mg daily at bedtime. Gastroparesis, chronic. - Continue Reglan 5 mg 3 times daily. Hyperlipidemia, chronic. - Continue atorvastatin 40 mg daily at bedtime. Diabetic retinopathy with complete blindness. Stable. PRN antiemetics: Zofran and Maalox. PRN bowel regimen: Senna and MiraLAX. PRN analgesics: Tylenol. Patient is admitted under observation status with expected length of stay less than 2 midnights due to severity of presenting symptoms, risk of adverse event, and complexity of treatment plan. VTE Prophylaxis: Sub-Q Heparin (Unfractionated) Resuscitation Status: CPR: Attempt Resuscitation Attending Statement The patient was seen and examined together with Dr. Levi on 2-16-17 and I agree with the history, exam and plan as outlined in the note above. Josephine Levi DO Jun 11, 2016 18:25 Cha Red MD Jun 12, 2016 08:31
[2016-06-11] MEDS: Insulin GLARgine 100 Unit/mL Syringe SUBQ SCH (21:47)
[2016-06-12] VITALS (8 sets, daily range): BP systolic 172–214; BP diastolic 74–100; PULSE 56–74; RESP 14–18; O2SAT 93–96
[2016-06-12 00:07] LABS: Hepatitis A Antibody IgM Negative (Negative); Hepatitis B Core Antibody IgM Negative (Negative)
[2016-06-12] MEDS: Heparin 5,000 Unit/mL Inj SUBQ SCH ×3 (00:10→17:54)
--- NOTE | 2016-06-12 03:12 | NUR ---
Tunnel Catheter Bleeding: RN noticed blood on Patients hands, floor, and bathroom. RN checked patients dressings saturated. Applied pressure to site. Compression dressing secured. MD notified. Told by MD to notify IR. Charge nurse attempted to contact radiology. No response at this time. Re-secured compression dressing. Patient was educated to remain still and limit movement in bed. Patient verbalized understanding. Dressings frequently checked in the night. No obvious bleeding at this time. Compression remains C/D/I. Call light within reach. Patient is cooperative.
--- NOTE | 2016-06-12 06:09 | NUR ---
DIET Pt requesting a general diet. Refusing ADA/soft. Diet against advice form signed and in chart.
[2016-06-12 07:48] LABS: BASOPHILS % (AUTO) 0.7 % (0-3); EOSINOPHILS % (AUTO) 1.9 % (0-5); MONOCYTES % (AUTO) 10.8 % (4-12); Mean Corpuscular Hemoglobin 29.6 pg (27.0-35.0); NEUTROPHILS % (AUTO) 68.8 % (40-74); Platelet Count 140 bil/L (150-400)
[2016-06-12] MEDS: Insulin LISPRO 300 Unit/3 mL Inj SUBQ SCH ×4 (08:00→21:36)
[2016-06-12] MEDS: Calcium Carbonate (Oyster Shell) 500 mg Tablet PO SCH ×3 (08:02→21:23)
[2016-06-12] MEDS: Divalproex (QD) 500 mg ER24 Tablet PO SCH ×3 (08:02→21:23)
[2016-06-12 08:10] LABS: Phosphorus 3.6 mg/dL (2.5-4.9)
--- NOTE | 2016-06-12 08:12 | DRSVH ---
PROCEDURE: US AV FISTULA MAP ARM, BILATERAL INDICATIONS: ESRD TECHNIQUE: Color and pulse Doppler interrogation was performed of the upper extremity arterial and venous system s at the elbow and forearm, with image documentation. COMPARISON: None. FINDINGS: B-mode imaging and color-flow Doppler technique were employed to evaluate the left and right upper ex tremity from the level of the subclavian through the distal radial and ulnar arteries. Within the right arm normal velocities and waveforms are present from the subclavian through the dist al radial and ulnar arteries. Minimal plaque visualized. Within the left arm normal velocities and waveforms are present from the subclavian through the dista l radial and ulnar arteries. Minimal plaque visualized. IMPRESSION: No stenosis and minimal plaque visualized from the subclavian through the distal radial and ulnar arteries bilaterally. Dictated by: Lucien ZELAYA Interpreted: Estephania To MD on 06/12/2016 at 8:11 Transcribed by: IVONE on 06/12/2016 at 8:12 Approved by: Estephania To M.D. on 06/12/2016 at 16:20
[2016-06-12] MEDS ORDERED: Darbepoetin Alfa 60 mCg/0.3 mL Inj SUBQ ONE (08:55)
--- NOTE | 2016-06-12 09:16 | NUR ---
BP and transfer to dialysis BP elevated this AM, withheld meds for dialysis this AM. Report and BP notification called to RN and procurement intern. Pt transferred to [facility] rm 243 by ERICK x2.
--- NOTE | 2016-06-12 13:45 | NUR ---
Dialysis note: 3 1/2 hrs tx. 1000 ml net UF. Right catheter, dsg changed, sutures intact. Pls see DTR for VS details. Qb 350. No heparin given. O2 @ 2L via NC on. Aranesp 60 mcg IV given as ordered. Stable treatment. Catheter flushed, heparin dwelled and secured. Report given to Brigida Renteria RN. Stable at time of transfer.
--- NOTE | 2016-06-12 14:09 | PCM.PNMED ---
Subjective Date of Service Jun 12, 2016 Subjective Patient has done well following his first treatment. He was seen for his second treatment in the dialysis unit today. He denies any chest pain, shortness of breath, cough or wheezing. This morning his hemoglobin is 8.6, sodium is 136, potassium 4.4, chloride 101, CO2 24, BUN and creatinine were 32 and 3.7. His intact PTH is 50. Exam Vital Signs Vital Sign - Last Date Time Temp Pulse Resp B/P Pulse Ox O2 Delivery O2 Flow Rate FiO2 06/12/16 09:30 62 06/12/16 08:59 36.6 16 198/91 93 Room Air Intake and Output 06/11/16 06/11/16 06/12/16 Cumulative From/Thru 15:00 23:00 07:00 06/07/16 01:50 - 06/12/16 06:40 Intake Total 100 ml 280 ml 4220 ml Output Total 0 ml 300 ml 500 ml 5875 ml Balance 0 ml -200 ml -220 ml -1655 ml Intake Oral 100 ml 280 ml 4200 ml IV Total 20 ml Output Urine Total 300 ml 500 ml 5875 ml Ultrafiltrate 0 ml 0 ml # Voids 4 # Bowel Movements 4 Exam Neck is supple without adenopathy thyromegaly or jugular venous distention. Lungs are clear to auscultation though somewhat diminished. Heart is regular with a cold with a soft systolic murmur. No S4 is noted. Abdomen is soft without any tenderness rebound guarding masses or hepatosplenomegaly. Extremities show any evidence of clubbing cyanosis or edema. Lab and Diagnostics Result Diagram: 06/12/16 0730 06/12/16 0730 X-Rays, CTs and MRIs PROCEDURE: CT BRAIN WITHOUT CONTRAST ([id number]) INDICATIONS: left sided facial droop TECHNIQUE: Noncontrast 4.5 mm thick angled axial sections acquired from the foramen magnum to the vertex, with coronal reformats. COMPARISON: [facility], CT, CT BRAIN WO CON, 01/28/2016, 16:09. FINDINGS: Image quality: Excellent. CSF spaces: Basal cisterns are patent. No extra-axial fluid collections. Ventricles are normal in size and shape. Brain: No midline shift. Chronic right frontal encephalomalacia which is unchanged No intracranial masses or hemorrhage. Hamilton-white matter interface is normal. Skull and face: Calvarium and visualized facial bones are intact, without suspicious lesions. Sinuses: Bilateral maxillary sinus disease IMPRESSION: No acute intracranial process. Chronic unchanged right frontal encephalomalacia Dictated by: Kwaku Wolff M.D. on 06/07/2016 at 8:12 Approved by: Kwaku Wolff M.D. on 06/07/2016 at 8:14 PROCEDURE: MRI BRAIN WITHOUT CONTRAST ([id number]) INDICATIONS: TIA TECHNIQUE: Noncontrast axial T1 spin echo, axial T2 fast spin echo, sagittal and axial FLAIR, coronal T2 fast spin echo, axial gradient echo, axial diffusion and ADC through the brain. COMPARISON: [facility], MR, MR ANGIO HEAD WO CON, 06/07/2016, 11: 22. [facility], CT, CT BRAIN WO CON, 06/07/2016, 2:01. [facility], MR, MR BRAIN WO CON, 01/24/2015, 12:17. FINDINGS: Image quality: Excellent. CSF Spaces: Basal cisterns are patent. No extra-axial fluid collections. Ventricles are normal in size and shape. Cavum septum vergae is present. The Brain: No intracranial masses or hemorrhage. Small right chronic frontotemporal infarct is present , as before. Hamilton/white matter interface is normal. Brainstem appears normal. Diffusion-weighted images demonstrate no acute ischemic insult. No chronic ischemic insults. Normal intravascular flow voids are present. Skull and face: Calvarium has normal marrow signal. Orbits appear normal. Sinuses: Mild bilateral maxillary sinus mucosal thickening. Right maxillary sinus retention cyst. IMPRESSION: 1. No acute process. No recent infarct. 2. Chronic right frontotemporal infarcts unchanged. 3. Sinus disease. Dictated by: Judy Morgan M.D. on 06/07/2016 at 10:51 Approved by: Judy Morgan M.D. on 06/07/2016 at 10:53 PROCEDURE: MRA ANGIOGRAM HEAD WITHOUT CONTRAST ([id number]) INDICATIONS: RIGHT SIDE FACIAL DROOP,TIA TECHNIQUE: Noncontrast axial 3-D [id number] MR angiogram, with 3-dimensional maximum intensity projection (MIP) reformats of the internal carotid arteries and posterior circulation then performed. COMPARISON: [facility], CT, CT BRAIN WO CON, 06/07/2016, 2:01. [facility], CT, CT ANGIO BRAIN AND NECK, 01/22/2015, 18:06. FINDINGS: Image quality: Partially degraded by motion artifact Anterior circulation: Intracranial internal carotid arteries demonstrate normal size and intraluminal flow signal. The flow within the paired anterior cerebral arteries is normal and symmetric. The flow within the middle cerebral arteries is normal and symmetric. The anterior communicating artery is seen. No stenoses, occlusions, or aneurysms. Posterior circulation: Visualized portions of the vertebral arteries demonstrate normal caliber, and join to form a normal appearing basilar artery. Moderate to high-grade bilateral P1 segment stenoses. No aneurysms. IMPRESSION: 1. Moderate to high-grade stenoses within the bilateral posterior cerebral artery P1 segments. 2. Otherwise negative evaluation. Dictated by: Judy Morgan M.D. on 06/07/2016 at 10:53 Approved by: Judy Morgan M.D. on 06/07/2016 at 10:55 PROCEDURE: US BILATERAL DUPLEX DOPPLER IMAGING OF THE CAROTIDS ([id number]) INDICATIONS: Hypertension and TIA symptoms. TECHNIQUE: Color and pulse Doppler interrogation was performed of both carotid systems, with image documentation and velocity measurements. COMPARISON: None. FINDINGS: All stenosis calculations are based on NASCET criteria. Right side: Brachial blood pressure: Not performed Common Carotid Artery(Distal) PSV: 81 cm/s Internal Carotid Artery PSV- Proximal: 74 cm/s Mid-lon.60 cm/s Distal: 66.80 cm/s EDV - Proximal: 15.60 cm/s Mid-lon.80 cm/s Distal: 15.90 cm/s External Carotid Artery(Proximal) PSV: 80 cm/s ICA/CCA PSV ratio: 0.9 Hamilton scale imaging description: Normal. Percent internal carotid artery stenosis: No carotid stenosis. Vertebral artery: Flow direction is antegrade. Left side: Brachial blood pressure: 170/87 mm Hg. Common Carotid Artery(Distal) PSV: 82.80 cm/s Internal Carotid Artery PSV - Proximal: 72.70 cm/s Mid-lon.40 cm/s Distal: 62.30 cm/s EDV - Proximal: 16.70 cm/s Mid-lon.20 cm/s Distal: 15.80 cm/s External Carotid Artery(Proximal) PSV: 76.60 cm/s ICA/CCA PSV ratio: 1.1 Hamilton scale imaging description: Normal. Percent internal carotid artery stenosis: No carotid stenosis. Vertebral artery: Flow direction is antegrade. IMPRESSION: No carotid stenosis on either side. Dictated by: Lucien Perez RRA Interpreted: Ted Mcdowell MD on 06/08/2016 at 16:43 Transcribed by: EARLE on 06/08/2016 at 16:44 Approved by: Ted Mcdowell M.D. on 06/08/2016 at 16:57 Cardiac Echo Impressions Echocardiogram Interpretation Summary: Normal sinus rhythm. Moderate LVH; normal wall motion and LV systolic function. EF is 60-65%. Stage II diastolic dysfunction. Moderate LA enlargement; mild RA enlargemnet. Mitral valve leaflets are normal; mild MAC; no regurgitation. Trace tricuspid regurgitation. Estimated PA systolic pressure is 43 mm Hg assuming RA pressure of 3 mm Hg. There is a trace pericardial effusion. There is a moderate size left pleural effusion. Compared to prior study performed 01/30/2016 pleural effusion is new; pericardial effusion is new. Reading Physician:08:34 PM . Assessment & Plan Impression #1 end-stage renal disease dialysis dependent over to diabetic nephropathy #3 hypertension with hypertensive heart disease hypertensive nephrosclerosis #4 anemia secondary to chronic kidney disease Recommendations #1 patient is being dialyzed today for 3-1/2 hours on a clear dialyzer and a 3 potassium bath. He is also dialyzing with a 35 bicarbonate, no heparin, and will attempt to take 1 Aleve fluid off. He has also been given 60 mg of Aranesp. He preferred treatment and following this he can be discharged. VTE Prophylaxis: Sub-Q Heparin (Unfractionated) Resuscitation Status: CPR: Attempt Resuscitation Jean Crisostomo DO Jun 12, 2016 14:09
--- NOTE | 2016-06-12 15:23 | NUR ---
Back to room Returned from dialysis and BP admin. Frequent BP monitoring in pace at this time. Pt is comfortable at this time.
[2016-06-12] MEDS: Labetalol 5 mg/mL 4 mL Inj IVPUSH PRN ×2 (17:53→19:59)
--- NOTE | 2016-06-12 19:09 | NUR ---
HTN SBP greater than 200. Provider notified. IV labetalol ordered with parameters. Tele monitoring and Q4 vital checks at this time.
[2016-06-12] MEDS: Insulin GLARgine 100 Unit/mL Syringe SUBQ SCH (21:00)
--- NOTE | 2016-06-12 22:40 | PCM.PNMED ---
Subjective Date of Service Jun 12, 2016 Subjective Patient reports he is doing well. he denies any concerns or complaints at this time. Patient is eager to go home. Exam Vital Signs Vital Sign - Last Date Time Temp Pulse Resp B/P Pulse Ox O2 Delivery O2 Flow Rate FiO2 06/12/16 19:45 36.8 59 14 183/90 96 Room Air Intake and Output 06/11/16 06/11/16 06/12/16 Cumulative From/Thru 15:00 23:00 07:00 06/07/16 01:50 - 06/12/16 06:40 Intake Total 100 ml 280 ml 4220 ml Output Total 0 ml 300 ml 500 ml 5875 ml Balance 0 ml -200 ml -220 ml -1655 ml Intake Oral 100 ml 280 ml 4200 ml IV Total 20 ml Output Urine Total 300 ml 500 ml 5875 ml Ultrafiltrate 0 ml 0 ml # Voids 4 # Bowel Movements 4 Exam General: Patient in no acute distress, well-developed, well-nourished, appropriately interactive, appears older than stated age. HEENT: Patient is blind at baseline. Normocephalic, atraumatic. External ears without defect. Anicteric sclerae, moist conjunctivae. Oropharynx with moist mucosa. Neck: Supple with full range of motion. Cardiovascular: Regular rate and rhythm with no murmurs, rubs, or gallops appreciated Pulmonary: Clear to auscultation bilaterally with no crackles, wheezes, or rhonchi. Normal respiratory effort with no use of accessory muscles. Abdomen: Soft, obese, nontender, nondistended, bowel sounds present. Extremities: Tunnel catheter placed on right side. No clubbing or cyanosis. Trace nonpitting edema to ankles. Skin: Normal temperature, turgor, and texture; no rash, ulcers,appreciated. Psychiatric: Normal mood and affect. Alert and oriented to person, place, and time. IVs and Medications Medications Reviewed: Medications were reviewed in detail Lab and Diagnostics Result Diagram: 06/12/1672906/12/16729 X-Rays, CTs and MRIs PROCEDURE: CT BRAIN WITHOUT CONTRAST ([id number]) INDICATIONS: left sided facial droop TECHNIQUE: Noncontrast 4.5 mm thick angled axial sections acquired from the foramen magnum to the vertex, with coronal reformats. COMPARISON: [facility], CT, CT BRAIN WO CON, 01/28/2016, 16:09. FINDINGS: Image quality: Excellent. CSF spaces: Basal cisterns are patent. No extra-axial fluid collections. Ventricles are normal in size and shape. Brain: No midline shift. Chronic right frontal encephalomalacia which is unchanged No intracranial masses or hemorrhage. Hamilton-white matter interface is normal. Skull and face: Calvarium and visualized facial bones are intact, without suspicious lesions. Sinuses: Bilateral maxillary sinus disease IMPRESSION: No acute intracranial process. Chronic unchanged right frontal encephalomalacia Dictated by: Kwaku Wolff M.D. on 06/07/2016 at 8:12 Approved by: Kwaku Wolff M.D. on 06/07/2016 at 8:14 PROCEDURE: MRI BRAIN WITHOUT CONTRAST ([id number]) INDICATIONS: TIA TECHNIQUE: Noncontrast axial T1 spin echo, axial T2 fast spin echo, sagittal and axial FLAIR, coronal T2 fast spin echo, axial gradient echo, axial diffusion and ADC through the brain. COMPARISON: [facility], MR, MR ANGIO HEAD WO CON, 06/07/2016, 11: 22. [facility], CT, CT BRAIN WO CON, 06/07/2016, 2:01. [facility], MR, MR BRAIN WO CON, 01/24/2015, 12:17. FINDINGS: Image quality: Excellent. CSF Spaces: Basal cisterns are patent. No extra-axial fluid collections. Ventricles are normal in size and shape. Cavum septum vergae is present. The Brain: No intracranial masses or hemorrhage. Small right chronic frontotemporal infarct is present , as before. Hamilton/white matter interface is normal. Brainstem appears normal. Diffusion-weighted images demonstrate no acute ischemic insult. No chronic ischemic insults. Normal intravascular flow voids are present. Skull and face: Calvarium has normal marrow signal. Orbits appear normal. Sinuses: Mild bilateral maxillary sinus mucosal thickening. Right maxillary sinus retention cyst. IMPRESSION: 1. No acute process. No recent infarct. 2. Chronic right frontotemporal infarcts unchanged. 3. Sinus disease. Dictated by: Judy Morgan M.D. on 06/07/2016 at 10:51 Approved by: Judy Morgan M.D. on 06/07/2016 at 10:53 PROCEDURE: MRA ANGIOGRAM HEAD WITHOUT CONTRAST ([id number]) INDICATIONS: RIGHT SIDE FACIAL DROOP,TIA TECHNIQUE: Noncontrast axial 3-D [id number] MR angiogram, with 3-dimensional maximum intensity projection (MIP) reformats of the internal carotid arteries and posterior circulation then performed. COMPARISON: [facility], CT, CT BRAIN WO CON, 06/07/2016, 2:01. [facility], CT, CT ANGIO BRAIN AND NECK, 01/22/2015, 18:06. FINDINGS: Image quality: Partially degraded by motion artifact Anterior circulation: Intracranial internal carotid arteries demonstrate normal size and intraluminal flow signal. The flow within the paired anterior cerebral arteries is normal and symmetric. The flow within the middle cerebral arteries is normal and symmetric. The anterior communicating artery is seen. No stenoses, occlusions, or aneurysms. Posterior circulation: Visualized portions of the vertebral arteries demonstrate normal caliber, and join to form a normal appearing basilar artery. Moderate to high-grade bilateral P1 segment stenoses. No aneurysms. IMPRESSION: 1. Moderate to high-grade stenoses within the bilateral posterior cerebral artery P1 segments. 2. Otherwise negative evaluation. Dictated by: Judy Morgan M.D. on 06/07/2016 at 10:53 Approved by: Judy Morgan M.D. on 06/07/2016 at 10:55 PROCEDURE: US BILATERAL DUPLEX DOPPLER IMAGING OF THE CAROTIDS ([id number]) INDICATIONS: Hypertension and TIA symptoms. TECHNIQUE: Color and pulse Doppler interrogation was performed of both carotid systems, with image documentation and velocity measurements. COMPARISON: None. FINDINGS: All stenosis calculations are based on NASCET criteria. Right side: Brachial blood pressure: Not performed Common Carotid Artery(Distal) PSV: 81 cm/s Internal Carotid Artery PSV- Proximal: 74 cm/s Mid-lon.60 cm/s Distal: 66.80 cm/s EDV - Proximal: 15.60 cm/s Mid-lon.80 cm/s Distal: 15.90 cm/s External Carotid Artery(Proximal) PSV: 80 cm/s ICA/CCA PSV ratio: 0.9 Hamilton scale imaging description: Normal. Percent internal carotid artery stenosis: No carotid stenosis. Vertebral artery: Flow direction is antegrade. Left side: Brachial blood pressure: 170/87 mm Hg. Common Carotid Artery(Distal) PSV: 82.80 cm/s Internal Carotid Artery PSV - Proximal: 72.70 cm/s Mid-lon.40 cm/s Distal: 62.30 cm/s EDV - Proximal: 16.70 cm/s Mid-lon.20 cm/s Distal: 15.80 cm/s External Carotid Artery(Proximal) PSV: 76.60 cm/s ICA/CCA PSV ratio: 1.1 Hamilton scale imaging description: Normal. Percent internal carotid artery stenosis: No carotid stenosis. Vertebral artery: Flow direction is antegrade. IMPRESSION: No carotid stenosis on either side. Dictated by: Lucien Perez RRA Interpreted: Ted Mcdowell MD on 06/08/2016 at 16:43 Transcribed by: EARLE on 06/08/2016 at 16:44 Approved by: Ted Mcdowell M.D. on 06/08/2016 at 16:57 Cardiac Echo Impressions Echocardiogram Interpretation Summary: Normal sinus rhythm. Moderate LVH; normal wall motion and LV systolic function. EF is 60-65%. Stage II diastolic dysfunction. Moderate LA enlargement; mild RA enlargemnet. Mitral valve leaflets are normal; mild MAC; no regurgitation. Trace tricuspid regurgitation. Estimated PA systolic pressure is 43 mm Hg assuming RA pressure of 3 mm Hg. There is a trace pericardial effusion. There is a moderate size left pleural effusion. Compared to prior study performed 01/30/2016 pleural effusion is new; pericardial effusion is new. Reading Physician:08:34 PM . Assessment & Plan Narciso Ruiz is a 50-year-old male with past medical history significant for hypertension, chronic kidney disease stage IV, anemia of chronic kidney disease , diabetes mellitus type II, insulin using, with complications of retinopathy with complete blindness, neuropathy, and nephropathy who presented to [facility] with complaints of occipital neck pain and right-sided facial droop. Chronic kidney disease stage IV, present on admission, ongoing - Avoid nephrotoxic agents. - Continue to monitor renal function and urine output daily. - Continue Renvela 800 mg 3 times a day with meals and calcium carbonate 500 mg 3 times a day. -Nephrology consulted and we appreciate their input and recommendations. -Per Nephrology-patient had tunnel catheter placed and has started dialysis Hypertension, chronic, poorly controlled -Nephrology has been consulted and recommend adding spironolactone 50 mg twice a day - Continued labetalol 200mg TID -Continue home hydralazine 25 mg 3 times a day and amlodipine 10 mg daily. -Pt continues to have elevated blood pressures Acute TIA, present on admission, symptoms resolved - Patient presented with moderate occipital neck pain with right-sided facial droop. Symptoms resolved after hydromorphone and Zofran were given. - NIHSS score of 1, therefore, not a TPA candidate. - CT brain without contrast showed no acute intracranial process - MR without contrast was normal -Discontinue aspirin 325 mg daily. -Continue lisinopril 5 mg daily -Continue atorvastatin 40 mg daily at bedtime. - Continue monitor closely on telemetry. -Carotid US did not demonstrate any carotid stenosis -Starting pt on Plavix Recently diagnosed with community-acquired pneumonia, present on admission. Completed -Completed 7 day course of levofloxacin 750 mg daily Hyperkalemia, resolved -Treated with Kayexalate Anemia of chronic kidney disease. - Continue to monitor hemoglobin and hematocrit daily. Diabetes mellitus type II, insulin using, with complication of bilateral diabetic retinopathy, neuropathy, and nephropathy. - Last hemoglobin A1c was 7.4% on 05/30/2016. - Ordered low-dose correctional scale insulin. - Continue Lantus 10 units subcutaneous daily at bedtime. - Continue carbohydrate consistent/heart healthy diet. Bipolar disorder type I chronic. - Continue home dose of Depakote ER 500 mg 3 times a day and fluoxetine 20 mg daily. GERD, chronic. - Continue H2 miguel angel substitute ranitidine with famotidine 20 mg daily at bedtime. Gastroparesis, chronic. - Continue Reglan 5 mg 3 times daily. Hyperlipidemia, chronic. - Continue atorvastatin 40 mg daily at bedtime. Diabetic retinopathy with complete blindness. Stable. PRN antiemetics: Zofran and Maalox. PRN bowel regimen: Senna and MiraLAX. PRN analgesics: Tylenol. Patient is admitted under observation status with expected length of stay less than 2 midnights due to severity of presenting symptoms, risk of adverse event, and complexity of treatment plan. VTE Prophylaxis: Sub-Q Heparin (Unfractionated) Resuscitation Status: CPR: Attempt Resuscitation Attending Statement The patient was seen and examined together with Dr. Levi on 06-12-16 and I agree with the history, exam and plan as outlined in the note above. Josephine Levi DO Jun 12, 2016 22:40 Cha Red MD Jun 13, 2016 08:03
[2016-06-13] VITALS (9 sets, daily range): BP systolic 174–212; BP diastolic 78–98; PULSE 60–72; RESP 16; O2SAT 92–98
[2016-06-13] MEDS: Heparin 5,000 Unit/mL Inj SUBQ SCH ×3 (00:16→18:10)
--- NOTE | 2016-06-13 05:56 | NUR ---
Tunnel Catheter Bleeding: Tunnel catheter was bleeding out and compression dressing was placed. Bleeding stopped and patient is lying in bed. Call light is within reach.
[2016-06-13] MEDS: Insulin LISPRO 300 Unit/3 mL Inj SUBQ SCH ×4 (08:00→21:55)
[2016-06-13] MEDS: Calcium Carbonate (Oyster Shell) 500 mg Tablet PO SCH ×3 (08:02→22:01)
[2016-06-13] MEDS: Divalproex (QD) 500 mg ER24 Tablet PO SCH ×3 (08:02→22:02)
[2016-06-13 08:48] LABS: Unsaturated Iron Binding 154.8 ug/dL
[2016-06-13 09:09] LABS: BASOPHILS % (AUTO) 1.5 % (0-3); EOSINOPHILS % (AUTO) 3.9 % (0-5); MONOCYTES % (AUTO) 15.2 % (4-12); Mean Corpuscular Hemoglobin 29.7 pg (27.0-35.0); Mean Corpuscular Volume 86.9 fL (81-100); Platelet Count 120 bil/L (150-400)
--- NOTE | 2016-06-13 10:20 | NUR ---
Social Work: Discharge Data: Pt is on day 6 of hospitalization. EMR reviewed. D/C orders are in. No further d/c planning needs at this time. [facility] [employer] CH[employer]ER will continue to follow if needs arise. Assessment: Pt who is independent at baseline. Plan: Pt will d/c home via POV today. No further d/c planning needs at this time. [employer] RO[employer] CHANGER will continue to follow if needs arise. RENEA Singleton
--- NOTE | 2016-06-13 11:40 | PCM.PNMED ---
Subjective Date of Service Jun 13, 2016 Subjective Patient continues to do well. He is scheduled today for his third dialysis treatment and following this he will be discharged. He denies any headache, chest pain, dyspnea, nausea or vomiting. Exam Vital Signs Vital Sign - Last Date Time Temp Pulse Resp B/P Pulse Ox O2 Delivery O2 Flow Rate FiO2 06/13/16 10:27 68 06/13/16 09:43 36.6 16 212/98 92 Room Air Intake and Output 06/12/16 06/12/16 06/13/16 Cumulative From/Thru 15:00 23:00 07:00 06/07/16 01:50 - 06/13/16 06:31 Intake Total 909 ml 350 ml 5479 ml Output Total 1000 ml 400 ml 700 ml 7975 ml Balance -1000 ml 509 ml -350 ml -2496 ml Intake Oral 909 ml 350 ml 5459 ml IV Total 20 ml Output Urine Total 400 ml 700 ml 6975 ml Ultrafiltrate 1000 ml 1000 ml # Voids 4 # Bowel Movements 4 1 9 Exam Lungs are clear to auscultation. Heart is regular. Systolic murmur. Abdomen is soft without tenderness rebound guarding masses or hepatosplenomegaly. Diminished functional clubbing cyanosis or edema. Skin turgor scrotum is no evidence of any rashes. Lab and Diagnostics Result Diagram: 06/13/16 0745 06/13/16 0748 X-Rays, CTs and MRIs PROCEDURE: CT BRAIN WITHOUT CONTRAST ([id number]) INDICATIONS: left sided facial droop TECHNIQUE: Noncontrast 4.5 mm thick angled axial sections acquired from the foramen magnum to the vertex, with coronal reformats. COMPARISON: [facility], CT, CT BRAIN WO CON, 01/28/2016, 16:09. FINDINGS: Image quality: Excellent. CSF spaces: Basal cisterns are patent. No extra-axial fluid collections. Ventricles are normal in size and shape. Brain: No midline shift. Chronic right frontal encephalomalacia which is unchanged No intracranial masses or hemorrhage. Hamilton-white matter interface is normal. Skull and face: Calvarium and visualized facial bones are intact, without suspicious lesions. Sinuses: Bilateral maxillary sinus disease IMPRESSION: No acute intracranial process. Chronic unchanged right frontal encephalomalacia Dictated by: Kwaku Wolff M.D. on 06/07/2016 at 8:12 Approved by: Kwaku Wolff M.D. on 06/07/2016 at 8:14 PROCEDURE: MRI BRAIN WITHOUT CONTRAST ([id number]) INDICATIONS: TIA TECHNIQUE: Noncontrast axial T1 spin echo, axial T2 fast spin echo, sagittal and axial FLAIR, coronal T2 fast spin echo, axial gradient echo, axial diffusion and ADC through the brain. COMPARISON: [facility], MR, MR ANGIO HEAD WO CON, 06/07/2016, 11: 22. [facility], CT, CT BRAIN WO CON, 06/07/2016, 2:01. [facility], MR, MR BRAIN WO CON, 01/24/2015, 12:17. FINDINGS: Image quality: Excellent. CSF Spaces: Basal cisterns are patent. No extra-axial fluid collections. Ventricles are normal in size and shape. Cavum septum vergae is present. The Brain: No intracranial masses or hemorrhage. Small right chronic frontotemporal infarct is present , as before. Hamilton/white matter interface is normal. Brainstem appears normal. Diffusion-weighted images demonstrate no acute ischemic insult. No chronic ischemic insults. Normal intravascular flow voids are present. Skull and face: Calvarium has normal marrow signal. Orbits appear normal. Sinuses: Mild bilateral maxillary sinus mucosal thickening. Right maxillary sinus retention cyst. IMPRESSION: 1. No acute process. No recent infarct. 2. Chronic right frontotemporal infarcts unchanged. 3. Sinus disease. Dictated by: Judy Morgan M.D. on 06/07/2016 at 10:51 Approved by: Judy Morgan M.D. on 06/07/2016 at 10:53 PROCEDURE: MRA ANGIOGRAM HEAD WITHOUT CONTRAST ([id number]) INDICATIONS: RIGHT SIDE FACIAL DROOP,TIA TECHNIQUE: Noncontrast axial 3-D [id number] MR angiogram, with 3-dimensional maximum intensity projection (MIP) reformats of the internal carotid arteries and posterior circulation then performed. COMPARISON: [facility], CT, CT BRAIN WO CON, 06/07/2016, 2:01. [facility], CT, CT ANGIO BRAIN AND NECK, 01/22/2015, 18:06. FINDINGS: Image quality: Partially degraded by motion artifact Anterior circulation: Intracranial internal carotid arteries demonstrate normal size and intraluminal flow signal. The flow within the paired anterior cerebral arteries is normal and symmetric. The flow within the middle cerebral arteries is normal and symmetric. The anterior communicating artery is seen. No stenoses, occlusions, or aneurysms. Posterior circulation: Visualized portions of the vertebral arteries demonstrate normal caliber, and join to form a normal appearing basilar artery. Moderate to high-grade bilateral P1 segment stenoses. No aneurysms. IMPRESSION: 1. Moderate to high-grade stenoses within the bilateral posterior cerebral artery P1 segments. 2. Otherwise negative evaluation. Dictated by: Judy Morgan M.D. on 06/07/2016 at 10:53 Approved by: Judy Morgan M.D. on 06/07/2016 at 10:55 PROCEDURE: US BILATERAL DUPLEX DOPPLER IMAGING OF THE CAROTIDS ([id number]) INDICATIONS: Hypertension and TIA symptoms. TECHNIQUE: Color and pulse Doppler interrogation was performed of both carotid systems, with image documentation and velocity measurements. COMPARISON: None. FINDINGS: All stenosis calculations are based on NASCET criteria. Right side: Brachial blood pressure: Not performed Common Carotid Artery(Distal) PSV: 81 cm/s Internal Carotid Artery PSV- Proximal: 74 cm/s Mid-lon.60 cm/s Distal: 66.80 cm/s EDV - Proximal: 15.60 cm/s Mid-lon.80 cm/s Distal: 15.90 cm/s External Carotid Artery(Proximal) PSV: 80 cm/s ICA/CCA PSV ratio: 0.9 Hamilton scale imaging description: Normal. Percent internal carotid artery stenosis: No carotid stenosis. Vertebral artery: Flow direction is antegrade. Left side: Brachial blood pressure: 170/87 mm Hg. Common Carotid Artery(Distal) PSV: 82.80 cm/s Internal Carotid Artery PSV - Proximal: 72.70 cm/s Mid-lon.40 cm/s Distal: 62.30 cm/s EDV - Proximal: 16.70 cm/s Mid-lon.20 cm/s Distal: 15.80 cm/s External Carotid Artery(Proximal) PSV: 76.60 cm/s ICA/CCA PSV ratio: 1.1 Hamilton scale imaging description: Normal. Percent internal carotid artery stenosis: No carotid stenosis. Vertebral artery: Flow direction is antegrade. IMPRESSION: No carotid stenosis on either side. Dictated by: Lucien Choffel RRA Interpreted: Ted Mcdowell MD on 06/08/2016 at 16:43 Transcribed by: EARLE on 06/08/2016 at 16:44 Approved by: Ted Mcdowell M.D. on 06/08/2016 at 16:57 Cardiac Echo Impressions Echocardiogram Interpretation Summary: Normal sinus rhythm. Moderate LVH; normal wall motion and LV systolic function. EF is 60-65%. Stage II diastolic dysfunction. Moderate LA enlargement; mild RA enlargemnet. Mitral valve leaflets are normal; mild MAC; no regurgitation. Trace tricuspid regurgitation. Estimated PA systolic pressure is 43 mm Hg assuming RA pressure of 3 mm Hg. There is a trace pericardial effusion. There is a moderate size left pleural effusion. Compared to prior study performed 01/30/2016 pleural effusion is new; pericardial effusion is new. Reading Physician:08:34 PM . Assessment & Plan Impression #1 end-stage renal disease dialysis dependent number to diabetic nephropathy #3 hypertension with hypertensive heart disease and hypertensive nephrosclerosis. Recommendations #1 patient is to be dialyzed today for 4 hours on a revaclear max dialyzer, 400 mg, 3 potassium bath, 1200 heparin as a bolus and 500 mg 1 and will attempt to take 1-2 L of fluid off. Patient to be discharged today with instructions to follow-up at the dialysis unit next week for scheduled appointment. VTE Prophylaxis: Sub-Q Heparin (Unfractionated) Resuscitation Status: CPR: Attempt Resuscitation Jean Crisostomo DO Jun 13, 2016 11:40
[2016-06-13] MEDS: Ondansetron 2 mg/mL 2 mL Inj IVPUSH PRN (12:23)
--- NOTE | 2016-06-13 12:50 | NUR ---
Pt off unit to [facility] for Dialysis Tele notified, transferred via bed, no s/sx distress. Report given to COURTNEY Parson. New room is 243, bed 1.
--- NOTE | 2016-06-13 13:37 | NUR ---
[facility] [place] Patient transported in bed to room 243-2. Report received from Rich Earl RN. Old blood noted on gown. tube cleaner at bedside. tax map technician notified by [facility] staff.
[2016-06-13] MEDS ORDERED: SPIR25TA PO (15:19)
[2016-06-13] MEDS ORDERED: CLOP75TA28 PO (15:19)
--- NOTE | 2016-06-13 15:25 | PCM.DIMED ---
Josephine Levi DO 06/13/16 1525: Discharge Instructions Date of Service Jun 13, 2016 Dates of Hospitalization Jun 07, 2016 at 05:57 Discharge Diagnosis Discharge Diagnosis Chronic kidney disease stage IV now on dialysis Hypertension, chronic, poorly controlled Acute TIA, present on admission, symptoms resolved Recently diagnosed with community-acquired pneumonia, present on admission. Completed Hyperkalemia, resolved Anemia of chronic kidney disease. Diabetes mellitus type II, insulin using, with complication of bilateral diabetic retinopathy, neuropathy, and nephropathy. Bipolar disorder type I chronic. GERD, chronic. Gastroparesis, chronic. Hyperlipidemia, chronic. Diabetic retinopathy with complete blindness. Stable. Medication Instructions Stop taking aspirin. We are starting on a medication called Plavix, you will need to take this medication daily. Below is a list of medications we are sending you home on Amlodipine 10 mg daily Lipitor 40 mg every night Plavix 75 mg daily Depakote 500 mg 3 times a day Florinef 0.1 mg, Wednesday Prozac 20 mg daily Hydralazine 25 mg 3 times a day Lantus 10 units nightly Humalog insulin per scale Labetalol 200 mg 3 times a day Reglan 5 mg 3 times a day with meals Renvela 800 mg 3 times a day with meals Spironolactone 50 mg twice a day Torsemide 20 mg daily Diet Renal Diet Activity No restrictions Call your provider Fever or Chills, Shortness of breath, Bleeding, Chest pain, Vomitting, Excessive diarrhea, Weakness (unilateral) Patient Instructions You need to follow-up with the dialysis unit and Dr. Crisostomo next week for your appointment. During your hospitalization to have a tunnel catheter placed, and had been started on dialysis. Please make an appointment to follow up with Charity Monson regarding this hospitalization and starting dialysis. Please take your medications as prescribed. Follow-up Provider: Charity Monson PA-C Follow-up with PCP in: Other (1-2wks) Provider: Jean Crisostomo DO Follow-up in: 1 week Mid-level [facility] (F9[facility] Follow-up with Mid-level in: 1 week Cha Red MD 06/14/16 1706: Discharge Instructions Attending's Statement The patient was seen and examined together with Dr. Levi on 06-13-16 and I agree with the history, exam and plan as outlined in the note above. Josephine Levi DO Jun 13, 2016 15:25 Cha Red MD Jun 14, 2016 17:06
--- NOTE | 2016-06-13 15:32 | PCM.DC.MED ---
Discharge Summary Date of Service Jun 13, 2016 Dates of Hospitalization Date of Hospital Admission Jun 07, 2016 at 05:57 Date of Discharge: Jun 13, 2016 Providers: Admitting Physician: Julian Santiago MD Primary Care Physician: Charity Monson PA-C Attending Physician: Julian Santiago MD Diagnosis at Time of Discharge Diagnosis at Time of Discharge Chronic kidney disease stage IV now on dialysis Hypertension, chronic, poorly controlled Acute TIA, present on admission, symptoms resolved Recently diagnosed with community-acquired pneumonia, present on admission. Completed Hyperkalemia, resolved Anemia of chronic kidney disease. Diabetes mellitus type II, insulin using, with complication of bilateral diabetic retinopathy, neuropathy, and nephropathy. Bipolar disorder type I chronic. GERD, chronic. Gastroparesis, chronic. Hyperlipidemia, chronic. Diabetic retinopathy with complete blindness. Stable. Consultations Nephrology Procedures XRay, CTs & MRIs PROCEDURE: CT BRAIN WITHOUT CONTRAST ([id number]) INDICATIONS: left sided facial droop TECHNIQUE: Noncontrast 4.5 mm thick angled axial sections acquired from the foramen magnum to the vertex, with coronal reformats. COMPARISON: [facility], CT, CT BRAIN WO CON, 01/28/2016, 16:09. FINDINGS: Image quality: Excellent. CSF spaces: Basal cisterns are patent. No extra-axial fluid collections. Ventricles are normal in size and shape. Brain: No midline shift. Chronic right frontal encephalomalacia which is unchanged No intracranial masses or hemorrhage. Hamilton-white matter interface is normal. Skull and face: Calvarium and visualized facial bones are intact, without suspicious lesions. Sinuses: Bilateral maxillary sinus disease IMPRESSION: No acute intracranial process. Chronic unchanged right frontal encephalomalacia Dictated by: Kwaku Wolff M.D. on 06/07/2016 at 8:12 Approved by: Kwaku Wolff M.D. on 06/07/2016 at 8:14 PROCEDURE: MRI BRAIN WITHOUT CONTRAST ([id number]) INDICATIONS: TIA TECHNIQUE: Noncontrast axial T1 spin echo, axial T2 fast spin echo, sagittal and axial FLAIR, coronal T2 fast spin echo, axial gradient echo, axial diffusion and ADC through the brain. COMPARISON: [facility], MR, MR ANGIO HEAD WO CON, 06/07/2016, 11: 22. [facility], CT, CT BRAIN WO CON, 06/07/2016, 2:01. [facility], MR, MR BRAIN WO CON, 01/24/2015, 12:17. FINDINGS: Image quality: Excellent. CSF Spaces: Basal cisterns are patent. No extra-axial fluid collections. Ventricles are normal in size and shape. Cavum septum vergae is present. The Brain: No intracranial masses or hemorrhage. Small right chronic frontotemporal infarct is present , as before. Hamilton/white matter interface is normal. Brainstem appears normal. Diffusion-weighted images demonstrate no acute ischemic insult. No chronic ischemic insults. Normal intravascular flow voids are present. Skull and face: Calvarium has normal marrow signal. Orbits appear normal. Sinuses: Mild bilateral maxillary sinus mucosal thickening. Right maxillary sinus retention cyst. IMPRESSION: 1. No acute process. No recent infarct. 2. Chronic right frontotemporal infarcts unchanged. 3. Sinus disease. Dictated by: Judy Morgan M.D. on 06/07/2016 at 10:51 Approved by: Judy Morgan M.D. on 06/07/2016 at 10:53 PROCEDURE: MRA ANGIOGRAM HEAD WITHOUT CONTRAST ([id number]) INDICATIONS: RIGHT SIDE FACIAL DROOP,TIA TECHNIQUE: Noncontrast axial 3-D [id number] MR angiogram, with 3-dimensional maximum intensity projection (MIP) reformats of the internal carotid arteries and posterior circulation then performed. COMPARISON: [facility], CT, CT BRAIN WO CON, 06/07/2016, 2:01. [facility], CT, CT ANGIO BRAIN AND NECK, 01/22/2015, 18:06. FINDINGS: Image quality: Partially degraded by motion artifact Anterior circulation: Intracranial internal carotid arteries demonstrate normal size and intraluminal flow signal. The flow within the paired anterior cerebral arteries is normal and symmetric. The flow within the middle cerebral arteries is normal and symmetric. The anterior communicating artery is seen. No stenoses, occlusions, or aneurysms. Posterior circulation: Visualized portions of the vertebral arteries demonstrate normal caliber, and join to form a normal appearing basilar artery. Moderate to high-grade bilateral P1 segment stenoses. No aneurysms. IMPRESSION: 1. Moderate to high-grade stenoses within the bilateral posterior cerebral artery P1 segments. 2. Otherwise negative evaluation. Dictated by: Judy Morgan M.D. on 06/07/2016 at 10:53 Approved by: Judy Morgan M.D. on 06/07/2016 at 10:55 PROCEDURE: US BILATERAL DUPLEX DOPPLER IMAGING OF THE CAROTIDS ([id number]) INDICATIONS: Hypertension and TIA symptoms. TECHNIQUE: Color and pulse Doppler interrogation was performed of both carotid systems, with image documentation and velocity measurements. COMPARISON: None. FINDINGS: All stenosis calculations are based on NASCET criteria. Right side: Brachial blood pressure: Not performed Common Carotid Artery(Distal) PSV: 81 cm/s Internal Carotid Artery PSV- Proximal: 74 cm/s Mid-lon.60 cm/s Distal: 66.80 cm/s EDV - Proximal: 15.60 cm/s Mid-lon.80 cm/s Distal: 15.90 cm/s External Carotid Artery(Proximal) PSV: 80 cm/s ICA/CCA PSV ratio: 0.9 Hamilton scale imaging description: Normal. Percent internal carotid artery stenosis: No carotid stenosis. Vertebral artery: Flow direction is antegrade. Left side: Brachial blood pressure: 170/87 mm Hg. Common Carotid Artery(Distal) PSV: 82.80 cm/s Internal Carotid Artery PSV - Proximal: 72.70 cm/s Mid-lon.40 cm/s Distal: 62.30 cm/s EDV - Proximal: 16.70 cm/s Mid-lon.20 cm/s Distal: 15.80 cm/s External Carotid Artery(Proximal) PSV: 76.60 cm/s ICA/CCA PSV ratio: 1.1 Hamilton scale imaging description: Normal. Percent internal carotid artery stenosis: No carotid stenosis. Vertebral artery: Flow direction is antegrade. IMPRESSION: No carotid stenosis on either side. Dictated by: Lucien Perez RRA Interpreted: Ted Mcdowell MD on 06/08/2016 at 16:43 Transcribed by: EARLE on 06/08/2016 at 16:44 Approved by: Ted Mcdowell M.D. on 06/08/2016 at 16:57 Cardiac Echo Impression Echocardiogram Interpretation Summary: Normal sinus rhythm. Moderate LVH; normal wall motion and LV systolic function. EF is 60-65%. Stage II diastolic dysfunction. Moderate LA enlargement; mild RA enlargemnet. Mitral valve leaflets are normal; mild MAC; no regurgitation. Trace tricuspid regurgitation. Estimated PA systolic pressure is 43 mm Hg assuming RA pressure of 3 mm Hg. There is a trace pericardial effusion. There is a moderate size left pleural effusion. Compared to prior study performed 01/30/2016 pleural effusion is new; pericardial effusion is new. Reading Physician:08:34 PM . Invasive Procedures Tunnel catheter placement Brief History Per Dr. Huerta's H&P on 06/07/16 "Narciso Ruiz is a 50-year-old male with past medical history significant for hypertension, chronic kidney disease stage IV, anemia of chronic kidney disease , diabetes mellitus type II, insulin using, with complications of retinopathy with complete blindness, neuropathy, and nephropathy who presented to [facility] with complaints of occipital neck pain and right-sided facial droop. The patient reports that he believed he had a stroke therefore he came to the ED. He complained of occipital neck pain and "his right face was sticking up" for several hours. He reports that his neck pain and right-sided facial droop subsided with the medications we gave him. He reports an associated mild headache. He denies dizziness, lightheadedness, weakness, unsteadiness or balance issues, trouble with speech, shortness of breath, palpitations, chest pain, nausea, vomiting, abdominal pain, dysuria, diarrhea, or constipation. She denies previous history of CVA. He has no other complaints. Vital signs in the ER: Temperature 36.4. Pulse 62. Respiratory rate 20. Blood pressure 189/93. Pulse ox 96% on room air. Patient was given hydromorphone 0.5 mg IV 1 and reports Zofran. PCP is Charity Monson PA-C." . Hospital Course Narciso Ruiz is a 50-year-old male with past medical history significant for hypertension, chronic kidney disease stage IV, anemia of chronic kidney disease , diabetes mellitus type II, insulin using, with complications of retinopathy with complete blindness, neuropathy, and nephropathy who presented to [facility] with complaints of occipital neck pain and right-sided facial droop. Chronic kidney disease stage IV now on dialysis - Avoid nephrotoxic agents. - Continue Renvela 800 mg 3 times a day with meals and calcium carbonate 500 mg 3 times a day. -Patient had a tunnel catheter placed during this hospitalization and started dialysis -She will follow-up with Dr. Crisostomo of nephrology, and the dialysis unit Hypertension, chronic, poorly controlled -Nephrology has been consulted- Spironolactone 50 mg twice a day and continue labetalol 200 mg 3 times a day, hydralazine 25 mg 3 times a day, amlodipine 10 mg daily Acute TIA, present on admission, symptoms resolved - Patient presented with moderate occipital neck pain with right-sided facial droop. Symptoms resolved after hydromorphone and Zofran were given. - NIHSS score of 1, therefore, not a TPA candidate. - CT brain without contrast showed no acute intracranial process - MR without contrast was normal -Continue lisinopril 5 mg daily -Continue atorvastatin 40 mg daily at bedtime. - Continue monitor closely on telemetry. -Carotid US did not demonstrate any carotid stenosis -Patient discharged on Plavix 75 mg daily Recently diagnosed with community-acquired pneumonia, present on admission. Completed -Completed 7 day course of levofloxacin 750 mg daily Hyperkalemia, resolved -Treated with Kayexalate Anemia of chronic kidney disease. -Recommend outpatient follow-up Diabetes mellitus type II, insulin using, with complication of bilateral diabetic retinopathy, neuropathy, and nephropathy. - Last hemoglobin A1c was 7.4% on 05/30/2016. -At discharge patient advised to continue with his home medications Bipolar disorder type I chronic. - Continue home dose of Depakote ER 500 mg 3 times a day and fluoxetine 20 mg daily. GERD, chronic. - Continue H2 miguel angel substitute ranitidine with famotidine 20 mg daily at bedtime. Gastroparesis, chronic. - Continue Reglan 5 mg 3 times daily. Hyperlipidemia, chronic. - Continue atorvastatin 40 mg daily at bedtime. Diabetic retinopathy with complete blindness. Stable. Exam Vital Signs (Last) Date Time Temp Pulse Resp B/P Pulse Ox O2 Delivery O2 Flow Rate FiO2 06/13/16 10:27 68 06/13/16 09:43 36.6 16 212/98 92 Room Air Exam General: Patient in no acute distress, well-developed, well-nourished, appropriately interactive, appears older than stated age. HEENT: Patient is blind at baseline. Normocephalic, atraumatic. External ears without defect. Anicteric sclerae, moist conjunctivae. Oropharynx with moist mucosa. Neck: Supple with full range of motion. Cardiovascular: Regular rate and rhythm with no murmurs, rubs, or gallops appreciated Pulmonary: Clear to auscultation bilaterally with no crackles, wheezes, or rhonchi. Normal respiratory effort with no use of accessory muscles. Abdomen: Soft, obese, nontender, nondistended, bowel sounds present. Extremities: Tunnel catheter in place. No clubbing or cyanosis. Trace nonpitting edema to ankles. Skin: Normal temperature, turgor, and texture; no rash, ulcers,appreciated. Psychiatric: Normal mood and affect. Alert and oriented to person, place, and time. Test 06/07/16 02:12 06/07/16 02:37 06/07/16 21:26 06/10/16 15:54 Hold Cook Top Tube Received (Received) Urine Color Yellow (YELLOW) Urine Appearance Clear (CLEAR,HAZY) Urine pH 5.5 (5.0-8.0) Urine Specific King 1.020 (1.003-1.035) Urine Protein >300mg/dL (NEG,TRACE) Urine Glucose (UA) 100mg/dL (NEGATIVE) Urine Ketones Tracemg/dL (NEGATIVE) Urine Occult Blood Moderate (NEGATIVE) Urine Nitrite Negative (NEGATIVE) Urine Bilirubin Negative (NEGATIVE) Urine Urobilinogen Normalmg/dL (NORMAL) Urine Leukocyte Esterase Negative (NEGATIVE) Urine RBC 0-2/hpf (0-2) Urine WBC 0-5/hpf (0-5) Urine Epithelial Cells Few/hpf (NONE-MOD) Urine Crystals None seen (NONE SEEN) Urine Bacteria Few/hpf (NONE-FEW) Urine Hyaline Casts None/lpf (NONE) Urine Granular Casts Occasional (NONE SEEN) Urine Waxy Casts None seen (NONE SEEN) Urine Red Blood Cell Casts None seen (NONE SEEN) Urine White Blood Cell Casts None seen (NONE SEEN) Urine Mucus None seen (None Seen) Urine Trichomonas None seen (NONE SEEN) Urine Yeast None (NONE SEEN) Urinalysis Comment None Urine Culture Reflexed Not indicated Urine Opiates Screen Negative Urine Methadone Screen Negative Urine Barbiturates Screen Negative Urine Amphetamines Screen Positive Urine Benzodiazepines Screen Negative Urine Cocaine Metabolite Screen Negative Urine Cannabinoids Screen Negative Troponin T 0.266ug/L (0.0-0.011) Prothrombin Time 11.3sec (8.1-12.5) Prothromb Time International Ratio 1.05ratio Activated Partial Thromboplast Time 23.9sec (22.8-33.0) Test 06/11/16 06:57 06/12/16 07:30 06/13/16 07:45 06/13/16 07:48 Hepatitis A IgM Antibody Negative (Negative) Hepatitis B Surface Antigen Negative (Negative) Hepatitis B Core IgM Antibody Negative (Negative) Hepatitis C Antibody <0.1s/co ratio (0.0-0.9) Hepatitis C Comment Comment (.) Phosphorus Level 3.6mg/dL (2.5-4.9) Parathyroid Hormone (Intact) 50pg/mL (15-65) White Blood Count 4.6th/mm3 (3.8-10.1) Red Blood Count 3.06mil/mm3 (4.40-5.80) Hemoglobin 9.1g/dL (13.8-17.2) Hematocrit 26.6% (41.0-50.0) Mean Corpuscular Volume 86.9fL (81-100) Mean Corpuscular Hemoglobin 29.7pg (27.0-35.0) Mean Corpuscular Hemoglobin Concent 34.2% (32.0-37.0) Red Cell Distribution Width 14.4% (12.3-15.4) Platelet Count 120bil/L (150-400) Neutrophils (%) (Auto) 59.0% (40-74) Lymphocytes (%) (Auto) 19.3% (14-46) Monocytes (%) (Auto) 15.2% (4-12) Eosinophils (%) (Auto) 3.9% (0-5) Basophils (%) (Auto) 1.5% (0-3) Total Bilirubin 0.4mg/dL (0.0-1.2) Aspartate Amino Transf (AST/SGOT) 45U/L (0-50) Alanine Aminotransferase (ALT/SGPT) 21U/L (0-44) Alkaline Phosphatase 38U/L (25-150) Total Protein 5.3g/dL (6.4-8.4) Albumin 3.1g/dL (3.4-5.0) Sodium Level 136mEq/L (134-144) Potassium Level 4.4mEq/L (3.5-5.2) Chloride Level 100mEq/L (97-108) Carbon Dioxide Level 22mmol/L (18-29) Blood Urea Nitrogen 19mg/dL (6-24) Creatinine 2.60mg/dL (0.76-1.27) Estimat Glomerular Filtration Rate 28mL/min (>59) Glucose Level 157mg/dL (60-99) Calcium Level 7.9mg/dL (8.5-10.1) Iron Level 73ug/dL (35-150) Total Iron Binding Capacity 228ug/dL (250-450) Percent Iron Saturation 32%sat (15-50) Unsaturated Iron Binding 154.8ug/dL Discharge Medications Discharge Medications ([Calcium Carbonate]) 500 MG TABLET 500 MG PO TID Prescribed by: JOSÉ MIGUEL SUTTON DO Amlodipine (Amlodipine) 10 Mg Tablet 10 MG PO DAILY (Reported) Atorvastatin Calcium (Atorvastatin Calcium) 40 Mg Tablet 40 MG PO HS Prescribed by: JOSÉ MIGUEL SUTTON DO Clopidogrel (Clopidogrel) 75 Mg Tablet 75 MG PO DAILY Prescribed by: KAMAR MANTILLA DO Divalproex ER (Divalproex ER) 500 Mg Tab.er.24h 500 MG PO TID (Reported) Fludrocortisone Acetate (Fludrocortisone Acetate) 0.1 Mg Tablet 0.1 MG PO MoWeFr Prescribed by: ANTONIO TRENT DO Fluoxetine (Fluoxetine) 20 Mg Tablet 20 MG PO DAILY (Reported) Hydralazine (Hydralazine) 25 Mg Tablet 25 MG PO TID (Reported) Insulin Glargine (Lantus U100 Insulin Vial) 100 Unit/Ml Vial 10 UNIT SUBQ afternoon (Reported) Insulin Glulisine (Apidra U100 Insulin Solostar Pen) 100 Unit/1 Ml Insuln.pen 7 UNITS SUBQ BID (Reported) Labetalol (Labetalol) 200 Mg Tablet 200 MG PO TID (Reported) Metoclopramide (Metoclopramide) 5 Mg Tablet 5 MG PO TID Prescribed by: ANTONIO TRENT DO Ranitidine (Ranitidine) 300 Mg Tablet 300 MG PO HS (Reported) Sevelamer Carbonate (Renvela) 800 Mg Tablet 800 MG PO TIDWM Prescribed by: JOSÉ MIGUEL SUTTON DO Sodium Polystyrene Sulfonate (Sodium Polystyrene Sulfonate) 15 Gm/60 Ml Oral.susp 15 GM PO twice weekly Prescribed by: JOSÉ MIGUEL M HERMAN, DO Spironolactone (Aldactone) 25 Mg Tablet 50 MG PO BID Prescribed by: KAMAR MANTILLA DO Torsemide (Demadex) 20 Mg Tablet 20 MG PO DAILY Prescribed by: ANTONIO TRENT, Additional med instructions Stop taking aspirin. We are starting on a medication called Plavix, you will need to take this medication daily. Below is a list of medications we are sending you home on Amlodipine 10 mg daily Lipitor 40 mg every night Plavix 75 mg daily Depakote 500 mg 3 times a day Florinef 0.1 mg, Wednesday Prozac 20 mg daily Hydralazine 25 mg 3 times a day Lantus 10 units nightly Humalog insulin per scale Labetalol 200 mg 3 times a day Reglan 5 mg 3 times a day with meals Renvela 800 mg 3 times a day with meals Spironolactone 50 mg twice a day Torsemide 20 mg daily Followup Plan Disposition: Home Discharge Diet: Renal Diet Discharge Activity: No restrictions Patient Instructions You need to follow-up with the dialysis unit and Dr. Crisostomo next week for your appointment. During your hospitalization to have a tunnel catheter placed, and had been started on dialysis. Please make an appointment to follow up with Charity Monson regarding this hospitalization and starting dialysis. Please take your medications as prescribed. Follow-up Provider: Charity Monson PA-C Follow-up with PCP in: Other (1-2wks) Provider: Jean Crisostomo DO Follow-up in: 1 week Mid-level Provider[facility] Follow-up with Mid-level in: 1 week Attending Statement The patient was seen and examined together with Dr. Mantilla on 06-13-16 and I agree with the history, exam and plan as outlined in the note above. copies to: Jean Crisostomo DO; Charity Monson PA-C, Tara L DO Jun 13, 2016 15:32 Cha Red MD Jun 14, 2016 17:07
--- NOTE | 2016-06-13 17:40 | NUR ---
Dialysis note: 4 hrs tx. 2000 ml net UF. Right catheter, dsg dry and intact. Pls see DTR for VS details. Qb 400. No heparin given. O2 @ 2L via NC on. Tolerated treatment, slept at intervals. Catheter flushed, heparin dwelled and secured. Post tx, catheter dsg changed, dried blood cleaned off, with slight fresh bleeding noted, pressure gauze dsg applied. Report given to Blank Fountain RN. Stable at time of transfer.
--- NOTE | 2016-06-13 17:56 | NUR ---
Return from Dialysis Patient completed dialysis. RNRich given report. Dressing changed by student advisor. Transported by hospital bed to room 3029.
--- NOTE | 2016-06-13 19:35 | NUR ---
DISCHARGE MD orders received for discharge. Called Khurram Ruiz (x-) for grape picker. Khurram stated she has been in [place] for the past 2 days and will not be able to grape picker pt and their home is not ready for him. paged, orders for discharge cancelled, postponed for discharge tomorrow. Arranged grape picker with Khurram Ruiz on 06/14. Able to grape picker at 1100. Needs call from staff to confirm time. Khurram Ruiz - [phone] Pt, MD, and next shift aware. Dialysis schedule in pt discharge packet needs to be passed on. Tele and IV still in place.
[2016-06-13] MEDS: Insulin GLARgine 100 Unit/mL Syringe SUBQ SCH (21:00)
--- NOTE | 2016-06-13 23:59 | NUR ---
CARE TRANSFERED; to me at [phone] from Fanny Kohler rn.
[2016-06-14] MEDS: Heparin 5,000 Unit/mL Inj SUBQ SCH ×2 (00:15→08:09)
[2016-06-14 02:54] VITALS: BP 188/87; PULSE 68; RESP 16; O2SAT 97
[2016-06-14] MEDS: Labetalol 5 mg/mL 4 mL Inj IVPUSH PRN ×2 (02:59→05:10)
--- NOTE | 2016-06-14 03:09 | NUR ---
HTN; bp 188/87. Labetalol 20mg iv given.
--- NOTE | 2016-06-14 04:47 | NUR ---
[employer]; reports: sinus rhythm 63.
--- NOTE | 2016-06-14 05:15 | NUR ---
HTN; bp 196/91. Labetalol 20mg iv given.
[2016-06-14 05:17] VITALS: BP 196/91; PULSE 66; RESP 16; O2SAT 96
[2016-06-14 06:38] VITALS: PULSE 66
[2016-06-14 07:54] VITALS: BP 213/93; PULSE 64; RESP 16; O2SAT 95
[2016-06-14] MEDS: Divalproex (QD) 500 mg ER24 Tablet PO SCH (08:07)
[2016-06-14] MEDS: Insulin LISPRO 300 Unit/3 mL Inj SUBQ SCH (08:07)
[2016-06-14] MEDS: Calcium Carbonate (Oyster Shell) 500 mg Tablet PO SCH (08:08)
--- NOTE | 2016-06-14 09:02 | PCM.PNMED ---
Subjective Date of Service Jun 14, 2016 Subjective Narciso Ruiz is a 50-year-old male with past medical history significant for hypertension, chronic kidney disease stage IV, anemia of chronic kidney disease , diabetes mellitus type II, insulin using, with complications of retinopathy with complete blindness, neuropathy, and nephropathy who presented to [facility] Emergency Department with complaints of occipital neck pain and right-sided facial droop. Overnight: There were no acute events. The patient reports he is doing well overall. He denies any concerns or complaints at this time. He is eager to go home and unfortunately was unable to discharge yesterday due to it being late in the afternoon and difficulty with arrangements for returning home. Exam Vital Signs Vital Sign - Last Date Time Temp Pulse Resp B/P Pulse Ox O2 Delivery O2 Flow Rate FiO2 06/14/16 07:54 36.7 64 16 213/93 95 Room Air Intake and Output 06/13/16 06/13/16 06/14/16 Cumulative From/Thru 15:00 23:00 07:00 06/07/16 01:50 - 06/14/16 06:54 Intake Total 900 ml 400 ml 6779 ml Output Total 2000 ml 300 ml 425 ml 32684 ml Balance -2000 ml 600 ml -25 ml -3921 ml Intake Oral 900 ml 400 ml 6759 ml IV Total 20 ml Output Urine Total 300 ml 425 ml 7700 ml Ultrafiltrate 2000 ml 3000 ml # Voids 4 # Bowel Movements 0 0 9 Exam General: Middle-aged male lying in bed and in no acute distress, well-developed , well-nourished, appropriately interactive, appears older than stated age. HEENT: Normocephalic, atraumatic. External ears without defect. Pupils equal, round, and reactive to light. Anicteric sclerae, moist conjunctivae, and no lid lag. Oropharynx free of erythema and cobble stoning with moist mucosa. Neck: Supple with full range of motion. No jugular venous distension. No bruits. No lymphadenopathy or thyromegaly. Tunneled catheter in right chest. Cardiovascular: Regular rate and rhythm with no murmurs, rubs, or gallops appreciated Pulmonary: Clear to auscultation bilaterally with no crackles, wheezes, or rhonchi. Normal respiratory effort with no use of accessory muscles. Abdomen: Soft, obese, nontender, nondistended, bowel sounds present. No hepatosplenomegaly or masses appreciated. Extremities: No clubbing or cyanosis. Trace nonpitting edema to ankles. Skin: Normal temperature, turgor, and texture; no rash, ulcers, or subcutaneous nodules appreciated. Neurological: Right-sided facial droop has resolved. Normal speech. Completely blind. Normal muscle strength, tone, and bulk. Reflexes, coordination, and sensory function within normal limits. No known gait impairment. Uses cane to ambulate due to blindness. Psychiatric: Normal mood and affect. Alert and oriented to person, place, and time. . IVs and Medications Medications Reviewed: Medications were reviewed in detail Lab and Diagnostics Result Diagram: 06/13/16 0745 06/13/16 0748 X-Rays, CTs and MRIs X-RAY CHEST ONE VIEW, PORTABLE IMPRESSION: 1. The double-lumen dialysis catheter tip projects to the area of atriocaval junction. 2. Left basilar consolidation small left pleural effusion suspicious for pneumonia. Dictated by: Ted Mcdowell M.D. on 06/11/2016 at 11:50 Approved by: Ted Mcdowell M.D. on 06/11/2016 at 11:53 CT BRAIN WITHOUT CONTRAST IMPRESSION: No acute intracranial process. Chronic unchanged right frontal encephalomalacia Dictated by: Kwaku Wolff M.D. on 06/07/2016 at 8:12 Approved by: Kwaku Wolff M.D. on 06/07/2016 at 8:14 MRI BRAIN WITHOUT CONTRAST IMPRESSION: 1. No acute process. No recent infarct. 2. Chronic right frontotemporal infarcts unchanged. 3. Sinus disease. Dictated by: Judy Morgan M.D. on 06/07/2016 at 10:51 Approved by: Judy Morgan M.D. on 06/07/2016 at 10:53 MRA ANGIOGRAM HEAD WITHOUT CONTRAST IMPRESSION: 1. Moderate to high-grade stenoses within the bilateral posterior cerebral artery P1 segments. 2. Otherwise negative evaluation. Dictated by: Judy Morgan M.D. on 06/07/2016 at 10:53 Approved by: Judy Morgan M.D. on 06/07/2016 at 10:55 US BILATERAL DUPLEX DOPPLER IMAGING OF THE CAROTIDS ([id number]) INDICATIONS: Hypertension and TIA symptoms. TECHNIQUE: Color and pulse Doppler interrogation was performed of both carotid systems, with image documentation and velocity measurements. COMPARISON: None. FINDINGS: All stenosis calculations are based on NASCET criteria. Right side: Brachial blood pressure: Not performed Common Carotid Artery(Distal) PSV: 81 cm/s Internal Carotid Artery PSV- Proximal: 74 cm/s Mid-lon.60 cm/s Distal: 66.80 cm/s EDV - Proximal: 15.60 cm/s Mid-lon.80 cm/s Distal: 15.90 cm/s External Carotid Artery(Proximal) PSV: 80 cm/s ICA/CCA PSV ratio: 0.9 Hamilton scale imaging description: Normal. Percent internal carotid artery stenosis: No carotid stenosis. Vertebral artery: Flow direction is antegrade. Left side: Brachial blood pressure: 170/87 mm Hg. Common Carotid Artery(Distal) PSV: 82.80 cm/s Internal Carotid Artery PSV - Proximal: 72.70 cm/s Mid-lon.40 cm/s Distal: 62.30 cm/s EDV - Proximal: 16.70 cm/s Mid-lon.20 cm/s Distal: 15.80 cm/s External Carotid Artery(Proximal) PSV: 76.60 cm/s ICA/CCA PSV ratio: 1.1 Hamilton scale imaging description: Normal. Percent internal carotid artery stenosis: No carotid stenosis. Vertebral artery: Flow direction is antegrade. IMPRESSION: No carotid stenosis on either side. Dictated by: Lucien Perez [facility] Interpreted: Ted Mcdowell MD on 06/08/2016 at 16:43 Transcribed by: EARLE on 06/08/2016 at 16:44 Approved by: Ted Mcdowell M.D. on 06/08/2016 at 16:57 . Cardiac Echo Impressions Echocardiogram Interpretation Summary: Normal sinus rhythm. Moderate LVH; normal wall motion and LV systolic function. EF is 60-65%. Stage II diastolic dysfunction. Moderate LA enlargement; mild RA enlargemnet. Mitral valve leaflets are normal; mild MAC; no regurgitation. Trace tricuspid regurgitation. Estimated PA systolic pressure is 43 mm Hg assuming RA pressure of 3 mm Hg. There is a trace pericardial effusion. There is a moderate size left pleural effusion. Compared to prior study performed 01/30/2016 pleural effusion is new; pericardial effusion is new. Reading Physician:08:34 PM . Assessment & Plan Narciso Ruiz is a 50-year-old male with past medical history significant for hypertension, chronic kidney disease stage IV, anemia of chronic kidney disease , diabetes mellitus type II, insulin using, with complications of retinopathy with complete blindness, neuropathy, and nephropathy who presented to [facility] Emergency Department with complaints of occipital neck pain and right-sided facial droop. Chronic kidney disease stage IV now on hemodialysis. - Avoid nephrotoxic agents. - Continue Renvela 800 mg 3 times a day with meals and calcium carbonate 500 mg 3 times a day. -Patient had a tunnel catheter placed during this hospitalization and started dialysis -She will follow-up with Dr. Crisostomo of nephrology, and the dialysis unit Hypertension, chronic, poorly controlled. -Nephrology has been consulted- Spironolactone 50 mg twice a day and continue labetalol 200 mg 3 times a day, hydralazine 25 mg 3 times a day, amlodipine 10 mg daily Acute TIA, present on admission. Resolved - Patient presented with moderate occipital neck pain with right-sided facial droop. Symptoms resolved after hydromorphone and Zofran were given. - NIHSS score of 1, therefore, not a TPA candidate. - CT brain without contrast showed no acute intracranial process - MR without contrast was normal -Continue lisinopril 5 mg daily -Continue atorvastatin 40 mg daily at bedtime. - Continue monitor closely on telemetry. -Carotid US did not demonstrate any carotid stenosis -Patient discharged on Plavix 75 mg daily Recently diagnosed with community-acquired pneumonia, present on admission. Treated. - Completed 7 day course of levofloxacin 750 mg daily Hyperkalemia, acute. Resolved -Treated with Kayexalate Anemia of chronic kidney disease. -Recommend outpatient follow-up Diabetes mellitus type II, insulin using, with complication of bilateral diabetic retinopathy, neuropathy, and nephropathy. - Last hemoglobin A1c was 7.4% on 05/30/2016. -At discharge patient advised to continue with his home medications Bipolar disorder type I chronic. - Continue home dose of Depakote ER 500 mg 3 times a day and fluoxetine 20 mg daily. GERD, chronic. - Continue H2 miguel angel substitute ranitidine with famotidine 20 mg daily at bedtime. Gastroparesis, chronic. - Continue Reglan 5 mg 3 times daily. Hyperlipidemia, chronic. - Continue atorvastatin 40 mg daily at bedtime. Diabetic retinopathy with complete blindness. Stable. The patient was unable to discharge home yesterday due to it being late in the afternoon and difficulty with arrangements for transport home. Patient will discharge today. Please see discharge summary from yesterday 06/13/2016. . VTE Prophylaxis: Sub-Q Heparin (Unfractionated) Resuscitation Status: CPR: Attempt Resuscitation Attending Statement The patient was seen and examined together with Dr. Huerta on 06-14-16 and I agree with the history, exam and plan as outlined in the note above. Lou Huerta DO Jun 14, 2016 09:02 Cha Red MD Jun 15, 2016 08:59
--- NOTE | 2016-06-14 10:11 | NUR ---
Discharge Patient discharge to home with all belongings. Explained to patient new medications (Plavix and Aldactone), when next medications are due and discharge instructions. Patient verbalized understanding. Dc'd IV intact. Dc'd telemetry. Patient left floor on his own two feet accompanied by ex- with no signs of distress.
[2016-06-14 10:41] LABS: Magnesium 1.6 mg/dL (1.6-2.6); Phosphorus 1.9 mg/dL (2.5-4.9)
--- NOTE | 2016-06-14 13:31 | NUR ---
Social Work: Discharge Data: Pt is on day 7 of hospitalization. EMR reviewed. D/C orders are in. PT recommending home. No further d/c planning needed at this time. [employer] will continue to follow if needs arise. Assessment: Pt who is independent at baseline. Plan: Pt will d/c home via POV today. No further d/c planning needed at this time. [employer] will continue to follow if needs arise. RENEA Singleton
[2016-10-02] MEDS ORDERED: CITA20TA11 PO (17:18)
[2016-10-02] MEDS ORDERED: ASPI-973 PO (17:18)
[2016-10-02] MEDS ORDERED: vitamin d2 (17:18)
[2016-10-02] MEDS ORDERED: LABE200T PO (17:18)
[2016-10-02] MEDS ORDERED: AMLO5TAB2 PO (17:18)
[2016-10-02] MEDS ORDERED: MEGE400O PO (17:18)
[2016-10-02] MEDS ORDERED: DEP500A PO (17:18)
== END 2016-06-14 10:05 | disposition home or self-care (01) | DRG 69 ==
LOC: SED 01:46 → OBSVTOIN 05:57 → MPC 05:57
PROVIDERS: ADMIT Hospitalist; ATTEND Hospitalist
PROC: 02HV33Z Insertion of Infusion Device into Superior Vena Cava, Percutaneous Approach (ICD-10-PCS; principal; 2016-06-11)
PROC: 5A1D00Z (ICD-10-PCS; 2016-06-11)
PROC: 5A1D00Z (ICD-10-PCS; 2016-06-12)
PROC: 5A1D00Z (ICD-10-PCS; 2016-06-13)
DX: G45.9 Transient cerebral ischemic attack, unspecified (principal); J18.9 Pneumonia, unspecified organism; N18.6 End stage renal disease; I13.11 Hypertensive heart and chronic kidney disease without heart failure, with stage 5 chronic kidney disease, or end stage renal disease; E11.22 Type 2 diabetes mellitus with diabetic chronic kidney disease; N25.89 Other disorders resulting from impaired renal tubular function; K31.84 Gastroparesis; E87.5 Hyperkalemia; E11.42 Type 2 diabetes mellitus with diabetic polyneuropathy; E11.319 Type 2 diabetes mellitus with unspecified diabetic retinopathy without macular edema; Z87.891 Personal history of nicotine dependence; Z79.4 Long term (current) use of insulin; H54.0 Blindness, both eyes; R29.810 Facial weakness; R29.701 NIHSS score 1; F15.10 Other stimulant abuse, uncomplicated; D63.1 Anemia in chronic kidney disease; F31.9 Bipolar disorder, unspecified; K21.9 Gastro-esophageal reflux disease without esophagitis; E78.5 Hyperlipidemia, unspecified; I16.0 Hypertensive urgency

== ENCOUNTER 2016-06-15 10:13 | Emergency (ER) | payer OTHER ==
[~2016-06-15] VITALS: Ht 170.2 cm; Wt 93.6 kg
[~2016-06-15 10:13] MED LIST changes: -ASPI-973 PO; +CLOP75TA28 PO; -LEVO750T9 PO; +SPIR25TA PO
[2016-06-15 10:15] VITALS: BP 177/85; PULSE 58; RESP 15; O2SAT 98
--- NOTE | 2016-06-15 10:37 | ED.REPORT ---
HPI-General Illness Date of Service Jun 15, 2016 ED Provider: Doc,Ed MD 50 year old male with a hx of TIA, HTN, DM, CHF, and legally blind presents to the ED with chest pain. Associated symptoms include SOB and weakness in the left arm. Symptoms are exacerbated when laying down and have been ongoing since prior to hospital discharge yesterday morning. Nursing Notes Stated Complaint: SOB,CHEST PAIN Chief Complaint: General Complaint Nursing Notes Reviewed: Yes Allergies: Coded Allergies: tetanus and diphtheria toxoids (Verified Allergy, Severe, COULDN'T HEAR VOMITING, SYNCOPE HOSPITALIZED, 06/04/16) Sulfa (Sulfonamide Antibiotics) (Verified Allergy, Unknown, 06/04/16) Scheduled ([Calcium Carbonate]) 500 MG TABLET 500 MG PO TID Amlodipine (Amlodipine) 10 Mg Tablet 10 MG PO DAILY Atorvastatin Calcium (Atorvastatin Calcium) 40 Mg Tablet 40 MG PO HS Clopidogrel (Clopidogrel) 75 Mg Tablet 75 MG PO DAILY Divalproex ER (Divalproex ER) 500 Mg Tab.er.24h 500 MG PO TID Fludrocortisone Acetate (Fludrocortisone Acetate) 0.1 Mg Tablet 0.1 MG PO MoWeFr Fluoxetine (Fluoxetine) 20 Mg Tablet 20 MG PO DAILY Hydralazine (Hydralazine) 25 Mg Tablet 25 MG PO TID Insulin Glargine (Lantus U100 Insulin Vial) 100 Unit/Ml Vial 10 UNIT SUBQ afternoon Insulin Glulisine (Apidra U100 Insulin Solostar Pen) 100 Unit/1 Ml Insuln.pen 7 UNITS SUBQ BID Labetalol (Labetalol) 200 Mg Tablet 200 MG PO TID Metoclopramide (Metoclopramide) 5 Mg Tablet 5 MG PO TID Ranitidine (Ranitidine) 300 Mg Tablet 300 MG PO HS Sevelamer Carbonate (Renvela) 800 Mg Tablet 800 MG PO TIDWM Sodium Polystyrene Sulfonate (Sodium Polystyrene Sulfonate) 15 Gm/60 Ml Oral.susp 15 GM PO twice weekly Spironolactone (Aldactone) 25 Mg Tablet 50 MG PO BID Torsemide (Demadex) 20 Mg Tablet 20 MG PO DAILY General Time Seen by MD: 10:37 Chief Complaint Chest pain Hx Obtained From: Patient Arrived By: Walk-in Sudden in Onset?: Yes Onset Occurred: 1 day ago Symptom Duration: Since onset Severity: Current: Mild Recent Healthcare: Recent doctor visit, Recent hospitalization Similar Sx Previous: Yes Past Medical History Past Medical History Notes: Patient admitted May 08 May 07 for acute on chronic kidney injury, hyperkalemia, uncontrolled diabetes, chronically elevated troponin, and hypertension PCP: Charity URBANO Past Medical History Undiagnosed mental disorder Bipolar, manic Headaches non-migraine 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 Diabetic retinopathy, neuropathy, nephropathy Chronic kidney disease Gastroparesis Reports: Diabetes mellitus, Hypertension Past Surgical History Hernia repair Family History Mother is alive with bipolar disorder - 06/04/2016 Smoking History Former Smoker Social History Alcohol Use: In recovery Drug Use: Denies drug use Other Social History: Smokeless tobacco, Good social support, Lives with children Ambulatory Status Independent Review of Systems Full Review of Systems Constitutional: Reports: Weakness - generalized Respiratory: Reports: Shortness of breath Cardiovascular: Reports: Chest pain Complete sys rev & neg: except as marked. Physical Exam Vital Signs Vital Signs Date Time Temp Pulse Resp B/P Pulse Ox O2 Delivery O2 Flow Rate FiO2 06/15/16 13:03 36 60 11 167/79 94 Nasal Cannula 2 06/15/16 12:33 60 11 167/79 94 Nasal Cannula 2 06/15/16 11:18 57 14 162/75 98 Nasal Cannula 2 06/15/16 10:15 36 58 15 177/85 98 Room Air Initial VS: Reviewed ENT: Mucous membranes moist, Conjunctiva normal, No scleral icterus Neck: Supple, Non-tender, Full range of motion Respiratory: Breath sounds normal, Clear to auscultation, No respiratory distress Cardiovascular: Regular rate & rhythm, Heart sounds normal, Intact distal pulses Abdomen / GI: Soft, Non-tender, No guarding, No rebound, No distention Extremities: Vascular intact, Neuro intact, No swelling, No tenderness Skin: Warm, Dry, No cyanosis Neurologic: Alert, Oriented, Nonfocal Psychiatric: Mood/affect normal, Behavior normal, Normal thought content General/Constitutional: Awake, Alert, No acute distress, Well appearing, Cooperative, Not toxic appearing Head / Eyes: Atraumatic, Normocephalic legally blind Interpretation & Diagnostics Lab Results Interpretation Result Diagram: 06/15/16 1055 06/15/16 1055 Test 06/15/16 10:55 White Blood Count 7.2th/mm3 (3.8-10.1) Red Blood Count 3.14mil/mm3 (4.40-5.80) Hemoglobin 9.3g/dL (13.8-17.2) Hematocrit 27.8% (41.0-50.0) Mean Corpuscular Volume 88.5fL (81-100) Mean Corpuscular Hemoglobin 29.6pg (27.0-35.0) Mean Corpuscular Hemoglobin Concent 33.5% (32.0-37.0) Red Cell Distribution Width 14.5% (12.3-15.4) Platelet Count 116bil/L (150-400) Neutrophils (%) (Auto) 77.3% (40-74) Lymphocytes (%) (Auto) 8.8% (14-46) Monocytes (%) (Auto) 11.7% (4-12) Eosinophils (%) (Auto) 1.5% (0-5) Basophils (%) (Auto) 0.4% (0-3) Sodium Level 135mEq/L (134-144) Potassium Level 4.2mEq/L (3.5-5.2) Chloride Level 98mEq/L (97-108) Carbon Dioxide Level 27mmol/L (18-29) Blood Urea Nitrogen 15mg/dL (6-24) Creatinine 2.96mg/dL (0.76-1.27) Estimat Glomerular Filtration Rate 24mL/min (>59) Glucose Level 171mg/dL (60-99) Calcium Level 8.2mg/dL (8.5-10.1) Magnesium Level 1.6mg/dL (1.6-2.6) Total Bilirubin 0.6mg/dL (0.0-1.2) Aspartate Amino Transf (AST/SGOT) 38U/L (0-50) Alanine Aminotransferase (ALT/SGPT) 22U/L (0-44) Alkaline Phosphatase 42U/L (25-150) Troponin T 0.270ug/L (0.0-0.011) Total Protein 5.3g/dL (6.4-8.4) Albumin 3.3g/dL (3.4-5.0) ECG Interpretation Time: 11:00 Interpreted by: ED physician Normal ECG Interpretation: Normal ECG w/ rate of... (58) X-Ray Chest Interpretation Chest Xray Interpretation: IMPRESSION: 1. Small left pleural effusion with medial bibasilar atelectasis or consolidation redemonstrated. 2. Slightly increased pulmonary edema. Dictated by: Rosalio Granger M.D. on 06/15/2016 at 11:29 Approved by: Rosalio Granger M.D. on 06/15/2016 at 11:33 View: Portable Interpretation / Wet Read by: Interpret - Radiologist Re-Eval/Medical Decision Med Decision/Clinical Course Self-limited episode of chest pain which resolves after getting aspirin and Zofran, troponin seems to be within a reasonable range for this gentlemen's baseline; EKG was nonischemic. I do not suspect acute coronary syndrome at this time. Patient will be discharged to go have dialysis as this may be an underlying cause of his symptoms, he does have some fluid overload on chest x-ray and has lower extremity edema. Nephrology is made aware of the patient's status and agrees with excepting the patient over the dialysis center for further treatment. Return precautions given. Time of Eval: 12:10 Patient Status: Condition improved, Pain improved Re-Evaluation/Progress Note: After aspirin and zofran chest pain was spontaneously resolved. Consultation : Referral / Consult Name: Patricia Manrique MD Consulted With: Hospitalist Call Returned at: 12:37 Supervisor Typesetting: Agrees with eval, Agrees with plan, Accepts admit Note: Dr. Gonzalez will see patient in dialysis this afternoon. Counseled Regarding: Diagnosis, Lab results, Need for follow-up, When/why to return to ED Discharge & Departure Primary Impression: Chest pain Chest pain type: unspecified Qualified Code: R07.9 - Chest pain, unspecified Disposition: Home Discharge Condition All VS Reviewed: Yes Condition: Stable Additional Instructions: Your EKG and imaging does not indicate a heart attack. Follow-up with your director of sales and marketing for further evaluation when you go to dialysis today.. Take Tylenol and Ibuprofen as needed for pain. Return to the Emergency Department if you experience any new or worsening symptoms. We hope you feel better soon! Referrals: Charity Monson PA-C (PCP) Scribe Attestation Portion of this note were transcribed by Pushpa Wyatt. I, Dr. Del Castillo, personally performed the history, physical exam, and medical decision-making: I reviewed and confirmed the accuracy for the information in the transcribed note. Signed by: estrada Christensen, [id number] copies to: Charity Monson PA-C, Timothy S DO Jun 15, 2016 10:37 PUSHPA WYATT Jun 15, 2016 11:16
[2016-06-15] MEDS ORDERED: Ondansetron 2 mg/mL 2 mL Inj IVPUSH ONE (11:00)
[2016-06-15 11:09] LABS: BASOPHILS % (AUTO) 0.4 % (0-3); EOSINOPHILS % (AUTO) 1.5 % (0-5); MONOCYTES % (AUTO) 11.7 % (4-12); Mean Corpuscular Hemoglobin 29.6 pg (27.0-35.0); Mean Corpuscular Volume 88.5 fL (81-100); NEUTROPHILS % (AUTO) 77.3 % (40-74); Platelet Count 116 bil/L (150-400)
[2016-06-15 11:18] VITALS: BP 162/75; PULSE 57; RESP 14; O2SAT 98
--- NOTE | 2016-06-15 11:35 | DRSVH ---
PROCEDURE: X-RAY CHEST ONE VIEW, PORTABLE ([id number]) INDICATIONS: chest pain, dyspnea TECHNIQUE: One view of the chest was acquired. COMPARISON: [facility], CT, CHEST WITH CONTRAST, 08/18/2014, 15:29. [facility], CR, XR CHEST 1VW (PORTABLE), 06/11/2016, 11:35. FINDINGS: Surgical changes and devices: Right internal jugular central venous catheter appears stable in positi on. Lungs and pleura: There is a small left pleural effusion with bibasilar medial opacities consistent with atelectasis or consolidation. There is also [id number] increased pulmonary vascular promi nence consistent with pulmonary edema. Mediastinum: Mediastinal contours appear unchanged. Heart size is within normal limits given techni que. Bones and chest wall: No suspicious bony lesions. Overlying soft tissues appear unremarkable. IMPRESSION: 1. Small left pleural effusion with medial bibasilar atelectasis or consolidation redemonstrated. 2. Slightly increased pulmonary edema. Dictated by: Rosalio Granger M.D. on 06/15/2016 at 11:29 Approved by: Rosalio Granger M.D. on 06/15/2016 at 11:33
[2016-06-15 11:46] LABS: Magnesium 1.6 mg/dL (1.6-2.6)
[2016-06-15 12:12] LABS: TROPONIN T 0.27 ug/L (0.0-0.011)
[2016-06-15 12:33] VITALS: BP 167/79; PULSE 60; RESP 11; O2SAT 94
[2016-06-15 13:03] VITALS: BP 167/79; PULSE 60; RESP 11; O2SAT 94
[2016-10-02] MEDS ORDERED: CITA20TA11 PO (17:18)
[2016-10-02] MEDS ORDERED: ASPI-973 PO (17:18)
[2016-10-02] MEDS ORDERED: MEGE400O PO (17:18)
[2016-10-02] MEDS ORDERED: DEP500A PO (17:18)
[2016-10-02] MEDS ORDERED: AMLO5TAB2 PO (17:18)
[2016-10-02] MEDS ORDERED: vitamin d2 (17:18)
[2016-10-02] MEDS ORDERED: LABE200T PO (17:18)
== END 2016-06-15 13:04 | disposition home or self-care (01) ==
LOC: SED 10:13
DX: R07.9 Chest pain, unspecified (principal); E11.59 Type 2 diabetes mellitus with other circulatory complications; E11.43 Type 2 diabetes mellitus with diabetic autonomic (poly)neuropathy; K31.84 Gastroparesis; E11.22 Type 2 diabetes mellitus with diabetic chronic kidney disease; N18.9 Chronic kidney disease, unspecified; E11.319 Type 2 diabetes mellitus with unspecified diabetic retinopathy without macular edema; I13.0 Hypertensive heart and chronic kidney disease with heart failure and stage 1 through stage 4 chronic kidney disease, or unspecified chronic kidney disease; Z87.891 Personal history of nicotine dependence; Z79.4 Long term (current) use of insulin; Z79.899 Other long term (current) drug therapy; Z88.2 Allergy status to sulfonamides; Z88.7 Allergy status to serum and vaccine; I50.9 Heart failure, unspecified; H54.8 Legal blindness, as defined in USA; Z86.59 Personal history of other mental and behavioral disorders
CPT/HCPCS: 36415; 71010; 80053; 83735; 84484; 85025; 93005; 96374; 99285; J2405

== ENCOUNTER 2016-06-26 11:45 | Observation (INO) | payer OTHER ==
[~2016-06-26] VITALS: Ht 170.2 cm; Wt 75.6 kg
[2016-06-26 11:59] VITALS: BP 178/92; PULSE 77; RESP 14; O2SAT 99
--- NOTE | 2016-06-26 12:03 | ED.REPORT ---
HPI-Neurologic Deficit Date of Service Jun 26, 2016 ED Provider: Jeff Del Castillo DO A 50 year old male with a history of HTN and diabetes presents to the ED complaining of left facial droop onset today between 0900 and 1000. He reports similar symptoms occurring on his last visit to the ED. Associated symptoms include SOB. He has not had a stroke in the past and he reports that he is normally steady on his feet. Nursing Notes Stated Complaint: POSS STROKE Chief Complaint: General Complaint Nursing Notes Reviewed: Yes Allergies: Coded Allergies: tetanus and diphtheria toxoids (Verified Allergy, Severe, COULDN'T HEAR VOMITING, SYNCOPE HOSPITALIZED, 06/04/16) Sulfa (Sulfonamide Antibiotics) (Verified Allergy, Unknown, 06/04/16) Scheduled Amlodipine (Amlodipine) 10 Mg Tablet 10 MG PO DAILY Atorvastatin Calcium (Atorvastatin Calcium) 40 Mg Tablet 40 MG PO HS Calcium Carbonate (Tums) 500 Mg Tab.chew 500 MG PO TIDWM Cholecalciferol (Vitamin D3) (Vitamin D3) 50,000 Unit Capsule 50,000 UNIT PO WEEKLY Clopidogrel (Clopidogrel) 75 Mg Tablet 75 MG PO DAILY Divalproex ER (Divalproex ER) 500 Mg Tab.er.24h 500 MG PO TID Fludrocortisone Acetate (Fludrocortisone Acetate) 0.1 Mg Tablet 0.1 MG PO MoWeFr Fluoxetine (Fluoxetine) 20 Mg Tablet 20 MG PO DAILY Hydralazine (Hydralazine) 25 Mg Tablet 25 MG PO TID Insulin Glargine (Lantus U100 Insulin Vial) 100 Unit/Ml Vial 10 UNIT SUBQ QPM Labetalol (Labetalol) 200 Mg Tablet 200 MG PO TID Metoclopramide (Metoclopramide) 5 Mg Tablet 5 MG PO TID Ranitidine (Ranitidine) 300 Mg Tablet 300 MG PO HS Sevelamer Carbonate (Renvela) 800 Mg Tablet 800 MG PO TIDWM Sodium Polystyrene Sulfonate (Sodium Polystyrene Sulfonate) 15 Gm/60 Ml Oral.susp 15 GM PO twice weekly Spironolactone (Aldactone) 25 Mg Tablet 50 MG PO BID Torsemide (Demadex) 20 Mg Tablet 20 MG PO DAILY Scheduled PRN Diphenoxylate/Atropine (Diphenoxylate-Atrop 2.5-0.025) 2.5 Mg Tablet 1 EACH PO TID PRN PRN For Diarrhea or Loose Stool Insulin Lispro (HumaLOG U100 Insulin Pen) 100 Unit/1 Ml Insuln.pen UNIT SUBQ TIDWM PRN PRN BG coverage Blood Sugar Lispro Correction General Time Seen by Provider: 12:02 Chief Complaint Other (facial droop) Hx Obtained From: Patient Arrived By: Walk-in Sudden in Onset?: Yes Onset Occurred: 1 - 4 hours ago Symptom Duration: Since onset Recent Healthcare: Recent doctor visit Similar Sx Previous: No Risk Factors TPA Administration/Criteria Stroke Thrombolytic Therapy : TPA Considered: Yes TPA Administered Intravenously: No, exclusion criteria (NIH Test Scroe=1 and patient needs dialysis.) NIH Stroke Scale Level of Consciousness: Alert and responsive (0) Ask Month & Age: Both questions right (0) Open/Close Eyes/Hand Operations Research Engineer: Performs both tasks (0) Horizontal EO Movements: None (0) Visual Arreola: No visual loss (0) Facial Palsy: Minor paralysis (1) Right Arm Motor Drift (10s): No drift 10 sec (0) Left Arm Motor Drift (10s): No drift 10 sec (0) Right Leg Motor Drift (5s): No drift 5 sec (0) Left Leg Motor Drift (5s): No drift 5 sec (0) Limb Ataxia FNF/Heel-Macias: No ataxia (0) Sensation (Arms/Legs/Face): No sensory loss (0) Language Aphasia: No aphasia, normal (0) Dysarthria: No dysarthria, normal (0) Extinction/Inattention: No exctinct/inattent (0) NIHSS Score: 1 Time NIHSS Performed: 12:02 Date NIHSS Performed: Jun 26, 2016 Past Medical History Past Medical History Notes: Patient admitted May 08 May 07 for acute on chronic kidney injury, hyperkalemia, uncontrolled diabetes, chronically elevated troponin, and hypertension PCP: Charity URBANO Past Medical History Undiagnosed mental disorder Bipolar, manic Headaches non-migraine 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 Diabetic retinopathy, neuropathy, nephropathy Chronic kidney disease Gastroparesis Reports: Diabetes mellitus, Hypertension Past Surgical History Hernia repair Family History Mother is alive with bipolar disorder - 06/04/2016 Smoking History Former Smoker Social History Used to chew tobacco. Alcohol Use: In recovery Drug Use: Denies drug use Other Social History: Smokeless tobacco, Good social support, Lives with children Ambulatory Status Independent Review of Systems Review of Systems Note: facial droop. Constitutional: Denies: Chills Respiratory: Reports: Shortness of breath Physical Exam Physical Exam Notes: speech sound snormal questionable l sided fac dropp without anything else. Initial Vital Signs Vital Signs (First) Date Time Temp Pulse Resp B/P Pulse Ox O2 Delivery O2 Flow Rate FiO2 06/26/16 11:59 36.1 77 14 178/92 99 Room Air Initial VS: Reviewed General/Constitutional: Awake, Alert Head / Eyes: Atraumatic, Normocephalic, PERRL, EOMI Respiratory / Chest: Atraumatic, Breath sounds NL, Breath sounds = bilat, No respiratory distress, No rales, No rhonchi, No wheezing Cardiovascular: Heart rate NL, Regular rhythm, Heart sounds NL, No gallop, No murmurs, No rubs Neurologic: Oriented X3, Speech NL See NIH Stroke test under risk. Questional left sided facial droop without anything else. Speech sounds normal. ENT: Atraumatic, Airway patent, Mucous membranes moist, Pharynx NL Neck: Atraumatic, Full range of motion Abdomen: Atraumatic, No guarding, No rebound Back: Atraumatic, Full range of motion Upper Extremity / MS: Atraumatic, Full range of motion Lower Extremity / Pelvis / MS: Atraumatic, Full range of motion Skin: Atraumatic, Color NL, No rash, Warm, Dry Interpretation & Diagnostics Lab Results Interpretation Result Diagram: 06/26/16 1225 06/26/16 1225 Test 06/26/16 12:25 White Blood Count 4.2th/mm3 (3.8-10.1) Red Blood Count 3.37mil/mm3 (4.40-5.80) Hemoglobin 10.2g/dL (13.8-17.2) Hematocrit 29.6% (41.0-50.0) Mean Corpuscular Volume 87.8fL (81-100) Mean Corpuscular Hemoglobin 30.3pg (27.0-35.0) Mean Corpuscular Hemoglobin Concent 34.5% (32.0-37.0) Red Cell Distribution Width 14.7% (12.3-15.4) Platelet Count 181bil/L (150-400) Neutrophils (%) (Auto) 65.8% (40-74) Lymphocytes (%) (Auto) 18.8% (14-46) Monocytes (%) (Auto) 12.0% (4-12) Eosinophils (%) (Auto) 2.7% (0-5) Basophils (%) (Auto) 0.7% (0-3) Prothrombin Time 10.6sec (8.1-12.5) Prothromb Time International Ratio 0.99ratio Sodium Level 134mEq/L (134-144) Potassium Level 4.0mEq/L (3.5-5.2) Chloride Level 95mEq/L (97-108) Carbon Dioxide Level 27mmol/L (18-29) Blood Urea Nitrogen 20mg/dL (6-24) Creatinine 3.23mg/dL (0.76-1.27) Estimat Glomerular Filtration Rate 22mL/min (>59) Glucose Level 302mg/dL (60-99) Calcium Level 8.3mg/dL (8.5-10.1) Total Bilirubin 0.5mg/dL (0.0-1.2) Aspartate Amino Transf (AST/SGOT) 22U/L (0-50) Alanine Aminotransferase (ALT/SGPT) 15U/L (0-44) Alkaline Phosphatase 49U/L (25-150) Total Protein 5.6g/dL (6.4-8.4) Albumin 3.4g/dL (3.4-5.0) Hold Cook Top Tube Received (Received) ECG Interpretation ECG Interpretation: Normal Sinus rhythm. Rate is 74. Interpreted by: ED physician CT Head Interpretation IMPRESSION: 1. No acute intracranial abnormality. 2. Stable right frontal encephalomalacia. 3. Possible scalp contusion left posterior parietal region, correlate clinically. Dictated by: Obinna Peoples M.D. on 06/26/2016 at 13:14 Approved by: Obinna Peoples M.D. on 06/26/2016 at 13:18 Study: Head CT no contrast Interpretation / Wet Read by: Interpret - Radiologist Re-Eval/Medical Decision Med Decision/Clinical Course Patient presents with isolated facial drooping on the left side, (which the patient identifies with elevated facial features on the right side), NIH stroke scale of 1. This is not of clear onset in time, patient initially was normal yesterday ensuring that he was normal when he woke But cannot give an exact time of onset, this along with a very low and age stroke scale make him not a TPA candidate. Additionally given the very focal and limited severity of his symptoms it was felt that an MRI of his brain could be obtained to exclude a stroke. However, the patient is unable to lie flat as it sounds that he has missed dialysis and he will be admitted for dialysis and subsequent MRI to exclude stroke. Source of Hx: Old records Re-Evaluation/Progress : Time of Eval: 12:55 Re-Evaluation/Progress Note: Rechecked patient. Consultation #1: Referral / Consult Name: Meagan Castellano MD Call Returned at: 13:40 Note: Discussed patient case with Dr. Castellano, Radiologist who agrees with plan to perform MRI on patient. Consultation #2: Referral / Consult Name: Julian Santiago MD Consulted With: Hospitalist Call Returned at: 14:28 Can Maker: Agrees with eval, Agrees with plan, Accepts admit Note: Discussed patient case with Dr. Santiago. He accepts patient admit. Counseled Regarding: Diagnosis, Lab results, Need for admission Discharge & Departure Impression: Primary Impression: Facial droop Disposition: ADMITTED TO HOSPITAL Referrals: Charity Monson PA-C (PCP) Joss Attestation Portions of this note were transcribed by Dakota Talamantes. I, Dr. Del Castillo, personally performed the history, physical exam, and medical decision-making; I reviewed and confirmed the accuracy of the information in the transcribed note. Signed by: Joss Bone, 06/26/2016, 1440. copies to: Charity Monson PA-C, Timothy S DO Jun 26, 2016 12:03 Dakota Talamantes Jun 26, 2016 12:13
[2016-06-26 12:40] LABS: BASOPHILS % (AUTO) 0.7 % (0-3); EOSINOPHILS % (AUTO) 2.7 % (0-5); Mean Corpuscular Hemoglobin 30.3 pg (27.0-35.0); Mean Corpuscular Volume 87.8 fL (81-100); NEUTROPHILS % (AUTO) 65.8 % (40-74); Platelet Count 181 bil/L (150-400)
[2016-06-26 12:54] LABS: INR 0.99 ratio
--- NOTE | 2016-06-26 13:19 | DRSVH ---
PROCEDURE: CT BRAIN WITHOUT CONTRAST ([id number]) INDICATIONS: facial droop TECHNIQUE: Noncontrast 4.5 mm thick angled axial sections acquired from the foramen magnum to the vertex, with c oronal reformats. COMPARISON: None. FINDINGS: Image quality: Head is rotated within the gantry. CSF spaces: Basal cisterns are patent. No extra-axial fluid collections. Ventricles are normal in size and shape. Brain: No midline shift. No intracranial masses or hemorrhage. Right frontal encephalomalacia is u nchanged. Hamilton-white matter interface is normal. Skull and face: Calvarium and visualized facial bones are intact, without suspicious lesions. There is increased subcutaneous density over the left posterior parietal scalp, correlate clinically. Sinuses: Visualized sinuses and mastoids are clear. IMPRESSION: 1. No acute intracranial abnormality. 2. Stable right frontal encephalomalacia. 3. Possible scalp contusion left posterior parietal region, correlate clinically. Dictated by: Obinna Peoples M.D. on 06/26/2016 at 13:14 Approved by: Obinna Peoples M.D. on 06/26/2016 at 13:18
--- NOTE | 2016-06-26 13:36 | NUR ---
Evaluation completed. Please go to "Notes" then click on "Assessments and Notes" (bottom left corner of screen). Then select appropriate discipline tab on top of screen.
[2016-06-26] MEDS ORDERED: Alum-Mag Hydrox-Simeth 30 mL Suspension PO PRN (14:30)
[2016-06-26] MEDS ORDERED: Ondansetron 2 mg/mL 2 mL Inj IV PRN (14:30)
[2016-06-26] MEDS ORDERED: Polyethylene Glycol (PEG) 17 Gm Powder PO PRN (14:30)
[2016-06-26 15:02] VITALS: BP 195/91; PULSE 76; RESP 13
[2016-06-26] MEDS ORDERED: CHOL500050 PO (15:05)
[2016-06-26] MEDS ORDERED: INSU100I18 SUBQ (15:05)
[2016-06-26] MEDS ORDERED: CALC500T9 PO (15:05)
[2016-06-26] MEDS ORDERED: LOM PO (15:05)
[2016-06-26] MEDS ORDERED: Glucose 40% Oral Gel 15 Gm Tube PO PRN (15:25)
--- NOTE | 2016-06-26 15:42 | DRSVH ---
PROCEDURE: X-RAY CHEST ONE VIEW, PORTABLE ([id number]) INDICATIONS: dyspnea with lying flat TECHNIQUE: One view of the chest was acquired. COMPARISON: [facility], CR, XR CHEST 1VW (PORTABLE), 06/15/2016, 10:54. FINDINGS: Surgical changes and devices: Tunnel hemodialysis catheter is unchanged. Lungs and pleura: No pleural effusions or pneumothorax. Lungs are clear. Mediastinum: Mediastinal contours appear normal. Heart size is normal. Bones and chest wall: No suspicious bony lesions. Overlying soft tissues appear unremarkable. IMPRESSION: No acute cardiopulmonary findings. Dictated by: Meagan Castellano M.D. on 06/26/2016 at 15:22 Approved by: Meagan Castellano M.D. on 06/26/2016 at 15:22
--- NOTE | 2016-06-26 16:15 | PCM.HPMED ---
Subjective Date of Service Jun 26, 2016 Primary Provider: Admitting Physician: Primary Care Physician: Charity Monson PA-C Attending Physician: Admit Status: From the Emergency Department, 23-Hour Observation, Remote Telemetry Chief Complaint: Left sided facial droop with right neck pain History of Present Illness: Narciso Ruiz is a 50-year-old male with past medical history significant for hypertension, chronic kidney disease stage IV, anemia of chronic kidney disease , diabetes mellitus type II, insulin using, with complications of retinopathy with complete blindness, neuropathy, and nephropathy who presented to [facility] Emergency Department with complaints of left-sided facial droop. Patient reported the onset today between 0900 and 1000. He reports similar symptoms occurring on his last admission around May this year . Associated symptoms include dyspnea, exacerbated with lying and on exertion. He denies any leg swelling, no coughing, no fever or chills. He has not had a stroke in the past and he reports that he is normally steady on his feet. During last admission for Stroke the MR without contrast was normal and Carotid US did not demonstrate any carotid stenosis. Case discussed with Dr Krishnamurthy, CT head negative but efforts to do MRI brain was unsuccessful as the patient could not tolerate lying flat due to dyspnea. Plan to try dialysis to see if the dyspnea will improve then try the MRI again later tonight. Patient was not a TPA candidate due to uncertain time of onset and also symptoms improving. Review of Systems: Pertinent positives as noted in HPI. All other systems were reviewed and are negative Allergies Coded Allergies: tetanus and diphtheria toxoids (Verified Allergy, Severe, COULDN'T HEAR VOMITING, SYNCOPE HOSPITALIZED, 06/04/16) Sulfa (Sulfonamide Antibiotics) (Verified Allergy, Unknown, 06/04/16) Home Medications From most recent Discharge Summary Amlodipine 10 mg daily Lipitor 40 mg every night Plavix 75 mg daily Depakote 500 mg 3 times a day Florinef 0.1 mg, Wednesday Prozac 20 mg daily Hydralazine 25 mg 3 times a day Lantus 10 units nightly Humalog insulin per scale Labetalol 200 mg 3 times a day Reglan 5 mg 3 times a day with meals Renvela 800 mg 3 times a day with meals Spironolactone 50 mg twice a day Torsemide 20 mg daily PMH 1. Hypertension. 2. Chronic kidney disease stage IV. 3. Anemia of chronic kidney disease. 4. Diabetes mellitus type II, insulin using, with complication of bilateral diabetic retinopathy, neuropathy, and nephropathy. 5. Bipolar disorder type I. 6. GERD. 7. Diabetic retinopathy with complete blindness. 8. Gastroparesis. 9. Hyperlipidemia. . Surgical History 1. Umbilical hernia repair. 2. Right leg ORIF status post removal of hardware. Family History Mother with bipolar disorder type I but otherwise healthy. Father's side of family has a history of diabetes mellitus type II otherwise the patient has no known history of his biological father. The patient has 2 biological sisters whose histories are unknown. Social History Hx Alcohol Use: No Hx Substance Use: No Hx Tobacco Use: Yes (chewing tobacco, occasional cigarette.) Smoking Status: Former Smoker Living Arrangement: with Friends/Roommate Additional Information The patient lives with his ex- and her partner. He is on disability. 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 He was born in [place] and raised in [place]. He has one daughter who is healthy but is currently incarcerated. He uses a cane to ambulate at baseline due to complete blindness. . Exam Vital Signs Vital Sign - Last Date Time Temp Pulse Resp B/P Pulse Ox O2 Delivery O2 Flow Rate FiO2 06/26/16 11:59 36.1 77 14 178/92 99 Room Air Exam General: Alert, Oriented X3, Cooperative, No acute Distress Eyes: PERRLA, Scleral Anicteric Mouth: Mouth Normal, Mucous Membranes Moist/Godley Neck: Supple, no Thyromegaly, trachea central. Chest & Lungs: Clear to auscultation & percussion, No adventitious breath sounds, no crackles, no wheeze Cardiovascular: Normal S1, Normal S2, No Murmurs/Rubs/Gallops, Regular Rate/ Rhythm, Murmur, Other (No JVD, no peripheral edema) Pulses: Radial (present and equal), Dorsalis Pedi (present and equal) Abdomen: Soft, Non-tender, Non-distended, Normoactive bowel tones. Musculoskeletal: Unremarkable. Normal range of motion, no swollen or erythematous joints Extremities: No edema, no cyanosis, no clubbing. Skin: left-sided facial droop has resolved. Normal speech. Completely blind. Normal muscle strength, tone, and bulk. Reflexes, coordination, and sensory function within normal limits. No known gait impairment. Uses cane to ambulate due to blindness. Neurological: Grossly neurologically intact, has generalized weakness, Normal Speech, Sensation Intact Lymphatic: Lymph nodes Cervical and Axillary not palpable. Lab and Diagnostics Labs Laboratory Tests Test 06/26/16 12:25 White Blood Count 4.2th/mm3 (3.8-10.1) Red Blood Count 3.37mil/mm3 (4.40-5.80) Hemoglobin 10.2g/dL (13.8-17.2) Hematocrit 29.6% (41.0-50.0) Mean Corpuscular Volume 87.8fL (81-100) Mean Corpuscular Hemoglobin 30.3pg (27.0-35.0) Mean Corpuscular Hemoglobin Concent 34.5% (32.0-37.0) Red Cell Distribution Width 14.7% (12.3-15.4) Platelet Count 181bil/L (150-400) Neutrophils (%) (Auto) 65.8% (40-74) Lymphocytes (%) (Auto) 18.8% (14-46) Monocytes (%) (Auto) 12.0% (4-12) Eosinophils (%) (Auto) 2.7% (0-5) Basophils (%) (Auto) 0.7% (0-3) Prothrombin Time 10.6sec (8.1-12.5) Prothromb Time International Ratio 0.99ratio Sodium Level 134mEq/L (134-144) Potassium Level 4.0mEq/L (3.5-5.2) Chloride Level 95mEq/L (97-108) Carbon Dioxide Level 27mmol/L (18-29) Blood Urea Nitrogen 20mg/dL (6-24) Creatinine 3.23mg/dL (0.76-1.27) Estimat Glomerular Filtration Rate 22mL/min (>59) Glucose Level 302mg/dL (60-99) Calcium Level 8.3mg/dL (8.5-10.1) Total Bilirubin 0.5mg/dL (0.0-1.2) Aspartate Amino Transf (AST/SGOT) 22U/L (0-50) Alanine Aminotransferase (ALT/SGPT) 15U/L (0-44) Alkaline Phosphatase 49U/L (25-150) Total Protein 5.6g/dL (6.4-8.4) Albumin 3.4g/dL (3.4-5.0) Hold Cook Top Tube Received (Received) Result Diagram: 06/26/16 1225 06/26/16 1225 X-Rays, CTs and MRIs CT BRAIN WITHOUT CONTRAST 06/26/16 IMPRESSION: 1. No acute intracranial abnormality. 2. Stable right frontal encephalomalacia. 3. Possible scalp contusion left posterior parietal region, correlate clinically. Dictated by: Obinna Peoples M.D. on 06/26/2016 at 13:14 Approved by: Obinna Peoples M.D. on 06/26/2016 at 13:18 X-RAY CHEST ONE VIEW, PORTABLE 06/26/16 IMPRESSION: No acute cardiopulmonary findings. Dictated by: Meagan Castellano M.D. on 06/26/2016 at 15:22 Approved by: Meagan Castellano M.D. on 06/26/2016 at 15:22 Assessment & Plan Narciso Ruiz is a 50-year-old male with past medical history significant for hypertension, chronic kidney disease stage IV, anemia of chronic kidney disease , diabetes mellitus type II, insulin using, with complications of retinopathy with complete blindness, neuropathy, and nephropathy who presented to [facility] Emergency Department with complaints of left-sided facial droop. 1. Acute Left sided facial droop. Present on admission - Symptoms resolved and patient not a TPA candidate due to unclear time of onset , dialysis patient. This seems to be a recurring problem for this patient but last time was on the opposite side - Differential diagnosis includes: TIA versus unlikely CVA versus complex migraine versus musculoskeletal pain. - Continue neuro checks per stroke protocol. - Ordered MR stroke protocol to be done after her dialysis (patient unable to tolerate lying down due to dyspnea) - Ordered PT/OT/ST evaluation - continue antiplatelet therapy with 81 mg daily. - Allow for permissive hypertension. - Continue monitor closely on telemetry. 2. Hypertension, chronic. - Hold all antihypertensive medications till Stroke is ruled out 3. End stage Renal disease on dialysis - Nephrology consulted for inpatient dialysis orders, plan for dialysis tonight - Continue to monitor renal function and urine output daily. - Continue Renvela 800 mg 3 times a day with meals and calcium carbonate 500 mg 3 times a day. 4. Anemia of chronic kidney disease. - Continue to monitor hemoglobin and hematocrit daily. 5. Diabetes mellitus type II, insulin using, with complication of bilateral diabetic retinopathy, neuropathy, and nephropathy. - Ordered low-dose correctional scale insulin. - Continue Lantus 10 units subcutaneous daily at bedtime. - Once patient is cleared for diet by speech will start a carbohydrate consistent/heart healthy diet. 6. Bipolar disorder type I chronic. - Continue home dose of Depakote ER 500 mg 3 times a day and fluoxetine 20 mg daily. 7. GERD, chronic. - Continue H2 miguel angel substitute ranitidine with famotidine 20 mg daily at bedtime. 8. Gastroparesis, chronic. - Continue Reglan 5 mg 3 times daily. - need better diabetes control 9. Hyperlipidemia, chronic. - Continue atorvastatin 40 mg daily at bedtime. - Acetaminophen as needed for mild pain/fever/headache - Bowel regimen as needed - Antiemetic as needed Patient is admitted under observation status with expected length of stay less than 2 midnights due to severity of presenting symptoms, risk of adverse event, and complexity of treatment plan. . Resuscitation Status: CPR: Attempt Resuscitation Julian Santiago MD Jun 26, 2016 14:34
--- NOTE | 2016-06-26 16:27 | PCM.PNMED ---
Subjective Date of Service Jun 26, 2016 Subjective Patient is well-known to me from outpatient follow-up and multiple admissions. He has a history of end-stage renal disease and was recently started on dialysis several weeks ago. He came to the emergency room for a left facial droop which appeared to be new. He denies any other neurological manifestations including any dysarthria, expressive aphasia, weakness, dizziness , or recent seizure. He missed dialysis on Wednesday and today is his dialysis day. The ER was unable to do a CT scan of his brain because he was having orthopnea. We will go ahead and do dialysis treatment with removal of several liters of fluid and hopefully we can get a scan to further evaluate his neurological status. Exam Vital Signs Vital Sign - Last Date Time Temp Pulse Resp B/P Pulse Ox O2 Delivery O2 Flow Rate FiO2 06/26/16 15:02 76 13 195/91 06/26/16 11:59 36.1 99 Room Air Exam Lungs showed some bibasilar rales. Heart was regular with a soft systolic murmur. No S4 was noted. Abdominal exam was negative extremities show shown us any edema. Neurological examination he did have a mild left facial droop but no evidence of any dysarthria, word salad, or expressive aphasia. Muscle strength testing in his upper or lower extremities is 5 over 5 and equal. Deep tendon reflexes were 2 over 4 and equal bilaterally. Lab and Diagnostics Result Diagram: 06/26/16 1225 06/26/16 1225 X-Rays, CTs and MRIs CT BRAIN WITHOUT CONTRAST 06/26/16 IMPRESSION: 1. No acute intracranial abnormality. 2. Stable right frontal encephalomalacia. 3. Possible scalp contusion left posterior parietal region, correlate clinically. Dictated by: Obinna Peoples M.D. on 06/26/2016 at 13:14 Approved by: Obinna Peoples M.D. on 06/26/2016 at 13:18 X-RAY CHEST ONE VIEW, PORTABLE 06/26/16 IMPRESSION: No acute cardiopulmonary findings. Dictated by: Meagan Castellano M.D. on 06/26/2016 at 15:22 Approved by: Meagan Castellano M.D. on 06/26/2016 at 15:22 Assessment & Plan Impression #1 end-stage renal disease dialysis dependent number to diabetic nephropathy #3 hypertension with hypertensive heart disease and hypertensive nephrosclerosis #4 new-onset left facial weakness. Recommendations #1 patient's be dialyzed today for 3 hours on a revaclear Max dialyzer, 2 potassium 400 blood flow 1500 heparin 500 hour and we will attempt to take 3 L of fluid off. I will plan for another dialysis treatment tomorrow morning. Resuscitation Status: CPR: Attempt Resuscitation Jean Crisostomo DO Jun 26, 2016 16:27
[2016-06-26 17:21] VITALS: BP 204/94; PULSE 74; RESP 16; O2SAT 99
[2016-06-26] MEDS: Insulin LISPRO 300 Unit/3 mL Inj SUBQ SCH ×2 (17:43→23:29)
[2016-06-26 17:51] VITALS: PULSE 72
[2016-06-26 18:10] VITALS: BP 200/107; PULSE 72
--- NOTE | 2016-06-26 18:25 | NUR ---
Admit Patient admitted to [facility] via wheelchair accompanied by COURTNEY Tang. A/O x3, patient legally blind can make his needs known. Patient will go on dialysis when available. Oriented to room and unit. Patient complained of soreness in the neck, denies headache. Made comfortable, will continue to monitor.
--- NOTE | 2016-06-26 20:10 | NUR ---
Dialysis Patient currently undergoing dialysis No c/o
--- NOTE | 2016-06-26 21:08 | NUR ---
MRI Off floor w/tech to MRI
--- NOTE | 2016-06-26 21:10 | NUR ---
Dialysis note: 2 1/2 hr Puff tx. Accessed right tunneled cath and reversed limbs for tx, A -V, V-A. Pt hypertensive throughout tx. denied headache or visual disturbances. Dresg CDI and changed with hypafix and gauze. No s/s of infection. Pt returned to room stable. Report given to COURTNEY Palmer. Please see DTR for complete record of VS.
--- NOTE | 2016-06-26 21:45 | NUR ---
Hypertension Returned floor s/p MRI VS taken with BP 216/112 text page sent to
[2016-06-26 21:46] VITALS: BP 216/112; PULSE 72; RESP 20; O2SAT 98
[2016-06-27 05:40] VITALS: BP 184/85; PULSE 64; RESP 17; O2SAT 95
[2016-06-27 05:59] VITALS: PULSE 68
[2016-06-27 07:45] VITALS: BP 184/86; PULSE 62; RESP 16; O2SAT 97
--- NOTE | 2016-06-27 07:45 | NUR ---
MD at bedside Dr. Tony met with patient, stated patient can be discharged pending MRI report.
[2016-06-27] MEDS: Insulin LISPRO 300 Unit/3 mL Inj SUBQ SCH ×2 (08:00→13:46)
[2016-06-27] MEDS ORDERED: Divalproex (QD) 500 mg ER24 Tablet PO SCH (08:30)
--- NOTE | 2016-06-27 08:38 | DRSVH ---
PROCEDURE: MRI BRAIN WITHOUT CONTRAST ([id number]) INDICATIONS: stroke TECHNIQUE: Noncontrast axial T1 spin echo, axial T2 fast spin echo, sagittal and axial FLAIR, coronal T2 fast sp in echo, axial gradient echo, axial diffusion and ADC through the brain. COMPARISON: [facility], MR, MR BRAIN WO CON, 06/07/2016, 11:22. [facility], CT, CT BRAIN WO CON, 06/26/2016, 13:06. FINDINGS: Image quality: Excellent. CSF Spaces: Basal cisterns are patent. No extra-axial fluid collections. Ventricles are stable in size and shape, with mild right-sided ventricular enlargement associated with a previously documented chronic right middle cerebral artery vascular distribution stroke. Brain: No intracranial masses or hemorrhage. Hamilton/white matter interface is normal except in the ar ea of previously documented right temporoparietal encephalomalacia from presumed prior stroke in that area. Brainstem appears normal. Diffusion-weighted images demonstrate no acute ischemic insult. N o chronic ischemic insults. Normal intravascular flow voids are present. Skull and face: Calvarium has normal marrow signal. Orbits appear normal. Sinuses: Sinuses and mastoids are clear. IMPRESSION: Stable appearance of mild to moderate encephalomalacia involving the right temporopariet al brain parenchyma, but without new abnormality would indicate interval stroke or acute stroke super imposed. The brain parenchyma elsewhere appears normal. Dictated by: Maikel Hallman M.D. on 06/27/2016 at 7:31 Approved by: Maikel Hallman M.D. on 06/27/2016 at 7:36
[2016-06-27 09:05] VITALS: PULSE 63
--- NOTE | 2016-06-27 09:25 | PCM.DIMED ---
Discharge Instructions Date of Service Jun 27, 2016 Dates of Hospitalization Jun 26, 2016 at 14:53 Discharge Diagnosis Discharge Diagnosis probable TIA Diet Low fat, Low Sodium, Heart Healthy Activity No restrictions Patient Instructions You were hospitalized with stroke-like symptoms, further w/u including CT of brain and MRI of brain didn't show any acute findings. Please note that you still have high risks of stroke, continue to be compliant to all of the medicine and dialysis, if you noticed recurrent symptoms with weakness on your arms or legs, severe degree, this could be signs of impending stroke, please return to the hospital. Follow-up plan Please follow up with your doctor in 2weeks Follow-up Provider: Charity Monson PA-C Follow-up with PCP in: 2 weeks Flower Tony MD Jun 27, 2016 09:25
--- NOTE | 2016-06-27 10:05 | NUR ---
Transfer to Dialysis Patient taken to dialysis at this time.
[2016-06-27 10:18] VITALS: BP 142/79; PULSE 61
--- NOTE | 2016-06-27 10:39 | PCM.PNMED ---
Subjective Date of Service Jun 27, 2016 Subjective The patient's left facial weakness has improved. He otherwise offers no new complaints. He denies any chest pain, shortness of breath, nausea vomiting or difficulty with ambulation. Exam Vital Signs Vital Sign - Last Date Time Temp Pulse Resp B/P Pulse Ox O2 Delivery O2 Flow Rate FiO2 06/27/16 09:05 63 06/27/16 07:45 36.8 16 184/86 97 Room Air Intake and Output 06/26/16 06/26/16 06/27/16 Cumulative From/Thru 15:00 23:00 07:00 06/26/16 11:59 - 06/27/16 06:34 Intake Total 200 ml 640 ml 840 ml Output Total 3300 ml 400 ml 3700 ml Balance -3100 ml 240 ml -2860 ml Intake Oral 200 ml 640 ml 840 ml Output Urine Total 300 ml 400 ml 700 ml Ultrafiltrate 3000 ml 3000 ml # Bowel Movements 0 0 Exam Lungs are clear to auscultation. Heart is regular with soft systolic murmur. Abdomen soft without any tenderness rebound guarding masses or hepatosplenomegaly. Extremities did not show any evidence of any clubbing cyanosis or edema. Lab and Diagnostics Result Diagram: 06/26/16 1225 06/26/16 1225 X-Rays, CTs and MRIs CT BRAIN WITHOUT CONTRAST 06/26/16 IMPRESSION: 1. No acute intracranial abnormality. 2. Stable right frontal encephalomalacia. 3. Possible scalp contusion left posterior parietal region, correlate clinically. Dictated by: Obinna Peoples M.D. on 06/26/2016 at 13:14 Approved by: Obinna Peoples M.D. on 06/26/2016 at 13:18 X-RAY CHEST ONE VIEW, PORTABLE 06/26/16 IMPRESSION: No acute cardiopulmonary findings. Dictated by: Meagan Castellano M.D. on 06/26/2016 at 15:22 Approved by: Meagan Castellano M.D. on 06/26/2016 at 15:22 Assessment & Plan Impression #1 end-stage renal disease dialysis dependent number to diabetic nephropathy #3 hypertension with hypertensive heart disease and hypertensive nephrosclerosis #4 new-onset left facial weakness. Recommendations #1 patient's be dialyzed today for 3 hours on a revaclear Max dialyzer, 3 potassium 400 blood flow 1500 heparin 500 hour and we will attempt to take 1-2 L of fluid off. From my point. He can be discharged after dialysis today.. Resuscitation Status: CPR: Attempt Resuscitation Jean Crisostomo DO Jun 27, 2016 10:39
--- NOTE | 2016-06-27 10:44 | NUR ---
Social Work: Screening / D/C Data: Pt is a 50 y/o male admitted for facial droop, no CVA, ESRD. Pt's PCP is Dr Monson, pt's insurance is [email or web address]. EMR reviewed. D/C orders are in. No d/c planning needs at this time. SPECIAL EVENTS DIRECTOR will continue to follow if needs arise. Assessment: Pt who is independent at baseline. Plan: Pt will d/c home via POV today. No d/c planning needs at this time. SPECIAL EVENTS DIRECTOR will continue to follow if needs arise. RENEA Singleton
--- NOTE | 2016-06-27 13:30 | NUR ---
Dialysis note: 3 hrs tx. 2000 ml net UF. Right catheter, dsg changed, no s/s of infection noted. Pls see DTR for VS details. Qb 400. Heparin given. Tolerated treatment, slept at intervals. Catheter flushed, heparin dwelled and secured. Report given to Sobia Fernandez RN. Stable at time of transfer.
[2016-06-27 13:40] VITALS: BP 158/79; PULSE 69; RESP 16; O2SAT 96
--- NOTE | 2016-06-27 14:34 | NUR ---
Discharge Note Patient given all discharge information and instructions. Patient had no questions at this time and stated he already has a scheduled appointment with his PCP. IV discontinued intact at this time and telemetry removed. Patient will be transported via wheelchair to wait for his family member near the ER as requested by patient.
[2016-06-27] MEDS ORDERED: Insulin GLARgine 100 Unit/mL Syringe SUBQ SCH (21:00)
--- NOTE | 2016-06-28 21:16 | PCM.DC.MED ---
Discharge Summary Date of Service Jun 27, 2016 Dates of Hospitalization Date of Hospital Admission Jun 26, 2016 at 14:53 Date of Discharge: Jun 27, 2016 Providers: Admitting Physician: Julian Santiago MD Primary Care Physician: Charity Monson PA-C Attending Physician: Julian Santiago MD Diagnosis at Time of Discharge Diagnosis at Time of Discharge acute problems 1. Acute Left sided facial droop secondary to probable TIA, chronic problems, stable during hospitalization, 2. Hypertension 3. End stage Renal disease on dialysis 4. Anemia of chronic kidney disease. 5. Diabetes mellitus type II, 6. Bipolar disorder type I chronic. 7. GERD, 8. Gastroparesis,. 9. Hyperlipidemia, Consultations nephrology Procedures XRay, CTs & MRIs PROCEDURE: MRI BRAIN WITHOUT CONTRAST ([id number]) INDICATIONS: stroke TECHNIQUE: Noncontrast axial T1 spin echo, axial T2 fast spin echo, sagittal and axial FLAIR, coronal T2 fast spin echo, axial gradient echo, axial diffusion and ADC through the brain. COMPARISON: [facility], MR, MR BRAIN WO CON, 06/07/2016, 11:22. [facility], CT, CT BRAIN WO CON, 06/26/2016, 13:06. FINDINGS: Image quality: Excellent. CSF Spaces: Basal cisterns are patent. No extra-axial fluid collections. Ventricles are stable in size and shape, with mild right-sided ventricular enlargement associated with a previously documented chronic right middle cerebral artery vascular distribution stroke. Brain: No intracranial masses or hemorrhage. Hamilton/white matter interface is normal except in the area of previously documented right temporoparietal encephalomalacia from presumed prior stroke in that area. Brainstem appears normal. Diffusion-weighted images demonstrate no acute ischemic insult. No chronic ischemic insults. Normal intravascular flow voids are present. Skull and face: Calvarium has normal marrow signal. Orbits appear normal. Sinuses: Sinuses and mastoids are clear. IMPRESSION: Stable appearance of mild to moderate encephalomalacia involving the right temporoparietal brain parenchyma, but without new abnormality would indicate interval stroke or acute stroke superimposed. The brain parenchyma elsewhere appears normal. Dictated by: Maikel Hallman M.D. on 06/27/2016 at 7:31 Approved by: Maikel Hallman M.D. on 06/27/2016 at 7:36 CT BRAIN WITHOUT CONTRAST 06/26/16 IMPRESSION: 1. No acute intracranial abnormality. 2. Stable right frontal encephalomalacia. 3. Possible scalp contusion left posterior parietal region, correlate clinically. Dictated by: Obinna Peoples M.D. on 06/26/2016 at 13:14 Approved by: Obinna Peoples M.D. on 06/26/2016 at 13:18 X-RAY CHEST ONE VIEW, PORTABLE 06/26/16 IMPRESSION: No acute cardiopulmonary findings. Dictated by: Meagan Castellano M.D. on 06/26/2016 at 15:22 Approved by: Meagan Castellano M.D. on 06/26/2016 at 15:22 Brief History HPI obtained by on 06/26 Narciso Ruiz is a 50-year-old male with past medical history significant for hypertension, chronic kidney disease stage IV, anemia of chronic kidney disease , diabetes mellitus type II, insulin using, with complications of retinopathy with complete blindness, neuropathy, and nephropathy who presented to [facility] Emergency [facility] with complaints of left-sided facial droop. Patient reported the onset today between 0900 and 1000. He reports similar symptoms occurring on his last admission around May this year . Associated symptoms include dyspnea, exacerbated with lying and on exertion. He denies any leg swelling, no coughing, no fever or chills. He has not had a stroke in the past and he reports that he is normally steady on his feet. During last admission for Stroke the MR without contrast was normal and Carotid US did not demonstrate any carotid stenosis. Case discussed with Dr Krishnamurthy, CT head negative but efforts to do MRI brain was unsuccessful as the patient could not tolerate lying flat due to dyspnea. Plan to try dialysis to see if the dyspnea will improve then try the MRI again later tonight. Patient was not a TPA candidate due to uncertain time of onset and also symptoms improving. Hospital Course Narciso Ruiz is a 50-year-old male with past medical history significant for hypertension, chronic kidney disease stage IV, anemia of chronic kidney disease , diabetes mellitus type II, insulin using, with complications of retinopathy with complete blindness, neuropathy, and nephropathy who presented to [facility] Emergency Department with complaints of left-sided facial droop. acute problems 1. Acute Left sided facial droop secondary to probable TIA, Symptoms resolved and patient not a TPA candidate due to unclear time of onset, dialysis patient. This seems to be a recurring problem for this patient but last time was on the opposite side. MR stroke protocol showed no acute findings. symptoms grossly gone on following day. neurologically intact. Patient was stable on PT/OT/ST evaluation, deemed safe for d/c. patient has good support at home, follow up with PCP. chronic problems, stable during hospitalization, 2. Hypertension 3. End stage Renal disease on dialysis 4. Anemia of chronic kidney disease. 5. Diabetes mellitus type II, 6. Bipolar disorder type I chronic. 7. GERD, 8. Gastroparesis,. 9. Hyperlipidemia, Exam Vital Signs (Last) Date Time Temp Pulse Resp B/P Pulse Ox O2 Delivery O2 Flow Rate FiO2 06/27/16 13:40 37.1 69 16 158/79 96 Room Air Exam neuro exam CN2-12 intact, no facial drop, fluent coherent speech motor 5/5 throughout RRR, nls1 s2 no mrg CTAB, no w,c S,ND,NT,BS+ warm, no edema Test 06/26/16 12:25 06/26/16 16:04 White Blood Count 4.2th/mm3 (3.8-10.1) Red Blood Count 3.37mil/mm3 (4.40-5.80) Hemoglobin 10.2g/dL (13.8-17.2) Hematocrit 29.6% (41.0-50.0) Mean Corpuscular Volume 87.8fL (81-100) Mean Corpuscular Hemoglobin 30.3pg (27.0-35.0) Mean Corpuscular Hemoglobin Concent 34.5% (32.0-37.0) Red Cell Distribution Width 14.7% (12.3-15.4) Platelet Count 181bil/L (150-400) Neutrophils (%) (Auto) 65.8% (40-74) Lymphocytes (%) (Auto) 18.8% (14-46) Monocytes (%) (Auto) 12.0% (4-12) Eosinophils (%) (Auto) 2.7% (0-5) Basophils (%) (Auto) 0.7% (0-3) Prothrombin Time 10.6sec (8.1-12.5) Prothromb Time International Ratio 0.99ratio Sodium Level 134mEq/L (134-144) Potassium Level 4.0mEq/L (3.5-5.2) Chloride Level 95mEq/L (97-108) Carbon Dioxide Level 27mmol/L (18-29) Blood Urea Nitrogen 20mg/dL (6-24) Creatinine 3.23mg/dL (0.76-1.27) Estimat Glomerular Filtration Rate 22mL/min (>59) Glucose Level 302mg/dL (60-99) Calcium Level 8.3mg/dL (8.5-10.1) Total Bilirubin 0.5mg/dL (0.0-1.2) Aspartate Amino Transf (AST/SGOT) 22U/L (0-50) Alanine Aminotransferase (ALT/SGPT) 15U/L (0-44) Alkaline Phosphatase 49U/L (25-150) Total Protein 5.6g/dL (6.4-8.4) Albumin 3.4g/dL (3.4-5.0) Hold Cook Top Tube Received (Received) Hold Urine Received (Received) Discharge Medications Discharge Medications Amlodipine (Amlodipine) 10 Mg Tablet 10 MG PO DAILY (Reported) Atorvastatin Calcium (Atorvastatin Calcium) 40 Mg Tablet 40 MG PO HS Prescribed by: JOSÉ MIGUEL SUTTON DO Calcium Carbonate (Tums) 500 Mg Tab.chew 500 MG PO TIDWM (Reported) Cholecalciferol (Vitamin D3) (Vitamin D3) 50,000 Unit Capsule 50,000 UNIT PO WEEKLY (Reported) Clopidogrel (Clopidogrel) 75 Mg Tablet 75 MG PO DAILY Prescribed by: KAMAR MANTILLA DO Divalproex ER (Divalproex ER) 500 Mg Tab.er.24h 500 MG PO TID (Reported) Fludrocortisone Acetate (Fludrocortisone Acetate) 0.1 Mg Tablet 0.1 MG PO MoWeFr Prescribed by: ANTONIO TRENT DO Fluoxetine (Fluoxetine) 20 Mg Tablet 20 MG PO DAILY (Reported) Hydralazine (Hydralazine) 25 Mg Tablet 25 MG PO TID (Reported) Insulin Glargine (Lantus U100 Insulin Vial) 100 Unit/Ml Vial 10 UNIT SUBQ QPM ( Reported) Labetalol (Labetalol) 200 Mg Tablet 200 MG PO TID (Reported) Metoclopramide (Metoclopramide) 5 Mg Tablet 5 MG PO TID Prescribed by: ANTONIO TRENT DO Ranitidine (Ranitidine) 300 Mg Tablet 300 MG PO HS (Reported) Sevelamer Carbonate (Renvela) 800 Mg Tablet 800 MG PO TIDWM Prescribed by: JOSÉ MIGUEL SUTTON DO Sodium Polystyrene Sulfonate (Sodium Polystyrene Sulfonate) 15 Gm/60 Ml Oral.susp 15 GM PO twice weekly Prescribed by: JOSÉ MIGUEL SUTTON DO Spironolactone (Aldactone) 25 Mg Tablet 50 MG PO BID Prescribed by: KAMAR MANTILLA DO Torsemide (Demadex) 20 Mg Tablet 20 MG PO DAILY Prescribed by: ANTONIO TRENT DO As needed Diphenoxylate/Atropine (Diphenoxylate-Atrop 2.5-0.025) 2.5 Mg Tablet 1 EACH PO TID PRN PRN For Diarrhea or Loose Stool (Reported) Insulin Lispro (HumaLOG U100 Insulin Pen) 100 Unit/1 Ml Insuln.pen UNIT SUBQ TIDWM PRN PRN BG coverage (Reported) Blood Sugar Lispro Correction Followup Plan Disposition: home Follow-up plan Please follow up with your doctor in 2weeks Discharge Diet: Low fat, Low Sodium, Heart Healthy Discharge Activity: No restrictions Patient Instructions You were hospitalized with stroke-like symptoms, further w/u including CT of brain and MRI of brain didn't show any acute findings. Please note that you still have high risks of stroke, continue to be compliant to all of the medicine and dialysis, if you noticed recurrent symptoms with weakness on your arms or legs, severe degree, this could be signs of impending stroke, please return to the hospital. Follow-up Provider: Charity Monson PA-C Follow-up with PCP in: 2 weeks Time spent 65min Flower Tony MD Jun 27, 2016 14:22
[2016-07-03] MEDS ORDERED: Ergocalciferol (Vit D2) 50,000 Unit Capsule PO SCH (08:30)
[2016-10-02] MEDS ORDERED: vitamin d2 (17:18)
[2016-10-02] MEDS ORDERED: LABE200T PO (17:18)
[2016-10-02] MEDS ORDERED: MEGE400O PO (17:18)
[2016-10-02] MEDS ORDERED: AMLO5TAB2 PO (17:18)
[2016-10-02] MEDS ORDERED: ASPI-973 PO (17:18)
[2016-10-02] MEDS ORDERED: CITA20TA11 PO (17:18)
[2016-10-02] MEDS ORDERED: DEP500A PO (17:18)
== END 2016-06-27 14:41 | disposition home or self-care (01) ==
LOC: SED 11:45 → MOC 14:53 → INTOOBSV 14:53
PROVIDERS: ADMIT Hospitalist; ATTEND Hospitalist
DX: R29.810 Facial weakness (principal); I12.0 Hypertensive chronic kidney disease with stage 5 chronic kidney disease or end stage renal disease; N18.6 End stage renal disease; D63.1 Anemia in chronic kidney disease; Z99.2 Dependence on renal dialysis; F31.9 Bipolar disorder, unspecified; K21.9 Gastro-esophageal reflux disease without esophagitis; K31.84 Gastroparesis; E78.5 Hyperlipidemia, unspecified; E11.319 Type 2 diabetes mellitus with unspecified diabetic retinopathy without macular edema; E11.22 Type 2 diabetes mellitus with diabetic chronic kidney disease; E11.40 Type 2 diabetes mellitus with diabetic neuropathy, unspecified; H54.8 Legal blindness, as defined in USA; F17.220 Nicotine dependence, chewing tobacco, uncomplicated; Z87.891 Personal history of nicotine dependence; Z79.4 Long term (current) use of insulin; Z79.02 Long term (current) use of antithrombotics/antiplatelets
CPT/HCPCS: 36415; 70450; 70551; 71010; 80053; 82948; 85025; 85610; 92610; 93005; 96374; 99285; G0378; J1815; J2270

== ENCOUNTER 2016-06-30 09:49 | Emergency (ER) | payer OTHER ==
[~2016-06-30] VITALS: Ht 170.2 cm; Wt 76.8 kg
[~2016-06-30 09:49] MED LIST changes: +CALC500T9 PO; +CHOL500050 PO; -Calcium Carbonate PO; +INSU100I18 SUBQ; -INSU100I8 SUBQ; +LOM PO
[2016-06-30 09:52] VITALS: BP 180/96; PULSE 66; RESP 18; O2SAT 98
--- NOTE | 2016-06-30 10:02 | ED.REPORT ---
HPI-General Illness Date of Service Jun 30, 2016 ED Provider: Jeff Del Castillo DO A 50 year old male dialysis patient with a history of GERD and anxiety presents to the ED complaining of SOB. He reports that other family members have told him that his left arm is swollen but the patient disagrees with that. He reports that current symptoms are similar to acid reflex, describing a strange feeling that travels up into his chest when he lays down but then resolves itself, however he denies chest pain reminiscent of [place]. He is unsure if current symptoms are related to anxiety. He reports having had shots at his dialysis appointment yesterday but he does not remember what they were for. He recently had a stress test with normal results. At last ED visit, he reports being given a medication that relieved his anxiety for 5 days. . Nursing Notes Stated Complaint: SOB OF BREATH/LEFT ARM SWELLING Chief Complaint: Chest Pain Nursing Notes Reviewed: Yes Allergies: Coded Allergies: tetanus and diphtheria toxoids (Verified Allergy, Severe, COULDN'T HEAR VOMITING, SYNCOPE HOSPITALIZED, 06/04/16) Sulfa (Sulfonamide Antibiotics) (Verified Allergy, Unknown, 06/04/16) Scheduled Amlodipine (Amlodipine) 10 Mg Tablet 10 MG PO DAILY Atorvastatin Calcium (Atorvastatin Calcium) 40 Mg Tablet 40 MG PO HS Calcium Carbonate (Tums) 500 Mg Tab.chew 500 MG PO TIDWM Cholecalciferol (Vitamin D3) (Vitamin D3) 50,000 Unit Capsule 50,000 UNIT PO WEEKLY Clopidogrel (Clopidogrel) 75 Mg Tablet 75 MG PO DAILY Divalproex ER (Divalproex ER) 500 Mg Tab.er.24h 500 MG PO TID Fludrocortisone Acetate (Fludrocortisone Acetate) 0.1 Mg Tablet 0.1 MG PO MoWeFr Fluoxetine (Fluoxetine) 20 Mg Tablet 20 MG PO DAILY Hydralazine (Hydralazine) 25 Mg Tablet 25 MG PO TID Insulin Glargine (Lantus U100 Insulin Vial) 100 Unit/Ml Vial 10 UNIT SUBQ QPM Labetalol (Labetalol) 200 Mg Tablet 200 MG PO TID Metoclopramide (Metoclopramide) 5 Mg Tablet 5 MG PO TID Pantoprazole DR (Protonix) 40 Mg Tablet 40 MG PO DAILY Ranitidine (Ranitidine) 300 Mg Tablet 300 MG PO HS Sevelamer Carbonate (Renvela) 800 Mg Tablet 800 MG PO TIDWM Sodium Polystyrene Sulfonate (Sodium Polystyrene Sulfonate) 15 Gm/60 Ml Oral.susp 15 GM PO twice weekly Spironolactone (Aldactone) 25 Mg Tablet 50 MG PO BID Torsemide (Demadex) 20 Mg Tablet 20 MG PO DAILY Scheduled PRN Diphenoxylate/Atropine (Diphenoxylate-Atrop 2.5-0.025) 2.5 Mg Tablet 1 EACH PO TID PRN PRN For Diarrhea or Loose Stool Insulin Lispro (HumaLOG U100 Insulin Pen) 100 Unit/1 Ml Insuln.pen UNIT SUBQ TIDWM PRN PRN BG coverage Blood Sugar Lispro Correction General Time Seen by MD: 10:01 Chief Complaint Other (shortness of breath) Hx Obtained From: Patient Arrived By: Walk-in Sudden in Onset?: Yes Onset Occurred: 1 - 4 hours ago Symptom Duration: Intermittent Recent Healthcare: Recent doctor visit Similar Sx Previous: Yes Past Medical History Past Medical History Notes: Patient admitted May 08 May 07 for acute on chronic kidney injury, hyperkalemia, uncontrolled diabetes, chronically elevated troponin, and hypertension PCP: Charity URBANO GERD Past Medical History Undiagnosed mental disorder Bipolar, manic Headaches non-migraine 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 Diabetic retinopathy, neuropathy, nephropathy Chronic kidney disease Gastroparesis Reports: Diabetes mellitus, Hypertension Past Surgical History Hernia repair Family History Mother is alive with bipolar disorder - 06/04/2016 Smoking History Former Smoker Social History Used to chew tobacco. Alcohol Use: In recovery Drug Use: Denies drug use Other Social History: Smokeless tobacco, Good social support, Lives with children Ambulatory Status Independent Review of Systems Swollen left arm. Full Review of Systems Respiratory: Reports: Shortness of breath Cardiovascular: Reports: Chest pain (Described as strange feeling in chest. ) Complete sys rev & neg: except as marked. Physical Exam Vital Signs Vital Signs Date Time Temp Pulse Resp B/P Pulse Ox O2 Delivery O2 Flow Rate FiO2 06/30/16 09:52 36.1 66 18 180/96 98 Initial VS: Reviewed General/Constitutional: Awake, Alert Head / Eyes: Atraumatic, Normocephalic Patient is blind. ENT: Atraumatic, Mucous membranes moist Neck: Atraumatic, Full range of motion Respiratory / Chest: Atraumatic, Breath sounds NL, Breath sounds = bilat, No respiratory distress, No rales, No rhonchi, No wheezing Cardiovascular: Heart rate NL, Regular rhythm, Heart sounds NL, No gallop, No murmurs, No rubs Abdomen: Atraumatic, Soft, No guarding, No rebound Back: Atraumatic, Full range of motion Upper Extremities Upper Extremity / MS: Full range of motion Wrist / Hand: Full range of motion Minimal swelling of left hand, without any swelling in left arm. Lower Extremity / Pelvis / MS: Atraumatic, Full range of motion Ankle / Foot: Atraumatic, Full range of motion Skin: Atraumatic, Warm, Dry Neurologic: Oriented X3, Speech NL Interpretation & Diagnostics X-Ray Chest Interpretation Chest Xray Interpretation: IMPRESSION: No acute pulmonary process. Dictated by: Estephania To M.D. on 06/30/2016 at 10:39 Approved by: Estephania To M.D. on 06/30/2016 at 10:41 Interpretation / Wet Read by: Interpret - Radiologist Re-Eval/Medical Decision Med Decision/Clinical Course Complete relief immediately after viscous lidocaine. Doubt cardiac cause. Chest x-ray unremarkable not fluid overloaded. Will discharge. Protonix prescribed. Return precautions given. Time of Eval: 10:53 Re-Evaluation/Progress Note: Patient has immediate relief after viscous lidocaine is given. Counseled Regarding: Diagnosis, Lab results, Need for follow-up, When/why to return to ED Discharge & Departure Primary Impression: Chest pain Additional Impression: GERD (gastroesophageal reflux disease) Disposition: Home Discharge Condition All VS Reviewed: Yes Condition: Improved Additional Instructions: Use the prescribed antacids to help with your symptoms. Follow-up with your dialysis Center as planned. Return to the ER as needed for worsening symptoms. Referrals: Charity Monson PA-C (PCP) [employer] Attestation Portions of this note were transcribed by Dakota Talamantes. I, Dr. Del Castillo personally performed the history, physical exam and medical decision-making; I reviewed and confirmed the accuracy of the information in the transcribed note. Signed by: Joss Bone, 06/30/2016 [id number]. copies to: Charity Monson PA-C, Timothy S DO Jun 30, 2016 10:02 Dakota Talamantes Jun 30, 2016 10:09
--- NOTE | 2016-06-30 10:43 | DRSVH ---
PROCEDURE: X-RAY CHEST, TWO VIEWS ([id number]) INDICATIONS: chest pain TECHNIQUE: 2 views of the chest were acquired. COMPARISON: [facility], CR, XR CHEST 1VW (PORTABLE), 06/26/2016, 14:41. FINDINGS: Surgical changes and devices: Dialysis catheter is unchanged. Lungs and pleura: No pleural effusions or pneumothorax. Lungs are clear. Mediastinum: Mediastinal contours are normal. Heart size is normal. Bones and chest wall: No suspicious bony abnormalities. Soft tissues appear unremarkable. IMPRESSION: No acute pulmonary process. Dictated by: Estephania To M.D. on 06/30/2016 at 10:39 Approved by: Estephania To M.D. on 06/30/2016 at 10:41
[2016-06-30] MEDS ORDERED: PANT40TA2 PO (10:50)
[2016-10-02] MEDS ORDERED: LABE200T PO (17:18)
[2016-10-02] MEDS ORDERED: MEGE400O PO (17:18)
[2016-10-02] MEDS ORDERED: CITA20TA11 PO (17:18)
[2016-10-02] MEDS ORDERED: vitamin d2 (17:18)
[2016-10-02] MEDS ORDERED: ASPI-973 PO (17:18)
[2016-10-02] MEDS ORDERED: DEP500A PO (17:18)
[2016-10-02] MEDS ORDERED: AMLO5TAB2 PO (17:18)
== END 2016-06-30 10:58 | disposition home or self-care (01) ==
LOC: SED 09:49
DX: R07.9 Chest pain, unspecified (principal); K21.9 Gastro-esophageal reflux disease without esophagitis; M79.89 Other specified soft tissue disorders; I12.9 Hypertensive chronic kidney disease with stage 1 through stage 4 chronic kidney disease, or unspecified chronic kidney disease; E11.22 Type 2 diabetes mellitus with diabetic chronic kidney disease; N18.9 Chronic kidney disease, unspecified; E11.43 Type 2 diabetes mellitus with diabetic autonomic (poly)neuropathy; K31.84 Gastroparesis; E11.319 Type 2 diabetes mellitus with unspecified diabetic retinopathy without macular edema; F31.9 Bipolar disorder, unspecified; Z99.2 Dependence on renal dialysis; Z79.4 Long term (current) use of insulin; Z87.891 Personal history of nicotine dependence; Z88.2 Allergy status to sulfonamides; Z88.7 Allergy status to serum and vaccine

== ENCOUNTER 2016-07-02 09:15 | Emergency (ER) | payer OTHER ==
[~2016-07-02] VITALS: Ht 170.2 cm; Wt 75.5 kg
[~2016-07-02 09:15] MED LIST changes: +PANT40TA2 PO
[2016-07-02 09:20] VITALS: BP 192/91; PULSE 83; RESP 16; O2SAT 98
[2016-07-02 09:31] VITALS: BP 202/93; PULSE 82; RESP 16; O2SAT 97
[2016-07-02] MEDS ORDERED: LidocaineVisc 2%:Antacid 1:1 10 mL Syringe PO ONE (09:50)
--- NOTE | 2016-07-02 10:10 | ED.REPORT ---
HPI-Chest Pain 40 and Over Date of Service Jul 02, 2016 ED Provider: Christal Hanson MD History of Present Illness: Narciso Ruiz is a 50 year old man with a PMH of ESRD on dialysis, DM2 with profound retinopathy and neuropathy, HTN, recurrent TIAs, anxiety, and GERD who presents today with similar symptoms to a previous ED visit 2 days ago complaining of chest pain, SOB, anxiety and poor PO intake due to GERD. 2 days ago his chest pain was alleviated by GI cocktail. His primary concern today is neck pain, he states that at one time he was given an injection that relieved his neck pain and reduced his anxiety; a search through the medical records indicates that this med was likely Dilaudid. He has been offered extensive social support in the past through [facility], which he has refused. There is ongoing concern about adult failure to thrive as the patient's social support network appears to be collapsing. Nursing Notes Stated Complaint: CHEST PAIN/SHORTNESS OF BREATH/FELL Chief Complaint: Chest Pain Nursing Notes Reviewed: Yes Allergies: Coded Allergies: tetanus and diphtheria toxoids (Verified Allergy, Severe, COULDN'T HEAR VOMITING, SYNCOPE HOSPITALIZED, 06/04/16) Sulfa (Sulfonamide Antibiotics) (Verified Allergy, Unknown, 06/04/16) Scheduled Amlodipine (Amlodipine) 10 Mg Tablet 10 MG PO DAILY Atorvastatin Calcium (Atorvastatin Calcium) 40 Mg Tablet 40 MG PO HS Calcium Carbonate (Tums) 500 Mg Tab.chew 500 MG PO TIDWM Cholecalciferol (Vitamin D3) (Vitamin D3) 50,000 Unit Capsule 50,000 UNIT PO WEEKLY Clopidogrel (Clopidogrel) 75 Mg Tablet 75 MG PO DAILY Divalproex ER (Divalproex ER) 500 Mg Tab.er.24h 500 MG PO TID Fludrocortisone Acetate (Fludrocortisone Acetate) 0.1 Mg Tablet 0.1 MG PO MoWeFr Fluoxetine (Fluoxetine) 20 Mg Tablet 20 MG PO DAILY Hydralazine (Hydralazine) 25 Mg Tablet 25 MG PO TID Insulin Glargine (Lantus U100 Insulin Vial) 100 Unit/Ml Vial 10 UNIT SUBQ QPM Labetalol (Labetalol) 200 Mg Tablet 200 MG PO TID Metoclopramide (Metoclopramide) 5 Mg Tablet 5 MG PO TID Pantoprazole DR (Protonix) 40 Mg Tablet 40 MG PO DAILY Ranitidine (Ranitidine) 300 Mg Tablet 300 MG PO HS Sevelamer Carbonate (Renvela) 800 Mg Tablet 800 MG PO TIDWM Sodium Polystyrene Sulfonate (Sodium Polystyrene Sulfonate) 15 Gm/60 Ml Oral.susp 15 GM PO twice weekly Spironolactone (Aldactone) 25 Mg Tablet 50 MG PO BID Torsemide (Demadex) 20 Mg Tablet 20 MG PO DAILY Scheduled PRN Diphenoxylate/Atropine (Diphenoxylate-Atrop 2.5-0.025) 2.5 Mg Tablet 1 EACH PO TID PRN PRN For Diarrhea or Loose Stool Insulin Lispro (HumaLOG U100 Insulin Pen) 100 Unit/1 Ml Insuln.pen UNIT SUBQ TIDWM PRN PRN BG coverage Blood Sugar Lispro Correction General Time Seen by MD: 09:45 Chief Complaint Other (Neck Pain) Hx Obtained From: Patient Sudden in Onset?: No Onset Occurred: 1 week ago Symptom Duration: Since onset Risk Factors )( CAD Risk Stratification Diabetes mellitus Hypertension Risk factors reviewed )( TAD Risk Stratification Hypertension Risk factors reviewed Past Medical History Past Medical History Notes: Patient admitted May 08 May 07 for acute on chronic kidney injury, hyperkalemia, uncontrolled diabetes, chronically elevated troponin, and hypertension PCP: Charity [facility] Past Medical History Undiagnosed mental disorder Bipolar, manic Headaches non-migraine 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 Diabetic retinopathy, neuropathy, nephropathy Chronic kidney disease Gastroparesis Reports: Diabetes mellitus, Hypertension Past Surgical History Hernia repair Family History Mother is alive with bipolar disorder - 06/04/2016 Smoking History Former Smoker Social History Used to chew tobacco. Alcohol Use: In recovery Drug Use: Denies drug use Other Social History: Smokeless tobacco, Good social support, Lives with children Ambulatory Status Independent Review of Systems Constitutional: Reports: Fatigue, Weakness - generalized Respiratory: Reports: Shortness of breath Cardiovascular: Reports: Chest pain GI: Reports: Nausea Musculoskeletal: Reports: Joint pain Complete sys rev & neg: except as marked. Physical Exam Physical Exam Notes: Gen: A/O x3 anxious cooperative man in moderate acute distress secondary to neck pain and anxiety Neck: Stiff, reduced ROM in all planes of motion, no tenderness to palpation HEENT: Functionally blind, mucous membranes dry CV: RRR, bounding pulse, no murmurs rubs or gallops Resp: Lungs CTA BL, no wheezing rales or rhonchi Extr: Mild BL non pitting LE edema Psych: Flat affect Initial Vital Signs Vital Signs (First) Date Time Temp Pulse Resp B/P Pulse Ox O2 Delivery O2 Flow Rate FiO2 07/02/16 09:20 36.2 83 16 192/91 98 Room Air Initial VS: Reviewed Interpretation & Diagnostics Lab Results Interpretation Test 07/02/16 10:55 Re-Eval/Medical Decision Med Decision/Clinical Course Patient's case was discussed with Dr. Gonzalez from nephrology who is quite familiar with this gentleman, she endorses that given that he is already on dialysis Toradol would be appropriate to control his neck pain. She further states that Reglan prior to meals would benefit his GERD symptoms. Social work met with the patient, they relate that prior to initiating dialysis he was connected with [place] for his anxiety and [facility], however since starting dialysis he feels that he cannot further burden his social support network to make additional appointments beyond his Dialysis. Social work is further concerned that he may be acitively drug seeking and that we should avoid administration of Narcotics if at all possible. They will contact his dialysis center to ascertain whether there may be further services such as meditation and mindfullness instruction available during his dialysis visits. for the hypertension, he was given his multiple doses of 200 mg of labetalol and 25 mg of hydralazine with blood pressure coming down into his typical hypertensive range, 150s to 160s systolic. Discharge & Departure Shift Change Sign-Out Patient Care Transferred: No Discussed Complaint(s): Yes Response to Therapy: Improved Primary Impression: Non-cardiac chest pain Additional Impressions: Anxiety Neck pain Hypertension Disposition: Home Discharge Condition All VS Reviewed: Yes Condition: Stable Patient Instructions: Generalized Anxiety Disorder (ED) Additional Instructions: Continue to take your Reglan(Metoclopramide) prior to meals as this will help avoid your stomach pain. For you neck pain I encourage you to access the services of a Chiropractor or other body work specialist as this will address the underlying problem that is causing your pain rather than just masking it with medication. If you begin to feel sharp chest pain and pressure, intense nausea or vomiting, or have symptoms of altered speech or facial drooping please come back to the ER for further evaluation. Referrals: Charity Monson PA-C (PCP) Attending Statement Patient seen and examined. Documentation and assessment as above Neck pain improved with Toradol, Toradol discussed with community education specialist before administration software engineer web services involved, will see if there are outpatient options we can attend to that may decrease the frequency of his emergency room visits and alleviate some of his anxiety copies to: Charity Monson PA-C, David E DO Jul 02, 2016 10:10 Christal Hanson MD Jul 02, 2016 11:30
[2016-07-02] MEDS ORDERED: Albuterol-Ipratropium 3 mL Inhalation Solution NEB ONE (11:00)
[2016-07-02 11:11] VITALS: BP 171/74; PULSE 77; RESP 16; O2SAT 98
[2016-07-02 11:21] VITALS: PULSE 73; RESP 16; O2SAT 97
[2016-07-02 11:38] VITALS: BP 151/69; PULSE 71; RESP 13; O2SAT 98
[2016-07-02 12:38] VITALS: BP_SYST 159; BP_SYST 166; BP_DIAS 77; BP_DIAS 80; PULSE 70; RESP 16; O2SAT 99
[2016-10-02] MEDS ORDERED: vitamin d2 (17:18)
[2016-10-02] MEDS ORDERED: AMLO5TAB2 PO (17:18)
[2016-10-02] MEDS ORDERED: ASPI-973 PO (17:18)
[2016-10-02] MEDS ORDERED: MEGE400O PO (17:18)
[2016-10-02] MEDS ORDERED: DEP500A PO (17:18)
[2016-10-02] MEDS ORDERED: LABE200T PO (17:18)
[2016-10-02] MEDS ORDERED: CITA20TA11 PO (17:18)
== END 2016-07-02 11:30 | disposition home or self-care (01) ==
LOC: SED 09:15
DX: R07.89 Other chest pain (principal); F41.9 Anxiety disorder, unspecified; M54.2 Cervicalgia; I12.0 Hypertensive chronic kidney disease with stage 5 chronic kidney disease or end stage renal disease; E11.22 Type 2 diabetes mellitus with diabetic chronic kidney disease; N18.6 End stage renal disease; F31.9 Bipolar disorder, unspecified; K21.9 Gastro-esophageal reflux disease without esophagitis; E11.40 Type 2 diabetes mellitus with diabetic neuropathy, unspecified; E11.43 Type 2 diabetes mellitus with diabetic autonomic (poly)neuropathy; K31.84 Gastroparesis; E11.319 Type 2 diabetes mellitus with unspecified diabetic retinopathy without macular edema; E11.21 Type 2 diabetes mellitus with diabetic nephropathy; Z99.2 Dependence on renal dialysis; Z79.4 Long term (current) use of insulin; Z87.891 Personal history of nicotine dependence; Z88.2 Allergy status to sulfonamides; Z88.7 Allergy status to serum and vaccine
CPT/HCPCS: 90791; 93005; 94664; 96372; 99285; J1885; J7620

== ENCOUNTER 2016-07-06 08:12 | Emergency (ER) | payer OTHER ==
[~2016-07-06] VITALS: Ht 170.2 cm; Wt 75.5 kg
[2016-07-06 08:18] VITALS: BP 157/95; PULSE 83; RESP 16; O2SAT 99
[2016-07-06] MEDS ORDERED: 0.9% Sodium Chloride 500 ML IV ONE (08:40)
[2016-07-06] MEDS ORDERED: Ondansetron 2 mg/mL 2 mL Inj IVPUSH PRN (08:40)
--- NOTE | 2016-07-06 08:42 | ED.REPORT ---
HPI-General Illness Date of Service Jul 06, 2016 ED Provider: Christal Hanson MD 50 year old male with a history of CKD on dialysis, diabetes, and HTN presents to the ER from his dialysis appointment prior to starting due to weakness onset just prior to arrival. He also reports an episode of near syncope this morning at his appointment. Associated symptoms include nausea and vomiting. Morning medications were taken but he states that he was unable to keep them down. Nursing Notes Stated Complaint: WEAKNESS Chief Complaint: General Complaint Nursing Notes Reviewed: Yes Allergies: Coded Allergies: tetanus and diphtheria toxoids (Verified Allergy, Severe, COULDN'T HEAR VOMITING, SYNCOPE HOSPITALIZED, 06/04/16) Sulfa (Sulfonamide Antibiotics) (Verified Allergy, Unknown, 06/04/16) influenza virus vaccine, specific (Verified Allergy, Unknown, can't hear himself talk, 07/06/16) Scheduled Amlodipine (Amlodipine) 10 Mg Tablet 10 MG PO DAILY Atorvastatin Calcium (Atorvastatin Calcium) 40 Mg Tablet 40 MG PO HS Calcium Carbonate (Tums) 500 Mg Tab.chew 500 MG PO TIDWM Cholecalciferol (Vitamin D3) (Vitamin D3) 50,000 Unit Capsule 50,000 UNIT PO WEEKLY Clopidogrel (Clopidogrel) 75 Mg Tablet 75 MG PO DAILY Divalproex ER (Divalproex ER) 500 Mg Tab.er.24h 500 MG PO TID Fludrocortisone Acetate (Fludrocortisone Acetate) 0.1 Mg Tablet 0.1 MG PO MoWeFr Fluoxetine (Fluoxetine) 20 Mg Tablet 20 MG PO DAILY Hydralazine (Hydralazine) 25 Mg Tablet 25 MG PO TID Insulin Glargine (Lantus U100 Insulin Vial) 100 Unit/Ml Vial 10 UNIT SUBQ QPM Labetalol (Labetalol) 200 Mg Tablet 200 MG PO TID Metoclopramide (Metoclopramide) 5 Mg Tablet 5 MG PO TID Pantoprazole DR (Protonix) 40 Mg Tablet 40 MG PO DAILY Potassium Chloride (Potassium Chloride) 20 Meq Tab.er.prt 20 MEQ PO BID TAKE WITH FOOD Ranitidine (Ranitidine) 300 Mg Tablet 300 MG PO HS Sevelamer Carbonate (Renvela) 800 Mg Tablet 800 MG PO TIDWM Sodium Polystyrene Sulfonate (Sodium Polystyrene Sulfonate) 15 Gm/60 Ml Oral.susp 15 GM PO twice weekly Spironolactone (Aldactone) 25 Mg Tablet 50 MG PO BID Torsemide (Demadex) 20 Mg Tablet 20 MG PO DAILY Scheduled PRN Diphenoxylate/Atropine (Diphenoxylate-Atrop 2.5-0.025) 2.5 Mg Tablet 1 EACH PO TID PRN PRN For Diarrhea or Loose Stool Insulin Lispro (HumaLOG U100 Insulin Pen) 100 Unit/1 Ml Insuln.pen UNIT SUBQ TIDWM PRN PRN BG coverage Blood Sugar Lispro Correction General Time Seen by MD: 08:40 Chief Complaint Weakness Hx Obtained From: Patient Arrived By: Walk-in Sudden in Onset?: Yes Onset Occurred: Just prior to arrival Symptom Duration: Since onset Associated with: Reports: Nausea, Vomiting Context Related History: Reports Diabetes mellitus Recent Healthcare: Recent doctor visit, Recent hospitalization Similar Sx Previous: Yes Past Medical History Past Medical History Notes: Patient admitted May 08 May 07 for acute on chronic kidney injury, hyperkalemia, uncontrolled diabetes, chronically elevated troponin, and hypertension PCP: Charity [facility] Past Medical History Undiagnosed mental disorder Bipolar, manic Headaches non-migraine 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 Diabetic retinopathy, neuropathy, nephropathy Chronic kidney disease Gastroparesis Reports: Diabetes mellitus, Hypertension Past Surgical History Hernia repair Family History Mother is alive with bipolar disorder - 06/04/2016 Smoking History Former Smoker Social History Used to chew tobacco. Alcohol Use: In recovery Drug Use: Denies drug use Other Social History: Smokeless tobacco, Good social support, Lives with children Ambulatory Status Independent Review of Systems Full Review of Systems Constitutional: Reports: Weakness - generalized, Denies: Chills, Fever Respiratory: Denies: Non-productive cough, Shortness of breath Cardiovascular: Denies: Chest pain GI: Reports: Nausea, Vomiting Neurologic: Reports: Dizziness, Lightheaded, Denies: Syncope Complete sys rev & neg: except as marked. Physical Exam Vital Signs Vital Signs Date Time Temp Pulse Resp B/P Pulse Ox O2 Delivery O2 Flow Rate FiO2 07/06/16 10:45 36.1 72 16 132/86 99 Room Air 07/06/16 08:18 36.1 83 16 157/95 99 Room Air Initial VS: Reviewed Head / Eyes: Atraumatic, Normocephalic Neck: Supple, Non-tender, Full range of motion Abdomen / GI: Soft, Non-tender, No guarding, No rebound, No distention Extremities: Vascular intact, Neuro intact, No swelling, No tenderness Skin: Warm, Dry, No cyanosis Neurologic: Alert, Oriented, Nonfocal General/Constitutional: Awake, Alert, Well developed Appearance / Presentation: Positive: Cachectic Respiratory / Chest: Breath sounds NL, No respiratory distress, No rales, No rhonchi, No wheezing Cardiovascular: Heart rate NL, Regular rhythm, Cap refill not delayed, Peripheral circulation NL Heart Sounds / Murmur: Positive: Systolic murmur present.. (II/) Interpretation & Diagnostics Lab Results Interpretation Result Diagram: 07/06/16 0900 07/06/16 0900 Test 07/06/16 09:00 White Blood Count 4.4th/mm3 (3.8-10.1) Red Blood Count 3.04mil/mm3 (4.40-5.80) Hemoglobin 9.2g/dL (13.8-17.2) Hematocrit 26.0% (41.0-50.0) Mean Corpuscular Volume 85.5fL (81-100) Mean Corpuscular Hemoglobin 30.3pg (27.0-35.0) Mean Corpuscular Hemoglobin Concent 35.4% (32.0-37.0) Red Cell Distribution Width 15.2% (12.3-15.4) Platelet Count 179bil/L (150-400) Neutrophils (%) (Auto) 68.6% (40-74) Lymphocytes (%) (Auto) 15.6% (14-46) Monocytes (%) (Auto) 13.3% (4-12) Eosinophils (%) (Auto) 1.4% (0-5) Basophils (%) (Auto) 0.9% (0-3) Sodium Level 136mEq/L (134-144) Potassium Level 3.0mEq/L (3.5-5.2) Chloride Level 97mEq/L (97-108) Carbon Dioxide Level 25mmol/L (18-29) Blood Urea Nitrogen 33mg/dL (6-24) Creatinine 4.06mg/dL (0.76-1.27) Estimat Glomerular Filtration Rate 17mL/min (>59) Glucose Level 291mg/dL (60-99) Calcium Level 7.7mg/dL (8.5-10.1) Magnesium Level 1.4mg/dL (1.6-2.6) Total Bilirubin 0.7mg/dL (0.0-1.2) Aspartate Amino Transf (AST/SGOT) 56U/L (0-50) Alanine Aminotransferase (ALT/SGPT) 42U/L (0-44) Alkaline Phosphatase 42U/L (25-150) Troponin T 0.359ug/L (0.0-0.011) Total Protein 5.2g/dL (6.4-8.4) Albumin 3.2g/dL (3.4-5.0) Lipase 21U/L (13-60) ECG Interpretation ECG Interpretation: Sinus rhythm, rate 76 Probable left atrial enlargement Low voltage, extremity leads Prolonged QT interval Similar to previous ECG Time: 08:51 Interpreted by: ED physician Re-Eval/Medical Decision Med Decision/Clinical Course Presents with complaints of weakness, recurrent anxiety. Labs show chronically elevated troponin, chronic anemia, chronically elevated creatinine his potassium is somewhat low at 3.0. We will opt to treat this orally for the next couple of days will recommend potassium level be drawn with his next dialysis visit. He is going to dialysis immediately after this emergency room visit so next one will be Wednesday Source of Hx: Old records Time of Eval: 10:28 Re-Evaluation/Progress Note: Completed physical examination. Discussed lab results and updated patient on the plan to discharge with plan to go straight to dialysis. Patient is amenable to the plan. Return precautions given. All other questions addressed. Counseled Regarding: Diagnosis, Lab results, Need for follow-up, When/why to return to ED Discharge & Departure Primary Impression: Hypokalemia Additional Impression: Weakness Disposition: Home Discharge Condition All VS Reviewed: Yes Condition: Stable Additional Instructions: Go straight to your dialysis appointment. Your potassium is a little low. I have given you 40meq here in the ER and would like you to take 20meq am and pm until your next dialysis apt. They can recheck your potassium at that point and help you figure out if you should continue the potassium supplementation. A prescription for #6 20meq pills was sent electronically to [facility] for you today there is no evidence today of heart attack, infection, heart failure, dramatic bloop pressure shifts (too high or too low). Return to the ER if you develop worsening or concerning symptoms. Referrals: Charity Monson PA-C (PCP) Joss Attestation Portions of this note were transcribed by Delroy Brady. I, Dr. Hanson, personally performed the history, physical exam and medical decision-making; I reviewed and confirmed the accuracy of the information in the transcribed note. Signed by: Joss Owens, 07/06/2016 and 10:41 copies to: Patricia Manrique MD; Charity Monson PA-C, Shawna L MD Jul 06, 2016 08:42 DELROY BRADY Jul 06, 2016 08:47
[2016-07-06 09:18] LABS: BASOPHILS % (AUTO) 0.9 % (0-3); EOSINOPHILS % (AUTO) 1.4 % (0-5); MONOCYTES % (AUTO) 13.3 % (4-12); Mean Corpuscular Hemoglobin 30.3 pg (27.0-35.0); Mean Corpuscular Volume 85.5 fL (81-100); NEUTROPHILS % (AUTO) 68.6 % (40-74); Platelet Count 179 bil/L (150-400)
[2016-07-06 09:53] LABS: Magnesium 1.4 mg/dL (1.6-2.6)
[2016-07-06 09:55] LABS: TROPONIN T 0.359 ug/L (0.0-0.011)
[2016-07-06] MEDS ORDERED: Potassium Chloride 20 mEq SR Tablet PO ONE (10:35)
[2016-07-06] MEDS ORDERED: POTA20TA16 PO (10:38)
[2016-07-06 10:45] VITALS: BP 132/86; PULSE 72; RESP 16; O2SAT 99
[2016-10-02] MEDS ORDERED: MEGE400O PO (17:18)
[2016-10-02] MEDS ORDERED: DEP500A PO (17:18)
[2016-10-02] MEDS ORDERED: CITA20TA11 PO (17:18)
[2016-10-02] MEDS ORDERED: LABE200T PO (17:18)
[2016-10-02] MEDS ORDERED: AMLO5TAB2 PO (17:18)
[2016-10-02] MEDS ORDERED: vitamin d2 (17:18)
[2016-10-02] MEDS ORDERED: ASPI-973 PO (17:18)
== END 2016-07-06 10:46 | disposition home or self-care (01) ==
LOC: SED 08:12
DX: E87.6 Hypokalemia (principal); R53.1 Weakness; E11.22 Type 2 diabetes mellitus with diabetic chronic kidney disease; N18.9 Chronic kidney disease, unspecified; E11.319 Type 2 diabetes mellitus with unspecified diabetic retinopathy without macular edema; E11.40 Type 2 diabetes mellitus with diabetic neuropathy, unspecified; E11.21 Type 2 diabetes mellitus with diabetic nephropathy; I10 Essential (primary) hypertension; F31.9 Bipolar disorder, unspecified; R79.89 Other specified abnormal findings of blood chemistry; Z87.891 Personal history of nicotine dependence; Z99.2 Dependence on renal dialysis; Z88.8 Allergy status to other drugs, medicaments and biological substances; Z79.4 Long term (current) use of insulin; Z88.2 Allergy status to sulfonamides
CPT/HCPCS: 36415; 80053; 83690; 83735; 84484; 85025; 93005; 96361; 96374; 99285; J2405; J7040

== ENCOUNTER 2016-07-29 09:05 | Inpatient (IN) | payer MEDICAID, OTHER ==
[2016-07-29] VITALS (7 sets, daily range): BP systolic 171–213; BP diastolic 82–101; PULSE 70–85; RESP 10–20; O2SAT 92–99
[~2016-07-29] VITALS: Ht 170.2 cm; Wt 82.4 kg
[~2016-07-29 09:05] MED LIST changes: +POTA20TA16 PO
--- NOTE | 2016-07-29 09:12 | ED.REPORT ---
HPI-General Illness Date of Service Jul 29, 2016 ED Provider: Dr. Jeff Ford 50 year old male with a history of Bipolar, Headaches non-migraine, Insulin dependent diabetes, Diabetic retinopathy, neuropathy, nephropathy, Gastroparesis , ESRD on dialysis 3 days weekly, HTN and GERD who presents to the ER via EMS from dialysis due to severe nausea, abd pain and a headache. Pt has taken Tylenol with some relief. Pt has been seen previously for similar and states that this is the same. Neck pain that he reports is unchanged from previous. I spoke with RENEA Murrell, from the dialysis Center who had concerns that the patient is decompensating. She spoke with the patients ex-. She is currently letting the patient live in her house or else he would be homeless. She stated that he has been purposefully defecating on his grandchildren's belongings, has self-induced vomiting and increased agitation. These symptoms are similar to prior episodes of bipolar. Due to this the patients ex- will not allow him to go back to the residence. Nyasia also states that the patient is non-compliant in taking his insulin and going to dialysis. Over the last few months he has not gone to his appointments, however he has gone to his last 3 appointments with the last visit 2 days ago. Pt denies diarrhea. No diarrhea Nursing Notes Stated Complaint: EVALUATED Chief Complaint: Male Abdominal Pain Nursing Notes Reviewed: Yes Allergies: Coded Allergies: tetanus and diphtheria toxoids (Verified Allergy, Severe, COULDN'T HEAR VOMITING, [facility], 07/29/16) Sulfa (Sulfonamide Antibiotics) (Verified Allergy, Unknown, 07/29/16) influenza virus vaccine, specific (Verified Allergy, Unknown, can't hear himself talk, 07/29/16) Scheduled Amlodipine (Amlodipine) 10 Mg Tablet 10 MG PO DAILY Atorvastatin Calcium (Atorvastatin Calcium) 40 Mg Tablet 40 MG PO HS Calcium Carbonate (Tums) 500 Mg Tab.chew 500 MG PO TIDWM Cholecalciferol (Vitamin D3) (Vitamin D3) 50,000 Unit Capsule 50,000 UNIT PO WEEKLY Clopidogrel (Clopidogrel) 75 Mg Tablet 75 MG PO DAILY Divalproex ER (Divalproex ER) 500 Mg Tab.er.24h 500 MG PO TID Fludrocortisone Acetate (Fludrocortisone Acetate) 0.1 Mg Tablet 0.1 MG PO MoWeFr Fluoxetine (Fluoxetine) 20 Mg Tablet 20 MG PO DAILY Hydralazine (Hydralazine) 25 Mg Tablet 25 MG PO TID Insulin Glargine (Lantus U100 Insulin Vial) 100 Unit/Ml Vial 10 UNIT SUBQ QPM Labetalol (Labetalol) 200 Mg Tablet 200 MG PO TID Metoclopramide (Metoclopramide) 5 Mg Tablet 5 MG PO TID Pantoprazole DR (Protonix) 40 Mg Tablet 40 MG PO DAILY Potassium Chloride (Potassium Chloride) 20 Meq Tab.er.prt 20 MEQ PO BID TAKE WITH FOOD Ranitidine (Ranitidine) 300 Mg Tablet 300 MG PO HS Sevelamer Carbonate (Renvela) 800 Mg Tablet 800 MG PO TIDWM Sodium Polystyrene Sulfonate (Sodium Polystyrene Sulfonate) 15 Gm/60 Ml Oral.susp 15 GM PO twice weekly Spironolactone (Aldactone) 25 Mg Tablet 50 MG PO BID Torsemide (Demadex) 20 Mg Tablet 20 MG PO DAILY Scheduled PRN Diphenoxylate/Atropine (Diphenoxylate-Atrop 2.5-0.025) 2.5 Mg Tablet 1 EACH PO TID PRN PRN For Diarrhea or Loose Stool Insulin Lispro (HumaLOG U100 Insulin Pen) 100 Unit/1 Ml Insuln.pen UNIT SUBQ TIDWM PRN PRN BG coverage Blood Sugar Lispro Correction General Time Seen by MD: 09:11 Chief Complaint Other (Severe nausea) Hx Obtained From: Patient, EMS Arrived By: Ambulance Onset Occurred: Onset unknown Location: : Abdomen Quality: Painful Severity: Current: Moderate Associated with: Reports: Headache, Denies: Fever, Shortness of breath Pertinent Negative: Relieved by nothing Recent Healthcare: Recent doctor visit Similar Sx Previous: Yes Past Medical History Past Medical History Notes: PCP: Charity URBANO Past Medical History Undiagnosed mental disorder Bipolar, manic Headaches non-migraine 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 Alcohol Use: In recovery Drug Use: Denies drug use Other Social History: Smokeless tobacco, Good social support, Lives with children Ambulatory Status Independent Review of Systems Full Review of Systems GI: Reports: Abdominal pain, Nausea, Vomiting Musculoskeletal: Reports: Neck pain Neurologic: Reports: Headache Psychiatric: Reports: Agitation Complete sys rev & neg: except as marked. Physical Exam Vital Signs Vital Signs Date Time Temp Pulse Resp B/P Pulse Ox O2 Delivery O2 Flow Rate FiO2 07/29/16 11:43 36.9 85 10 213/94 92 Room Air 07/29/16 09:08 36.9 78 16 213/101 99 Room Air Initial VS: Reviewed General/Constitutional: Well-developed, Well-nourished ENT: Mucous membranes moist, Conjunctiva normal, No scleral icterus Neck: Full range of motion Respiratory: Breath sounds normal, Clear to auscultation, No respiratory distress Cardiovascular: Regular rate & rhythm, Heart sounds normal, Intact distal pulses Abdomen / GI: Soft, Non-tender Extremities: Vascular intact, Neuro intact, No swelling, No tenderness Skin: Warm, Dry, No cyanosis Neurologic: Alert, Oriented, Nonfocal Head / Eyes: Atraumatic, Normocephalic, No scleral icterus Blind Interpretation & Diagnostics Lab Results Interpretation Result Diagram: 07/29/16 0930 07/29/16 0930 Test 07/29/16 09:30 07/29/16 11:00 White Blood Count 10.6th/mm3 (3.8-10.1) Red Blood Count 3.75mil/mm3 (4.40-5.80) Hemoglobin 11.6g/dL (13.8-17.2) Hematocrit 32.9% (41.0-50.0) Mean Corpuscular Volume 87.7fL (81-100) Mean Corpuscular Hemoglobin 30.9pg (27.0-35.0) Mean Corpuscular Hemoglobin Concent 35.3% (32.0-37.0) Red Cell Distribution Width 15.5% (12.3-15.4) Platelet Count 236bil/L (150-400) Neutrophils (%) (Auto) 90.5% (40-74) Lymphocytes (%) (Auto) 4.4% (14-46) Monocytes (%) (Auto) 4.4% (4-12) Eosinophils (%) (Auto) 0% (0-5) Basophils (%) (Auto) 0.3% (0-3) Sodium Level 127mEq/L (134-144) Potassium Level 4.5mEq/L (3.5-5.2) Chloride Level 87mEq/L (97-108) Carbon Dioxide Level 22mmol/L (18-29) Blood Urea Nitrogen 23mg/dL (6-24) Creatinine 3.81mg/dL (0.76-1.27) Estimat Glomerular Filtration Rate 18mL/min (>59) Glucose Level 709mg/dL (60-99) Calcium Level 9.1mg/dL (8.5-10.1) Magnesium Level 1.7mg/dL (1.6-2.6) Total Bilirubin 0.7mg/dL (0.0-1.2) Aspartate Amino Transf (AST/SGOT) 23U/L (0-50) Alanine Aminotransferase (ALT/SGPT) 23U/L (0-44) Alkaline Phosphatase 84U/L (25-150) Total Protein 6.5g/dL (6.4-8.4) Albumin 3.6g/dL (3.4-5.0) Lipase 29U/L (13-60) Thyroid Stimulating Hormone (TSH) 4.260uIU/mL (0.450-4.500) Hold Cook Top Tube Received (Received) Valproic Acid (Depakene) Level 33ug/mL (50-125) Alcohols < 10mg/dL (0-10) Ketones Small (Negative) Hold Urine Received (Received) Lab Results Interpretation: Bedside BGL: High Utox negative General Lab Results Interp 1: Labs reviewed ECG Interpretation Time: 09:30 Interpreted by: ED physician Normal ECG Interpretation: Normal rate (76), Normal sinus rhythm, No acute ischemic changes ABG Interpretation ABG Interpretation: pH ____7.357 - pCO2 ___47.9__ -mmHg pO2 ___43.7__ -mmHg HCO3- ___26.2__ -mmol/L Exam Interpreted by: ED physician Re-Eval/Medical Decision Med Decision/Clinical Course Patient seems to have 3 issues, first issue is that he is hyperglycemic, he is not in severe DKA. He will be started on insulin drip. Secondly, he is end-stage renal and due for dialysis. Thirdly is that at home he has been having more extensive behavioral issues concerning for probable margarita or underlying psychosis. Patient will be admitted. Time of Eval: 09:30 Re-Evaluation/Progress Note: Talked with [facility] nurse Heather. Time of Eval: 12:32 Re-Evaluation/Progress Note: Pt improved. Feels much better. He understands and agrees with plan for admission. Consultation #1: Referral / Consult Name: Patricia Manrique MD Consulted With: Nephrology Call Returned at: 11:30 Electronic Gluing Machine Operator: Will see patient Consultation #2: Referral / Consult Name: Patricio Timmons DO Consulted With: Hospitalist Call Returned at: 12:37 Electronic Gluing Machine Operator: Will see patient, Agrees with eval, Agrees with plan, Accepts admit Consultation #3: Referral / Consult Name: Cha Red MD Consulted With: Hospitalist Call Returned at: 12:56 Electronic Gluing Machine Operator: Will see patient, Agrees with eval, Agrees with plan, Accepts admit Counseled Regarding: Diagnosis, Lab results, Need for admission Discharge & Departure Primary Impression: Hyperglycemia Additional Impression: ESRD (end stage renal disease) Disposition: ADMITTED TO HOSPITAL Discharge Condition All VS Reviewed: Yes Referrals: Charity Monson PA-C (PCP) Patricia Manrique MD Scribe Attestation Portions of this note were transcribed by Minerva Timmons. I, (Dr. Jeff Ford ) personally performed the history, physical exam and medical decision-making; I reviewed and confirmed the accuracy of the information in the transcribed note. Signed by: Minerva Timmons. Joss, 07/29/2016, [id number] copies to: Patricia Manrique MD; Charity Monson PA-C, Timothy S DO Jul 29, 2016 09:12 Minerva Timmons Jul 29, 2016 09:29
[2016-07-29] MEDS: Ondansetron 2 mg/mL 2 mL Inj IVPUSH PRN ×3 (09:31→14:14)
[2016-07-29] MEDS ORDERED: 0.9% Sodium Chloride 250 ML IV ONE (09:35)
[2016-07-29 09:47] LABS: BASOPHILS % (AUTO) 0.3 % (0-3); EOSINOPHILS % (AUTO) 0 % (0-5); MONOCYTES % (AUTO) 4.4 % (4-12); Mean Corpuscular Hemoglobin 30.9 pg (27.0-35.0); Mean Corpuscular Volume 87.7 fL (81-100); NEUTROPHILS % (AUTO) 90.5 % (40-74); Platelet Count 236 bil/L (150-400)
--- NOTE | 2016-07-29 09:57 | ABG ---
DateTimeAnalyzed 09:54:00 -_ pH ____7.357 - pCO2 ___47.9__ -mmHg pO2 ___43.7__ -mmHg HCO3- ___26.2__ -mmol/L ABE ____0.8__ -mmol/L tHb ___11.6__ -g/dL O2Hb ___76.2__ -% COHb ____2.6__ -% MetHb ____1.1__ -% sO2 ___79.1__ -% FIO2 ___21.0__ -% Drawn By jmw - Date/Time Notified____ 09:56:00 -_ Notified By JMW - Notified Whom DR O'LEONARDO - B 755 -mmHg tO2 ___12.4__ -Vol% Sebastian test N/A -
[2016-07-29 10:51] LABS: Magnesium 1.7 mg/dL (1.6-2.6)
[2016-07-29] MEDS: Insulin Human REGular Inj 100 UNIT in 0.9% Sodium Chloride 100 ML IV SCH ×2 (11:55→21:11)
[2016-07-29] MEDS ORDERED: Alum-Mag Hydrox-Simeth 30 mL Suspension PO PRN (13:00)
--- NOTE | 2016-07-29 13:52 | NUR ---
Social Work Note - Narciso Ruiz is a 50 yr old who is being admitted to the hospital from [facility] for nausea, headache. EMR reviewed: Pt has no insurance at this time. He has had 16 ED visits in the past year. GRANULIZING MACHINE OPERATOR received a phone call from RENEA Chaves at [facility] [phone] stating that there are multiple social issues that Pt did not disclose to this worker when interviewed earlier. Nyasia spoke with Pt's ex- who states that Pt has been a guest in her and her 's house as he had no where left to go. Pt's ex- does not want pt to return. Pt is not on the apartment lease. Pt has been acting bizarrely - he has been wandering around at night urinating and defecating in the children's bedrooms. He refuses to be re-directed stating that he is blind and needs help. The family has multiple additional stressors - Dependent grand children in their guardianship, Mother in treatment for cancer, father with dementia and now the Pt who is requiring more help daily and refusing to help in his care. Nyasia voiced concerns that Pt's mental health issues have not been treated - They have tried to encourage him to go to [facility] services and he has refused. Nyasia shared that Pt let his [place] lapse - He is listed as self pay at this time - they have re-applied for [facility]SH[employer] - awaiting reactivation. Pt will be eligible for Medicare on August 24. He is on SSI-D and makes $1800 per month. GRANULIZING MACHINE OPERATOR left a message for Nyasia asking if she would be willing to meet with pt and GRANULIZING MACHINE OPERATOR tomorrow to discuss concerns at home. GRANULIZING MACHINE OPERATOR will continue to follow. Plan: Developing - May require placement. MARYAM Vicente
--- NOTE | 2016-07-29 14:14 | NUR ---
Admit [facility] from ED Pt admitted to [facility] [place] rm 3011 via stretcher at 1355. Pt A&O states to be here d/t nausea. Pt c/o nausea and PARKER 4/10 and being thirsty. Zofran administered. IV patent-Regular Insulin drip going in at 5Units/hr Some admit completed by admit RN. Pt oriented to room and facility. Bed in low position, 3 rails up, call light in reach. to see pt.
[2016-07-29 14:36] LABS: APPEARANCE,URINE CLEAR (CLEAR,HAZY); COLOR,URINE YELLOW (YELLOW)
[2016-07-29 14:37] LABS: OCCULT BLOOD,URINE LARGE (NEGATIVE); UROBILINOGEN,URINE NORMAL (NORMAL)
--- NOTE | 2016-07-29 15:02 | NUR ---
METAL FRAMER made referral to [facility] to explore Medicaid. MARYAM Vicente
--- NOTE | 2016-07-29 15:36 | NUR ---
Off unit to dialysis Pt taken down by primary RN at 1530. Report given to both nurses. Pt asleep prior to transport. Tele notified of shift. See VS and last BG for last report. BG to be taken on the hr-nurses informed.
[2016-07-29] MEDS ORDERED: Glucose 40% Oral Gel 15 Gm Tube PO PRN (16:15)
[2016-07-29] MEDS ORDERED: Insulin GLARgine 100 Unit/mL Syringe SUBQ ONE (16:15)
[2016-07-29] MEDS ORDERED: DiphenOXYlate-Atropine 2.5 mg-0.025 mg Tablet PO PRN (16:20)
--- NOTE | 2016-07-29 17:36 | HP ---
[address] [address] HISTORY AND PHYSICAL PATIENT: SHANT MARTINEZ : 1965 MR#: [id number] ADMIT: 07/29/2016 JOB ID: [id number] CHIEF COMPLAINT: Behavior out of control at home. Weakness. Patient admitted from the ER, Blue team inpatient status. PRIMARY CARE PHYSICIAN: Charity Monson PA-C. HISTORY OF PRESENT ILLNESS: The patient is admitted today, 50 years old. It is a little bit unclear, but I think he was brought to the ED because he is just acting out at home. He has a history of bipolar and he apparently may be in a manic phase. I talked to his briefly on the phone. There is a lot of social issues at home. There are several people there. His behavior has not been acceptable there, and I think there have been times he has been walking around the halls defecating in different areas, which was confirmed by the . On admission, he was also noted to have a blood sugar of 709, and I cannot really get any meaningful information from the patient. He does not even know if he had insulin in the last few days. He thinks maybe not. His ex- who takes care of him does all of that at home, so I called her. She tells me for the last two or three weeks, his blood sugars have been fine. She tested during the day now and then and they have been okay, so he actually has not been getting insulin for about two weeks. I asked her how his blood sugar could be 709 in the ED this morning and she said at night because of these behavioral issues he has been wandering around the house and eating staff he is not supposed to be eating because they try to limit him during the day. His insulin regimen is a little odd. He takes anywhere from 0-10 of Lantus at night but again has not had that for a while because his sugars have been okay, per ex-, and he also takes anywhere from 1-5 units of insulin before each meal on a correctional scale. On occasion, she will give him 1 unit or 2 units if he needs something sweet, nutritional insulin. Please note the patient has been noted to be noncompliant in the past with frequent admissions to this hospital for similar type things. The patient denies any chest pain. He did have nausea two or three times, but that is all resolved at this time. He denies any abdominal pain or diarrhea. No shortness of breath, cough or productive sputum. A complete review of systems is obtained, all pertinent positives in HPI above, the rest of review of systems are negative. PAST MEDICAL HISTORY: 1. Type 2 diabetes, insulin using, with bilateral diabetic retinopathy, neuropathy and nephropathy. 2. Hypertension. 3. Chronic kidney disease, stage 4. 4. Anemia of chronic disease. 5. Bipolar type 1. 6. GERD. 7. Gastroparesis. 8. Hyperlipidemia. 9. Umbilical hernia repair. 10. Right leg ORIF status post removal of hardware. MEDICATIONS: Medications which I confirmed with the ex- by phone today include: 1. Amlodipine 10 mg daily. 2. Lipitor 40 q.p.m. 3. Plavix 75 daily. 4. Depakote 500 t.i.d. 5. Florinef 0.1 mg Wednesday, Wednesday, Wednesday. 6. Prozac 20 mg daily. 7. Hydralazine 25 t.i.d. 8. Lantus anywhere from 0-10 units at bedtime, but he has not been using it for a while. 9. Humalog insulin sliding scale 0-5 units before each meal. 10. Labetalol 200 t.i.d. 11. Reglan 5 t.i.d. with meals. 12. Spironolactone 50 b.i.d. 13. Torsemide 20 daily. 14. Pantoprazole 40 daily. ALLERGIES: 1. TETANUS AND DIPHTHERIA TOXOIDS. 2. SULFA. SOCIAL HISTORY: The patient lives at home and his ex- is his caregiver and apparently there are friends and roommates also. He is not chewing or smoking cigarettes anymore. Denies any alcohol or substance abuse or illicit substances. FAMILY HISTORY: Mother had bipolar and father's side of the family had type 2 diabetes. PHYSICAL EXAMINATION: No fever, pulse 74, respiratory rate 20, blood pressure 171/87, O2 sats 96% on room air. The patient is in bed, looks okay, not in any distress, sullen and at times yells at me when I try to ask him questions. I think he is pretty aggressive and angry. I am able to redirect and calm him down. Eyes: PERRLA. EOMs intact. Mouth shows slightly poor hydration. Neck is supple. No JVD. Cardiac is regular. No murmurs. Lungs are clear to auscultation and percussion. Abdomen is totally benign, soft, nontender at this time. Extremities showed no significant edema. Some chronic stasis changes. Cranial nerves 2-12 are intact. No gross or sensory defects noted. DIAGNOSES: 1. Acute mild diabetic ketoacidosis present on admission, active. The patient was started on a non-DK IV insulin protocol. Blood sugars have come down to about 2-300. He had minimal ketones and a normal pH, but a slightly low pCO2. At this time, we will start the patient on 10 of Lantus and discontinue his insulin drip 1 hour later. Will provide him with 2 units of nutritional insulin and a low-dose correction scale. Will get a hemoglobin A1c and try to come up with a better diabetic plan before he goes home. Will repeat ketones and a BMP in the morning. 2. Chronic hypertension present on admission, stable. Continue patient's amlodipine, hydralazine, labetalol and torsemide. 3. End-stage chronic renal disease, on dialysis, present on admission, stable. The patient is already getting dialysis. The Renvela has been discontinued. Will continue with the calcium. 4. Chronic anemia of chronic disease. Present on admission, stable. Will monitor. 5. Type 2 diabetes, insulin using, with complications of bilateral diabetic retinopathy, neuropathy and nephropathy present on admission, active. Will start the patient on insulin, as noted above under problem number one, diabetic ketoacidosis (DKA). 6. Chronic bipolar disorder type 1, present on admission. Active. This sounds like the situation at home is really deteriorating and it is possibly he may not have caregivers to return to there or may not be able to return. Social Service will be consulted. Need to talk to and will need to see what we can do here. Will continue with the patient's Depakote and fluoxetine at this time. 7. Chronic gastroesophageal reflux disease, present on admission, chronic. Continue patient's Protonix. 8. Gastroparesis, chronic, present on admission, stable. Continue patient's Reglan. 9. Hyperlipidemia, present on admission, stable. Continue patient's atorvastatin. 10. CODE STATUS: FULL CODE. Code sheet filled out.
--- NOTE | 2016-07-29 18:29 | CONS ---
[address] [address] CONSULTATION REPORT PATIENT: SHANT MARTINEZ : 1965 MR#: [id number] ADMIT: 07/29/2016 JOB ID: [id number] DATE OF SERVICE: 07/29/2016 REQUESTING PHYSICIAN: Medardo Tavera MD REASON FOR CONSULTATION: Management of end-stage renal disease. CHIEF COMPLAINT: Nausea and headache. HISTORY OF PRESENT ILLNESS: This is a 50-year-old, male with significant past medical history of end-stage renal disease on hemodialysis every Wednesday, Wednesday and Wednesday, insulin-dependent diabetes, complicated by retinopathy, neuropathy, nephropathy and gastroparesis, hypertension, who presented to the emergency department via EMS from dialysis unit due to severe nausea, abdominal pain and headache. The patient has a past medical history of gastroparesis. He has had chronic intermittent nausea, vomiting and epigastric pain. He also complains of recurrent headache. Per ED record, the ED physician has spoken with the social organization professor from dialysis center. Apparently, the patient has been defecating on his grandchildren's belongings and has self-induced vomiting and increased agitation. The symptoms are similar to episodes of bipolar disorder. The patient has a known history of noncompliance with taking his medication and going to the dialysis center. The initial blood pressure at the emergency department was 213/101. His initial BMP showed a sodium of 127, potassium of 4.5, chloride of 87, BUN of 23, creatinine of 3.81, sugar of 709. The patient was started on insulin drip and normal saline bolus was given. During my visit in the emergency department, he is lying comfortably. He has some nausea but no vomiting. He has some headache. He has no fever, no chills, no chest pain, no shortness of breath, no diarrhea. He is able to urinate without difficulty urinating. He has no dysuria and no hematuria. PAST MEDICAL HISTORY: 1. Type 2 diabetes complicated by retinopathy, nephropathy, and neuropathy. 2. Bipolar disorder. 3. Hypertension with hypertensive nephrosclerosis. 4. End-stage renal disease on hemodialysis every Wednesday, Wednesday, and Wednesday. 5. GERD. 6. Gastroparesis. 7. Anemia in chronic kidney disease. PAST SURGERY HISTORY: 1. Status post hernia repair. 2. Status post laser treatment. 3. Status post tunneled catheter placement for hemodialysis. 4. Right leg ORIF, status post removal of the hardware. FAMILY HISTORY: Mother positive for bipolar disorder. Positive for diabetes in the family on the father's side. SOCIAL HISTORY: The patient is a former smoker. He now stays with his ex- who wishes not to take him back given bipolar disorder. ALLERGIES: 1. SULFA. 2. INFLUENZA VACCINE. 3. TETANUS AND DIPHTHERIA TOXOIDS. 4. MEDICATIONS: Reviewed. REVIEW OF SYSTEMS: Per HPI. Fourteen point review of system was performed. PHYSICAL EXAM: Vitals: Temperature 37.0, pulse 82, respiratory rate 20, blood pressure 171/87, O2 sats 98% on room air. General appearance: Awake, alert, oriented x3. In no acute distress. HEENT: Mild pallor. No jaundice. No JVD. No lymphadenopathy. No thyroid enlargement. Legally blind. Atraumatic. PERRLA. Heart: Regular rhythm. Normal S1, S2. Soft systolic murmur noted. Lungs: Clear to auscultation bilaterally. No wheezing. No rhonchi. Abdomen: Soft, active bowel sounds. Mild tenderness on the epigastric area. No rebound or rigidity. Extremities: No edema, cyanosis or clubbing of fingers. LABORATORY: Sodium 127, potassium 4.5, chloride 87, bicarb 22, BUN 23, creatinine 3.81, glucose 709, calcium 9.1, magnesium 1.7, hemoglobin 11.6, INR 0.99. UA: RBCs over 50, WBCs 0-5, more than 1000 glucose, more than 300 protein, specific gravity 1.010. ASSESSMENT: 1. End-stage renal disease, on hemodialysis every Wednesday, Wednesday, and Wednesday. 2. Hyperglycemia, I do not think he has diabetic ketoacidosis (DKA). He does have history of noncompliance taking the insulin. 3. Uncontrolled hypertension. 4. Uncontrolled bipolar disorder. 5. Noncompliance. 6. Type 2 diabetes complicated by retinopathy, nephropathy, neuropathy, and gastroparesis. 7. Anemia of chronic kidney disease. PLAN: We will resume the hemodialysis today. Continue insulin drip per protocol. Resume his blood pressure medications. Recommend to consult psychiatrist for further evaluation and treatment. Thank you for the consultation. We will monitor along with you.
--- NOTE | 2016-07-29 18:33 | NUR ---
Received from [facility] Received patient in hospital bed from 3011. Report received from Lara Jose RN. Insulin infusing. Weaned off after Lantus given. Blood glucose last taken at 1825 was 116. Patient awakens to voice. Denies pain. Resting with eyes closed during dialysis. See their notes for details. Report given to scrap charger for MOC. Aware of transfer back to room 3011 when dialysis is complete.
--- NOTE | 2016-07-29 19:31 | NUR ---
Dialysis Note: 4 hr originally ordered tx and then shortened to 3 1/2 hr per order from Dr. Gonzalez. Net UF 0.0 per TO order from Dr. Gonzalez. Right tunneled cath flushed well and limbs used A-A, v-V. dressg appeared loosened so changed with CHG and chloroprep. QB 400 down to 300 last hr of tx r/t arterial alarms. Pt A&O x 3, lungs clear, heart regular, no edema in LE. Pt did request to use the urinal and 2 person SBA, 50 mL. BG at beginning of tx 266, pt on insulin drip titrated by floor RNBlank. insulin drip dc'd and lantus given. BG end of tx 115. HTN at end of tx but report given to 3rd floor RN, Margie, and she will give rxd BP meds when pt gets to floor. Pt denies headache or visual disturbances. Site secured with heparin 1000 and caps. Pt returned to floor stable. Please see DTR for complete record of VS.
[2016-07-29] MEDS: Insulin LISPRO 300 Unit/3 mL Inj SUBQ SCH ×2 (19:56→21:10)
[2016-07-29] MEDS: Divalproex (QD) 500 mg ER24 Tablet PO SCH (21:08)
[2016-07-30] VITALS (8 sets, daily range): BP systolic 144–202; BP diastolic 69–92; PULSE 58–71; RESP 16–21; O2SAT 94–98
--- NOTE | 2016-07-30 00:46 | NUR ---
Hypertension Patient's BP upon returning from dialysis at 194 was 176/85. Administered HS BP meds as ordered. BP at midnight was 192/89. paged, new order for one time 25mg PO Hydralizine. Will continue to monitor. Patient is asymptomatic at this time. Addendum: 07/30/16 at 0422 by GERI THOMSON RN Blood pressure checked at 5, it was 202/92. Patient remains asymptomatic, but was paged. Awaiting call back. Addendum: 07/30/16 at 0458 by GERI THOMSON RN returned phone call, new order to give all 0830 BP meds now - Labetalol, Spironolactone, Hydralazine, and Amlodipine. Updated patient on plan, agreeable. Addendum: 07/30/16 at 0642 by GERI THOMSON RN BP 147/66 at 0640.
--- NOTE | 2016-07-30 04:22 | NUR ---
Blood glucose levels Patient's glucose levels have been stable since returning from dialysis- Insulin infusion was discontinued by teller manager. Levels have been 182, 193, 134, and 210 when checked. Patient has had a few crackers and a sandwich for snacks. Asymptomatic.
[2016-07-30] MEDS ORDERED: hydrALAZINE 20 mg/mL Inj IV ONE (04:25)
--- NOTE | 2016-07-30 07:48 | PCM.PNMED ---
Subjective Date of Service Jul 30, 2016 Subjective No problems overnight. Priyanka was OK with nursing staff. Off IV insulin. ketones resolved, blood sugars OK. Exam Vital Signs Vital Sign - Last Date Time Temp Pulse Resp B/P Pulse Ox O2 Delivery O2 Flow Rate FiO2 07/30/16 06:41 144/76 07/30/16 04:17 36.4 60 16 98 Room Air 07/29/16 13:20 2 Intake and Output 07/29/16 07/29/16 07/30/16 Cumulative From/Thru 15:00 23:00 07:00 07/29/16 09:08 - 07/29/16 23:51 Intake Total 250 ml 250 ml Output Total 600 ml 50 ml 650 ml Balance -350 ml -50 ml -400 ml IV Total 250 ml 250 ml Output Urine Total 600 ml 50 ml 650 ml Ultrafiltrate 0 ml 0 ml Exam Eyes; legally blind ENMT; good hydration, no lesions CV; no murmur, regular Resp; clear to auscultation GI; soft and benign Skin; no rashes Neuro; 2-12 intact, no motor or sensory defects Lab and Diagnostics Result Diagram: 07/29/16 0930 07/30/16 0502 Assessment & Plan 1. Acute mild diabetic ketoacidosis present on admission, resolved. -positive ketones on admission, BS > 600 2. Chronic hypertension present on admission, stable. -Continue patient's amlodipine, hydralazine, labetalol and torsemide. 3. End-stage chronic renal disease, on dialysis, present on admission, stable. -nephrology consultation and in house dialysis -calcium 4. Chronic anemia of chronic disease. Present on admission, stable. -Will monitor. 5. Type 2 diabetes, insulin using, with complications of bilateral diabetic retinopathy, neuropathy and nephropathy present on admission, active. -10 of Lantus at bedtime -2 units of nutritional insulin and a low-dose correction scale. -readjust tomorrow -get a hemoglobin A1c and try to come up with a better diabetic plan before he goes home. 6. Chronic bipolar disorder type 1, present on admission. Active. -This sounds like the situation at home is really deteriorating and it is possibly he may not have caregivers to return to there or may not be able to return. -Social Service will be consulted. Need to talk to and will need to see what we can do here. -continue with the patient's Depakote and fluoxetine at this time. 7. Chronic gastroesophageal reflux disease, present on admission, chronic. -Continue patient's Protonix. 8. Gastroparesis, chronic, present on admission, stable. -Continue patient's Reglan. 9. Hyperlipidemia, present on admission, stable. -Continue patient's atorvastatin. 10. CODE STATUS: FULL CODE. Code sheet filled out. VTE Mechanical Devices: Venous Foot Pump Cha Red MD Jul 30, 2016 07:48
[2016-07-30] MEDS ORDERED: Potassium Chloride 20 mEq SR Tablet PO ONE (07:50)
[2016-07-30] MEDS: Divalproex (QD) 500 mg ER24 Tablet PO SCH ×3 (09:03→21:00)
[2016-07-30] MEDS: Pantoprazole 40 mg ER24 Tablet PO SCH (09:04)
[2016-07-30] MEDS: Ondansetron 2 mg/mL 2 mL Inj IVPUSH PRN (09:05)
[2016-07-30] MEDS: Insulin LISPRO 300 Unit/3 mL Inj SUBQ SCH ×4 (09:07→21:01)
--- NOTE | 2016-07-30 14:35 | NUR ---
BP AM meds/sleepy Pts AM BP meds given early AM on NOC shift. BP stable through shift. MD asked for scheduled BP meds to be non-administered. Pt stayed in bed, sleeping all day. A&O. Sat up for meals. Will continue to monitor.
--- NOTE | 2016-07-30 16:27 | NUR ---
Social Work: Continued d/c planning Data: pt is on day 1 of hospitalization. EMR reviewed, pt discussed in rounds. MD state pt likely to d/c in 1 day. TOBACCO PACKING MACHINE OPERATOR met with pt and with [facility] TOBACCO PACKING MACHINE OPERATOR. Nyasia explained to Narciso that his ex- has expressed that he cannot come back to her home at d/c. Pt is not on their lease and she is worried this will jeopardize their housing situation. She is also concerned because pt has been acting inappropriately defecating and peeing around the home where her grandchildren live. Pt did not believe Nyasia, he requested to talk with Hussain. TOBACCO PACKING MACHINE OPERATOR assisted pt with calling Hussain, pt talked with her and now understands the situation. Pt is agreeable to a PT evaluation and to talk with someone about his psych meds, a Psych consult. TOBACCO PACKING MACHINE OPERATOR spoke with hospitalist and explained this, placed Psych consult order and PT order. TOBACCO PACKING MACHINE OPERATOR called the Mental Health Unit and explained the situation to them. Psychiatrist expressed to TOBACCO PACKING MACHINE OPERATOR through RN that they plan to meet with pt this afternoon. TOBACCO PACKING MACHINE OPERATOR will continue to follow regarding d/c planning. Assessment: Pt with caregiving at baseline. Plan: PT and Psych order are in. TOBACCO PACKING MACHINE OPERATOR will continue to follow regarding d/c needs. RENEA Singleton
[2016-07-30] MEDS: Insulin GLARgine 100 Unit/mL Syringe SUBQ SCH (21:00)
[2016-07-31] VITALS (10 sets, daily range): BP systolic 159–199; BP diastolic 83–96; PULSE 59–65; RESP 16–20; O2SAT 95–98
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
--- NOTE | 2016-07-31 04:54 | NUR ---
Hypertension Patient's blood pressures overnight have been 189/91 and 199/96, HS medications given as ordered. Asymptomatic with elevated BP. paged at [phone], awaiting call back. Addendum: 07/31/16 at 9192 by GERI THOMSON RN returned phone call, new order to give 0830 BP medications now. Updated patient, administered meds.
[2016-07-31] MEDS: Pantoprazole 40 mg ER24 Tablet PO SCH (08:26)
[2016-07-31] MEDS: Divalproex (QD) 500 mg ER24 Tablet PO SCH ×3 (08:27→20:24)
[2016-07-31] MEDS: Insulin LISPRO 300 Unit/3 mL Inj SUBQ SCH ×4 (08:30→20:25)
--- NOTE | 2016-07-31 08:45 | NUR ---
[place] [facility]
--- NOTE | 2016-07-31 10:58 | PCM.PNMED ---
Subjective Date of Service Jul 31, 2016 Subjective Overnight patient did well. Off IV insulin sugars about 200 range. Being dialyzed now. I reviewed Psychiatry note, their help appreciated will follow recommendations. No other problems, behaviorally patient is doing well with nursing staff. Exam Vital Signs Vital Sign - Last Date Time Temp Pulse Resp B/P Pulse Ox O2 Delivery O2 Flow Rate FiO2 07/31/16 08:55 59 07/31/16 04:46 36.8 18 199/96 98 Room Air 07/29/16 13:20 2 Intake and Output 07/30/16 07/30/16 07/31/16 Cumulative From/Thru 15:00 23:00 07:00 07/29/16 09:08 - 07/30/16 21:24 Intake Total 300 ml 800 ml 1350 ml Output Total 275 ml 405 ml 1330 ml Balance 25 ml 395 ml 20 ml Intake Oral 300 ml 800 ml 1100 ml IV Total 250 ml Output Urine Total 275 ml 405 ml 1330 ml Ultrafiltrate 0 ml Exam Eyes; legally blind ENMT; good hydration, no lesions CV; no murmur, regular Resp; clear to auscultation GI; soft and benign, no tenderness Skin; no rashes Neuro; 2-12 intact, no motor or sensory defects Lab and Diagnostics Result Diagram: 07/29/16 0930 07/31/16 0517 Assessment & Plan 1. Acute mild diabetic ketoacidosis present on admission, resolved. -positive ketones on admission, BS > 600 2. Chronic hypertension present on admission, stable. -Continue patient's amlodipine, hydralazine, labetalol and torsemide. 3. End-stage chronic renal disease, on dialysis, present on admission, stable. -nephrology consultation and in house dialysis -calcium 4. Chronic anemia of chronic disease. Present on admission, stable. -Will monitor. 5. Type 2 diabetes, insulin using, with complications of bilateral diabetic retinopathy, neuropathy and nephropathy present on admission, active. -10 of Lantus at bedtime -2-4-4 units of nutritional insulin and a low-dose correction scale. -readjust tomorrow -hemoglobin A1c 8.1, not to bad 6. Chronic bipolar disorder type 1, present on admission. Active. -This sounds like the situation at home is really deteriorating and it is possibly he may not have caregivers to return to there or may not be able to return. -Social Service will be consulted. -Psychiatric consult completed --continue with the patient's Depakote and fluoxetine at this time. --depokot level in 4 days 7. Chronic gastroesophageal reflux disease, present on admission, chronic. -Continue patient's Protonix. 8. Gastroparesis, chronic, present on admission, stable. -Continue patient's Reglan. 9. Hyperlipidemia, present on admission, stable. -Continue patient's atorvastatin. 10. CODE STATUS: FULL CODE. Code sheet filled out. VTE Mechanical Devices: Venous Foot Pump Cha Red MD Jul 31, 2016 10:58
--- NOTE | 2016-07-31 11:09 | NUR ---
Social Work: Readiness for d/c Data: Pt is on day 2 of hospitalization. EMR reviewed. states pt likely ready for d/c tomorrow. GORE INSERTER called pt's ex-, who he lives with and explained the situation further. GORE INSERTER notified her that psych has cleared pt and that he is at his baseline and also that he has not had any behaviors such as he had at home including defecating and urinating around the home where he grandchildren live. She explained their complex living situation. GORE INSERTER let her know that Medicaid and Medicare should be set up within the next few months and recommended calling [facility] to discuss adult family home options or [facility] program with [facility]. She requested GORE INSERTER talk with her fiance who also lives with them to give a brief overview. Pt's ex- and her fiance discussed it and stated that they would take pt back when he is ready to go and will come to pick him up. GORE INSERTER will discuss with pt once he is back from dialysis and will notify pt's ex- when he is medically stable for d/c. GORE INSERTER will continue to follow. Assessment: Pt with assistance at baseline. Plan: Pt will d/c back home via POV with his ex-. Pt's ex- still cautious of this option, but ulitmately decided with her fiance to take pt back. GORE INSERTER will discuss with pt once he is back from dialysis and will notify pt's ex- when he is medically stable for d/c. GORE INSERTER will continue to follow. RENEA Singleton
--- NOTE | 2016-07-31 13:05 | NUR ---
Dialysis note: 4 hours tx 3000 ml net UF Right catheter, dsg changed, no s/s of infection noted Pls see DTR for VS details Qb 400 w/ cath limbs reversed A-V V-A due to freq high art pressure alarms Heparin given O2 @ 2L via NC on during tx Tolerated tx, cooperative with care, slept at intervals Catheter flushed, heparin dwelled and secured Report given to Brigida Renteria RN Stable condition at end of tx
--- NOTE | 2016-07-31 13:10 | NUR ---
Pt picked up by primary RN, report given at 1310
--- NOTE | 2016-07-31 13:21 | NUR ---
Patient arrived back to floor from dialysis.
--- NOTE | 2016-07-31 14:28 | PCM.PNNEPH ---
Subjective Date of Service Jul 31, 2016 Subjective Mr. Hurtado is well-known to me from ongoing evaluation and follow-up for his end- stage renal disease. He has a history of end-stage renal disease secondary to severe poorly controlled diabetes and hypertension. He started on dialysis several months ago and has had multiple hospitalizations for mist treatments and pulmonary edema. He has also had some increasing behavioral disturbances and has a history of psychiatric problems. He is profoundly depressed and withdrawn and I recently started him on citalopram without any significant improvement in his mental status. He normally dialyzes Wednesday and Wednesday and I will make arrangements for his dialysis today. Exam Vital Signs Vital Sign - Last Date Time Temp Pulse Resp B/P Pulse Ox O2 Delivery O2 Flow Rate FiO2 07/31/16 13:21 36.5 61 20 162/88 97 Room Air 07/29/16 13:20 2 Intake and Output 07/30/16 07/30/16 07/31/16 Cumulative From/Thru 15:00 23:00 07:00 07/29/16 09:08 - 07/30/16 21:24 Intake Total 300 ml 800 ml 1350 ml Output Total 275 ml 405 ml 1330 ml Balance 25 ml 395 ml 20 ml Intake Oral 300 ml 800 ml 1100 ml IV Total 250 ml Output Urine Total 275 ml 405 ml 1330 ml Ultrafiltrate 0 ml Exam Neck supple without adenopathy thyromegaly or jugular venous distention. Lungs are clear to auscultation. Heart was regular with mechanical soft systolic murmur. Abdomen is soft without any tenderness rebound guarding masses or hepatosplenomegaly. Extremities junk shortening evidence of any clubbing cyanosis or edema. Lab and Diagnostics Result Diagram: 07/29/16 0930 07/31/16 0517 Plan Impression Impression #1 end-stage renal disease dialysis dependent #2 severe depression with possible psychotic features #3 diabetic nephropathy #4 hypertension with hypertension with hypertensive heart disease and hypertensive nephrosclerosis number for noncompliance Recommendation #1 patient will be dialyzed today for 4 hours on a max dialyzer. He will be run at 400 blood flow, 3 potassium bath, thousand units of heparin bolus and 500 now her confusion will take 2-3 L of fluid. I would also strongly urged her psychiatric evaluation and we need to address placement with Mr. Hurtado. Jean Crisostomo DO Jul 31, 2016 14:28
--- NOTE | 2016-07-31 15:56 | NUR ---
Social Work: Continued d/c planning ASSET PROTECTION ASSISTANT spoke with Nyasia, psychotherapist social worker with dialysis center regarding pt's discharge plan home with his ex-. Nyasia expressed concern regarding pt not being on ex-'s lease and the possible pressure pt's ex- may feel regarding our discharge plan returning pt to prior living arrangement. ASSET PROTECTION ASSISTANT explained reasoning behind discharge plan (see previous d/c planning note for further detail). Nyasia stated she would meet with pt's spouse and would call ASSET PROTECTION ASSISTANT back regarding their meeting if anything changes. Later in the day, Nyasia left a message stating that pt's ex-spouse still wants pt to return to their home at discharge. RENEA Singleton
[2016-07-31] MEDS: Insulin GLARgine 100 Unit/mL Syringe SUBQ SCH (20:25)
[2016-08-01] VITALS (9 sets, daily range): BP systolic 167–214; BP diastolic 84–105; PULSE 57–64; RESP 14–21; O2SAT 93–98
--- NOTE | 2016-08-01 04:57 | NUR ---
Hypertension BP 186/84 at 0445 this AM. Pt is asymptomatic. Will recheck in a little bit and pass on consistent high BP readings to dayshift for team to discuss.
[2016-08-01] MEDS: Insulin LISPRO 300 Unit/3 mL Inj SUBQ SCH ×4 (08:00→22:08)
[2016-08-01] MEDS: Pantoprazole 40 mg ER24 Tablet PO SCH (08:03)
[2016-08-01] MEDS: Divalproex (QD) 500 mg ER24 Tablet PO SCH ×3 (08:05→20:38)
--- NOTE | 2016-08-01 12:16 | PCM.PNNEPH ---
Subjective Date of Service Aug 01, 2016 Subjective The patient's about the same today. The only significant issue is his persistent hypertension. He denies any headache, chest pain, shortness of breath, nausea or vomiting. Exam Vital Signs Vital Sign - Last Date Time Temp Pulse Resp B/P Pulse Ox O2 Delivery O2 Flow Rate FiO2 08/01/16 10:05 57 08/01/16 09:06 36.8 19 204/100 93 Room Air 07/29/16 13:20 2 Intake and Output 07/31/16 07/31/16 08/01/16 Cumulative From/Thru 15:00 23:00 07:00 07/29/16 09:08 - 08/01/16 05:27 Intake Total 1368 ml 549 ml 300 ml 3567 ml Output Total 3325 ml 400 ml 200 ml 5255 ml Balance -1957 ml 149 ml 100 ml -1688 ml Intake Oral 1368 ml 549 ml 300 ml 3317 ml IV Total 250 ml Output Urine Total 325 ml 400 ml 200 ml 2255 ml Ultrafiltrate 3000 ml 3000 ml # Voids 7 7 Exam Lungs are clear to auscultation. Heart is regular rhythmic with 3/6 systolic ejection murmur and S4. Abdomen is soft without any tenderness rebound or masses or hepatosplenomegaly. Extremities do not show any evidence of any clubbing cyanosis or edema. Skin turgor is good. Lab and Diagnostics Result Diagram: 07/29/16 0930 07/31/16 0517 Plan Impression Impression #1 end-stage renal disease dialysis dependent #2 hypertension with hypertensive heart disease and hypertensive nephrosclerosis #3 diabetic nephropathy Recommendations #1 I would like to restart spironolactone 25 mg twice a day. If this does not cover the patient's blood pressure will consider adding minoxidil. Would also recommend getting a psychiatric consult as this seems to have an extremely heavy overweight in the outpatient setting. Jean Crisostomo DO Aug 01, 2016 12:16
--- NOTE | 2016-08-01 13:29 | PCM.PNMED ---
Subjective Date of Service Aug 01, 2016 Subjective Doing well no behavioral problems noted. Blood sugars are much better. Exam Vital Signs Vital Sign - Last Date Time Temp Pulse Resp B/P Pulse Ox O2 Delivery O2 Flow Rate FiO2 08/01/16 12:53 36.5 62 21 182/92 94 Room Air 07/29/16 13:20 2 Intake and Output 07/31/16 07/31/16 08/01/16 Cumulative From/Thru 15:00 23:00 07:00 07/29/16 09:08 - 08/01/16 05:27 Intake Total 1368 ml 549 ml 300 ml 3567 ml Output Total 3325 ml 400 ml 200 ml 5255 ml Balance -1957 ml 149 ml 100 ml -1688 ml Intake Oral 1368 ml 549 ml 300 ml 3317 ml IV Total 250 ml Output Urine Total 325 ml 400 ml 200 ml 2255 ml Ultrafiltrate 3000 ml 3000 ml # Voids 7 7 Exam Eyes; legally blind ENMT; good hydration, no lesions CV; no murmur, regular, 70's Resp; clear to auscultation GI; soft and benign, no tenderness Skin; no rashes Neuro; 2-12 intact, no motor or sensory defects Lab and Diagnostics Result Diagram: 07/29/16 0930 07/31/16 0517 Assessment & Plan 1. Acute mild diabetic ketoacidosis present on admission, resolved. -positive ketones on admission, BS > 600 2. Chronic hypertension present on admission, stable. -Continue patient's amlodipine, hydralazine, labetalol and torsemide. 3. End-stage chronic renal disease, on dialysis, present on admission, stable. -nephrology consultation and in house dialysis -calcium 4. Chronic anemia of chronic disease. Present on admission, stable. -Will monitor. 5. Type 2 diabetes, insulin using, with complications of bilateral diabetic retinopathy, neuropathy and nephropathy present on admission, active. -10 of Lantus at bedtime -2-4-4 units of nutritional insulin and a low-dose correction scale. -readjust tomorrow -hemoglobin A1c 8.1, not to bad -As patient is on a new insulin regimen and a very odd regimen at home I have asked ex to come in to learn this new regimen prior to discharge, she is the person that take care of patient's insulin at home, 6. Chronic bipolar disorder type 1, present on admission. Active. -This sounds like the situation at home is really deteriorating and it is possibly he may not have caregivers to return to there or may not be able to return. -Social Service will be consulted. -Psychiatric consult completed --continue with the patient's Depakote and fluoxetine at this time. --depokot level in 4 days -family agrees to take patient home tomorrow 7. Chronic gastroesophageal reflux disease, present on admission, chronic. -Continue patient's Protonix. 8. Gastroparesis, chronic, present on admission, stable. -Continue patient's Reglan. 9. Hyperlipidemia, present on admission, stable. -Continue patient's atorvastatin. 10. CODE STATUS: FULL CODE. Code sheet filled out. VTE Mechanical Devices: Venous Foot Pump Cha Red MD Aug 01, 2016 13:29
--- NOTE | 2016-08-01 13:32 | NUR ---
Social Work: Readiness for d/c Data: Pt is on day 3 of hospitalization for hyperglycemia ESRD. EMR reviewed. states pt likely ready for d/c tomorrow. CYDNEY called pt's ex-, who he lives with to discuss discharge planning. CYDNEY notified ex- Hussain that the MD would like to meet with her and the pt prior to discharge tomorrow to disuss medication and care instructions. Ex- stated she can come in after 3:30pm tomorrow. CYDNEY called back and left voicemail proposing 4:30pm for this meeting. Pt to discharge home via ex-. No further needs assessed at this time. Assessment: Pt who is independent at baseline. Plan: Pt will d/c home via POV with his ex-. Pt's ex- still cautious of this option, but ultimately decided with her fiance to take pt back. would like to meet with ex- and the pt prior to discharge tomorrow to discuss medication and care instructions. CYDNEY left voicemail proposing 4:30pm for this meeting. EDITOR DEPARTMENT will continue to follow. RENEA Herr
--- NOTE | 2016-08-01 15:30 | NUR ---
HTN Pt. hypertensive this a.m. with BP 214/105. Gave all BP medications except for labetolol d/t bradycardia. after one hour, BP was still 204/100. HR was 63. Labetolol given. notified and is aware. Mid day vitals looked a little better, at 184/92. Will continue to monitor.
[2016-08-01] MEDS: Insulin GLARgine 100 Unit/mL Syringe SUBQ SCH (22:08)
[2016-08-02] VITALS (8 sets, daily range): BP systolic 143–201; BP diastolic 69–84; PULSE 52–104; RESP 17–20; O2SAT 94–99
--- NOTE | 2016-08-02 05:53 | NUR ---
NOC PT b/p hypertensive this am with systolic of 200. 200/95. Asymptomatic. HR in the 60's. PT has been sleeping all night. Uses call light to stand at bedside to void. PT refused to walk at all. When this RN asked why he sleeps all the time the pt responded "I am blind. What is the sense of keeping my eyes open when I cant see. And no I dont want to walk around." Gave all b/p meds last HS at HR was in 60's. BG was 210 at HS. 1u lispro given. Recheck at 0200 in 170's. PT denies any pain and is calm and cooperative.
[2016-08-02] MEDS: Insulin LISPRO 300 Unit/3 mL Inj SUBQ SCH ×4 (07:28→21:57)
[2016-08-02] MEDS: Pantoprazole 40 mg ER24 Tablet PO SCH (07:43)
[2016-08-02] MEDS: Divalproex (QD) 500 mg ER24 Tablet PO SCH ×3 (07:45→21:56)
--- NOTE | 2016-08-02 10:42 | NUR ---
CYDNEY left message with Hussain Ruiz [phone] to confirm that she is able to sisal picker pt and meet with nurse re: medication regimen this afternoon at 4:30pm. RENEA Herr
--- NOTE | 2016-08-02 11:57 | PCM.PNNEPH ---
Subjective Date of Service Aug 02, 2016 Subjective Circulation L Velazquez evaluation has been reviewed and is appreciated. His blood pressure has improved somewhat now that he is on a total 75 for follow-up spironolactone twice a day. Otherwise the patient denies any chest pain shortness of breath nausea or vomiting. Exam Vital Signs Vital Sign - Last Date Time Temp Pulse Resp B/P Pulse Ox O2 Delivery O2 Flow Rate FiO2 08/02/16 10:04 36.3 56 18 143/77 99 Room Air 07/29/16 13:20 2 Intake and Output 08/01/16 08/01/16 08/02/16 Cumulative From/Thru 15:00 23:00 07:00 07/29/16 09:08 - 08/02/16 06:03 Intake Total 502 ml 400 ml 4469 ml Output Total 350 ml 645 ml 6250 ml Balance 152 ml -245 ml -1781 ml Intake Oral 472 ml 400 ml 4189 ml IV Total 30 ml 280 ml Output Urine Total 350 ml 645 ml 3250 ml Ultrafiltrate 3000 ml # Voids 7 Exam Neck is supple without adenopathy thyromegaly or jugular venous distention. Lungs were clear to auscultation. Heart is regular and rhythmical with a soft systolic murmur. Abdomen is soft and tenderness rebound guarding masses or hepatosplenomegaly. There is no dependent edema noted. Lab and Diagnostics Result Diagram: 07/29/16 0930 07/31/16 0517 Plan Impression Impression #1 end-stage renal disease dialysis dependent #2 diabetic nephropathy #3 hypertension with hypertensive heart disease and hypertensive nephrosclerosis #4 depression. Recommendations number 1O make arrangements for his dialysis in the morning. Jean Crisostomo DO Aug 02, 2016 11:57
--- NOTE | 2016-08-02 14:49 | PCM.DIMED ---
Discharge Instructions Date of Service Aug 02, 2016 Dates of Hospitalization Jul 29, 2016 at 13:05 Discharge Diagnosis Discharge Diagnosis 1. Acute mild diabetic ketoacidosis present on admission, resolved. 2. Chronic hypertension present on admission, stable. 3. End-stage chronic renal disease, on dialysis, present on admission, stable. 4. Chronic anemia of chronic disease. Present on admission, stable. 5. Type 2 diabetes, insulin using, with complications of bilateral diabetic retinopathy, neuropathy and nephropathy present on admission, active. 6. Chronic bipolar disorder type 1, present on admission. Active. 7. Chronic gastroesophageal reflux disease, present on admission, chronic. 8. Gastroparesis, chronic, present on admission, stable. 9. Hyperlipidemia, present on admission, stable. Diet Diabetic Activity Limited until seen by PCP Call your provider Other (high or low blood sugars) Patient Instructions INSULIN PROGRAM FOR HOME; Basal Insulin; -Lantus 7 unit at bed time Nutritional Insulin; -Humalog 2 units before breakfast -Humalog 3 units before lunch -Humalog 3 units before dinner Correctional Insulin; -Humalog insulin, per insulin scale provided. Add the nutritional and correctional insulin together before each meal. See your doctor very soon and take in the blood sugar values so they can adjust you insulin. Follow-up with PCP in: 1 week Cha Red MD Aug 02, 2016 14:49
[2016-08-02] MEDS ORDERED: INSU100I13 SUBQ (14:58)
[2016-08-02] MEDS ORDERED: INSU100I18 SUBQ (14:58)
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
--- NOTE | 2016-08-02 15:57 | NUR ---
Social Work: Discharge Data: Pt is on day 3 of hospitalization for hyperglycemia ESRD. EMR reviewed. Pt is cleared to discharge per doctor's orders. CYDNEY called pt's ex-, who he lives with to discuss discharge planning. CYDNEY notified ex- Hussain that the MD would like to meet with her and the pt prior to discharge to discuss medication and care instructions. Left voicemail. Pt to discharge home via ex-. No further needs assessed at this time. Assessment: Pt who is independent at baseline. Plan: Pt will d/c home via POV with his ex-. Pt's ex- still cautious of this option, but ultimately decided with her fiance to take pt back. MD would like to meet with ex- and the pt prior to discharge tomorrow to discuss medication and care instructions. CYDNEY left voicemail proposing 4:30pm for this meeting. No further needs assessed. RENEA Herr
--- NOTE | 2016-08-02 18:55 | NUR ---
Discharge Plan: Patients discharge is finalized by MD and printed prepared by nurse. Plan is to review patients meds discharge information and his insulin regime with patients Ex before discharging him home. Called numbers provided by patient and chart and left a message. Received no call back as of yet. Per MD Patient is not to get discharged until the diabetic teaching is done trough nurse or Diabetic specialist. Patient aware of the plan .Will pass this information to oncoming nurse.
[2016-08-02] MEDS: Insulin GLARgine 100 Unit/mL Syringe SUBQ SCH (21:57)
[2016-08-03 06:05] VITALS: BP 183/91; PULSE 58; RESP 18; O2SAT 95
--- NOTE | 2016-08-03 06:06 | NUR ---
HTN/NOC Shift: This am pt has an elevated BP; Hydralazine given early. Pt denied pain, SOB and chest pain during the night. Slept most of the night, pleasant and cooperative with care.
[2016-08-03] MEDS: Insulin LISPRO 300 Unit/3 mL Inj SUBQ SCH ×4 (07:41→21:16)
[2016-08-03] MEDS: Divalproex (QD) 500 mg ER24 Tablet PO SCH ×3 (08:30→21:15)
[2016-08-03 08:43] VITALS: BP 163/91; PULSE 59
--- NOTE | 2016-08-03 11:20 | NUR ---
SW attempted to reach Hussain Ruiz, pt's ex spouse who he has been residing with and had agreed to pick him up at discharge. Left voicemail.stating the pt is ready to go pending pick-up and medication education for Hussain Ruiz. Requested a call back. Will keep trying. RENEA Herr
--- NOTE | 2016-08-03 13:01 | NUR ---
Dialysis note:4 hr tx, Net UF 3000. Right tunneled cath. Began tx A-A, V-V and then switched limbs 1 1/2 hr into tx. Pt rested, slept through tx. VS stable throughout. Assisted pt with urinal before and after tx, total 150cc. Dressg loose and changed using betadine and [place] dresg. cautioned pt to not scratch dressing and hopefully the betadine will be less irritating than chloroprep. Limbs secured with Heparin 1000, caps, gauze and tape. Please see DTR for complete record of VS. Report given to primary RN Adonis Gilman and pt returned to floor stable.
[2016-08-03] MEDS: Pantoprazole 40 mg ER24 Tablet PO SCH (13:47)
--- NOTE | 2016-08-03 14:30 | PCM.PNNEPH ---
Subjective Date of Service Aug 03, 2016 Subjective The patient is doing a bit better. His blood pressure has improved but still remains quite labile. He denies any chest pain, shortness of breath, cough, wheezing, nausea or vomiting. Exam Vital Signs Vital Sign - Last Date Time Temp Pulse Resp B/P Pulse Ox O2 Delivery O2 Flow Rate FiO2 08/03/16 08:43 59 08/03/16 06:05 37.0 18 183/91 95 Room Air 07/29/16 13:20 2 Intake and Output 08/02/16 08/02/16 08/03/16 Cumulative From/Thru 15:00 23:00 07:00 07/29/16 09:08 - 08/03/16 06:05 Intake Total 1092 ml 733 ml 6294 ml Output Total 150 ml 750 ml 7150 ml Balance 942 ml -17 ml -856 ml Intake Oral 1092 ml 733 ml 6014 ml IV Total 280 ml Output Urine Total 150 ml 750 ml 4150 ml Ultrafiltrate 3000 ml # Voids 2 2 11 # Bowel Movements 2 0 2 Exam Neck is supple without adenopathy, thyromegaly, or jugular venous distention. Lungs are clear to auscultation. Abdomen: Soft systolic murmur. Abdomen is soft without any tenderness rebound guarding masses or hepatosplenomegaly. Extremities do not show any evidence of any clubbing cyanosis or edema. Skin turgor is good and there is no evidence of any rashes. Lab and Diagnostics Result Diagram: 07/29/16 0930 07/31/16 0517 Plan Impression Impression #1 end-stage renal disease dialysis dependent #2 hypertension with hypertensive heart disease and hypertensive nephrosclerosis #3 diabetic nephropathy Recommendations #1 the patient dialyzed today for 4 hours, max dialyzer, 3 potassium bath, 1200 of heparin and 500/h and 3 L of fluid to be removed. Jean Crisostomo DO Aug 03, 2016 14:30
--- NOTE | 2016-08-03 16:04 | NUR ---
T/c to pt's ex s/o regardng pt's discharge plan. She stated the pt is no longer able to stay with her due to other commitments in her life and she will not be picking him up. SW agreed to relay this information to the doctor. She agreed to continue on as a point of contact for discharge planning and stated she plans to call a friend who the pt might be able to stay with and will call SW back to let them know. updated. RENEA Herr
--- NOTE | 2016-08-03 16:05 | NUR ---
Called and spoke with MD let him know YOUTH PROGRAM DIRECTOR spoke with patient's ex- and she will not be picking him up or continuing to care for him. Let him know [facility] expedited referral for [facility] was completed and faxed. Case Management will continue to work on disposition.
--- NOTE | 2016-08-03 17:21 | NUR ---
Dialysis Pt. transferred to [facility] for dialysis at 0820 in stable condition. Report called to statistical secretary and MOC RN. Pt. returned to unit at 1345 in stable condition. Pt. had no complaints today and was pleasant and cooperative. Denies pain/SOB, N/V. No signs/symptoms of hypoglycemia. Tolerated dialysis well.
[2016-08-03 18:29] VITALS: BP 176/84; PULSE 64; RESP 14; O2SAT 97
[2016-08-03 21:14] VITALS: BP 199/77; PULSE 62
[2016-08-03] MEDS: Insulin GLARgine 100 Unit/mL Syringe SUBQ SCH (21:16)
[2016-08-03 22:00] VITALS: BP 195/97; PULSE 65; RESP 16; O2SAT 96
[2016-08-04] VITALS (7 sets, daily range): BP systolic 153–205; BP diastolic 82–95; PULSE 57–62; RESP 16–18; O2SAT 96–98
--- NOTE | 2016-08-04 07:05 | NUR ---
Hypertension BP remains high 199/77 before BP meds given at late evening, 185/92 HR 62 at MN, asymptomatic,pt denies headaches,SOB,chest pain or pressure. Dr. Gardner paged at 0140, no response, recheck at 0310 BP195/93 HR59, paged again around 0315, Amlodipine 10mg ordered and given, recheck this am BP still high 205/95. Will give report to administer scheduled morning BP meds.
[2016-08-04] MEDS: Divalproex (QD) 500 mg ER24 Tablet PO SCH ×3 (08:39→20:49)
[2016-08-04] MEDS: Pantoprazole 40 mg ER24 Tablet PO SCH (08:39)
[2016-08-04] MEDS ORDERED: hydrALAZINE 20 mg/mL Inj IV ONE (08:40)
[2016-08-04] MEDS: Insulin LISPRO 300 Unit/3 mL Inj SUBQ SCH ×4 (08:41→20:57)
--- NOTE | 2016-08-04 12:08 | PCM.PNNEPH ---
Subjective Date of Service Aug 04, 2016 Subjective Patient's blood pressure remains quite labile. He had been started on Florinef FOR his orthostasis and I feel that this is aggravating his hypertension. He denies any headache, chest pain, or breathing problem. Exam Vital Signs Vital Sign - Last Date Time Temp Pulse Resp B/P Pulse Ox O2 Delivery O2 Flow Rate FiO2 08/04/16 09:28 36.4 60 16 156/83 98 Room Air 07/29/16 13:20 2 Intake and Output 08/03/16 08/03/16 08/04/16 Cumulative From/Thru 15:00 23:00 07:00 07/29/16 09:08 - 08/04/16 05:08 Intake Total 728 ml 318 ml 7340 ml Output Total 3000 ml 200 ml 200 ml 08522 ml Balance -3000 ml 528 ml 118 ml -3210 ml Intake Oral 708 ml 318 ml 7040 ml IV Total 20 ml 300 ml Output Urine Total 200 ml 200 ml 4550 ml Ultrafiltrate 3000 ml 6000 ml # Voids 2 13 # Bowel Movements 0 1 3 Exam Neck is supple without adenopathy, thyromegaly, or jugular venous distention. Lungs are clear to auscultation. Heart was regular and rhythmical with a soft systolic murmur. Abdomen is soft without any tenderness rebound guarding masses or hepatosplenomegaly. She is actually evidence of any clubbing cyanosis or edema. Skin turgor is good. 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 Jean Crisostomo DO Aug 04, 2016 12:08
--- NOTE | 2016-08-04 16:24 | NUR ---
Social Work: Continued Discharge Planning Data: Pt is on day 6 of hospitalization for hyperglycemia ESRD. EMR reviewed. pt is medically cleared for discharge. Pt's ex- is no longer able to provide continued support so the pt does not have a safe placement. CYDNEY sent expedited referral to [facility] for Adult family home. [facility] from [facility] will meet with pt at 1:00pm to do bedside assessment. UR specialist to fax H&P, clinicals, and med list. SW to begin search for adult family home. SW will continue to follow. Assessment: Pt who would benefit from adult family home placement. Plan: [facility] SW will begin adult family home search. Anticipate a long length of stay (4-6 weeks). SW will continue to follow. RENEA Herr
--- NOTE | 2016-08-04 17:43 | PCM.PNMED ---
Subjective Date of Service Aug 03, 2016 Subjective denies any new issues/complaints Exam Vital Signs Vital Sign - Last Date Time Temp Pulse Resp B/P Pulse Ox O2 Delivery O2 Flow Rate FiO2 08/04/16 15:16 36.6 59 18 156/82 96 Room Air 07/29/16 13:20 2 Intake and Output 08/03/16 08/03/16 08/04/16 Cumulative From/Thru 15:00 23:00 07:00 07/29/16 09:08 - 08/04/16 05:08 Intake Total 728 ml 318 ml 7340 ml Output Total 3000 ml 200 ml 200 ml 84789 ml Balance -3000 ml 528 ml 118 ml -3210 ml Intake Oral 708 ml 318 ml 7040 ml IV Total 20 ml 300 ml Output Urine Total 200 ml 200 ml 4550 ml Ultrafiltrate 3000 ml 6000 ml # Voids 2 13 # Bowel Movements 0 1 3 General: Alert, Cooperative, No Acute Distress Eyes: Scleral Anicteric Nose: Mucous Membr Moist/[place] Mouth: Mucous Membr Moist/[place] Neck: Supple Chest & Lungs: Chest Wall Normal, Clear to auscultation & percussion Cardiovascular: Regular Rate/Rhythm Abdomen: Non-tender, Non-distended, Normoactive bowel tones, Soft Extremities: No cyanosis/clubbing/edma bilat Neurological: Grossly Neurologically Intact (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 # Acute mild diabetic ketoacidosis present on admission, resolved. -positive ketones on admission, BS > 600 -treated with insulin regimen as noted below # Chronic hypertension present on admission, poorly controlled -Continue patient's amlodipine, hydralazine, labetalol and torsemide. -further BP med adjustment per nephrology team recommendations -Minoxidil bid per nephrology recs # End-stage chronic renal disease, on dialysis, present on admission, stable. -appreciate nephrology consult. will f/u w/ recs -dialysis per nephrology team # Chronic anemia of chronic disease. Present on admission, stable. -Will monitor. # Type 2 diabetes, insulin using, with complications of bilateral diabetic retinopathy, neuropathy and nephropathy present on admission, active. -10 of Lantus at bedtime -2-4-4 units of nutritional insulin and a low-dose correction scale. -hemoglobin A1c 8.1 # Chronic bipolar disorder type 1, present on admission. Active. -This sounds like the situation at home is really deteriorating and it is possibly he may not have caregivers to return to there or may not be able to return. -Social Service consulted. -Psychiatric consult completed --continue with the patient's Depakote and fluoxetine at this time. --Depakote level in 2 days # Chronic gastroesophageal reflux disease, present on admission, chronic. -Continue patient's Protonix. # Gastroparesis, chronic, present on admission, stable. -Continue patient's Reglan. # Hyperlipidemia, present on admission, stable. -Continue patient's atorvastatin. Dispo: pending placement VTE Mechanical Devices: Intermittant Pneumatic CD, Venous Foot Pump Ran Centeno Aug 04, 2016 17:43
--- NOTE | 2016-08-04 17:45 | PCM.PNMED ---
Subjective Date of Service Aug 04, 2016 Subjective denies any new issues/complaints Exam Vital Signs Vital Sign - Last Date Time Temp Pulse Resp B/P Pulse Ox O2 Delivery O2 Flow Rate FiO2 08/04/16 15:16 36.6 59 18 156/82 96 Room Air 07/29/16 13:20 2 Intake and Output 08/03/16 08/03/16 08/04/16 Cumulative From/Thru 15:00 23:00 07:00 07/29/16 09:08 - 08/04/16 05:08 Intake Total 728 ml 318 ml 7340 ml Output Total 3000 ml 200 ml 200 ml 33362 ml Balance -3000 ml 528 ml 118 ml -3210 ml Intake Oral 708 ml 318 ml 7040 ml IV Total 20 ml 300 ml Output Urine Total 200 ml 200 ml 4550 ml Ultrafiltrate 3000 ml 6000 ml # Voids 2 13 # Bowel Movements 0 1 3 Exam General: Alert, Cooperative, No Acute Distress Eyes: Scleral Anicteric Nose: Mucous Membr Moist/[place] Mouth: Mucous Membr Moist/[place] Neck: Supple Chest & Lungs: Chest Wall Normal, Clear to auscultation bilat Cardiovascular: Regular Rate/Rhythm Abdomen: Non-tender, Non-distended, Normoactive bowel tones, Soft Extremities: No cyanosis/clubbing/edema bilat Neurological: Grossly Neurologically Intact (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 # Acute mild diabetic ketoacidosis present on admission, resolved. -positive ketones on admission, BS > 600 -treated with insulin regimen as noted below # Chronic hypertension present on admission, poorly controlled -Continue patient's amlodipine, hydralazine, labetalol and torsemide. -further BP med adjustment per nephrology team recommendations -Minoxidil bid per nephrology recs # End-stage chronic renal disease, on dialysis, present on admission, stable. -appreciate nephrology consult. will f/u w/ recs -dialysis per nephrology team # Chronic anemia of chronic disease. Present on admission, stable. -Will monitor. # Type 2 diabetes, insulin using, with complications of bilateral diabetic retinopathy, neuropathy and nephropathy present on admission, active. -10 of Lantus at bedtime -2-4-4 units of nutritional insulin and a low-dose correction scale. -hemoglobin A1c 8.1 # Chronic bipolar disorder type 1, present on admission. Active. -This sounds like the situation at home is really deteriorating and it is possibly he may not have caregivers to return to there or may not be able to return. -Social Service consulted. -Psychiatric consult completed --continue with the patient's Depakote and fluoxetine at this time. --Depakote level in 2 days # Chronic gastroesophageal reflux disease, present on admission, chronic. -Continue patient's Protonix. # Gastroparesis, chronic, present on admission, stable. -Continue patient's Reglan. # Hyperlipidemia, present on admission, stable. -Continue patient's atorvastatin. Dispo: pending placement. of note d/c on 08/02/16 was cancelled due to patient's family refusing to take patient home. VTE Mechanical Devices: Intermittant Pneumatic CD, Venous Foot Pump Ran Centeno Aug 04, 2016 17:45
--- NOTE | 2016-08-04 18:46 | NUR ---
BP Blood pressure stable in 150's with po medication. No need for prn meds. BG also stable in 120's-130's. Continued with current ordered doses of nutritional insulin.
[2016-08-04] MEDS: Insulin GLARgine 100 Unit/mL Syringe SUBQ SCH (20:57)
[2016-08-05 06:06] VITALS: BP 166/85; PULSE 57; RESP 18; O2SAT 97
[2016-08-05 06:10] LABS: Mean Corpuscular Volume 93.5 fL (81-100)
--- NOTE | 2016-08-05 06:25 | NUR ---
Hypoglycemia Pt c/o "I feel my sugar is low " around 0330, BS 60. 15gm glucose gel administered, and 2 ice cream provided per pt request. Recheck in about 20min BS 100, pt states "feel better." Report will be given to day shift and pink communication sheet filled out to inform and suggest day hospitalist that Insulin doze may be adjusted.
[2016-08-05] MEDS: Insulin LISPRO 300 Unit/3 mL Inj SUBQ SCH ×4 (08:00→21:58)
[2016-08-05] MEDS: Pantoprazole 40 mg ER24 Tablet PO SCH (08:17)
[2016-08-05] MEDS: Ergocalciferol (Vit D2) 50,000 Unit Capsule PO SCH (08:17)
[2016-08-05] MEDS: Divalproex (QD) 500 mg ER24 Tablet PO SCH ×3 (08:18→20:58)
[2016-08-05 09:16] VITALS: PULSE 55
[2016-08-05 09:49] VITALS: BP 150/76; PULSE 55; RESP 18; O2SAT 98
--- NOTE | 2016-08-05 10:33 | NUR ---
Humalog held Patient had order for Humalog insulin for nutritional and correctional dose. Patient morning blood sugar was 97. Held nutritional dose of Humalog this morning.
--- NOTE | 2016-08-05 14:01 | NUR ---
Dialysis note 4 hr HD tx. 500ml net UF removed. BP on the low side from 90's to 130's systolic and UF rate adjusted accordingly. See DTR for complete vitals details. QB 450 A-V V-A thru R tunnelled catheter. Stitches at cath site very red/swollen/infected appearing and pt c/o pain and itching at cath site. Stitches removed/site cleaned and STAT lock applied to secure. Pt rested thru tx, off to BR X1 and was calm and appropriate. Catheter dwelled with 1000/1 U Heparin and secured. Report given and pt returned to floor stable.
[2016-08-05 14:30] VITALS: BP 168/78; PULSE 75; RESP 18; O2SAT 98
--- NOTE | 2016-08-05 14:39 | PCM.PNMED ---
Subjective Date of Service Aug 05, 2016 Subjective denies any new issues/complaints per nursing had episode of hypoglycemia with glucose down to 60 last night Exam Vital Signs Vital Sign - Last Date Time Temp Pulse Resp B/P Pulse Ox O2 Delivery O2 Flow Rate FiO2 08/05/16 14:30 36.6 75 18 168/78 98 Room Air Intake and Output 08/04/16 08/04/16 08/05/16 Cumulative From/Thru 15:00 23:00 07:00 07/29/16 09:08 - 08/05/16 06:22 Intake Total 818 ml 250 ml 8408 ml Output Total 300 ml 300 ml 38994 ml Balance 518 ml -50 ml -2742 ml Intake Oral 818 ml 250 ml 8108 ml IV Total 300 ml Output Urine Total 300 ml 300 ml 5150 ml Ultrafiltrate 6000 ml # Voids 13 # Bowel Movements 0 1 4 Exam General: Alert, Cooperative, No Acute Distress Eyes: Scleral Anicteric Nose: Mucous Membr Moist/[place] Mouth: Mucous Membr Moist/[place] Neck: Supple Chest & Lungs: Chest Wall Normal, Clear to auscultation bilat Cardiovascular: Regular Rate/Rhythm Abdomen: Non-tender, Non-distended, Normoactive bowel tones, Soft Extremities: No cyanosis/clubbing/edema bilat Neurological: Grossly Neurologically Intact (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 # Acute mild diabetic ketoacidosis present on admission, resolved. -positive ketones on admission, BS > 600 -treated with insulin regimen as noted below # Chronic hypertension present on admission, poorly controlled -Continue patient's amlodipine, hydralazine, labetalol and torsemide. -further BP med adjustment per nephrology team recommendations -Minoxidil bid per nephrology recs # End-stage chronic renal disease, on dialysis, present on admission, stable. -appreciate nephrology consult. will f/u w/ recs -dialysis per nephrology team # Chronic anemia of chronic disease. Present on admission, stable. -Will monitor. # Type 2 diabetes, insulin using, with complications of bilateral diabetic retinopathy, neuropathy and nephropathy present on admission, active. -10 of Lantus at bedtime -2-4-4 units of nutritional insulin and a low-dose correction scale. 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 Active. -This sounds like the situation at home is really deteriorating and it is possibly he may not have caregivers to return to there or may not be able to return. -Social Service consulted. -Psychiatric consult completed --continue with the patient's Depakote and fluoxetine at this time. --Depakote level 08/05 still subtherapeutic at 36 # Chronic gastroesophageal reflux disease, present on admission, chronic. -Continue patient's Protonix. # Gastroparesis, chronic, present on admission, stable. -Continue patient's Reglan. # Hyperlipidemia, present on admission, stable. -Continue patient's atorvastatin. Dispo: pending placement. of note d/c on 08/02/16 was cancelled due to patient's family refusing to take patient home. VTE Mechanical Devices: Intermittant Pneumatic CD, Venous Foot Pump Ran Centeno Aug 05, 2016 14:39
--- NOTE | 2016-08-05 16:12 | PCM.PNNEPH ---
Subjective Date of Service Aug 05, 2016 Subjective Patient's blood pressure is considerably improved today. He offers no complaints and denies any chest pain, shortness of breath, cough or wheezing. Exam Vital Signs Vital Sign - Last Date Time Temp Pulse Resp B/P Pulse Ox O2 Delivery O2 Flow Rate FiO2 08/05/16 14:30 36.6 75 18 168/78 98 Room Air Intake and Output 08/04/16 08/04/16 08/05/16 Cumulative From/Thru 15:00 23:00 07:00 07/29/16 09:08 - 08/05/16 06:22 Intake Total 818 ml 250 ml 8408 ml Output Total 300 ml 300 ml 07651 ml Balance 518 ml -50 ml -2742 ml Intake Oral 818 ml 250 ml 8108 ml IV Total 300 ml Output Urine Total 300 ml 300 ml 5150 ml Ultrafiltrate 6000 ml # Voids 13 # Bowel Movements 0 1 4 Exam Neck is supple without adenopathy, thyromegaly, or jugular venous distention. Lungs are clear to auscultation his medical is also systolic murmur. Abdomen soft without any tenderness rebound guarding masses or hepatosplenomegaly. Patient showing evidence of any clubbing cyanosis or edema. Lab and Diagnostics Result Diagram: 08/05/16 0535 08/05/16 0535 Plan Impression Impression #1 end-stage renal disease dialysis dependent #2 diabetic nephropathy #3 hypertension with hypertensive heart disease and hypertensive nephrosclerosis Recommendations #1 patient to dialyze today for 4 hours home on a max dialyzer, 2 potassium bath, 1205 100 now N removed 2-3 L of fluid. Jean Crisostomo DO Aug 05, 2016 16:12
[2016-08-05 17:55] VITALS: BP 165/81; PULSE 61; RESP 18; O2SAT 97
[2016-08-05 21:21] VITALS: BP 166/77; PULSE 70; RESP 18; O2SAT 95
[2016-08-05] MEDS: Insulin GLARgine 100 Unit/mL Syringe SUBQ SCH (21:57)
[2016-08-06] VITALS (8 sets, daily range): BP systolic 108–170; BP diastolic 58–88; PULSE 62–74; RESP 16–18; O2SAT 96–98
--- NOTE | 2016-08-06 05:39 | NUR ---
Activity Pt up SBA to Bathroom, continues to have liquid stool. Stool sent to lab per COURTNEY Velarde. No reports of nausea. Call light within reach, frequent rounding.
[2016-08-06] MEDS: Insulin LISPRO 300 Unit/3 mL Inj SUBQ SCH ×4 (08:25→22:01)
[2016-08-06] MEDS: Divalproex (QD) 500 mg ER24 Tablet PO SCH ×3 (08:27→20:40)
[2016-08-06] MEDS: Pantoprazole 40 mg ER24 Tablet PO SCH (08:27)
--- NOTE | 2016-08-06 13:29 | NUR ---
Social Work: Continued d/c planning Data: INSECTICIDE SPRAYER spoke with [facility] from [facility] who states she needs to reschedule the [facility] assessment and will be in on 08/07/16 at 9am. Plan: [facility] to assess pt on 08/07/16 at 9am for [facility] assessment. Sharmin Leija MSW
--- NOTE | 2016-08-06 14:43 | NUR ---
NUTRITION ASSESSMENT: ASSESS: 47 YO male admitted for acute mild DKA. Pt is currently waiting for placement. Appetite remains excellent. PMHx: DM type 2, HTN, Chronic kidney disease on Dialysis, Bipolar type 1, GERD, Gastroparesis, hyperlipidemia, umbilical hernia repair, R leg ORIF, schizoaffective disorder. LABS: Reviewed. Na 130, K+ 6.7, BUN 40, Cr 4.08, Glu 146, Ca 8.0, Alb 3.6. MEDS: Reviewed. CURRENT WT: 75 kg. Admit wt: 74.3 kg. DIET: Heart Healthy, Diabetic. [place]ro at lunch. PO 90-100% of meals. EST. NEEDS: 7671-7011 kcals (30-35 kcals/kg BW), 90-110 g protein (1.2-1.5 g/kg BW) DIAGNOSIS: 1.) Increased nutrient needs related to increased demand for nutrients for disease state as evidenced by chronic kidney disease on chronic dialysis. INTERVENTION: 1.) Continue current diet at this time. MONITOR / EVAL: PO intake, labs, nutrition status. Follow per low nutrition risk guidelines.
--- NOTE | 2016-08-06 16:46 | PCM.PNNEPH ---
Subjective Date of Service Aug 06, 2016 Subjective The patient is refusing to do much other than land bed and sleep. He does not offer any complaints other than the fact that he wants to be left alone. Placement is ongoing and pending at time of this dictation. Exam Vital Signs Vital Sign - Last Date Time Temp Pulse Resp B/P Pulse Ox O2 Delivery O2 Flow Rate FiO2 08/06/16 14:30 36.8 64 16 135/65 97 Room Air Intake and Output 08/05/16 08/05/16 08/06/16 Cumulative From/Thru 15:00 23:00 07:00 07/29/16 09:08 - 08/06/16 06:41 Intake Total 1121 ml 640 ml 46741 ml Output Total 500 ml 500 ml 47530 ml Balance -500 ml 621 ml 640 ml -1981 ml Intake Oral 1111 ml 640 ml 9859 ml IV Total 10 ml 310 ml Output Urine Total 500 ml 5650 ml Ultrafiltrate 500 ml 6500 ml # Voids 2 15 # Bowel Movements 7 2 13 Exam Lungs are clear to auscultation. Heart is regular and rhythmical with a soft systolic murmur. Abdomen soft without any tenderness rebound guarding masses or hepatosplenomegaly. Termination actually evidence of any clubbing cyanosis or edema. Lab and Diagnostics Result Diagram: 08/05/16 0535 08/05/16 0535 Plan Impression Impression #1 end-stage renal disease dialysis dependent #2 hypertension with hypertensive heart disease and hypertensive nephrosclerosis #3 diabetic nephropathy Recommendations #1 make arrangements for his dialysis in the morning. Jean Crisostomo DO Aug 06, 2016 16:46
--- NOTE | 2016-08-06 17:14 | PCM.PNMED ---
Subjective Date of Service Aug 06, 2016 Subjective denies any new issues/complaints Exam Vital Signs Vital Sign - Last Date Time Temp Pulse Resp B/P Pulse Ox O2 Delivery O2 Flow Rate FiO2 08/06/16 14:30 36.8 64 16 135/65 97 Room Air Intake and Output 08/05/16 08/05/16 08/06/16 Cumulative From/Thru 15:00 23:00 07:00 07/29/16 09:08 - 08/06/16 06:41 Intake Total 1121 ml 640 ml 24889 ml Output Total 500 ml 500 ml 56615 ml Balance -500 ml 621 ml 640 ml -1981 ml Intake Oral 1111 ml 640 ml 9859 ml IV Total 10 ml 310 ml Output Urine Total 500 ml 5650 ml Ultrafiltrate 500 ml 6500 ml # Voids 2 15 # Bowel Movements 7 2 13 Exam General: Alert, Cooperative, No Acute Distress Eyes: Scleral Anicteric Nose: Mucous Membr Moist/[place] Mouth: Mucous Membr Moist/[place] Neck: Supple Chest & Lungs: Chest Wall Normal, Clear to auscultation bilat Cardiovascular: Regular Rate/Rhythm Abdomen: Non-tender, Non-distended, Normoactive bowel tones, Soft Extremities: No cyanosis/clubbing/edema bilat Neurological: Grossly Neurologically Intact (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 # Acute mild diabetic ketoacidosis present on admission, resolved. -positive ketones on admission, BS > 600 -treated with insulin regimen as noted below # Chronic hypertension present on admission, poorly controlled -Continue patient's amlodipine, hydralazine, labetalol and torsemide. -further BP med adjustment per nephrology team recommendations -Minoxidil bid per nephrology recs # End-stage chronic renal disease, on dialysis, present on admission, stable. -appreciate nephrology consult. will f/u w/ recs -dialysis per nephrology team # Chronic anemia of chronic disease. Present on admission, stable. -Will monitor. # Type 2 diabetes, insulin using, with complications of bilateral diabetic retinopathy, neuropathy and nephropathy present on admission, active. -10 of Lantus at bedtime -2-4-4 units of nutritional insulin and a low-dose correction scale. 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 Active. -This sounds like the situation at home is really deteriorating and it is possibly he may not have caregivers to return to there or may not be able to return. -Social Service consulted. -Psychiatric consult completed --continue with the patient's Depakote and fluoxetine at this time. --Depakote level 08/05 still subtherapeutic at 36 # Chronic gastroesophageal reflux disease, present on admission, chronic. -Continue patient's Protonix. # Gastroparesis, chronic, present on admission, stable. -Continue patient's Reglan. # Hyperlipidemia, present on admission, stable. -Continue patient's atorvastatin. Dispo: pending placement. of note d/c on 08/02/16 was cancelled due to patient's family refusing to take patient home. [employer] Mechanical Devices: Intermittant Pneumatic CD, Venous Foot Pump Ran Centeno Aug 06, 2016 17:14
--- NOTE | 2016-08-06 18:07 | NUR ---
Ambulation Pt was instructed to be up and walking in the hallway QID by Dr Crisostomo. Pt stated "I'll do it tomorrow, my teeth pain is bothering me too much right now" Pt has been encouraged to get up and ambulate with staff however has declined multiple times. Pt reports is willing to get up and ambulate after eating dinner. Pt instructed to let on-coming staff know to allow ambulation to occur. Call light within reach, frequent rounding in place.
[2016-08-06] MEDS: Insulin GLARgine 100 Unit/mL Syringe SUBQ SCH (20:34)
[2016-08-07] VITALS (8 sets, daily range): BP systolic 137–168; BP diastolic 70–86; PULSE 60–97; RESP 16–18; O2SAT 95–98
[2016-08-07] MEDS: Divalproex (QD) 500 mg ER24 Tablet PO SCH ×3 (07:45→21:06)
[2016-08-07] MEDS: Pantoprazole 40 mg ER24 Tablet PO SCH (07:45)
[2016-08-07] MEDS: Insulin LISPRO 300 Unit/3 mL Inj SUBQ SCH ×4 (07:45→21:50)
--- NOTE | 2016-08-07 11:30 | NUR ---
Social Work: Continued d/c planning Data: COMMERCIAL ANNOUNCER heard back from Fozia Amin regarding assessment. She will have paperwork complete and a rate for pt on Wednesday and will call with this information then. She states they will need to find an [facility] that is run by a nurse to assist pt with medication management. Plan: Fozia Amin to update COMMERCIAL ANNOUNCER on Wednesday regarding [facility] assessment and rate. COMMERCIAL ANNOUNCER will continue to follow. RENEA Singleton
--- NOTE | 2016-08-07 13:26 | NUR ---
Pt arrived to [facility]: Pt arrived to [facility] [place] for dialysis treatment. Tolerated treatment without incident. Report obtained and ending transfer report given to primary nurse Yashira Moreno RN. Pt ok to transfer back to [facility] [place].
--- NOTE | 2016-08-07 13:28 | NUR ---
Dialysis note: 4 hours tx 3000 ml net UF Right catheter, dsg changed, no s/s of infection noted Pls see DTR for VS details Qb 400-450 w/ cath limbs reversed A-V V-A due to freq high art pressure alarms Heparin given O2 @ 2L via NC on during tx Tolerated tx, cooperative with care, slept at intervals. Had 1x BM Catheter flushed, heparin dwelled and secured Report given to Ann Aguirre RN Stable condition at end of tx
--- NOTE | 2016-08-07 15:30 | PCM.PNNEPH ---
Subjective Date of Service Aug 07, 2016 Subjective The patient's unchanged and currently awaiting placement. He still refuses to get out of bed. His lab has been reviewed. Exam Vital Signs Vital Sign - Last Date Time Temp Pulse Resp B/P Pulse Ox O2 Delivery O2 Flow Rate FiO2 08/07/16 08:58 63 08/07/16 08:30 36.6 16 168/86 97 Room Air Intake and Output 08/06/16 08/06/16 08/07/16 Cumulative From/Thru 14:59 22:59 06:59 07/29/16 09:08 - 08/07/16 06:35 Intake Total 1274 ml 400 ml 83602 ml Output Total 670 ml 300 ml 78629 ml Balance 604 ml 100 ml -1277 ml Intake Oral 1274 ml 400 ml 71282 ml IV Total 310 ml Output Urine Total 670 ml 300 ml 6620 ml Ultrafiltrate 6500 ml # Voids 15 # Bowel Movements 0 13 Exam Neck is supple without adenopathy, thyromegaly, or jugular venous distention. Lungs are clear to auscultation. Heart is regular rhythmic with a soft systolic murmur. Abdomen soft without tenderness or rebound guarding masses or hepatosplenomegaly. Extremities do not show any evidence of any clubbing cyanosis or edema. Lab and Diagnostics Result Diagram: 08/05/16 0535 08/07/16 0539 Plan Impression Impression #1 end-stage renal disease dialysis dependent number to diabetic nephropathy #3 hypertension with hypertensive heart disease and hypertensive nephrosclerosis. Recommendations #1 the patient is dialyzed for A MAX DIALYZER, 2 POTASSIUM BATH , 450 BLOOD FLOW, heparin and 500 per hour we will take 2-3 L of fluid off. Jean Crisostomo DO Aug 07, 2016 15:30
--- NOTE | 2016-08-07 17:04 | PCM.PNMED ---
Subjective Date of Service Aug 07, 2016 Subjective denies any new issues/complaints Exam Vital Signs Vital Sign - Last Date Time Temp Pulse Resp B/P Pulse Ox O2 Delivery O2 Flow Rate FiO2 08/07/16 08:58 63 08/07/16 08:30 36.6 16 168/86 97 Room Air Intake and Output 08/06/16 08/06/16 08/07/16 Cumulative From/Thru 15:00 23:00 07:00 07/29/16 09:08 - 08/07/16 06:35 Intake Total 1274 ml 400 ml 87468 ml Output Total 670 ml 300 ml 44329 ml Balance 604 ml 100 ml -1277 ml Intake Oral 1274 ml 400 ml 61210 ml IV Total 310 ml Output Urine Total 670 ml 300 ml 6620 ml Ultrafiltrate 6500 ml # Voids 15 # Bowel Movements 0 13 Exam General: Alert, Cooperative, No Acute Distress Eyes: Scleral Anicteric Nose: Mucous Membr Moist/[place] Mouth: Mucous Membr Moist/[place] Neck: Supple Chest & Lungs: Chest Wall Normal, Clear to auscultation bilat Cardiovascular: Regular Rate/Rhythm Abdomen: Non-tender, Non-distended, Normoactive bowel tones, Soft Extremities: No cyanosis/clubbing/edema bilat Neurological: Grossly Neurologically Intact (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 # Acute hyperkalemia. not present on admission. ongoing - Hemodialysis today and followup # Acute mild diabetic ketoacidosis present on admission, resolved. -positive ketones on admission, BS > 600 -treated with insulin regimen as noted below # Chronic hypertension present on admission, poorly controlled -Continue patient's amlodipine, hydralazine, labetalol and torsemide. -further BP med adjustment per nephrology team recommendations -Minoxidil bid per nephrology recs # End-stage chronic renal disease, on dialysis, present on admission, stable. -appreciate nephrology consult. will f/u w/ recs -dialysis per nephrology team # Chronic anemia of chronic disease. Present on admission, stable. -Will monitor. # Type 2 diabetes, insulin using, with complications of bilateral diabetic retinopathy, neuropathy and nephropathy present on admission, active. -10 of Lantus at bedtime -2-4-4 units of nutritional insulin and a low-dose correction scale. 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 Active. -This sounds like the situation at home is really deteriorating and it is possibly he may not have caregivers to return to there or may not be able to return. -Social Service consulted. -Psychiatric consult completed --continue with the patient's Depakote and fluoxetine at this time. --Depakote level 08/05 still subtherapeutic at 36 # Chronic gastroesophageal reflux disease, present on admission, chronic. -Continue patient's Protonix. # Gastroparesis, chronic, present on admission, stable. -Continue patient's Reglan. # Hyperlipidemia, present on admission, stable. -Continue patient's atorvastatin. Dispo: pending placement. of note d/c on 08/02/16 was cancelled due to patient's family refusing to take patient home. [employer]: Intermittant Pneumatic CD Ran Centeno Aug 07, 2016 17:04
--- NOTE | 2016-08-07 18:34 | NUR ---
Diarrhea Patient had diarrhea for the last 2 days. Patient continues to have loose stool. Patient had 2 loose stools/diarrhea light brown in color.
[2016-08-07] MEDS: Insulin GLARgine 100 Unit/mL Syringe SUBQ SCH (21:09)
[2016-08-08] VITALS (10 sets, daily range): BP systolic 99–182; BP diastolic 45–87; PULSE 61–78; RESP 16–18; O2SAT 96–98
--- NOTE | 2016-08-08 04:49 | NUR ---
Hypertension BP 18/ pulse 65 @ 04:00 this AM notified.
[2016-08-08] MEDS: Insulin LISPRO 300 Unit/3 mL Inj SUBQ SCH ×4 (07:46→22:00)
[2016-08-08] MEDS: Pantoprazole 40 mg ER24 Tablet PO SCH (07:47)
[2016-08-08] MEDS: Divalproex (QD) 500 mg ER24 Tablet PO SCH ×3 (07:48→22:03)
--- NOTE | 2016-08-08 16:18 | NUR ---
Tired Pt declined ambulation. Stayed in bed all shift. denied pain. BG checked AC, insulin given per orders.
--- NOTE | 2016-08-08 16:30 | PCM.PNMED ---
Subjective Date of Service Aug 08, 2016 Subjective denies any new issues/complaints Exam Vital Signs Vital Sign - Last Date Time Temp Pulse Resp B/P Pulse Ox O2 Delivery O2 Flow Rate FiO2 08/08/16 15:08 36.7 66 18 152/76 98 Room Air Intake and Output 08/07/16 08/07/16 08/08/16 Cumulative From/Thru 15:00 23:00 07:00 07/29/16 09:08 - 08/08/16 06:54 Intake Total 1754 ml 65093 ml Output Total 3000 ml 125 ml 88865 ml Balance -3000 ml 1629 ml -2648 ml Intake Oral 1749 ml 15303 ml IV Total 5 ml 315 ml Output Urine Total 125 ml 6745 ml Ultrafiltrate 3000 ml 9500 ml # Voids 15 # Bowel Movements 1 14 Exam General: Alert, Cooperative, No Acute Distress Eyes: Scleral Anicteric Nose: Mucous Membr Moist/[place] Mouth: Mucous Membr Moist/[place] Neck: Supple Chest & Lungs: Chest Wall Normal, Clear to auscultation bilat Cardiovascular: Regular Rate/Rhythm Abdomen: Non-tender, Non-distended, Normoactive bowel tones, Soft Extremities: No cyanosis/clubbing/edema bilat Neurological: Grossly Neurologically Intact (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 # Acute mild diabetic ketoacidosis present on admission, resolved. -positive ketones on admission, BS > 600 -treated with insulin regimen as noted below # Acute hyperkalemia. not present on admission. resolved with hemodialysis - followup # Chronic hypertension present on admission, poorly controlled -Continue patient's amlodipine, hydralazine, labetalol and torsemide. -further BP med adjustment per nephrology team recommendations -Minoxidil bid per nephrology recs # End-stage chronic renal disease, on dialysis, present on admission, stable. -appreciate nephrology consult. will f/u w/ recs -dialysis per nephrology team # Chronic anemia of chronic disease. Present on admission, stable. -Will monitor. # Type 2 diabetes, insulin using, with complications of bilateral diabetic retinopathy, neuropathy and nephropathy present on admission, active. -10 of Lantus at bedtime -2-4-4 units of nutritional insulin and a low-dose correction scale. 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 Active. -This sounds like the situation at home is really deteriorating and it is possibly he may not have caregivers to return to there or may not be able to return. -Social Service consulted. -Psychiatric consult completed --continue with the patient's Depakote and fluoxetine at this time. --Depakote level 08/05 still subtherapeutic at 36 # Chronic gastroesophageal reflux disease, present on admission, chronic. -Continue patient's Protonix. # Gastroparesis, chronic, present on admission, stable. -Continue patient's Reglan. # Hyperlipidemia, present on admission, stable. -Continue patient's atorvastatin. Dispo: pending placement. of note d/c on 08/02/16 was cancelled due to patient's family refusing to take patient home. [employer]: Venous Foot Pump Ran Centeno Aug 08, 2016 16:30
[2016-08-08] MEDS: Insulin GLARgine 100 Unit/mL Syringe SUBQ SCH (22:11)
[2016-08-09] VITALS (8 sets, daily range): BP systolic 134–187; BP diastolic 67–92; PULSE 61–66; RESP 16–18; O2SAT 96–97
[2016-08-09] MEDS: Insulin LISPRO 300 Unit/3 mL Inj SUBQ SCH ×4 (08:50→21:12)
[2016-08-09] MEDS: Divalproex (QD) 500 mg ER24 Tablet PO SCH ×3 (08:50→21:06)
[2016-08-09] MEDS: Pantoprazole 40 mg ER24 Tablet PO SCH (08:51)
--- NOTE | 2016-08-09 13:32 | PCM.PNMED ---
Subjective Date of Service Aug 09, 2016 Subjective denies any new issues/complaints Exam Vital Signs Vital Sign - Last Date Time Temp Pulse Resp B/P Pulse Ox O2 Delivery O2 Flow Rate FiO2 08/09/16 10:45 63 08/09/16 09:30 36.4 18 187/92 96 Room Air Intake and Output 08/08/16 08/08/16 08/09/16 Cumulative From/Thru 15:00 23:00 07:00 07/29/16 09:08 - 08/09/16 06:16 Intake Total 872 ml 0 ml 22689 ml Output Total 430 ml 400 ml 97876 ml Balance 442 ml -400 ml -2606 ml Intake Oral 872 ml 0 ml 02042 ml IV Total 315 ml Output Urine Total 430 ml 400 ml 7575 ml Ultrafiltrate 9500 ml # Voids 1 16 # Bowel Movements 0 0 14 Exam General: Alert, Cooperative, No Acute Distress Eyes: Scleral Anicteric Nose: Mucous Membr Moist/[place] Mouth: Mucous Membr Moist/[place] Neck: Supple Chest & Lungs: Chest Wall Normal, Clear to auscultation bilat Cardiovascular: Regular Rate/Rhythm Abdomen: Non-tender, Non-distended, Normoactive bowel tones, Soft Extremities: No cyanosis/clubbing/edema bilat Neurological: Normal Speech IVs and Medications Medications Reviewed: Medications were reviewed in detail Lab and Diagnostics Result Diagram: 08/05/16 0535 08/08/16 0531 Assessment & Plan 50-year-old, male with past medical history of end-stage renal disease on hemodialysis, insulin-dependent diabetes complicated by retinopathy, neuropathy , nephropathy and gastroparesis, hypertension, presented from dialysis unit due to severe nausea, abdominal pain and headache. # Acute mild diabetic ketoacidosis present on admission, resolved. -positive ketones on admission, BS > 600 -treated with insulin regimen as noted below # Acute hyperkalemia. not present on admission. resolved with hemodialysis - followup # Chronic hypertension present on admission, poorly controlled -Continue patient's amlodipine, hydralazine, labetalol and torsemide. -further BP med adjustment per nephrology team recommendations -Minoxidil bid per nephrology recs # End-stage chronic renal disease, on dialysis, present on admission, stable. -appreciate nephrology consult. will f/u w/ recs -dialysis per nephrology team # Chronic anemia of chronic disease. Present on admission, stable. -Will monitor. # Type 2 diabetes, insulin using, with complications of bilateral diabetic retinopathy, neuropathy and nephropathy present on admission, active. -10 of Lantus at bedtime -2-4-4 units of nutritional insulin and a low-dose correction scale. 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 Active. -This sounds like the situation at home is really deteriorating and it is possibly he may not have caregivers to return to there or may not be able to return. -Social Service consulted. -Psychiatric consult completed --continue with the patient's Depakote and fluoxetine at this time. --Depakote level 08/05 still subtherapeutic at 36 # Chronic gastroesophageal reflux disease, present on admission, chronic. -Continue patient's Protonix. # Gastroparesis, chronic, present on admission, stable. -Continue patient's Reglan. # Hyperlipidemia, present on admission, stable. -Continue patient's atorvastatin. Dispo: pending placement. of note d/c on 08/02/16 was cancelled due to patient's family refusing to take patient home. [employer]: Venous Foot Pump Ran Centeno Aug 09, 2016 13:32
--- NOTE | 2016-08-09 14:00 | NUR ---
Activity: Patient laying in bed, appears to be sleeping most of day. Declines offers of getting out of bed to chair. Somewhat cooperating with care and medication administration. Advised patient to call for assistance. Call light within reach.
[2016-08-09] MEDS: Insulin GLARgine 100 Unit/mL Syringe SUBQ SCH (21:11)
[2016-08-10] VITALS (7 sets, daily range): BP systolic 153–174; BP diastolic 77–93; PULSE 61–72; RESP 16; O2SAT 96–98
--- NOTE | 2016-08-10 07:02 | NUR ---
Noneventful night Pt denies any pain/SOB/N/V/fever/chills, sleeping comfortably most of night, VSS, void in urinal, sufficient amount of yellow urine, and loose yellow stoolx2. Blind on both eyes, 1-PA to BR, bed alarm on, no fall.
[2016-08-10] MEDS: Insulin LISPRO 300 Unit/3 mL Inj SUBQ SCH ×4 (07:39→21:18)
[2016-08-10] MEDS: Pantoprazole 40 mg ER24 Tablet PO SCH (07:59)
[2016-08-10] MEDS: Divalproex (QD) 500 mg ER24 Tablet PO SCH ×3 (08:05→20:07)
--- NOTE | 2016-08-10 08:34 | NUR ---
dialysis pt is scheduled for dialysis this am. Per [facility] charge nurse, "hold all cardiac medications"
--- NOTE | 2016-08-10 09:04 | NUR ---
OFF FLOOR pt is transported by two [facility] [place] bed to the 2nd floor for dialysis.
--- NOTE | 2016-08-10 10:40 | PCM.PNNEPH ---
Subjective Date of Service Aug 10, 2016 Subjective Patient is seen during HD,no new complaints. BP 103/58. Exam Vital Signs Vital Sign - Last Date Time Temp Pulse Resp B/P Pulse Ox O2 Delivery O2 Flow Rate FiO2 08/10/16 10:33 62 08/10/16 03:51 36.4 16 174/81 97 Room Air Intake and Output 08/09/16 08/09/16 08/10/16 Cumulative From/Thru 15:00 23:00 07:00 07/29/16 09:08 - 08/09/16 20:39 Intake Total 1408 ml 52810 ml Output Total 425 ml 65085 ml Balance 983 ml -1623 ml Intake Oral 1408 ml 43088 ml IV Total 315 ml Output Urine Total 425 ml 8000 ml Ultrafiltrate 9500 ml # Voids 2 18 # Bowel Movements 2 16 Exam GA: AAOx3, NAD, legally blind. HEENT: no pallor, no icteric sclerae, no adenopathy, thyromegaly, or jugular venous distention. Lungs: clear to auscultation, no wheezing, no rhonchi. Heart: regular rhythmic with a soft systolic murmur. Abdomen: soft without tenderness or rebound guarding masses or hepatosplenomegaly. Extremities: No evidence of any clubbing cyanosis or edema. Lab and Diagnostics Result Diagram: 08/05/16 0535 08/08/16 0531 Plan Impression 1. End-stage renal disease dialysis dependent MAX DIALYZER, 2K, 37HCO3, 600 DFR, 500 BFR 3L UF, right tunneled cath. 2. DM with diabetic nephropathy 3. Hypertension with hypertensive heart disease and hypertensive nephrosclerosis. 4. Bipolar disorder. Patricia Manrique MD Aug 10, 2016 10:40
--- NOTE | 2016-08-10 13:54 | NUR ---
Dialysis note: 4 hr tx, Net UF 3.0. Pt requested to use bathroom just before limbs were to be attached to machine lines. He reported diarrhea. Pt calm and cooperative. BP dipped to 91/54 HR 61 and UF goal lowered. In one hour BP was back up to 119/64 HR 62 and UF goal increased. Maintained throughout rest of tx. Limbs dwelled with Heparin 1000, cleaned and secured with caps. Pt used urinal post tx, 20 cc. Please see DTR for complete record of VS. Pt returned to floor stable.
--- NOTE | 2016-08-10 14:15 | PCM.PNMED ---
Subjective Date of Service Aug 10, 2016 Subjective denies any new issues/complaints Exam Vital Signs Vital Sign - Last Date Time Temp Pulse Resp B/P Pulse Ox O2 Delivery O2 Flow Rate FiO2 08/10/16 10:33 62 08/10/16 03:51 36.4 16 174/81 97 Room Air Intake and Output 08/09/16 08/09/16 08/10/16 Cumulative From/Thru 15:00 23:00 07:00 07/29/16 09:08 - 08/09/16 20:39 Intake Total 1408 ml 20499 ml Output Total 425 ml 87809 ml Balance 983 ml -1623 ml Intake Oral 1408 ml 07537 ml IV Total 315 ml Output Urine Total 425 ml 8000 ml Ultrafiltrate 9500 ml # Voids 2 18 # Bowel Movements 2 16 Exam General: Alert, Cooperative, No Acute Distress Eyes: Scleral Anicteric Nose: Mucous Membr Moist/[place] Mouth: Mucous Membr Moist/[place] Neck: Supple Chest & Lungs: Chest Wall Normal, Clear to auscultation bilat Cardiovascular: Regular Rate/Rhythm Abdomen: Non-tender, Non-distended, Normoactive bowel tones, Soft Extremities: No cyanosis/clubbing/edema bilat Neurological: Normal Speech IVs and Medications Medications Reviewed: Medications were reviewed in detail Lab and Diagnostics Result Diagram: 08/05/16 0535 08/08/16 0531 Assessment & Plan 50-year-old, male with past medical history of end-stage renal disease on hemodialysis, insulin-dependent diabetes complicated by retinopathy, neuropathy , nephropathy and gastroparesis, hypertension, presented from dialysis unit due to severe nausea, abdominal pain and headache. # Acute mild diabetic ketoacidosis present on admission, resolved. -positive ketones on admission, BS > 600 -treated with insulin regimen as noted below # Acute hyperkalemia. not present on admission. resolved with hemodialysis - followup # Chronic hypertension present on admission, poorly controlled -Continue patient's amlodipine, hydralazine, labetalol and torsemide. -further BP med adjustment per nephrology team recommendations -Minoxidil bid per nephrology recs # End-stage chronic renal disease, on dialysis, present on admission, stable. -appreciate nephrology consult. will f/u w/ recs -dialysis per nephrology team # Chronic anemia of chronic disease. Present on admission, stable. -Will monitor. # Type 2 diabetes, insulin using, with complications of bilateral diabetic retinopathy, neuropathy and nephropathy present on admission, active. -10 of Lantus at bedtime -2-4-4 units of nutritional insulin and a low-dose correction scale. 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 Active. -This sounds like the situation at home is really deteriorating and it is possibly he may not have caregivers to return to there or may not be able to return. -Social Service consulted. -Psychiatric consult completed --continue with the patient's Depakote and fluoxetine at this time. --Depakote level 08/05 still subtherapeutic at 36 # Chronic gastroesophageal reflux disease, present on admission, chronic. -Continue patient's Protonix. # Gastroparesis, chronic, present on admission, stable. -Continue patient's Reglan. # Hyperlipidemia, present on admission, stable. -Continue patient's atorvastatin. Dispo: pending placement. of note d/c on 08/02/16 was cancelled due to patient's family refusing to take patient home. VTE Mechanical Devices: Intermittant Pneumatic CD, Venous Foot Pump Ran Centeno Aug 10, 2016 14:15
[2016-08-10] MEDS: Insulin GLARgine 100 Unit/mL Syringe SUBQ SCH (22:25)
[2016-08-11] VITALS (7 sets, daily range): BP systolic 135–183; BP diastolic 75–86; PULSE 62–71; RESP 16–18; O2SAT 95–97
--- NOTE | 2016-08-11 06:32 | NUR ---
activity Pt remained in room up to bathroom indp., uses call light appropriately. Pt mostly cooperative, refused vitals at night, too tired. No complaints of pain or discomfort. Left room with call light at bedside, indicated to pt where it was.
[2016-08-11] MEDS: Divalproex (QD) 500 mg ER24 Tablet PO SCH ×3 (09:13→20:26)
[2016-08-11] MEDS: Pantoprazole 40 mg ER24 Tablet PO SCH (09:15)
[2016-08-11] MEDS: Insulin LISPRO 300 Unit/3 mL Inj SUBQ SCH ×4 (09:16→20:34)
--- NOTE | 2016-08-11 13:31 | NUR ---
Social Work: Continued d/c planning Data: Pt on day 13 of hospitalization for hyperglycemia ESRD. SW is cirrently seeking placement in [facility] for pt. SW followed up with Fozia Amin regarding daily rate for pt and left voicemail. Assessment: Pt to be placed at [facility] Plan: SW waiting for daily rate from Fozia Amin. CYDNEY working to find [facility] placement RENEA Herr
--- NOTE | 2016-08-11 16:46 | PCM.PNMED ---
Subjective Date of Service Aug 11, 2016 Subjective denies any new issues/complaints Exam Vital Signs Vital Sign - Last Date Time Temp Pulse Resp B/P Pulse Ox O2 Delivery O2 Flow Rate FiO2 08/11/16 14:54 36.7 71 16 171/84 95 Room Air Intake and Output 08/10/16 08/10/16 08/11/16 Cumulative From/Thru 14:59 22:59 06:59 07/29/16 09:08 - 08/10/16 19:55 Intake Total 100 ml 1032 ml 93400 ml Output Total 3475 ml 433 ml 37156 ml Balance -3375 ml 599 ml -4399 ml Intake Oral 100 ml 1032 ml 48561 ml IV Total 315 ml Output Urine Total 475 ml 430 ml 8905 ml Stool Total 3 ml 3 ml Ultrafiltrate 3000 ml 32461 ml # Voids 18 # Bowel Movements 1 17 Exam General: Alert, Cooperative, No Acute Distress Eyes: Scleral Anicteric Nose: Mucous Membr Moist/[place] Mouth: Mucous Membr Moist/[place] Neck: Supple Chest & Lungs: Chest Wall Normal, Clear to auscultation bilat Cardiovascular: Regular Rate/Rhythm Abdomen: Non-tender, Non-distended, Normoactive bowel tones, Soft Extremities: No cyanosis/clubbing/edema bilat Neurological: Normal Speech IVs and Medications Medications Reviewed: Medications were reviewed in detail Lab and Diagnostics Result Diagram: 08/05/16 0535 08/08/16 0531 Assessment & Plan 50-year-old, male with past medical history of end-stage renal disease on hemodialysis, insulin-dependent diabetes complicated by retinopathy, neuropathy , nephropathy and gastroparesis, hypertension, presented from dialysis unit due to severe nausea, abdominal pain and headache. # Acute mild diabetic ketoacidosis present on admission, resolved. -positive ketones on admission, BS > 600 -treated with insulin regimen as noted below # Acute hyperkalemia. not present on admission. resolved with hemodialysis - followup # Chronic hypertension present on admission, poorly controlled -Continue patient's amlodipine, hydralazine, labetalol and torsemide. -further BP med adjustment per nephrology team recommendations -Minoxidil bid per nephrology recs # End-stage chronic renal disease, on dialysis, present on admission, stable. -appreciate nephrology consult. will f/u w/ recs -dialysis per nephrology team # Chronic anemia of chronic disease. Present on admission, stable. -Will monitor. # Type 2 diabetes, insulin using, with complications of bilateral diabetic retinopathy, neuropathy and nephropathy present on admission, active. -10 of Lantus at bedtime -2-4-4 units of nutritional insulin and a low-dose correction scale. 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 Active. -This sounds like the situation at home is really deteriorating and it is possibly he may not have caregivers to return to there or may not be able to return. -Social Service consulted. -Psychiatric consult completed --continue with the patient's Depakote and fluoxetine at this time. --Depakote level 08/05 still subtherapeutic at 36 # Chronic gastroesophageal reflux disease, present on admission, chronic. -Continue patient's Protonix. # Gastroparesis, chronic, present on admission, stable. -Continue patient's Reglan. # Hyperlipidemia, present on admission, stable. -Continue patient's atorvastatin. Dispo: pending placement. of note d/c on 08/02/16 was cancelled due to patient's family refusing to take patient home. [employer] Mechanical Devices: Intermittant Pneumatic CD, Venous Foot Pump Ran Centeno Aug 11, 2016 16:46
--- NOTE | 2016-08-11 19:29 | NUR ---
Diarrhea Pt c/o diarrhea for the past several days during morning assessment. updated. PCR Stool test ordered. Note on board, vial on counter. No more diarrhea during day shift.
[2016-08-11] MEDS: Insulin GLARgine 100 Unit/mL Syringe SUBQ SCH (20:34)
[2016-08-12] VITALS (7 sets, daily range): BP systolic 151–188; BP diastolic 79–93; PULSE 61–70; RESP 16–18; O2SAT 96–98
--- NOTE | 2016-08-12 04:40 | NUR ---
Need stool sample New hat in BR.
[2016-08-12 06:19] LABS: BASOPHILS % (AUTO) 1.8 % (0-3); MONOCYTES % (AUTO) 10.8 % (4-12); Mean Corpuscular Hemoglobin 31.4 pg (27.0-35.0); Mean Corpuscular Volume 92.6 fL (81-100); NEUTROPHILS % (AUTO) 52.7 % (40-74); Platelet Count 236 bil/L (150-400)
[2016-08-12 06:29] LABS: Phosphorus 3.8 mg/dL (2.5-4.9)
[2016-08-12] MEDS: Insulin LISPRO 300 Unit/3 mL Inj SUBQ SCH ×4 (08:00→21:49)
[2016-08-12] MEDS: Ergocalciferol (Vit D2) 50,000 Unit Capsule PO SCH (08:26)
[2016-08-12] MEDS: Divalproex (QD) 500 mg ER24 Tablet PO SCH ×3 (08:27→20:32)
[2016-08-12] MEDS: Pantoprazole 40 mg ER24 Tablet PO SCH (08:27)
--- NOTE | 2016-08-12 09:20 | NUR ---
Temporary Transfer Transferred in bed to room 243-1 for dialysis. Report received from Александр Hall RN. transition lead at bedside. filling technician notified.
--- NOTE | 2016-08-12 12:18 | PCM.PNMED ---
Subjective Date of Service Aug 12, 2016 Subjective Pt is seen during HD. No complaints. No CP/SOB. BP has dropped but asymptomatic. Exam Vital Signs Vital Sign - Last Date Time Temp Pulse Resp B/P Pulse Ox O2 Delivery O2 Flow Rate FiO2 08/12/16 11:08 64 08/12/16 04:09 36.6 16 171/80 98 Room Air Intake and Output 08/11/16 08/11/16 08/12/16 Cumulative From/Thru 15:00 23:00 07:00 07/29/16 09:08 - 08/12/16 06:29 Intake Total 200 ml 808 ml 150 ml 26694 ml Output Total 100 ml 300 ml 350 ml 77563 ml Balance 100 ml 508 ml -200 ml -3991 ml Intake Oral 200 ml 808 ml 150 ml 80041 ml IV Total 315 ml Output Urine Total 100 ml 300 ml 350 ml 9655 ml Stool Total 3 ml Ultrafiltrate 07673 ml # Voids 18 # Bowel Movements 2 0 19 Exam GA: AAOx3, NAD, legally blind. HEENT: no pallor, no icteric sclerae, no adenopathy, thyromegaly, or jugular venous distention. Lungs: clear to auscultation, no wheezing, no rhonchi. Heart: regular rhythmic with a soft systolic murmur. Abdomen: soft without tenderness or rebound guarding masses or hepatosplenomegaly. Extremities: No evidence of any clubbing cyanosis or edema. right tunneled cath in place. Lab and Diagnostics Result Diagram: 08/12/16 0550 08/12/16 0550 Assessment & Plan 1. End-stage renal disease dialysis dependent MAX DIALYZER, 2K, 37HCO3, 600 DFR, 500 BFR 2-3L UF, right tunneled cath. 3 1/2 hr. 2. DM with diabetic nephropathy 3. Hypertension with hypertensive heart disease and hypertensive nephrosclerosis. 4. Bipolar disorder. Plan: Next HD on Wednesday. Pending placement. VTE Mechanical Devices: Intermittant Pneumatic CD, Venous Foot Pump Patricia Manrique MD Aug 12, 2016 12:18
--- NOTE | 2016-08-12 12:44 | NUR ---
Dialysis note: 3 1/2 hours tx 3000 ml net UF Right catheter, dsg changed, no s/s of infection noted Pls see DTR for VS details Qb 400 w/ cath limbs reversed A-V V-A due to poor catheter function Heparin prime given O2 @ 2L via NC on during tx Tolerated tx, slept at intervals Catheter flushed, heparin dwelled and secured Stable condition at end of tx Report given to Blank VALDEZ
--- NOTE | 2016-08-12 13:10 | NUR ---
voicemail from [facility] with [facility] confirming that pt's daily rate is $70.85. SW relayed this info to UR Specialist who will begin contacting [facility]'s RENEA Herr
--- NOTE | 2016-08-12 14:11 | NUR ---
Transfer back to room. Patient transferred back to 3011. Tolerated dialysis without symptoms. Report given to transporting RN. See dialysis notes for further details.
--- NOTE | 2016-08-12 14:47 | PCM.PNMED ---
Subjective Date of Service Aug 12, 2016 Subjective denies any new issues/complaints Exam Vital Signs Vital Sign - Last Date Time Temp Pulse Resp B/P Pulse Ox O2 Delivery O2 Flow Rate FiO2 08/12/16 13:01 36.8 64 18 170/80 98 Room Air Intake and Output 08/11/16 08/11/16 08/12/16 Cumulative From/Thru 15:00 23:00 07:00 07/29/16 09:08 - 08/12/16 06:29 Intake Total 200 ml 808 ml 150 ml 63893 ml Output Total 100 ml 300 ml 350 ml 23005 ml Balance 100 ml 508 ml -200 ml -3991 ml Intake Oral 200 ml 808 ml 150 ml 22747 ml IV Total 315 ml Output Urine Total 100 ml 300 ml 350 ml 9655 ml Stool Total 3 ml Ultrafiltrate 62646 ml # Voids 18 # Bowel Movements 2 0 19 Exam General: Alert, Cooperative, No Acute Distress Eyes: Scleral Anicteric Nose: Mucous Membr Moist/[place] Mouth: Mucous Membr Moist/[place] Neck: Supple Chest & Lungs: Chest Wall Normal, Clear to auscultation bilat Cardiovascular: Regular Rate/Rhythm Abdomen: Non-tender, Non-distended, Normoactive bowel tones, Soft Extremities: No cyanosis/clubbing/edema bilat Neurological: Normal Speech IVs and Medications Medications Reviewed: Medications were reviewed in detail Lab and Diagnostics Result Diagram: 08/12/16 0550 08/12/16 0550 Assessment & Plan 50-year-old, male with past medical history of end-stage renal disease on hemodialysis, insulin-dependent diabetes complicated by retinopathy, neuropathy , nephropathy and gastroparesis, hypertension, presented from dialysis unit due to severe nausea, abdominal pain and headache. # Acute mild diabetic ketoacidosis present on admission, resolved. -positive ketones on admission, BS > 600 -treated with insulin regimen as noted below # Acute hyperkalemia. not present on admission. resolved with hemodialysis - followup # Chronic hypertension present on admission, poorly controlled -continue patient's amlodipine, hydralazine, labetalol and torsemide. -further BP med adjustment per nephrology team recommendations -minoxidil bid per nephrology recs # End-stage chronic renal disease, on dialysis, present on admission, stable. -appreciate nephrology consult. will f/u w/ recs -dialysis per nephrology team # Chronic anemia of chronic disease. Present on admission, stable. -will monitor. # Type 2 diabetes, insulin using, with complications of bilateral diabetic retinopathy, neuropathy and nephropathy present on admission, active. -10 of Lantus at bedtime -2-4-4 units of nutritional insulin and a low-dose correction scale. 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 Active. -this sounds like the situation at home is really deteriorating and it is possibly he may not have caregivers to return to there or may not be able to return. -social Service consulted. -sychiatric consult completed --continue with the patient's Depakote and fluoxetine at this time. --Depakote level / still subtherapeutic at 36 - will recheck Depakote level in am # Chronic gastroesophageal reflux disease, present on admission, chronic. -continue Protonix. # Gastroparesis, chronic, present on admission, stable. -continue Reglan. # Hyperlipidemia, present on admission, stable. -continue atorvastatin. Dispo: pending placement. of note d/c on 08/02/16 was cancelled due to patient's family refusing to take patient home. VTE Mechanical Devices: Intermittant Pneumatic CD, Venous Foot Pump Ran Centeno Aug 12, 2016 14:47
--- NOTE | 2016-08-12 18:30 | NUR ---
BP Patient s blood pressure up to 170/90 on return from dialysis. AM BP medications administered. Patient sleeping most of afternoon.
[2016-08-12] MEDS: Insulin GLARgine 100 Unit/mL Syringe SUBQ SCH (20:35)
--- NOTE | 2016-08-13 04:07 | NUR ---
Blood Glucose Does not feel right with BG < 200. Advised this should become the new normal with proper BG management the goal is to make >200 feel abnormal. Upset about all the BG checks. Advised we usually check for meals and HS.
[2016-08-13 05:50] VITALS: BP 166/88; PULSE 61; RESP 16; O2SAT 97
[2016-08-13] MEDS ORDERED: Dextrose 50% Water 50 mL Inj IV ONE (07:20)
[2016-08-13] MEDS ORDERED: Insulin Human REGular-Omnicell 100 Unit/mL IV ONE (07:50)
[2016-08-13 08:01] VITALS: BP 182/88; PULSE 60; RESP 14; O2SAT 98
[2016-08-13] MEDS: Divalproex (QD) 500 mg ER24 Tablet PO SCH ×3 (08:30→20:27)
[2016-08-13] MEDS: Insulin LISPRO 300 Unit/3 mL Inj SUBQ SCH ×4 (08:55→20:35)
--- NOTE | 2016-08-13 09:39 | NUR ---
Pt arrived to [facility]: Pt arrived to [facility] for dialysis treatment. Pt appears stable at time of arrival. Report obtained from Yashira Mckeon RN. Addendum: 08/13/16 at 1258 by SITA YEE RN Pt completed treatment and may return to [facility]. Report called to Yashira Mckeon RN. Pt stable at this time. 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
[2016-08-13 09:43] VITALS: BP 155/81; PULSE 60
--- NOTE | 2016-08-13 11:36 | NUR ---
Social Work: Continued d/c planning Data: Pt is on day 15 of hospitalization. EMR reviewed. Pt discussed in rounds. Pt is medically stable for d/c once placement is determined. Pt's ex- Hussain called [employer] stating she is working with Fozia Aimn and has sent in paperwork to become pt's [facility] caregiver. She also states she is working on finding pt an apartment near hers so that she is available to him without the concerns of her losing housing. She states that she anticipated being able to take him home next week sometime and will call with updates. HAIR DRESSER confirmed with Hussain that she will take pt to his new apartment once it is found and she will start caring for him at that point even if [facility] caregiving has not yet been set up. HAIR DRESSER will continue to follow. Assessment: Pt with caregiving at baseline. Plan: Pt will d/c next week to an apartment near his ex who will become DA[facility] caregiver for pt likely. HAIR DRESSER will continue to follow. RENEA Singleton
--- NOTE | 2016-08-13 13:10 | NUR ---
Dialysis note: 3 hours tx 1000 ml net UF Right catheter, dsg changed, no s/s of infection noted Pls see DTR for VS details Qb 400 w/ cath limbs reversed A-V V-A due to poor catheter function Heparin prime given O2 @ 2L via NC on during tx Tolerated tx, slept at intervals Catheter flushed, heparin dwelled and secured Stable condition at end of tx Report given to Ann VALDEZ
--- NOTE | 2016-08-13 13:35 | NUR ---
Transfer from Dialysis. [place] [facility] [place]30 [place] in stable condition. Pt. ready to come back to [facility] at 1315. Per [facility] RN, 1 L taken off, BP 154/82 with HR 59. BG 90. Pt. now eating lunch in his room. No complaints, questions or concerns.
--- NOTE | 2016-08-13 14:12 | NUR ---
NUTRITION FOLLOW-UP: ASSESS: 47 YO male admitted for acute mild DKA. Pt is currently waiting for placement. Appetite remains excellent. PMHx: DM type 2, HTN, Chronic kidney disease on Dialysis, Bipolar type 1, GERD, Gastroparesis, hyperlipidemia, umbilical hernia repair, R leg ORIF, schizoaffective disorder. LABS: Reviewed. Na 133, K+ 6.1, BUN 36, Cr 3.07, Glu 147. MEDS: Reviewed. GI: BM x 2 (08/11) CURRENT WT: 75.9 kg. Admit wt: 74.3 kg. DIET: Heart Healthy, Diabetic. Nepro at lunch. PO 100% of meals. EST. NEEDS: 3522-7443 kcals (30-35 kcals/kg BW), 90-110 g protein (1.2-1.5 g/kg BW) DIAGNOSIS: 1.) Increased nutrient needs related to increased demand for nutrients for disease state as evidenced by chronic kidney disease on chronic dialysis--PERSISTS. INTERVENTION: 1.) Continue current diet and supplement at this time. MONITOR / EVAL: PO intake, labs, nutrition status. Follow per low nutrition risk guidelines.
--- NOTE | 2016-08-13 14:21 | PCM.PNNEPH ---
Subjective Date of Service Aug 13, 2016 Subjective Pt is seen during HD. K 6.1 Exam Vital Signs Vital Sign - Last Date Time Temp Pulse Resp B/P Pulse Ox O2 Delivery O2 Flow Rate FiO2 08/13/16 09:43 60 08/13/16 08:01 36.7 14 182/88 98 Room Air Intake and Output 08/12/16 08/12/16 08/13/16 Cumulative From/Thru 15:00 23:00 07:00 07/29/16 09:08 - 08/13/16 06:40 Intake Total 1580 ml 300 ml 83325 ml Output Total 3000 ml 400 ml 100 ml 70642 ml Balance -3000 ml 1180 ml 200 ml -5611 ml Intake Oral 1580 ml 300 ml 39092 ml IV Total 315 ml Output Urine Total 400 ml 100 ml 74313 ml Stool Total 3 ml Ultrafiltrate 3000 ml 67095 ml # Voids 18 # Bowel Movements 0 19 Exam GA: AAOx3, NAD, legally blind. HEENT: no pallor, no icteric sclerae, no adenopathy, thyromegaly, or jugular venous distention. Lungs: clear to auscultation, no wheezing, no rhonchi. Heart: regular rhythmic with a soft systolic murmur. Abdomen: soft without tenderness or rebound guarding masses or hepatosplenomegaly. Extremities: No evidence of any clubbing cyanosis or edema. Lab and Diagnostics Result Diagram: 08/12/16 0550 08/13/16 0550 Plan Impression 1. End-stage renal disease dialysis dependent MAX DIALYZER, 2K, 37HCO3, 600 DFR, 500 BFR 1L UF, right tunneled cath, 3 hr. 2. DM with diabetic nephropathy 3. Hypertension with hypertensive heart disease and hypertensive nephrosclerosis. 4. Bipolar disorder. Plan: Next HD in am. Increase minoxidil to 5 mg BID. Patricia Manrique MD Aug 13, 2016 14:21
--- NOTE | 2016-08-13 14:40 | PCM.PNMED ---
Subjective Date of Service Aug 13, 2016 Subjective Patient denied any complaints morning labs K6.1, underwent HD today Exam Vital Signs Vital Sign - Last Date Time Temp Pulse Resp B/P Pulse Ox O2 Delivery O2 Flow Rate FiO2 08/13/16 09:43 60 08/13/16 08:01 36.7 14 182/88 98 Room Air Intake and Output 08/12/16 08/12/16 08/13/16 Cumulative From/Thru 15:00 23:00 07:00 07/29/16 09:08 - 08/13/16 06:40 Intake Total 1580 ml 300 ml 68500 ml Output Total 3000 ml 400 ml 100 ml 71982 ml Balance -3000 ml 1180 ml 200 ml -5611 ml Intake Oral 1580 ml 300 ml 09530 ml IV Total 315 ml Output Urine Total 400 ml 100 ml 09458 ml Stool Total 3 ml Ultrafiltrate 3000 ml 88269 ml # Voids 18 # Bowel Movements 0 19 Exam NAD, comfortably laying down on the bed no JVD, MMM, no LAD RRR, nl s1, s2 no mrg CTAB, no w,c S,ND,NT,normoactive BS+ warm, no edema, pulses 2/2 IVs and Medications Medications Reviewed: Medications were reviewed in detail Lab and Diagnostics Result Diagram: 08/12/16 0550 08/13/16 0550 Assessment & Plan 50-year-old, male with past medical history of end-stage renal disease on hemodialysis, insulin-dependent diabetes complicated by retinopathy, neuropathy , nephropathy and gastroparesis, hypertension, presented from dialysis unit due to severe nausea, abdominal pain and headache. Today, patient remained medical stable, awaits dispo per SW/CM # Acute mild diabetic ketoacidosis present on admission, resolved. -positive ketones on admission, BS > 600 -treated with insulin regimen as noted below # Acute hyperkalemia. not present on admission. resolved with hemodialysis - followup # Chronic hypertension present on admission, poorly controlled -continue patient's amlodipine, hydralazine, labetalol and torsemide. -further BP med adjustment per nephrology team recommendations -minoxidil bid per nephrology recs # End-stage chronic renal disease, on dialysis, present on admission, stable. -appreciate nephrology consult. will f/u w/ recs -dialysis per nephrology team # Chronic anemia of chronic disease. Present on admission, stable. -will monitor. # Type 2 diabetes, insulin using, with complications of bilateral diabetic retinopathy, neuropathy and nephropathy present on admission, active. -10 of Lantus at bedtime -2-4-4 units of nutritional insulin and a low-dose correction scale. 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 Active. -this sounds like the situation at home is really deteriorating and it is possibly he may not have caregivers to return to there or may not be able to return. -social Service consulted. -sychiatric consult completed --continue with the patient's Depakote and fluoxetine at this time. --Depakote level 08/05 still subtherapeutic at 36 - will recheck Depakote level in am # Chronic gastroesophageal reflux disease, present on admission, chronic. -continue Protonix. # Gastroparesis, chronic, present on admission, stable. -continue Reglan. # Hyperlipidemia, present on admission, stable. -continue atorvastatin. Dispo: pending placement. of note d/c on 08/02/16 was cancelled due to patient's family refusing to take patient home. VTE Mechanical Devices: Intermittant Pneumatic CD, Venous Foot Pump Time spent 35 minutes Flower Tony MD Aug 13, 2016 14:40
[2016-08-13 15:14] VITALS: BP 159/76; PULSE 63
[2016-08-13] MEDS: Pantoprazole 40 mg ER24 Tablet PO SCH (15:17)
[2016-08-13 20:17] VITALS: BP 147/66; PULSE 68; RESP 16; O2SAT 95
[2016-08-13] MEDS: Insulin GLARgine 100 Unit/mL Syringe SUBQ SCH (20:35)
--- NOTE | 2016-08-14 01:10 | NUR ---
TRANSFER Report received from Darrian Schwartz, [place] [facility] Arrived on floor at approx. 0115.
[2016-08-14 01:28] VITALS: BP 198/90; PULSE 58; RESP 16; O2SAT 100
--- NOTE | 2016-08-14 02:01 | NUR ---
BP BP was 198/[address] Jj ROWLAND about BP, that there are no PRN BP meds ordered, but the pt is scheduled for dialysis today. Awaiting reply.
[2016-08-14 07:45] VITALS: BP 215/102; PULSE 63; RESP 12; O2SAT 97
[2016-08-14] MEDS: Insulin LISPRO 300 Unit/3 mL Inj SUBQ SCH ×4 (07:45→22:00)
[2016-08-14 08:07] LABS: BASOPHILS % (AUTO) 1.2 % (0-3); EOSINOPHILS % (AUTO) 1.9 % (0-5); MONOCYTES % (AUTO) 11.2 % (4-12); Mean Corpuscular Hemoglobin 30.9 pg (27.0-35.0); Mean Corpuscular Volume 91.8 fL (81-100); NEUTROPHILS % (AUTO) 51.8 % (40-74); Platelet Count 194 bil/L (150-400)
[2016-08-14] MEDS: Pantoprazole 40 mg ER24 Tablet PO SCH (08:39)
[2016-08-14 08:45] LABS: Magnesium 1.6 mg/dL (1.6-2.6); Phosphorus 3.4 mg/dL (2.5-4.9)
[2016-08-14] MEDS: Divalproex (QD) 500 mg ER24 Tablet PO SCH ×3 (09:28→21:13)
--- NOTE | 2016-08-14 11:14 | PCM.PNNEPH ---
Subjective Date of Service Aug 14, 2016 Subjective ExtraHD performed yesterday due to hyperkalemia. He was give OJ with his meal. 2K bath used yesteday, K level remains on the high side, 5.2. BP is not controlled. Exam Vital Signs Vital Sign - Last Date Time Temp Pulse Resp B/P Pulse Ox O2 Delivery O2 Flow Rate FiO2 08/14/16 07:45 36.4 63 12 215/102 97 Room Air Intake and Output 08/13/16 08/13/16 08/14/16 Cumulative From/Thru 15:00 23:00 07:00 07/29/16 09:08 - 08/14/16 05:11 Intake Total 892 ml 480 ml 17779 ml Output Total 1000 ml 100 ml 325 ml 73041 ml Balance -1000 ml 792 ml 155 ml -5664 ml Intake Oral 872 ml 480 ml 07344 ml IV Total 20 ml 335 ml Output Urine Total 100 ml 325 ml 10437 ml Stool Total 3 ml Ultrafiltrate 1000 ml 23734 ml # Voids 18 # Bowel Movements 0 19 Exam GA: AAOx3, NAD, legally blind. HEENT: no pallor, no icteric sclerae, no adenopathy, thyromegaly, or jugular venous distention. Lungs: clear to auscultation, no wheezing, no rhonchi. Heart: regular rhythmic with a soft systolic murmur. Abdomen: soft without tenderness or rebound guarding masses or hepatosplenomegaly. Extremities: No evidence of any clubbing cyanosis or edema. Lab and Diagnostics Result Diagram: 08/14/16 0720 08/14/16 0803 Plan Impression 1. End-stage renal disease dialysis dependent. 2. Hyperkalemia due to high K diet, med (aldactone) and ESRD. 3. DM with diabetic nephropathy and retinopathy. 4. Hypertension with hypertensive heart disease and hypertensive nephrosclerosis. 5. Bipolar disorder. Plan: HD today with 1K bath. Low K diet, 2g/d. Add losartan for BP control. Continue amlodipine, minoxidil, aldactone and labetalol. aPtricia Manrique MD Aug 14, 2016 11:14
[2016-08-14 11:24] VITALS: BP 172/86; PULSE 60; RESP 20; O2SAT 98
--- NOTE | 2016-08-14 11:34 | PCM.PNMED ---
Subjective Date of Service Aug 14, 2016 Subjective no overnight event SBP>200s, without symptoms prior to dialysis Exam Vital Signs Vital Sign - Last Date Time Temp Pulse Resp B/P Pulse Ox O2 Delivery O2 Flow Rate FiO2 08/14/16 07:45 36.4 63 12 215/102 97 Room Air Intake and Output 08/13/16 08/13/16 08/14/16 Cumulative From/Thru 15:00 23:00 07:00 07/29/16 09:08 - 08/14/16 05:11 Intake Total 892 ml 480 ml 63420 ml Output Total 1000 ml 100 ml 325 ml 28469 ml Balance -1000 ml 792 ml 155 ml -5664 ml Intake Oral 872 ml 480 ml 31996 ml IV Total 20 ml 335 ml Output Urine Total 100 ml 325 ml 80789 ml Stool Total 3 ml Ultrafiltrate 1000 ml 93669 ml # Voids 18 # Bowel Movements 0 19 Exam NAD, comfortably laying down on the bed no JVD, MMM, no LAD RRR, nl s1, s2 no mrg CTAB, no w,c S,ND,NT,normoactive BS+ warm, no edema, pulses 2/2 IVs and Medications Medications Reviewed: Medications were reviewed in detail Lab and Diagnostics Result Diagram: 08/14/16 0720 08/14/16 0803 Assessment & Plan 50-year-old, male with past medical history of end-stage renal disease on hemodialysis, insulin-dependent diabetes complicated by retinopathy, neuropathy , nephropathy and gastroparesis, hypertension, presented from dialysis unit due to severe nausea, abdominal pain and headache. Today, patient remained medical stable, awaits dispo per SW/CM acute, active # Chronic hypertension present on admission, poorly controlled, -continue patient's amlodipine, hydralazine, labetalol and torsemide. -further BP med adjustment per nephrology team recommendations -minoxidil bid per nephrology recs chronic, resolved, stable # Acute mild diabetic ketoacidosis present on admission, resolved. -positive ketones on admission, BS > 600 -treated with insulin regimen as noted below # Acute hyperkalemia. not present on admission. resolved with hemodialysis - followup # End-stage chronic renal disease, on dialysis, present on admission, stable. -appreciate nephrology consult. will f/u w/ recs -dialysis per nephrology team # Chronic anemia of chronic disease. Present on admission, stable. -will monitor. # Type 2 diabetes, insulin using, with complications of bilateral diabetic retinopathy, neuropathy and nephropathy present on admission, active. -10 of Lantus at bedtime -2-4-4 units of nutritional insulin and a low-dose correction scale. -hemoglobin A1c 8.1 # Episode of hypoglycemia on dietary manager of 08/05 -blood glucose otherwise fairly well controlled -continue with current coverage and if further episode of hypoglycemia noted will readjust insulin regimen # Chronic bipolar disorder type 1, present on admission. Active. -this sounds like the situation at home is really deteriorating and it is possibly he may not have caregivers to return to there or may not be able to return. -social Service consulted. -sychiatric consult completed --continue with the patient's Depakote and fluoxetine at this time. --Depakote level 08/05 still subtherapeutic at 36 - will recheck Depakote level in am # Chronic gastroesophageal reflux disease, present on admission, chronic. -continue Protonix. # Gastroparesis, chronic, present on admission, stable. -continue Reglan. # Hyperlipidemia, present on admission, stable. -continue atorvastatin. Dispo: pending placement. of note d/c on 08/02/16 was cancelled due to patient's family refusing to take patient home. VTE Mechanical Devices: Intermittant Pneumatic CD, Venous Foot Pump Time spent 35min Flower Tony MD Aug 14, 2016 11:21
[2016-08-14 13:50] VITALS: BP 131/79; PULSE 63
[2016-08-14 13:51] VITALS: BP 136/79
--- NOTE | 2016-08-14 13:58 | NUR ---
Social Work note HULLER OPERATOR completed case conference with HULLER OPERATOR coating mixer supervisor - HULLER OPERATOR called Nyasia at [facility] dialysis - left message to discuss d/c planning and Pt's family's role in continued care needs. HULLER OPERATOR asked for return call. Plan: Developing- Exploring pt d/c to new apartment with ex- becoming DAINA caregiver vs to AF. MARYAM Vicente
--- NOTE | 2016-08-14 14:28 | NUR ---
Hypertension Pt had a blood pressure of 215/102 at the beginning of the shift, given scheduled Labetolol 300mg and Spirolactone 50mg. Pt later had BP 172/86 and given new order for Cozaar 50mg. Pt now having dialysis, has a blood pressure of 136/79. Pt has denied any pain or discomfort all shift. Pt ambulating to the bathroom with SBA, steady on his feet. Cont to monitor.
[2016-08-14] MEDS ORDERED: hydrALAZINE 20 mg/mL Inj IV PRN (15:35)
--- NOTE | 2016-08-14 17:45 | NUR ---
Dialysis note: 3 1/2 hours tx 1000 ml net UF Right catheter, dsg changed, no s/s of infection noted Pls see DTR for VS details Qb 400 w/ cath limbs reversed A-V V-A due to poor catheter function Heparin prime given O2 @ 2L via NC on during tx Tolerated tx, slept at intervals Catheter flushed, heparin dwelled and secured Stable condition at end of tx Report given to Manisha VALDEZ
[2016-08-14 21:00] VITALS: BP 149/71; PULSE 77; RESP 17; O2SAT 95
[2016-08-14] MEDS: Insulin GLARgine 100 Unit/mL Syringe SUBQ SCH (21:13)
[2016-08-15 00:59] VITALS: BP 166/76; PULSE 72; RESP 16; O2SAT 96
--- NOTE | 2016-08-15 05:32 | NUR ---
Shift Note/Insulin Refusal Assumed pt care at 1900,pt a/o able to make needs known, BG checked at 9 pm at 326, received scheduled HS Lantus, BG rechecked at 2215 at 338, pt refused to be given Lispro coverage despite educating on its importance, reapproached pt at 0115 BG checked at 281, pt still refused Lispro coverage, Dr. Santiago aware, monitored pt for signs of hypo/hyperglycemia throughout night, none noted, qhrly checks done, call light in reach, continue to monitor.
[2016-08-15 07:25] LABS: BASOPHILS % (AUTO) 1.4 % (0-3); EOSINOPHILS % (AUTO) 2.4 % (0-5); MONOCYTES % (AUTO) 12.9 % (4-12); Mean Corpuscular Hemoglobin 31.2 pg (27.0-35.0); Mean Corpuscular Volume 92.2 fL (81-100); NEUTROPHILS % (AUTO) 49.4 % (40-74); Platelet Count 162 bil/L (150-400)
[2016-08-15 07:44] VITALS: BP 163/75; PULSE 66; RESP 18; O2SAT 99
[2016-08-15 08:10] LABS: Magnesium 1.6 mg/dL (1.6-2.6)
[2016-08-15] MEDS: Insulin LISPRO 300 Unit/3 mL Inj SUBQ SCH ×4 (08:37→22:00)
[2016-08-15] MEDS: Pantoprazole 40 mg ER24 Tablet PO SCH (10:04)
[2016-08-15] MEDS: Divalproex (QD) 500 mg ER24 Tablet PO SCH ×3 (10:05→20:01)
--- NOTE | 2016-08-15 10:39 | PCM.PNMED ---
Subjective Date of Service Aug 15, 2016 Subjective No overnight event Exam Vital Signs Vital Sign - Last Date Time Temp Pulse Resp B/P Pulse Ox O2 Delivery O2 Flow Rate FiO2 08/15/16 07:44 36.4 66 18 163/75 99 Room Air Intake and Output 08/14/16 08/14/16 08/15/16 Cumulative From/Thru 15:00 23:00 07:00 07/29/16 09:08 - 08/15/16 05:38 Intake Total 350 ml 36192 ml Output Total 1000 ml 250 ml 05894 ml Balance -1000 ml 100 ml -6564 ml Intake Oral 350 ml 55013 ml IV Total 335 ml Output Urine Total 250 ml 27709 ml Stool Total 3 ml Ultrafiltrate 1000 ml 86711 ml # Voids 18 # Bowel Movements 19 Exam NAD, comfortably laying down on the bed no JVD, MMM, no LAD RRR, nl s1, s2 no mrg CTAB, no w,c S,ND,NT,normoactive BS+ warm, no edema, pulses 2/2 IVs and Medications Medications Reviewed: Medications were reviewed in detail Lab and Diagnostics Result Diagram: 08/15/1645 08/15/1645 Assessment & Plan 50-year-old, male with past medical history of end-stage renal disease on hemodialysis, insulin-dependent diabetes complicated by retinopathy, neuropathy , nephropathy and gastroparesis, hypertension, presented from dialysis unit due to severe nausea, abdominal pain and headache. Today, patient remained medical stable, awaits dispo per SW/CM acute, active # Chronic hypertension present on admission, poorly controlled, -continue patient's amlodipine, hydralazine, labetalol and torsemide. -further BP med adjustment per nephrology team recommendations -minoxidil bid per nephrology recs chronic, resolved, stable # Acute mild diabetic ketoacidosis present on admission, resolved. -positive ketones on admission, BS > 600 -treated with insulin regimen as noted below # Acute hyperkalemia. not present on admission. resolved with hemodialysis - followup # End-stage chronic renal disease, on dialysis, present on admission, stable. -appreciate nephrology consult. will f/u w/ recs -dialysis per nephrology team # Chronic anemia of chronic disease. Present on admission, stable. -will monitor. # Type 2 diabetes, insulin using, with complications of bilateral diabetic retinopathy, neuropathy and nephropathy present on admission, active. -10 of Lantus at bedtime -2-4-4 units of nutritional insulin and a low-dose correction scale. -hemoglobin A1c 8.1 # Episode of hypoglycemia on field contact technician of 08/05 -blood glucose otherwise fairly well controlled -continue with current coverage and if further episode of hypoglycemia noted will readjust insulin regimen # Chronic bipolar disorder type 1, present on admission. Active. -this sounds like the situation at home is really deteriorating and it is possibly he may not have caregivers to return to there or may not be able to return. -social Service consulted. -sychiatric consult completed --continue with the patient's Depakote and fluoxetine at this time. --Depakote level 08/05 still subtherapeutic at 36 - will recheck Depakote level in am # Chronic gastroesophageal reflux disease, present on admission, chronic. -continue Protonix. # Gastroparesis, chronic, present on admission, stable. -continue Reglan. # Hyperlipidemia, present on admission, stable. -continue atorvastatin. Dispo: pending placement. of note d/c on 08/02/16 was cancelled due to patient's family refusing to take patient home. [employer]TE Mechanical Devices: Intermittant Pneumatic CD Time spent 35min Flower Tony MD Aug 15, 2016 10:39
[2016-08-15 11:50] VITALS: BP 167/84; PULSE 67; RESP 16; O2SAT 99
[2016-08-15 16:47] VITALS: BP 146/77; PULSE 63; RESP 18; O2SAT 98
--- NOTE | 2016-08-15 17:52 | NUR ---
Shift note alert and oriented. Able to make needs known. Ate all 100% of meals this shift. Cooperative with cares and blood sugar checks. Patient teaching done about caffeine and Htn.
[2016-08-15 20:30] VITALS: BP 144/74; PULSE 67; RESP 16; O2SAT 94
[2016-08-15] MEDS: Insulin GLARgine 100 Unit/mL Syringe SUBQ SCH (21:02)
[2016-08-16 05:30] VITALS: BP 188/87; PULSE 62; RESP 16; O2SAT 97
--- NOTE | 2016-08-16 06:11 | NUR ---
Shift Note/Care Refusal Assumed pt care at 1900, pt a/o x4 able to make needs known, pt BG at 2100 at 197, received 5 units of lantus, at 2200 BG at 201, pt refused HS Lispro coverage, at 0000 pt refused vitals check, at 0530 Bp at 188/64, spoke to Dr. Santiago with T.[facility] to give scheduled am Labetalol 300mg, given at 0558, call light in reach.
[2016-08-16 07:42] VITALS: BP 145/71; PULSE 61; RESP 16; O2SAT 97
[2016-08-16] MEDS: Insulin LISPRO 300 Unit/3 mL Inj SUBQ SCH ×4 (08:00→22:00)
[2016-08-16] MEDS: Pantoprazole 40 mg ER24 Tablet PO SCH (09:10)
[2016-08-16] MEDS: Divalproex (QD) 500 mg ER24 Tablet PO SCH ×4 (09:11→21:27)
--- NOTE | 2016-08-16 10:22 | PCM.PNMED ---
Subjective Date of Service Aug 16, 2016 Subjective No overnight event Denied any complaints Exam Vital Signs Vital Sign - Last Date Time Temp Pulse Resp B/P Pulse Ox O2 Delivery O2 Flow Rate FiO2 08/16/16 07:42 36.6 61 16 145/71 97 Room Air Intake and Output 08/15/16 08/15/16 08/16/16 Cumulative From/Thru 15:00 23:00 07:00 07/29/16 09:08 - 08/16/16 05:41 Intake Total 1100 ml 350 ml 86446 ml Output Total 400 ml 625 ml 48519 ml Balance 700 ml -275 ml -6139 ml Intake Oral 1100 ml 00242 ml IV Total 350 ml 685 ml Output Urine Total 400 ml 625 ml 82427 ml Stool Total 3 ml Ultrafiltrate 84608 ml # Voids 18 # Bowel Movements 19 Exam NAD, comfortably laying down on the bed no JVD, MMM, no LAD RRR, nl s1, s2 no mrg CTAB, no w,c S,ND,NT,normoactive BS+ warm, no edema, pulses 2/2 IVs and Medications Medications Reviewed: Medications were reviewed in detail Lab and Diagnostics Result Diagram: 08/15/1664408/15/16644 Assessment & Plan 50-year-old, male with past medical history of end-stage renal disease on hemodialysis, insulin-dependent diabetes complicated by retinopathy, neuropathy , nephropathy and gastroparesis, hypertension, presented from dialysis unit due to severe nausea, abdominal pain and headache. Today, patient remained medical stable, awaits dispo per SW/CM acute, active # Chronic hypertension present on admission, poorly controlled, -continue patient's amlodipine, hydralazine, labetalol and torsemide. -further BP med adjustment per nephrology team recommendations -minoxidil bid per nephrology recs chronic, resolved, stable # Acute mild diabetic ketoacidosis present on admission, resolved. -positive ketones on admission, BS > 600 -treated with insulin regimen as noted below # Acute hyperkalemia. not present on admission. resolved with hemodialysis - followup # End-stage chronic renal disease, on dialysis, present on admission, stable. -appreciate nephrology consult. will f/u w/ recs -dialysis per nephrology team # Chronic anemia of chronic disease. Present on admission, stable. -will monitor. # Type 2 diabetes, insulin using, with complications of bilateral diabetic retinopathy, neuropathy and nephropathy present on admission, active. -10 of Lantus at bedtime -2-4-4 units of nutritional insulin and a low-dose correction scale. -hemoglobin A1c 8.1 # Episode of hypoglycemia on early morning babysitter of 08/05 -blood glucose otherwise fairly well controlled -continue with current coverage and if further episode of hypoglycemia noted will readjust insulin regimen # Chronic bipolar disorder type 1, present on admission. Active. -this sounds like the situation at home is really deteriorating and it is possibly he may not have caregivers to return to there or may not be able to return. -social Service consulted. -sychiatric consult completed --continue with the patient's Depakote and fluoxetine at this time. --Depakote level 08/05 still subtherapeutic at 36 - will recheck Depakote level in am # Chronic gastroesophageal reflux disease, present on admission, chronic. -continue Protonix. # Gastroparesis, chronic, present on admission, stable. -continue Reglan. # Hyperlipidemia, present on admission, stable. -continue atorvastatin. Dispo: pending placement. of note d/c on 08/02/16 was cancelled due to patient's family refusing to take patient home. VTE Mechanical Devices: Intermittant Pneumatic CD Time spent 35 minutes Flower Tony MD Aug 16, 2016 10:22
[2016-08-16 12:00] VITALS: BP 140/70; PULSE 65; RESP 16; O2SAT 98
--- NOTE | 2016-08-16 14:46 | NUR ---
Refused 1430 meds RN brought patient his 1430 meds which include labatolol, valproic acid and reglan. Patient stated, "I will take them tonight." RN explained which meds were due and the importance of them. Patient closed his eyes and did not continue the conversation. Meds disposed of after waiting 20 minutes to determine if the patient might change his mind and call for them. assistant women's basketball coach updated.
[2016-08-16 18:00] VITALS: BP 123/62; PULSE 74; RESP 18; O2SAT 97
[2016-08-16] MEDS: Insulin GLARgine 100 Unit/mL Syringe SUBQ SCH (21:27)
[2016-08-16 21:35] VITALS: BP 160/80; PULSE 68; RESP 16; O2SAT 98
[2016-08-17 05:48] VITALS: BP 146/68; PULSE 64; RESP 16; O2SAT 97
--- NOTE | 2016-08-17 06:08 | NUR ---
Shift Note Assumed pt care at 1900, a/o able to make needs known, pt refused 10pm Lispro, BG at 9pm at 196 received scheduled lantus, at 0556 BG checked, at 71, given high sugar/protein food, await results, pt refused midnight vitals check, qhrly checks done throughout night.
[2016-08-17 07:26] VITALS: BP 136/70; PULSE 64; RESP 15; O2SAT 96
[2016-08-17] MEDS: Insulin LISPRO 300 Unit/3 mL Inj SUBQ SCH ×4 (08:00→21:27)
[2016-08-17] MEDS: Pantoprazole 40 mg ER24 Tablet PO SCH (08:46)
[2016-08-17] MEDS: Divalproex (QD) 500 mg ER24 Tablet PO SCH ×3 (08:46→20:24)
[2016-08-17 09:05] VITALS: BP 148/82; PULSE 67
[2016-08-17] MEDS ORDERED: Darbepoetin Alfa 60 mCg/0.3 mL Inj SUBQ ONE (11:10)
--- NOTE | 2016-08-17 12:22 | NUR ---
Dialysis Dr Mcmillan aware r/t held PO morning medication due to dialysis and per dialysis nurse. no new orders.
[2016-08-17 13:47] VITALS: BP 156/76; PULSE 63; O2SAT 97
--- NOTE | 2016-08-17 14:05 | PCM.PNNEPH ---
Subjective Date of Service Aug 17, 2016 Subjective Seen during HD. He would like to use a bathroom. He demands to come off treatment before it finishes. Otherwise, no new complaints. Exam Vital Signs Vital Sign - Last Date Time Temp Pulse Resp B/P Pulse Ox O2 Delivery O2 Flow Rate FiO2 08/17/16 13:47 36.4 63 156/76 97 Room Air 08/17/16 07:26 15 Intake and Output 08/16/16 08/16/16 08/17/16 Cumulative From/Thru 15:00 23:00 07:00 07/29/16 09:08 - 08/17/16 05:05 Intake Total 1200 ml 360 ml 19423 ml Output Total 575 ml 350 ml 63100 ml Balance 625 ml 10 ml -5504 ml Intake Oral 1200 ml 360 ml 89871 ml IV Total 685 ml Output Urine Total 575 ml 350 ml 37758 ml Stool Total 3 ml Ultrafiltrate 52952 ml # Voids 18 # Bowel Movements 1 20 Exam GA: AAOx3, NAD, legally blind. HEENT: no pallor, no icteric sclerae, no adenopathy, no jugular venous distention. Lungs: clear to auscultation, no wheezing, no rhonchi. Heart: regular rhythmic with a soft systolic murmur. Abdomen: soft without tenderness or rebound guarding masses or hepatosplenomegaly. Extremities: No evidence of any clubbing cyanosis or edema. Skin: Right tunneled cath in place. Lab and Diagnostics Result Diagram: 08/15/1664408/15/16644 Plan Impression 1. End-stage renal disease dialysis dependent. Revaclear, 2K, 37HCO3, 600 DFR, 500 BFR 1-2L UF, right tunneled cath, 3 1/2 hr. 2. Hyperkalemia due to high K diet, med (aldactone) and ESRD. 3. DM with diabetic nephropathy and retinopathy. 4. Hypertension with hypertensive heart disease and hypertensive nephrosclerosis. 5. Bipolar disorder. 6. Anemia of CKD. Plan: Continue amlodipine, minoxidil, aldactone, losartan and labetalol. Next HD on Wednesday. Add aranesp 60 mcg subQ x1. Patricia Manrique MD Aug 17, 2016 14:05
--- NOTE | 2016-08-17 14:14 | NUR ---
Dialysis note: 3 1/2 hr tx, Net UF 1700. Accessed right tunneled cath and switched limbs to A-V, V-A. Pt has hypotensive the first hour of tx, 91/50 HR 60. UF goal lowered to 1.7 and then raised back to 2.0 after BP regained 101/65 HR 60. Tx paused 14 min to use the bathroom; blood was returned and cath limbs secured and then tx was resumed. Aransesp given. 1130 BG was 111. Primary RN notified and lunch served. Pt calm and cooperative throughout tx; blood returned and site secured with Heparin 1000 and caps. Please see DTR for complete record of VS. Pt returned to room stable.
--- NOTE | 2016-08-17 15:12 | NUR ---
Social Work: Continued Dis Social Work: Continued Discharge Planning Data & Assessment: EMR reviewed. Patient is currently on his 19th day of hospitalization. Pt has no insurance at this time. Executive Vice President And Chief Financial Officer received a call from Nyasia at [facility] [phone] stating that the patient is able to resume dialysis at the [facility] when discharged. Nyasia stated that she spoke with Patients ex-, Hussain Ruiz [phone], who states that she is cleaning out an apartment near her today for the patient to live in once he is discharged. Nyasia also stated that patient ex- stated that she has turned in all paperwork needed to become patients DAINA worker when discharged. CYDNEY attempted to call patients ex- to discuss discharge plan further, but there was no answer. CYDNEY left a message requesting a call back. Nyasia states that she is able to meet with the patient, SW, Patients ex- to help develop a plan for when the patient discharge. Nyasia stated that the patient will be Medicare eligible on August 24 and to her knowledge the patients ex- is working on what is needed for the patient to secure his Medicare. Plan: SW will continue to try and contact patient ex- to find out when the patients apartment will be available for home to discharge. Patient is likely to discharge to and apartment near his ex- and she will be his DAINA worker. SW will continue to follow and assist patient. Ruth Hernandez LMSW, [facility] Addendum: 08/17/16 at 1537 by RUTH MCDONALD Executive Vice President And Chief Financial Officer spoke with patient's ex-, Hussain Ruiz [phone], and she stated that the patient's apartment will be ready on 08/20/16. Mrs. Nixon also stated that she is available to meet with the patient, hospital SW and dialysis SW on 08/20/16 at 10:30 am to discuss the final details of the patient discharge. SW called [facility] at [facility] and left a voicemail with the time and date that Mrs. Nixon was available. SW will continue to follow and assist patient with discharge planning. Ruth Hernandez, JOSEPH, ACPatrick
--- NOTE | 2016-08-17 18:43 | NUR ---
dialysis Patient is alert and oriented X3. able to make needs known. denies pain or discomfort. patient had dialysis this shift. Stable blood sugars and vital signs. uses urinal and independent with ambulation. patient 100% of meals this shift. continue to monitor.
[2016-08-17 20:20] VITALS: BP 144/69; PULSE 65; RESP 18; O2SAT 95
--- NOTE | 2016-08-17 21:19 | PCM.PNMED ---
Subjective Date of Service Aug 17, 2016 Subjective Patient seen on hemodialysis and had no complaints and appeared quite comfortable. Exam Vital Signs Vital Sign - Last Date Time Temp Pulse Resp B/P Pulse Ox O2 Delivery O2 Flow Rate FiO2 08/17/16 20:20 36.8 65 18 144/69 95 Room Air Intake and Output 08/16/16 08/16/16 08/17/16 Cumulative From/Thru 15:00 23:00 07:00 07/29/16 09:08 - 08/17/16 05:05 Intake Total 1200 ml 360 ml 26360 ml Output Total 575 ml 350 ml 55939 ml Balance 625 ml 10 ml -5504 ml Intake Oral 1200 ml 360 ml 93396 ml IV Total 685 ml Output Urine Total 575 ml 350 ml 90626 ml Stool Total 3 ml Ultrafiltrate 39121 ml # Voids 18 # Bowel Movements 1 20 Exam General: Patient was seen on hemodialysis. He appeared quite comfortable and had no complaints. HEENT: Head is atraumatic and normocephalic. Eyes: Pupils are equally round and reactive to light and accommodation. Extraocular muscles are intact. Sclera are white, anicteric. Subconjunctival mucosa is pink. Ears and nose are unremarkable. Oropharynx: There is no mucosal lesions, there is no thrush, there is no pharyngitis. Neck: Is supple, there are no nodes, or masses or tenderness. Chest: Is clear to auscultation and percussion. There are no rales, rhonchi, wheezes or rubs. There is a hemodialysis catheter in the right subclavian area and the site is unremarkable. There is no evidence of cellulitis or erythema. Heart: Rate, rhythm is regular. There is no murmur, rub or gallop. Abdomen: Good bowel sounds are present. Abdomen is soft, nontender, no organomegaly or masses were appreciated. Extremities: Are symmetrical and well perfused. There is no edema, there is no cellulitis, no rash. Neurologic: There are no focal neurological deficits. Cranial nerves II through XII are intact. There are no sensory or motor deficits. Gait was not tested while on hemodialysis. Psychiatric: Patients mood is calm and shows no sign of agitation. Genital: Deferred Rectal: Deferred Lab and Diagnostics Result Diagram: 08/15/16 0645 08/15/16 0645 Assessment & Plan The patient is a 50-year-old male with past medical history of end-stage renal disease on hemodialysis, insulin-dependent diabetes complicated by retinopathy, neuropathy, nephropathy and gastroparesis, hypertension, presented from dialysis unit due to severe nausea, abdominal pain and headache. # Chronic hypertension present on admission, active and poorly controlled, -We will continue patient's amlodipine, hydralazine, labetalol, spironolactone, minoxidil and losartan as per nephrology. -We appreciate nephrology input # Acute mild diabetic ketoacidosis present on admission, resolved. -positive ketones on admission, BS > 600 -treated with insulin regimen as noted below # Acute hyperkalemia. not present on admission. resolved with hemodialysis - Continue close monitoring and followup # End-stage chronic renal disease, on hemo-dialysis, present on admission, stable. -appreciate nephrology consult. will f/u w/ recs -dialysis per nephrology team # Chronic anemia of chronic disease. Present on admission, stable. -We will continue to monitor. -Patient received Aranesp # Type 2 diabetes, insulin using, with complications of bilateral diabetic retinopathy, neuropathy and nephropathy present on admission, active. - continue 10 of Lantus at bedtime -Continue 2-4 units of nutritional insulin and a low-dose correction scale. 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 Active. -The patient's situation at home is deteriorating and it is possibly he may not have caregivers to return to there or may not be able to return. -White Work Cleaner has been consulted. -Psychiatric consult completed and appreciated --We will continue with the patient's Depakote and fluoxetine at this time. --Depakote level 08/05 still subtherapeutic at 36 - We will recheck Depakote level in am # Chronic gastroesophageal reflux disease, present on admission, chronic. -We will continue Protonix. # Gastroparesis, chronic, present on admission, stable. -We will continue Reglan. # Hyperlipidemia, present on admission, stable. -We will continue atorvastatin. Dispo: This is pending placement. of note d/c on 08/02/16 was cancelled due to patient's family refusing to take patient home. family services coordinator is working on other arrangements. Pain Evaluation: Adequate Pain Control GI Prophylaxis: Proton Pump Inhibitor VTE Mechanical Devices: Intermittant Pneumatic CD Resuscitation Status: CPR: Attempt Resuscitation Caleb Mcmillan MD Aug 17, 2016 21:19 Caleb Mcmillan MD Aug 17, 2016 21:19
[2016-08-17] MEDS: Insulin GLARgine 100 Unit/mL Syringe SUBQ SCH (21:27)
[2016-08-18 02:21] VITALS: BP 166/80; PULSE 66; RESP 16; O2SAT 98
[2016-08-18 06:20] LABS: BASOPHILS % (AUTO) 1.7 % (0-3); EOSINOPHILS % (AUTO) 2.4 % (0-5); MONOCYTES % (AUTO) 10.2 % (4-12); Mean Corpuscular Hemoglobin 30.6 pg (27.0-35.0); Mean Corpuscular Volume 91.8 fL (81-100); NEUTROPHILS % (AUTO) 48.3 % (40-74); Platelet Count 135 bil/L (150-400)
--- NOTE | 2016-08-18 06:30 | NUR ---
Activity Pt denies any pain. Used call light appropriately. Makes needs known.
[2016-08-18 06:41] LABS: Magnesium 1.6 mg/dL (1.6-2.6); Phosphorus 3.3 mg/dL (2.5-4.9)
[2016-08-18] MEDS ORDERED: Magnesium Sulf 2 Gm/50mL Water 2 GM in IV Premix 1 EACH IV ONE (08:25)
[2016-08-18 08:45] VITALS: BP 183/87; PULSE 62; RESP 16; O2SAT 97
[2016-08-18] MEDS: Divalproex (QD) 500 mg ER24 Tablet PO SCH ×3 (08:52→21:20)
[2016-08-18] MEDS: Pantoprazole 40 mg ER24 Tablet PO SCH (08:53)
[2016-08-18] MEDS: Insulin LISPRO 300 Unit/3 mL Inj SUBQ SCH ×4 (09:24→22:00)
[2016-08-18 14:40] VITALS: BP 145/68; PULSE 68; RESP 20; O2SAT 93
--- NOTE | 2016-08-18 17:50 | NUR ---
Mobility/blood sugar Pt SBA to indep mobility in room as pt has limited vision. Steady on feet. Pt refused lunch and dinner nutritional coverage, stating "my blood sugar is ok, it goes to low with this coverage".
[2016-08-18 21:15] VITALS: BP 164/77; PULSE 66; RESP 17; O2SAT 98
[2016-08-18] MEDS: Insulin GLARgine 100 Unit/mL Syringe SUBQ SCH (21:20)
--- NOTE | 2016-08-18 21:51 | PCM.PNMED ---
Subjective Date of Service Aug 18, 2016 Subjective The patient has no new complaints. However, he appears to be totally unmotivated to do much other than land bed and go to and from the bathroom. When I inquired about this he claims to be fatigued after having hemodialysis yesterday. And attributes some of his lack of motivation due to his blindness. He has no other new complaints today. Exam Vital Signs Vital Sign - Last Date Time Temp Pulse Resp B/P Pulse Ox O2 Delivery O2 Flow Rate FiO2 08/18/16 21:15 36.9 66 17 164/77 98 Room Air Intake and Output 08/17/16 08/17/16 08/18/16 Cumulative From/Thru 15:00 23:00 07:00 07/29/16 09:08 - 08/17/16 21:00 Intake Total 550 ml 25419 ml Output Total 1700 ml 78991 ml Balance -1700 ml 550 ml -6654 ml Intake Oral 550 ml 04220 ml IV Total 0 ml 685 ml Output Urine Total 20330 ml Stool Total 3 ml Ultrafiltrate 1700 ml 67042 ml # Voids 2 20 # Bowel Movements 20 Exam General: Patient was seen on hemodialysis. He appeared quite comfortable and had no complaints. HEENT: Head is atraumatic and normocephalic. Eyes: Pupils are equally round and reactive to light and accommodation. Extraocular muscles are intact. Sclera are white, anicteric. Subconjunctival mucosa is pink. Ears and nose are unremarkable. Oropharynx: There is no mucosal lesions, there is no thrush, there is no pharyngitis. Neck: Is supple, there are no nodes, or masses or tenderness. Chest: Is clear to auscultation and percussion. There are no rales, rhonchi, wheezes or rubs. There is a hemodialysis catheter in the right subclavian area and the site is unremarkable. There is no evidence of cellulitis or erythema. Heart: Rate, rhythm is regular. There is no murmur, rub or gallop. Abdomen: Good bowel sounds are present. Abdomen is soft, nontender, no organomegaly or masses were appreciated. Extremities: Are symmetrical and well perfused. There is no edema, there is no cellulitis, no rash. Neurologic: There are no focal neurological deficits. Cranial nerves II through XII are intact. There are no sensory or motor deficits. Psychiatric: Patients mood is calm and shows no sign of agitation. Genital: Deferred Rectal: Deferred Lab and Diagnostics Result Diagram: 08/18/1652408/18/16524 Microbiology Stool for C. difficile was negative and stool for the PCR panel was also negative MRSA screen was negative Assessment & Plan The patient is a 50-year-old male with past medical history of end-stage renal disease on hemodialysis, insulin-dependent diabetes complicated by retinopathy, neuropathy, nephropathy and gastroparesis, hypertension, presented from dialysis unit due to severe nausea, abdominal pain and headache. # Chronic hypertension present on admission, active and poorly controlled, now better controlled on 6 different blood pressure medications. -We will continue patient's amlodipine, hydralazine, labetalol, spironolactone, minoxidil and losartan as per nephrology. -We appreciate nephrology input # Acute mild diabetic ketoacidosis present on admission, resolved. -positive ketones on admission, BS > 600 -treated with insulin regimen as noted below # Acute hyperkalemia. not present on admission. resolved with hemodialysis - Continue close monitoring and followup # End-stage chronic renal disease, on hemo-dialysis, present on admission, stable. -appreciate nephrology consult. will f/u w/ recs -dialysis per nephrology team # Chronic anemia of chronic disease. Present on admission, stable. -We will continue to monitor. -Patient received Aranesp # Type 2 diabetes, insulin using, with complications of bilateral diabetic retinopathy, neuropathy and nephropathy present on admission, active. - continue 10 of Lantus at bedtime -Continue 2-4 units of nutritional insulin and a low-dose correction scale. 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 Active. -The patient's situation at home is deteriorating and it is possibly he may not have caregivers to return to there or may not be able to return. -Ghost Writer has been consulted. -Psychiatric consult completed and appreciated --We will continue with the patient's Depakote and fluoxetine at this time. --Depakote level /12 still subtherapeutic at 36 - We will recheck Depakote level in am # Chronic gastroesophageal reflux disease, present on admission, chronic. -We will continue Protonix. # Gastroparesis, chronic, present on admission, stable. -We will continue Reglan. # Hyperlipidemia, present on admission, stable. -We will continue atorvastatin. Dispo: This is pending placement. of note d/c on 08/02/16 was cancelled due to patient's family refusing to take patient home. surgical services assistant is working on other arrangements and it appears that the patient's ex- will be obtained to take care of him through the ben program in an apartment is being set up for a potential discharge date of 08/20/2016. Pain Evaluation: Adequate Pain Control GI Prophylaxis: Proton Pump Inhibitor VTE Mechanical Devices: Intermittant Pneumatic CD Resuscitation Status: CPR: Attempt Resuscitation KenyonCaleb MD Aug 18, 2016 21:51
[2016-08-19 05:29] VITALS: BP 173/85; PULSE 64; RESP 17; O2SAT 98
--- NOTE | 2016-08-19 05:59 | NUR ---
Shift Note Assumed pt care at 1900, pt a/o able to make needs known, pt BG at 2100 at 246, BG at 2200 at 246, pt refused Lispro coverage, also refused midnight vitals, pt no signs of hypo/hyperglycemia throughout night, call light in reach, qhrly checks done throughout night.
[2016-08-19 06:43] LABS: BASOPHILS % (AUTO) 1.4 % (0-3); EOSINOPHILS % (AUTO) 2.7 % (0-5); MONOCYTES % (AUTO) 10.5 % (4-12); Mean Corpuscular Hemoglobin 30.9 pg (27.0-35.0); Mean Corpuscular Volume 91.5 fL (81-100); NEUTROPHILS % (AUTO) 55.6 % (40-74); Platelet Count 116 bil/L (150-400)
[2016-08-19 07:48] LABS: Magnesium 2.1 mg/dL (1.6-2.6); Phosphorus 3.8 mg/dL (2.5-4.9)
[2016-08-19] MEDS: Insulin LISPRO 300 Unit/3 mL Inj SUBQ SCH ×4 (08:00→22:00)
[2016-08-19] MEDS: Divalproex (QD) 500 mg ER24 Tablet PO SCH ×3 (08:30→21:12)
--- NOTE | 2016-08-19 10:14 | NUR ---
Dialysis 0930 pt taken over in bed to dialysis.
--- NOTE | 2016-08-19 11:39 | PCM.PNNEPH ---
Subjective Date of Service Aug 19, 2016 Subjective The patient about the same. He is still pending discharge to an apartment with assistance however the data that is unclear at this time. Exam Vital Signs Vital Sign - Last Date Time Temp Pulse Resp B/P Pulse Ox O2 Delivery O2 Flow Rate FiO2 08/19/16 08:00 Supplement Oxygen 08/19/16 05:29 36.8 64 17 173/85 98 Intake and Output 08/18/16 08/18/16 08/19/16 Cumulative From/Thru 15:00 23:00 07:00 07/29/16 09:08 - 08/19/16 05:29 Intake Total 200 ml 1160 ml 250 ml 33295 ml Output Total 200 ml 375 ml 600 ml 60202 ml Balance 0 ml 785 ml -350 ml -6219 ml Intake Oral 200 ml 1160 ml 250 ml 18534 ml IV Total 685 ml Output Urine Total 200 ml 375 ml 600 ml 52209 ml Stool Total 3 ml Ultrafiltrate 69897 ml # Voids 4 24 # Bowel Movements 4 3 27 Exam Neck is supple without adenopathy, thyromegaly, or jugular venous distention. Lungs are clear to auscultation. Heart is regular with mechanical soft systolic murmur. Abdomen is soft without any tenderness rebound guarding masses or hepatosplenomegaly. Extremities show any evidence of any clubbing, cyanosis, or edema. Lab and Diagnostics Result Diagram: 08/19/16 0555 08/19/16 0555 Microbiology Stool for C. difficile was negative and stool for the PCR panel was also negative MRSA screen was negative Plan Impression Impression #1 end-stage renal disease dialysis dependent number to diabetic nephropathy #3 hypertension with hypertensive heart disease and hypertensive nephrosclerosis Recommendations #1 patient is dialyzing 4 hours on a 2 potassium bath and a max dialyzer. He will be given 1500 heparin and 500 now take 2-3 L of fluid off. He is cleared for discharge whenever the primary team makes arrangements. Jean Crisostomo DO Aug 19, 2016 11:39
[2016-08-19 13:50] VITALS: BP 170/82; PULSE 62
--- NOTE | 2016-08-19 13:58 | NUR ---
Dialysis note 4 hr HD tx. 3000ml net UF removed. See DTR for complete vitals details. QB 400 thru R tunnelled catheter. Dsg changed per protocol. Dwelled with 1000/1 U Heparin and secured. Report given to primary RN.
[2016-08-19] MEDS: Ergocalciferol (Vit D2) 50,000 Unit Capsule PO SCH (14:28)
[2016-08-19] MEDS: Pantoprazole 40 mg ER24 Tablet PO SCH (14:28)
--- NOTE | 2016-08-19 14:33 | NUR ---
Held rx/Dialysis Reglan held as am dose just given d/t just completed dialysis. Returned to room around 1415
--- NOTE | 2016-08-19 19:43 | NUR ---
Dialysis/DC planning Pt had dialysis today. 3 liters pulled off. Took long nap after dialysis. Pt looking forward for discharge tomorrow to his own appt. x- coming to meet with SW in morning and review all plans. No c/o pain. tolerated food and fluids.
[2016-08-19] MEDS: Insulin GLARgine 100 Unit/mL Syringe SUBQ SCH (21:11)
[2016-08-19 21:18] VITALS: BP 151/72; PULSE 69; RESP 16; O2SAT 94
--- NOTE | 2016-08-19 23:03 | PCM.PNMED ---
Subjective Date of Service Aug 19, 2016 Subjective The patient has no new complaints. He is looking forward to going to his new apartment tomorrow and have some independence. He states his sister will be taking care of him. He has no new complaints here in the hospital. He is resting comfortably in bed. Exam Vital Signs Vital Sign - Last Date Time Temp Pulse Resp B/P Pulse Ox O2 Delivery O2 Flow Rate FiO2 08/19/16 21:18 37.0 69 16 151/72 94 Room Air Intake and Output 08/18/16 08/18/16 08/19/16 Cumulative From/Thru 15:00 23:00 07:00 07/29/16 09:08 - 08/19/16 05:29 Intake Total 200 ml 1160 ml 250 ml 13827 ml Output Total 200 ml 375 ml 600 ml 28863 ml Balance 0 ml 785 ml -350 ml -6219 ml Intake Oral 200 ml 1160 ml 250 ml 17413 ml IV Total 685 ml Output Urine Total 200 ml 375 ml 600 ml 54594 ml Stool Total 3 ml Ultrafiltrate 86992 ml # Voids 4 24 # Bowel Movements 4 3 27 Exam General: Patient is lying supine in bed. He is quite comfortable and has no complaints. HEENT: Head is atraumatic and normocephalic. Eyes: Pupils are equally round and reactive to light and accommodation. Extraocular muscles are intact. Sclera are white, anicteric. Subconjunctival mucosa is pink. Ears and nose are unremarkable. Oropharynx: There is no mucosal lesions, there is no thrush, there is no pharyngitis. Neck: Is supple, there are no nodes, or masses or tenderness. Chest: Is clear to auscultation and percussion. There are no rales, rhonchi, wheezes or rubs. There is a hemodialysis catheter in the right subclavian area and the site is unremarkable. There is no evidence of cellulitis or erythema. Heart: Rate, rhythm is regular. There is no murmur, rub or gallop. Abdomen: Good bowel sounds are present. Abdomen is soft, nontender, no organomegaly or masses were appreciated. Extremities: Are symmetrical and well perfused. There is no edema, there is no cellulitis, no rash. Neurologic: There are no focal neurological deficits. Cranial nerves II through XII are intact. There are no sensory or motor deficits. Psychiatric: Patients mood is calm and shows no sign of agitation. Genital: Deferred Rectal: Deferred Lab and Diagnostics Result Diagram: 08/19/1655408/19/16554 Microbiology Stool for C. difficile was negative and stool for the PCR panel was also negative MRSA screen was negative Assessment & Plan The patient is a 50-year-old male with past medical history of end-stage renal disease on hemodialysis, insulin-dependent diabetes complicated by retinopathy, neuropathy, nephropathy and gastroparesis, hypertension, presented from dialysis unit due to severe nausea, abdominal pain and headache. # Chronic hypertension present on admission, active and poorly controlled, now better controlled on 6 different blood pressure medications. -We will continue patient's amlodipine, hydralazine, labetalol, spironolactone, minoxidil and losartan as per nephrology. -We appreciate nephrology input # Acute mild diabetic ketoacidosis present on admission, resolved. -positive ketones on admission, BS > 600 -treated with insulin regimen as noted below # Acute hyperkalemia. not present on admission. resolved with hemodialysis - Continue close monitoring and followup # End-stage chronic renal disease, on hemo-dialysis, present on admission, stable. -appreciate nephrology consult. will f/u w/ recs -dialysis per nephrology team # Chronic anemia of chronic disease. Present on admission, stable. -We will continue to monitor. -Patient received Aranesp # Type 2 diabetes, insulin using, with complications of bilateral diabetic retinopathy, neuropathy and nephropathy present on admission, active. - continue 10 of Lantus at bedtime -Continue 2-4 units of nutritional insulin and a low-dose correction scale. 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 Active. -The patient's situation at home is deteriorating and it is possibly he may not have caregivers to return to there or may not be able to return. -Manager Delivery has been consulted. -Psychiatric consult completed and appreciated --We will continue with the patient's Depakote and fluoxetine at this time. --Depakote level /12 still subtherapeutic at 36 - We will recheck Depakote level in am # Chronic gastroesophageal reflux disease, present on admission, chronic. -We will continue Protonix. # Gastroparesis, chronic, present on admission, stable. -We will continue Reglan. # Hyperlipidemia, present on admission, stable. -We will continue atorvastatin. Dispo: This is pending placement. of note d/c on 08/02/16 was cancelled due to patient's family refusing to take patient home. oil well services dispatcher is working on other arrangements and it appears that the patient's ex- will be obtained to take care of him through the ben program in an apartment is being set up for a potential discharge date of 08/20/2016. Pain Evaluation: Adequate Pain Control GI Prophylaxis: Proton Pump Inhibitor VTE Mechanical Devices: Intermittant Pneumatic CD Resuscitation Status: CPR: Attempt Resuscitation BurdineCaleb MD Aug 19, 2016 23:03
--- NOTE | 2016-08-20 05:32 | NUR ---
Shift Note Assumed pt care at 1900, pt a/o able to make needs known, pt BG at 2200 at 201, pt refused Lispro coverage,pt also refused midnight vitals check, call light in reach,qhrly checks done.
[2016-08-20 06:01] VITALS: BP 152/81; PULSE 63; RESP 16; O2SAT 96
[2016-08-20] MEDS: Insulin LISPRO 300 Unit/3 mL Inj SUBQ SCH ×2 (08:00→12:00)
[2016-08-20 08:20] VITALS: BP 164/81; PULSE 60; RESP 18; O2SAT 95
[2016-08-20] MEDS: Divalproex (QD) 500 mg ER24 Tablet PO SCH ×2 (08:20→14:50)
[2016-08-20] MEDS: Pantoprazole 40 mg ER24 Tablet PO SCH (08:21)
--- NOTE | 2016-08-20 10:23 | NUR ---
Family Family here for meeting. Left message for DC master planner and text paged .
--- NOTE | 2016-08-20 11:30 | NUR ---
Social Work: Discharge D: Pt discussed in am rounds with MD. Pt is medically stable for discharge. SUPERINTENDENT COMPRESSOR STATIONS met with pt's ex-, s/o and [facility] D[facility] SW to discuss discharge planning with the pt. Family expressed their concerns about pt's non-compliance with dialysis and managing his insulin/diabetes. Family stressed to the pt that he will be attending all of his appointments and that they will be driving. Pt states that his biggest concern is taking up his family's time specifically around transportation. Pt has [employer] available to him for use if needed. Family stresses that the pt's medical appointments are not a problem for them. Pt's family and laceworker spoke with pt about getting pt reestablished with [facility] for MH counseling. He is willing to return but would like to get his dialysis started first. Pt still not listed with active insurance; pt's ex- is assisting the pt with completing his DS application. A: Pt who lives with family and relies on them for transportation P: Pt to discharge home with s/o and ex- and to complete dialysis Severo Nguyen F. Christine Halterman, MSW
--- NOTE | 2016-08-20 12:05 | PCM.DIMED ---
Discharge Instructions Date of Service Aug 20, 2016 Dates of Hospitalization Jul 29, 2016 at 13:05 Discharge Diagnosis Discharge Diagnosis 1. Acute mild diabetic ketoacidosis present on admission, resolved. 2. Chronic hypertension present on admission, stable. 3. End-stage chronic renal disease, on dialysis, present on admission, stable. 4. Chronic anemia of chronic disease. Present on admission, stable. 5. Type 2 diabetes, insulin using, with complications of bilateral diabetic retinopathy, neuropathy and nephropathy present on admission, active. 6. Acute on chronic bipolar disorder type 1, present on admission. improving. 7. Chronic gastroesophageal reflux disease, present on admission, chronic. 8. Gastroparesis, chronic, present on admission, stable. 9. Hyperlipidemia, present on admission, stable. Diet Diabetic Activity Limited until seen by PCP Call your provider Other (high or low blood sugars) Patient Instructions INSULIN PROGRAM FOR HOME; Basal Insulin; -Lantus 7 unit at bed time Nutritional Insulin; -Humalog 2 units before breakfast -Humalog 3 units before lunch -Humalog 3 units before dinner Correctional Insulin; -Humalog insulin, per insulin scale provided. Add the nutritional and correctional insulin together before each meal. See your doctor very soon and take in the blood sugar values so they can adjust you insulin. Follow-up Provider: Charity Monson PA-C Follow-up with PCP in: 1 week Follow-up in: 1 week (Patient to follow up for Hemodialysis in am) Caleb Mcmillan MD Aug 20, 2016 12:05
--- NOTE | 2016-08-20 15:20 | NUR ---
NUTRITION FOLLOW-UP: ASSESS: 47 YO male admitted for acute mild DKA. Pt is currently waiting for placement. Appetite remains excellent. PMHx: DM type 2, HTN, Chronic kidney disease on Dialysis, Bipolar type 1, GERD, Gastroparesis, hyperlipidemia, umbilical hernia repair, R leg ORIF, schizoaffective disorder. LABS: Reviewed. Alb 2.9, Cr 4.13,K+5.7 MEDS: Reviewed. GI: BM x 1 (08/19) CURRENT WT: 82.4kg. Admit wt: 74.3 kg. DIET: Heart Healthy, Diabetic. Nepro at lunch. PO 100% of meals. EST. NEEDS: 7500-0508 kcals (30-35 kcals/kg BW), 90-110 g protein (1.2-1.5 g/kg BW) DIAGNOSIS: 1.) Increased nutrient needs related to increased demand for nutrients for disease state as evidenced by chronic kidney disease on chronic dialysis--PERSISTS. INTERVENTION: 1.) Continue current diet and supplement at this time. MONITOR / EVAL: PO intake, labs, nutrition status. Follow per low nutrition risk guidelines.
--- NOTE | 2016-08-20 16:01 | NUR ---
Discharge 1520 Reviewed DC instructions with patient and x-'s . frequently interrupted by patient, who was eager to go. hard scripts for insulin in DC folder. Pt taken down to private auto to home with family.
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
[2016-10-02] MEDS ORDERED: ASPI-973 PO (17:18)
[2016-10-02] MEDS ORDERED: MEGE400O PO (17:18)
[2016-10-02] MEDS ORDERED: LABE200T PO (17:18)
[2016-10-02] MEDS ORDERED: vitamin d2 (17:18)
[2016-10-02] MEDS ORDERED: DEP500A PO (17:18)
[2016-10-02] MEDS ORDERED: AMLO5TAB2 PO (17:18)
[2016-10-02] MEDS ORDERED: CITA20TA11 PO (17:18)
== END 2016-08-20 15:20 | disposition home or self-care (01) | DRG 637 ==
LOC: SED 09:05 → MPC 13:05 → MOC 08-14 01:18
PROVIDERS: ADMIT Hospitalist; ATTEND Hospitalist
PROC: 4A033R1 Measurement of Arterial Saturation, Peripheral, Percutaneous Approach (ICD-10-PCS; principal; 2016-07-29)
PROC: 5A1D00Z (ICD-10-PCS; 2016-07-29)
PROC: 5A1D00Z (ICD-10-PCS; 2016-07-31)
PROC: 5A1D00Z (ICD-10-PCS; 2016-08-03)
PROC: 5A1D00Z (ICD-10-PCS; 2016-08-05)
PROC: 5A1D00Z (ICD-10-PCS; 2016-08-07)
PROC: 5A1D00Z (ICD-10-PCS; 2016-08-10)
PROC: 5A1D00Z (ICD-10-PCS; 2016-08-12)
PROC: 5A1D00Z (ICD-10-PCS; 2016-08-13)
PROC: 5A1D00Z (ICD-10-PCS; 2016-08-14)
PROC: 5A1D00Z (ICD-10-PCS; 2016-08-17)
PROC: 5A1D00Z (ICD-10-PCS; 2016-08-19)
DX: E13.10 Other specified diabetes mellitus with ketoacidosis without coma (principal); N18.6 End stage renal disease; I12.0 Hypertensive chronic kidney disease with stage 5 chronic kidney disease or end stage renal disease; E11.22 Type 2 diabetes mellitus with diabetic chronic kidney disease; E11.21 Type 2 diabetes mellitus with diabetic nephropathy; E11.319 Type 2 diabetes mellitus with unspecified diabetic retinopathy without macular edema; E11.40 Type 2 diabetes mellitus with diabetic neuropathy, unspecified; Z99.2 Dependence on renal dialysis; Z87.891 Personal history of nicotine dependence; Z79.4 Long term (current) use of insulin; F31.9 Bipolar disorder, unspecified; H54.11 Blindness, right eye, low vision left eye; D63.1 Anemia in chronic kidney disease; K21.9 Gastro-esophageal reflux disease without esophagitis; K31.84 Gastroparesis; Z91.19 Patient's noncompliance with other medical treatment and regimen; E87.5 Hyperkalemia; E11.649 Type 2 diabetes mellitus with hypoglycemia without coma

== ENCOUNTER 2016-10-06 09:25 | Day surgery (SDC) | payer MEDICARE, MEDICAID ==
[~2016-10-06] VITALS: Ht 170.2 cm; Wt 73.5 kg
[2016-10-06] MEDS: 0.9% Sodium Chloride 500 ML IV SCH ×2 (05:39→13:05)
[~2016-10-06 09:25] MED LIST changes: -AMLO10TA3 PO; +AMLO5TAB2 PO; +ASPI-973 PO; +CITA20TA11 PO; -CLOP75TA28 PO; +CeFAZolin 2 Gm/50 mL D5W IV Premix IV ONE; +DEP500A PO; -FLUO20TA28 PO; -HYDR-3939 PO; +INSU100I13 SUBQ; -INSU100V7 SUBQ; -LOM PO; +MEGE400O PO; -MTC5T PO; -PANT40TA2 PO; -POTA20TA16 PO; -RANI300T4 PO; -SEVE800T7 PO; -SODI15OR8 PO; -SPIR25TA PO; -TORS20TA PO; +vitamin d2
[2016-10-06] MEDS ORDERED: Propofol 10,000 mCg/mL 20 mL Inj ONE (09:26)
[2016-10-06] MEDS ORDERED: fentaNYL-PF 50 mCg/mL 2 mL Inj ONE (09:26)
[2016-10-06] MEDS ORDERED: Ketamine 10 mg/mL 20 mL Inj ONE (09:26)
[2016-10-06 10:00] VITALS: BP 185/93; PULSE 58; RESP 16; O2SAT 98
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
[2016-10-06] MEDS ORDERED: Bupivacaine-MPF 0.5% 30 mL Inj INFILTRATE ONE (13:32)
[2016-10-06] MEDS ORDERED: Heparin 5,000 Unit/mL Inj IR ONE (13:32)
[2016-10-06] MEDS ORDERED: Lidocaine PF 1% 30 mL Inj INFILTRATE ONE (13:32)
[2016-10-06] MEDS ORDERED: 0.9% Sodium Chloride 250 ML IV PRN (13:34)
[2016-10-06] MEDS ORDERED: Lactated Ringer's 1,000 ML IV SCH (13:34)
[2016-10-06] MEDS ORDERED: fentaNYL-PF 50 mCg/mL 2 mL Inj IVPUSH PRN (13:35)
[2016-10-06] MEDS ORDERED: Phenylephrine 10,000 mCg/mL Inj IVPUSH PRN (13:35)
[2016-10-06] MEDS ORDERED: EPHEDrine Sulfate 50 mg/mL Inj IVPUSH PRN (13:35)
[2016-10-06] MEDS ORDERED: Atropine 0.4 mg/mL Inj IVPUSH PRN (13:35)
[2016-10-06] MEDS ORDERED: MetoCLOpramide 5 mg/mL 2 mL Inj IVPUSH PRN (13:35)
[2016-10-06] MEDS ORDERED: Ondansetron 2 mg/mL 2 mL Inj IVPUSH PRN (13:35)
[2016-10-06] MEDS ORDERED: HYDROmorphone 1 mg/mL Inj IVPUSH PRN (13:35)
[2016-10-06] MEDS ORDERED: HYDROcodone-APAP 5-325 mg Tablet PO PRN (14:50)
[2016-10-06 14:57] VITALS: BP 132/70; PULSE 56; RESP 16; O2SAT 100
--- NOTE | 2016-10-06 15:02 | PCM.ANEP1 ---
Post Anesthesia PACU Phase 1 Assessment Date of Service: Oct 06, 2016 Vital Signs 36.9 132/70 52 16 100% fm Anesthetic Administered: GA Level of Alertness: Sleepy, easy to arouse JALLOH's with Equal Strength: Yes Pain: No Nausea or Vomiting: No CV Function & Hydration Stable: Yes Airway Device: Oxygen Delivery: Simple Mask Lungs: Clear to Auscultation, Normal Air Movement PACU Phase 2 Assessment Complications: No Follow up Care: No Patient Instructions Provided: Yes Fly Ramirez MD Oct 06, 2016 15:02
--- NOTE | 2016-10-06 15:47 | OP ---
[address] [id number] OPERATIVE REPORT PATIENT: SHANT MARTINEZ : 1965 MR#: [id number] ADMIT: 10/06/2016 JOB ID: [id number] DATE OF SURGERY: 10/06/2016 PREOPERATIVE DIAGNOSIS(ES): End-stage renal failure. POSTOPERATIVE DIAGNOSIS(ES): End-stage renal failure. PROCEDURE: Right brachiocephalic arteriovenous fistula. SURGEON: Rafael Key MD. FINISHED METAL REPAIRER: Erick Kebede PA-C. INDICATIONS: A 50-year-old insulin-dependent diabetic who developed end-stage renal failure requiring dialysis. After discussing options with him and after upper extremity duplex exam, it was elected to do a right brachiocephalic arteriovenous fistula. FINDINGS: At the conclusion of the procedure, he had an excellent thrill in his vein which was already distending and he had an easily palpable right radial pulse. PROCEDURE: At the beginning and end of the operation, the SCOAP checklist was completed. He received deep sedation, local anesthesia with 1% lidocaine, 0.25% bupivacaine. Using ChloraPrep, his right upper extremity was prepped and draped in the usual fashion. An antecubital incision was made. The vein was exposed distally beyond a branch point. They were ligated with 3-0 silk, divided, and the common wall between the two branches was opened and the vein was flushed with heparinized saline. The brachial artery was exposed, controlled proximally and distally with vessel loops. A posterior branch was controlled with a clip. The artery was opened longitudinally and flushed proximally and distally with heparinized saline. The anastomosis was then completed with running 6-0 Prolene. After completing the anastomosis, the artery was first backflushed into the vein followed by forward flushing into the vein and then forward flow to the hand. There was one bleeding point that was controlled with a 6-0 Prolene, and back and forward flushing was done again and then there was no bleeding from the anastomosis. There was an excellent thrill in the fistula and it was already expanding. Estimated blood loss less than 10 cc. No apparent complications. The final sponge, needle and instrument counts were announced as correct and he was returned to recovery room in stable condition. Critical assistance provided by Janes Kebede PA-C.
[2016-10-06 16:10] VITALS: BP 140/76; PULSE 58; RESP 16; O2SAT 98
== END 2016-10-06 23:59 | disposition home or self-care (01) ==
LOC: SAS 09:25
PROVIDERS: ATTEND Surgery
DX: E11.22 Type 2 diabetes mellitus with diabetic chronic kidney disease (principal); I12.0 Hypertensive chronic kidney disease with stage 5 chronic kidney disease or end stage renal disease; N18.6 End stage renal disease; H54.0 Blindness, both eyes; K21.9 Gastro-esophageal reflux disease without esophagitis; F31.89 Other bipolar disorder; Z99.2 Dependence on renal dialysis; Z79.4 Long term (current) use of insulin; Z87.891 Personal history of nicotine dependence; Z79.82 Long term (current) use of aspirin; Z86.73 Personal history of transient ischemic attack (TIA), and cerebral infarction without residual deficits
CPT/HCPCS: 36415; 36818; 84132; J0690; J1644; J7040